=== PATIENT | male | born 1940 | race Caucasian/White ===

== ENCOUNTER 2020-10-22 11:53 | Outpatient (CLI) | payer MEDICARE, SELFPAY ==
--- NOTE | 2020-10-22 12:12 | XR_ITS ---
WS: [id number] Chest 2 views, 10/22/2020 Clinical Data: COUGH Comparison: PA and lateral chest, 02/20/2016. Findings: No nodules, masses or effusions are seen. The heart is enlarged. The pulmonary vascularity is not increased. No pneumonia or pneumothorax is seen. Midline sternotomy sutures are present. The d iaphragms are flattened. The aortic arch and descending aorta show tortuosity. XR/XR chest 2V* [id number] Impression: Atherosclerosis and cardiomegaly.
== END 2020-10-22 11:54 | disposition home or self-care (01) ==
PROVIDERS: PCP Family Medicine; Visit Provider Family Medicine
DX: R05 Cough (principal); I70.90 Unspecified atherosclerosis; I51.7 Cardiomegaly
CPT/HCPCS: 71046

== ENCOUNTER 2020-12-09 10:42 | Inpatient (IN) | payer MEDICARE, MEDICAID, SELFPAY ==
[2020-12-09] VITALS (48 sets, daily range): BP systolic 52–98; BP diastolic 31–64; PULSE 66–89; RESP 12–27; TEMP 36.8–36.9; O2SAT 92–100; BMI 40.4
--- NOTE | 2020-12-09 11:19 | CT_ITS ---
WS: [id number] CT CERVICAL SPINE HISTORY: fall, neck pain TECHNIQUE: Contiguous 2.5 mm axial imaging performed through the entire cervical spine. Sagittal and coronal reformats also performed. All CT scans at [facility] use at least one of these do se optimization techniques: automated exposure control; mA and/or kV adjustment per patient size (inc ludes targeted exams where dose is matched to clinical indication); or iterative reconstruction. DLP: 955.74 mGy.cm COMPARISON: None available. Straightening of the normal cervical lordosis. C4 anterolisthesis by 4 mm. Moderate narrowing of disc space of C5-6 and C6-7. Osteophytes and facet joint narrowing is mild to moderate throughout the cer vical spine. Craniocervical junction is normal. Lateral masses are aligned and the odontoid is intact . No cervical spine fractures. Bilateral facet joint arthritis and foraminal narrowing. Moderate to s evere bilateral foraminal stenosis at C5-6. Mild foraminal narrowing at C6-7. No acute-appearing disc protrusions. Lung apices are clear. Calcification in the LEFT carotid artery. CT/CT cervical spin wo con* [id number] IMPRESSION: 1. No acute cervical spine fracture. 2. Moderate spondylitic changes in the cervical spine. 3. No acute disc protrusions. 4. Moderate to severe bilateral foraminal stenosis at C5-6.
--- NOTE | 2020-12-09 11:19 | CT_ITS ---
WS: [id number] CT CHEST, ABDOMEN AND PELVIS WITH CONTRAST HISTORY: fall, chest pain, abd pain, bruising TECHNIQUE: Contiguous 5 mm axial imaging performed through the chest, abdomen and pelvis with IV cont rast, oral contrast has not been provided. Coronal and sagittal reformats chest. Coronal and sagittal reformats through the abdomen and pelvis. All CT scans at [facility] use at least one of these dose optimization techniques: automated exposure control; mA and/or kV adjustment per patient size (includes targeted exams where dose is matched to clinical indication); or iterative reconstruct ion. CONTRAST: Visipaque 320; 95 mL IV. DLP: 2396.03 mGy.cm COMPARISON: None available. Chest CT: Focal areas of interstitial thickening. Most significant is along the superior RIGHT major fissure extending into the RIGHT upper lobe. No pneumothorax. No pulmonary lacerations. Subsegmental atelectasis in the lingula and RIGHT middle lobe. Prior median sternotomy. No pericardial or pleural effusion. Small hiatal hernia. No adenopathy. Mild atherosclerosis of aorta. No mediastinal hematoma. There is a small amount of fat stranding over the anterior thorax which could be posttraumatic. Nond isplaced RIGHT lateral 11th rib fracture. Additional remote appearing posterior 10th rib fracture. No thoracic compression fractures. Soft tissue edema and stranding along the RIGHT lateral chest wall. Abdomen CT: No liver or splenic laceration. No adjacent hematoma. Gallbladder and pancreas are negati ve. No adrenal mass. Mild perinephric stranding around each kidney. No free fluid or adenopathy withi n the abdomen. Negative obstructive pattern of the GI tract. Severe diverticular disease in the sigmo id colon without acute diverticulitis. Normal appendix. Pelvic CT: No free fluid. No spine fracture identified. CT/CT chest abd pel w con* IMPRESSION: 1. No pulmonary laceration or pneumothorax. 2. Soft tissue stranding consistent with bruising and edema along the anterior chest wall and over the RIGHT lateral chest. 3. Nondisplaced RIGHT 11th rib fracture. 4. No mesenteric hematoma. 5. Liver and spleen are intact. 6. Sigmoid diverticulosis without diverticulitis. 7. No acute spine fractures appreciated. 8. Possible minimal pulmonary contusion in the RIGHT upper lung field along th e fissure.
--- NOTE | 2020-12-09 11:19 | CT_ITS ---
WS: [id number] CT HEAD NONCONTRAST HISTORY: AMS following a fall TECHNIQUE: Contiguous axial imaging performed through the brain in 2.5 mm imaging. Bone and soft tiss ue windows. Sagittal and coronal reformats reviewed. All CT scans at [facility] use at ast one of these dose optimization techniques: automated exposure control; mA and/or kV adjustment pe r patient size (includes targeted exams where dose is matched to clinical indication); or iterative r econstruction. DLP: 876.54 mGy.cm COMPARISON: 06/14/2013 No acute intracranial hemorrhage, midline shift or mass effect. Mild atrophy and chronic ischemic disease. No prior infarcts. Ventricles: Normal size with no hydrocephalus. Paranasal sinuses: As visualized are clear. Mastoid air cells: Well pneumatized. Calvarium and scalp: Skull is intact with no soft tissue edema or swelling. CT/CT head wo con* [id number] IMPRESSION: 1. No acute intracranial hemorrhage or edema. 2. Mild cerebral atrophy and chronic ischemic disease.
--- NOTE | 2020-12-09 11:57 | ECG_ITS ---
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
[2020-12-09] MEDS: sodium chloride 0.9% 500 ML 999 ML IV ×2 (12:00→20:09)
[2020-12-09 12:11] LABS: INR 0.94 (0.8-1.2)
[2020-12-09 12:25] LABS: Alanine Aminotransferase 22 U/L (0-41); Albumin Level 3.7 g/dL (3.5-5.2); Alkaline Phosphatase 66 IU/L (40-130); Aspartate Amino Transferase 50 U/L (0-40); Basophils % 0.1 %; Blood Urea Nitrogen 39 mg/dL (8-23); Calcium 8.4 mg/dL (8.5-10.5); Carbon Dioxide 31 mmol/L (22-29); Chloride 90 mmol/L (98-107); Eosinophils % 0.2 %; Globulin 2.1 g/dL (1.3-4.6); Glucose 101 mg/dL (65-115); Hemoglobin 11.9 g/dL (11.7-16.6); Lymphocytes # 0.9 10^3/uL (0.8-4.8); Mean Corpuscular HGB Conc 32.2 g/dL (30.0-36.0); Mean Corpuscular Hemoglobin 32.5 pg (28.0-34.0); Mean Corpuscular Volume 101.1 fL (80-94); Monocytes # 0.8 10^3/uL (0.2-0.9); Monocytes % 10.1 %; Neutrophils % 78.2 %; Nucleated Red Blood Cells % 0 %; Osmolality Calculated 274 mOsm/kg (285-295); Platelet Count 162 10^3/cmm (130-400); Red Blood Count 3.66 10^6/uL (4.1-5.3); Red Cell Distribution Width 12.8 % (12.1-15.1); Sodium 127 mmol/L (136-145); Total Bilirubin 0.8 mg/dL (0.15-1.2); Total Protein 5.8 g/dL (6.6-8.7); White Blood Count 8.3 10^3/uL (4.0-10.0)
[2020-12-09 12:26] LABS: Lactate (Lactic Acid level) 1.6 mmol/L (0.5-2.2)
[2020-12-09 12:35] LABS: Creatine Phosphokinase 1172 U/L (39-308)
[2020-12-09 12:43] LABS: Slide Review Slide Review Perform
[2020-12-09] MEDS: iodixanol 320 mg/mL 100mL Btl IV (13:06)
--- NOTE | 2020-12-09 13:58 | ED_ITS ---
HPI - Trauma General: Chief Complaint: Trauma Stated Complaint: fall/low O2/back pain/head injury/Rt side Time Seen by Provider: 12/09/20 11:36 Source: patient Mode of arrival: ambulatory Limitations: no limitations History of Present Illness: HPI narrative: This ia a 80 year old male who lives at home alone and apparently had a fall 4 days ago from his porch and landed on a steph path. He apparently had a downtime of 16 to 18 hours before he was found by his family members. The patient initially refused to come to the emergency department for evaluation but eventually agreed to do so today. He complains of chest pain, right upper abdominal pain, and back pain. His family members say that he is very weak and he had difficulty getting him out of bed. complaint: fall Onset (ago): day(s) (4) Loss of Consciousness: no Location: head, chest and abdomen Context: fall Associated symptoms: Reports abdominal pain, back pain, chest pain and visual disturbances; Denies anorexia, chills, confusion, cough, dental pain, diaphoresis, difficulty breathing, dizziness, epistaxis, fever(s), headache(s), nausea, seizures, short of breath, syncope or vomiting Review of Systems General: Reports: 10 or more systems reviewed and unremarkable except in HPI and below Const: Denies: fever(s), chills or diaphoresis Eyes: Denies: change in vision or blurry vision ENMT: Denies: dental pain or epistaxis Card: Reports: chest pain; Denies: syncope Resp: Denies: dyspnea, productive cough or non-productive cough GI: Reports: abdominal pain; Denies: nausea or vomiting : Denies: flank pain, dysuria, urinary frequency, urinary urgency or urinary hesitancy Musc: Reports: back pain Skin/Breast: Denies: rash, pruritus or erythema Neuro: Denies: headache(s), dizziness or confusion Endo: Denies: polyuria, polydipsia or tired all the time PFS ED PFSH: Medical History ASHD (arteriosclerotic heart disease) CHF (congestive heart failure) COPD (chronic obstructive pulmonary disease) Dyslipidemia HTN (hypertension) Hypothyroidism Ischemic cardiomyopathy Myocardial infarction Obesity Surgical History Hx of CABG Family History Other CAD (coronary artery disease) Stroke Social History Smoking and tobacco status: former smoker Alcohol intake: current Alcohol intake frequency: few times a week Substance/Drug Use: never Lives independently: Yes Housing: House Marital status: 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 Physical Exam Const: COMMON NORMALS: no acute distress, average body habitus, patient oriented x3, no limitations, healthy appearing, alert and well nourished HENMT: COMMON NORMALS: normocephalic, atraumatic and moist oral mucous membranes HEAD & SCALP: normocephalic and atraumatic Neck/C-Spine: COMMON NORMALS: full ROM, supple, no meningeal signs, no JVD and No carotid bruits CERVICAL SPINE: Yes Cervical spine tenderness Chest: CHEST: Yes abnormal inspection of the chest other (ecchymosis across his chest), Yes tenderness (and chestt wall) sternum and Yes Ecchymosis present Resp: COMMON NORMALS: normal respiratory effort, No retractions, No use of accessory muscles, clear to auscultation bilaterally and percussion normal AUSCULTATION: clear to auscultation bilaterally PERCUSSION: percussion normal Cardio: COMMON NORMALS: no JVD, regular rate, regular rhythm, S1 normal heart sound present, S2 normal heart sound present, No gallops present (Cardio), No clicks present (Cardio), No murmurs present (Cardio), No rub (Cardio) and Peripheral pulses 2+ throughout RATE: regular rate RHYTHM: regular rhythm HEART SOUNDS: S1 normal heart sound present and S2 normal heart sound present PERIPHERAL PULSES: Peripheral pulses 2+ throughout GI: COMMON NORMALS: Soft to palpation, No hepatosplenomegaly present, no masses and no bruits INSPECTION: Yes abdominal wall ecchymosis (greater on the right) PALPATION: Yes Soft to palpation, Yes Tenderness to palpation present (GI) Details: RUQ and Yes No hepatosplenomegaly present : COMMON NORMALS: Yes no CVA tenderness BLADDER/KIDNEY EXAM: Yes no CVA tenderness Back/Pelvis: COMMON NORMALS: no CVA tenderness Extremity: COMMON NORMALS: normal to inspection, full ROM, capillary refill normal and no calf tenderness GENERAL: Yes edema Neuro: COMMON NORMALS: patient oriented x3 SENSORIUM/ORIENTATION: Yes alert MENINGEAL SIGNS: Yes no meningeal signs Skin: COMMON NORMALS: no rashes or lesions noted, no wounds, turgor normal, no jaundice, no petechiae and no mottling GENERAL SKIN EXAM: no rashes or lesions noted and turgor normal MDM - Trauma MDM Narrative: Medical decision making narrative: This is a 80-year-old male who had a fall for about 4 days ago and has extensive downtime. On evaluation in the emergency department he has rhabdomyolysis with acute kidney injury, hyponatremia, hypotension, right 11th rib fracture and possible pulmonary contusion. He is admitted to the ICU for further evaluation and management. Other than hypertension his vital signs were stable in the emergency department. He was alert and oriented throughout his ED stay and not in any distress. Medical Records: Attestation: I reviewed the patient's medical records. Lab Data: Attestation: I reviewed the patient's lab results. Labs: Lab Results 12/09/20 12/09/20 12/09/20 Range/Units 11:38 11:38 11:38 WBC 8.3 (4.0-10.0) 10^3/ uL RBC 3.66 L (4.1-5.3) 10^6/u L Hgb 11.9 (11.7-16.6) g/dL Hct 37.0 L (42.0-52.0) % MCV 101.1 H (80-94) fL MCH 32.5 (28.0-34.0) pg MCHC 32.2 (30.0-36.0) g/dL RDW 12.8 (12.1-15.1) % Plt Count 162 (130-400) 10^3/c mm MPV 12.0 H (7.4-10.4) fL Neut % (Auto) 78.2 % Lymph % (Auto) 11.0 % [place] % (Auto) 10.1 % Eos % (Auto) 0.2 % Baso % (Auto) 0.1 % Neut # (Auto) 6.50 (1.8-7.7) 10^3/u L Lymph # (Auto) 0.9 (0.8-4.8) 10^3/u L [place] # (Auto) 0.8 (0.2-0.9) 10^3/u L Eos # (Auto) 0.0 (0.0-0.8) 10^3/u L Baso # (Auto) 0.0 (0.0-0.1) 10^3/u L Nucleated RBC % (a uto) 0 % Nucleated RBCs # 0.0 /100WBC PT 12.90 (12.1-14.9) SECO NDS INR 0.94 (0.8-1.2) Sodium 127 L (136-145) mmol/L Potassium 5.0 (3.5-5.1) mmol/L Chloride 90 L (98-107) mmol/L Carbon Dioxide 31 H (22-29) mmol/L Anion Gap 11.0 (5-19) BUN 39 H (8-23) mg/dL Creatinine 1.9 H (0.7-1.2) mg/dL GFR Calculation Not Reportable Glucose 101 (65-115) mg/dL Calculated Osmolal ity 274 L (285-295) mOsm/k g Lactate (0.5-2.2) mmol/L Calcium 8.4 L (8.5-10.5) mg/dL Total Bilirubin 0.8 (0.15-1.2) mg/dL AST 50 H (0-40) U/L ALT 22 (0-41) U/L Alkaline Phosphata se 66 (40-130) IU/L Creatine Kinase 1172 H* (39-308) U/L Troponin T Gen 5 n g/L (0-15) ng/L Total Protein 5.8 L (6.6-8.7) g/dL Albumin 3.7 (3.5-5.2) g/dL Globulin 2.1 (1.3-4.6) g/dL Urine Color (Yellow) Urine Appearance (CLEAR) Urine pH (5-7) Ur Specific Gravit y (1.005-1.030) Urine Protein (Negative) Urine Glucose (UA) (Normal) Urine Ketones (Negative) Urine Blood (Negative) Urine Nitrate (Negative) Urine Bilirubin (Negative) Urine Urobilinogen (Negative) mg/dL Ur Leukocyte Yaritza ase (Negative) Blood Type Rho(D) Type Antibody Screen 12/09/20 12/09/20 12/09/20 Range/Units 11:38 11:38 11:38 WBC (4.0-10.0) 10^3/ uL RBC (4.1-5.3) 10^6/u L Hgb (11.7-16.6) g/dL Hct (42.0-52.0) % MCV (80-94) fL MCH (28.0-34.0) pg MCHC (30.0-36.0) g/dL RDW (12.1-15.1) % Plt Count (130-400) 10^3/c mm MPV (7.4-10.4) fL Neut % (Auto) % Lymph % (Auto) % [place] % (Auto) % Eos % (Auto) % Baso % (Auto) % Neut # (Auto) (1.8-7.7) 10^3/u L Lymph # (Auto) (0.8-4.8) 10^3/u L [place] # (Auto) (0.2-0.9) 10^3/u L Eos # (Auto) (0.0-0.8) 10^3/u L Baso # (Auto) (0.0-0.1) 10^3/u L Nucleated RBC % (a uto) % Nucleated RBCs # /100WBC PT (12.1-14.9) SECO NDS INR (0.8-1.2) Sodium (136-145) mmol/L Potassium (3.5-5.1) mmol/L Chloride (98-107) mmol/L Carbon Dioxide (22-29) mmol/L Anion Gap (5-19) BUN (8-23) mg/dL Creatinine (0.7-1.2) mg/dL GFR Calculation Glucose (65-115) mg/dL Calculated Osmolal ity (285-295) mOsm/k g Lactate 1.6 (0.5-2.2) mmol/L Calcium (8.5-10.5) mg/dL Total Bilirubin (0.15-1.2) mg/dL AST (0-40) U/L ALT (0-41) U/L Alkaline Phosphata se (40-130) IU/L Creatine Kinase (39-308) U/L Troponin T Gen 5 n g/L 52 H (0-15) ng/L Total Protein (6.6-8.7) g/dL Albumin (3.5-5.2) g/dL Globulin (1.3-4.6) g/dL Urine Color (Yellow) Urine Appearance (CLEAR) Urine pH (5-7) Ur Specific Gravit y (1.005-1.030) Urine Protein (Negative) Urine Glucose (UA) (Normal) Urine Ketones (Negative) Urine Blood (Negative) Urine Nitrate (Negative) Urine Bilirubin (Negative) Urine Urobilinogen (Negative) mg/dL Ur Leukocyte Yaritza ase (Negative) Blood Type A Positive Rho(D) Type Positive Antibody Screen Positive 12/09/20 Range/Units 14:05 WBC (4.0-10.0) 10^3/ uL RBC (4.1-5.3) 10^6/u L Hgb (11.7-16.6) g/dL Hct (42.0-52.0) % MCV (80-94) fL MCH (28.0-34.0) pg MCHC (30.0-36.0) g/dL RDW (12.1-15.1) % Plt Count (130-400) 10^3/c mm MPV (7.4-10.4) fL Neut % (Auto) % Lymph % (Auto) % [place] % (Auto) % Eos % (Auto) % Baso % (Auto) % Neut # (Auto) (1.8-7.7) 10^3/u L Lymph # (Auto) (0.8-4.8) 10^3/u L [place] # (Auto) (0.2-0.9) 10^3/u L Eos # (Auto) (0.0-0.8) 10^3/u L Baso # (Auto) (0.0-0.1) 10^3/u L Nucleated RBC % (a uto) % Nucleated RBCs # /100WBC PT (12.1-14.9) SECO NDS INR (0.8-1.2) Sodium (136-145) mmol/L Potassium (3.5-5.1) mmol/L Chloride (98-107) mmol/L Carbon Dioxide (22-29) mmol/L Anion Gap (5-19) BUN (8-23) mg/dL Creatinine (0.7-1.2) mg/dL GFR Calculation Glucose (65-115) mg/dL Calculated Osmolal ity (285-295) mOsm/k g Lactate (0.5-2.2) mmol/L Calcium (8.5-10.5) mg/dL Total Bilirubin (0.15-1.2) mg/dL AST (0-40) U/L ALT (0-41) U/L Alkaline Phosphata se (40-130) IU/L Creatine Kinase (39-308) U/L Troponin T Gen 5 n g/L (0-15) ng/L Total Protein (6.6-8.7) g/dL Albumin (3.5-5.2) g/dL Globulin (1.3-4.6) g/dL Urine Color Yellow (Yellow) Urine Appearance Clear (CLEAR) Urine pH 5 (5-7) Ur Specific Gravit y 1.020 (1.005-1.030) Urine Protein Neg (Negative) Urine Glucose (UA) Norm (Normal) Urine Ketones Negative (Negative) Urine Blood Neg (Negative) Urine Nitrate Negative (Negative) Urine Bilirubin 1+ H (Negative) Urine Urobilinogen 4 H (Negative) mg/dL Ur Leukocyte Yaritza ase Negative (Negative) Blood Type Rho(D) Type Antibody Screen Imaging Data^: Other CT: Attestation: I personally reviewed and interpreted this imaging study as follows: Radiologist's impression: [address] [address] [address] Scan Report Signed Patient: Migel Watt #: [id number] : 3Acct#:[id number] Age/Sex: 80 / MADM Date: 12/09/20 Loc: ERRoom/Bed: Attending Dr: Ordering Provider/Ordering MD: Salvador Mario MD, [facility] [place] Date of Service: 12/09/20 Procedure(s): CT cervical spin wo con* [id number] Accession Number(s): [id number] Report Number: [id number] WS: [id number] CT CERVICAL SPINE HISTORY: fall, neck pain TECHNIQUE: Contiguous 2.5 mm axial imaging performed through the entire cervical spine. Sagittal and coronal reformats also performed. All CT scans at [facility] use at least one of these dose optimization techniques: automated exposure control; mA and/or kV adjustment per patient size (includes targeted exams where dose is matched to clinical indication); or iterative reconstruction. DLP: 955.74 mGy.cm COMPARISON: None available. Straightening of the normal cervical lordosis. C4 anterolisthesis by 4 mm. Moderate narrowing of disc space of C5-6 and C6-7. Osteophytes and facet joint narrowing is mild to moderate throughout the cervical spine. Craniocervical junction is normal. Lateral masses are aligned and the odontoid is intact. No cervical spine fractures. Bilateral facet joint arthritis and foraminal narrowing. Moderate to severe bilateral foraminal stenosis at C5-6. Mild forami nal narrowing at C6-7. No acute-appearing disc protrusions. Lung apices are clear. Calcification in the LEFT carotid artery. CT/CT cervical spin wo con* [id number] IMPRESSION: 1. No acute cervical spine fracture. 2. Moderate spondylitic changes in the cervical spine. 3. No acute disc protrusions. 4. Moderate to severe bilateral foraminal stenosis at C5-6. Dictated By:Nisha Biswas DO Signed By:Nisha Biswas DOSigned Date/Time:12/09/20 1348 DD/ 1344 CT Chest: Attestation: I personally reviewed and interpreted this imaging study as follows: Radiologist's impression: [address] [address] [address] Scan Report Signed Patient: Migel Watt #: [id number] : 3Acct#:[id number] Age/Sex: 80 / MADM Date: 12/09/20 Loc: ERRoom/Bed: Attending Dr: Ordering Provider/Ordering MD: Salvador Mario MD, [facility] [place] Date of Service: 12/09/20 Procedure(s): CT chest abd pel w con* Accession Number(s): [id number] Report Number: [id number] WS: [id number] CT CHEST, ABDOMEN AND PELVIS WITH CONTRAST HISTORY: fall, chest pain, abd pain, bruising TECHNIQUE: Contiguous 5 mm axial imaging performed through the chest, abdomen and pelvis with IV contrast, oral contrast has not been provided. Coronal and sagittal reformats chest. Coronal and sagittal reformats through the abdomen and pelvis. All CT scans at [facility] use at least one of these dose optimization techniques: automated exposure control; mA and/or kV adjustment per patient size (includes targeted exams where dose is matched to clinical indication); or iterative reconstruction. CONTRAST: Visipaque 320; 95 mL IV. DLP: 2396.03 mGy.cm COMPARISON: None available. Chest CT: Focal areas of interstitial thickening. Most significant is along the superior RIGHT major fissure extending into the RIGHT upper lobe. No pneumothorax. No pulmonary lacerations. Subsegmental atelectasis in the lingula and RIGHT middle lobe. Prior median sternotomy. No pericardial or pleural effusion. Small hiatal hernia. No adenopathy. Mild atherosclerosis of aorta. No mediastinal hematoma. There is a small amount of fat stranding over the anterior thorax which could be posttraumatic. Nondisplaced RIGHT lateral 11th rib fracture. Additional remote appearing posterior 10th rib fracture. No thoracic compression fractures. Soft tissue edema and stranding along the RIGHT lateral chest wall. Abdomen CT: No liver or splenic laceration. No adjacent hematoma. Gallbladder and pancreas are negative. No adrenal mass. Mild perinephric stranding around each kidney. No free fluid or adenopathy within the abdomen. Negative obstructive pattern of the GI tract. Severe diverticular disease in the sigmoid colon without acute diverticulitis. Normal appendix. Pelvic CT: No free fluid. No spine fracture identified. CT/CT chest abd pel w con* IMPRESSION: 1. No pulmonary laceration or pneumothorax. 2. Soft tissue stranding consistent with bruising and edema along the anterior chest wall and over the RIGHT lateral chest. 3. Nondisplaced RIGHT 11th rib fracture. 4. No mesenteric hematoma. 5. Liver and spleen are intact. 6. Sigmoid diverticulosis without diverticulitis. 7. No acute spine fractures appreciated. 8. Possible minimal pulmonary contusion in the RIGHT upper lung field along the fissure. Dictated By:Nisha Biswas DO Signed By:Nisha Biswas DOSigned Date/Time:12/09/20 1412 DD/ 1348 CT Head: Attestation: I personally reviewed and interpreted this imaging study as follows: Radiologist's impression: [address] [address] [address] Scan Report Signed Patient: Migel Watt #: [id number] : 3Acct#:[id number] Age/Sex: 80 / MADM Date: 12/09/20 Loc: ERRoom/Bed: Attending Dr: Ordering Provider/Ordering MD: Salvador Mario MD, [facility] [place] Date of Service: 12/09/20 Procedure(s): CT head wo con* [id number] Accession Number(s): [id number] Report Number: [id number] WS: [id number] CT HEAD NONCONTRAST HISTORY: AMS following a fall TECHNIQUE: Contiguous axial imaging performed through the brain in 2.5 mm imaging. Bone and soft tissue windows. Sagittal and coronal reformats reviewed. All CT scans at [facility] use at least one of these dose optimization techniques: automated exposure control; mA and/or kV adjustment per patient size (includes targeted exams where dose is matched to clinical indication); or iterative reconstruction. DLP: 876.54 mGy.cm COMPARISON: 06/14/2013 No acute intracranial hemorrhage, midline shift or mass effect. Mild atrophy and chronic ischemic disease. No prior infarcts. Ventricles: Normal size with no hydrocephalus. Paranasal sinuses: As visualized are clear. Mastoid air cells: Well pneumatized. Calvarium and scalp: Skull is intact with no soft tissue edema or swelling. CT/CT head wo con* [id number] IMPRESSION: 1. No acute intracranial hemorrhage or edema. 2. Mild cerebral atrophy and chronic ischemic disease. Dictated By:Nisha Biswas DO Signed By:Nisha Biswas DOSigned Date/Time:12/09/20 1310 DD/ 1303 EKG Data^: EKG 1: Attestation: I personally reviewed and interpreted this EKG as follows: EKG interpretation date: 12/09/20 EKG interpretation time: 11:04 Prior EKG tracings: not available for review Interpretation: Poor EKG tracing. Heart rate 76 bpm. Left axis deviation. No ST changes. Discharge Plan Discharge Patient Disposition: Admitted As Inpatient Admit Provider: Jose Gongora Clinical Impression: Acute kidney injury, Hyponatremia Rhabdomyolysis Qualifiers: Rhabdomyolysis type: traumatic Encounter type: initial encounter Qualified Code(s): T79.6XXA - Traumatic ischemia of muscle, initial encounter Obesity Qualifiers: Obesity type: unspecified obesity type Obesity classification: adult class 3 (BMI >= 40) Serious obesity comorbidity presence: unspecified whether serious comorbidity present Body mass index: BMI 40.0-44.9 Qualified Code(s): E66.01 - Morbid (severe) obesity due to excess calories Hypotension Qualifiers: Hypotension type: unspecified hypotension type Qualified Code(s): I95.9 - Hypotension, unspecified Lung contusion Qualifiers: Encounter type: initial encounter Laterality: right Qualified Code(s): S27.321A - Contusion of lung, unilateral, initial encounter Closed rib fracture Qualifiers: Encounter type: initial encounter Rib fracture type: single rib Laterality: right Qualified Code(s): S22.31XA - Fracture of one rib, right side, initial encounter for closed fracture Condition: Stable Coding Level of Care Code ED Pharmacy Grad Intern for g Fwd Exam Comprehensive
[2020-12-09 14:10] LABS: Add Urine Microscopic? NO
[2020-12-09 15:11] LABS: Bilirubin Urine 1+ (Negative); Blood Urine Neg (Negative); Glucose Urine UA Norm (Normal); Ketones Urine Negative (Negative); Leukocyte Esterase Urine Negative (Negative); Nitrate Urine Negative (Negative); Protein Urine Neg (Negative); Urine Appearance Clear (CLEAR); Urine Color Yellow (Yellow); Urobilinogen Urine 4 mg/dL (Negative); pH Urine 5 (5-7)
[2020-12-09] MEDS: sodium chloride 0.9% 1,000 ML 999 ML IV (15:12)
[2020-12-09 16:59] LABS: Troponin T (5th) Once 52 ng/L (0-15)
--- NOTE | 2020-12-09 19:25 | PM.HP ---
Providers/Chief Complaint Admitting Physician: Jose Gongora Primary Care Provider: Margarito Perez MD Chief Complaint: fall/low O2/back pain/head injury/Rt side History of Present Illness Pleasant 80-year-old gentleman with history of CHF, COPD(Although he is not aware), on night time oxygen, CAD status post CABG, HLD, HTN, reports has been falling more recently, has been working with his primary care provider to try to identify the cause and reduce falls, however, has changed PCP recently and has only seen Dr. Perez once so far, fell down on Tuesday, stayed down probably for about 15 hours altogether, managed to crawl down after the mechanical fall to the house, where he stayed until family members came and found him. He has been having chronic back pain, somewhat worse recently. He denies any syncope, dizziness, or other events preceding his falls. Says that he loses his balance. Legs become weak underneath him. Reportedly he did hit his head when he fell on Tuesday. He did not want to come in for evaluation and finally was convinced by family to get assessed in ER. He is reluctant to stay in the hospital, but per discussion with ER physician agreed to stay until tomorrow for now. During my visit he is already asking when he may be able to return home. He is bothered by back pain with repositioning. Denies any saddle anesthesia. Denies any urinary or fecal incontinence. No fracture in the spine identified on CT chest abdomen pelvis. He is noted to have nondisplaced right 11th rib fracture. Possible minimal pulmonary contusion on the right. Noted soft tissue stranding consistent with bruising and edema along the anterior chest wall and over the right lateral chest. He hit his head, although without any external injury or laceration. No acute intracranial hemorrhage or edema, mild cerebral atrophy and chronic ischemic change on CT of the head. CT cervical spine with moderate spondylitic changes in cervical spine. Moderate severe bilateral foraminal stenosis C5-6. In ER he is noted with acute kidney injury, creatinine 1.9. Rhabdomyolysis, creatine kinase 1172. He is also noted hypotensive, and does report continue taking his blood pressure medications, with poor appetite recently, and poor water intake. Blood pressure 81/49. Troponin noted 52, 43.7 at 2 hours. He denies chest pain apart from chest wall pain on the right side. EKG with left axis deviation, no obvious acute ischemic changes, machine read as possible SVT, but very difficult to assess due to tremor affected baseline. Patient reports that he fell after tripping on some rocks outside his house. He otherwise has been very active overall despite his chronic back problems and recently more issues with falling. 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 He was recently set up with a walker, and appears has been starting to use it. Review of Systems Const: Denies: fever(s), chills, body aches or malaise Eyes: Denies: change in vision or eye redness ENMT: Denies: throat pain, oral sores or ear or mastoid pain Card: Reports: edema (Intermittent leg edema, less currently); Denies: chest pain, pre-syncope or dyspnea on exertion Resp: Reports: other (Snores at night); Denies: dyspnea, productive cough, change in phlegm color or hemoptysis GI: Denies: abdominal pain, nausea, vomiting, diarrhea, constipation, hematochezia or melena : Denies: flank pain, difficulty urinating, urinary frequency or hematuria Musc: Reports: back pain (Chronic, worse recently); Denies: joint swelling or joint redness Skin/Breast: Denies: rash, sores or new lesions Neuro: Denies: headache(s), numbness in extremities, weakness in extremities, dizziness, confusion or seizure-like activity Endo: Denies: polyuria or polydipsia Rosales/Lymph: Denies: easy bleeding or purpura All/Imm: Denies: urticaria, throat swelling or tongue swelling Medications/Allergies Home Medications Medication Instructions Recorded Confirmed Last Taken Type aspirin 81 mg tablet,delayed 81 mg PO DAILY@03/12/20 12/09/20 12/09/20 History release cilostazol 100 mg tablet 100 mg PO BID@03/12/20 12/09/20 12/09/20 History simvastatin 80 mg tablet 80 mg PO DAILY@1700 03/12/20 12/09/20 12/08/20 History spironolactone 25 mg tablet 25 mg PO DAILY@07 03/12/20 12/09/20 12/09/20 History carvedilol 25 mg tablet 25 mg PO .COMPLEX #135 tab 06/04/20 12/09/20 12/09/20 Rx clopidogrel 75 mg PO DAILY@12/09/20 12/09/20 12/09/20 History levothyroxine 100 mcg PO DAILY@12/09/20 12/09/20 12/09/20 History losartan 50 mg PO DAILY@12/09/20 12/09/20 12/09/20 History Allergies Allergy/AdvReac Type Severity Reaction Status Date / Time No Known Allergies Allergy Verified 09/26/20 08:59 PFSH Acute PFSH: Medical History ASHD (arteriosclerotic heart disease) CHF (congestive heart failure) COPD (chronic obstructive pulmonary disease) Dyslipidemia HTN (hypertension) Hypothyroidism Ischemic cardiomyopathy Myocardial infarction Obesity Surgical History Hx of CABG Family History Other CAD (coronary artery disease) Stroke Social History Smoking and tobacco status: former smoker Alcohol intake: current Alcohol intake frequency: few times a week Substance/Drug Use: never Lives independently: Yes Housing: House Marital status: 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 Vitals/I&O/Wt Last Vital Signs Temp 98.3 F 12/09/20 10:57 Pulse 79 12/09/20 19:11 Resp 17 12/09/20 19:05 BP 81/49 12/09/20 19:11 Pulse Ox 97 12/09/20 19:11 12/09/20 12/09/20 12/09/20 06:59 14:59 22:59 Intake Total 500 / 500 Balance 500 / 500 Weight last 48 hrs Weight 120.656 kg Physical Exam Narrative: EXAM NARRATIVE: Accompanied by granddaughter Const: COMMON NORMALS: no acute distress and patient oriented x3 NUTRITIONAL APPEARANCE: obese ORIENTATION/CONSCIOUSNESS: Yes awake HENMT: COMMON NORMALS: normocephalic, atraumatic and oropharynx normal Neck/C-Spine: COMMON NORMALS: no JVD Chest: OTHER: Edema, tenderness of right chest wall Resp: COMMON NORMALS: normal respiratory effort and clear to auscultation bilaterally AUSCULTATION: clear to auscultation bilaterally Cardio: COMMON NORMALS: no JVD, regular rhythm, S1 normal heart sound present, S2 normal heart sound present and No murmurs present (Cardio) RHYTHM: regular rhythm HEART SOUNDS: S1 normal heart sound present and S2 normal heart sound present GI: COMMON NORMALS: Normal to inspection, nondistended, normoactive bowel sounds present, Soft to palpation and non-tender PALPATION: Yes Soft to palpation Back/Pelvis: OTHER: Antalgic positioning due to back pain. Finds the ER bed very uncomfortable. Extremity: COMMON NORMALS: no joint enlargement GENERAL: Yes edema (trace BLE) Neuro: COMMON NORMALS: patient oriented x3 and moves all extremities Skin: COMMON NORMALS: no rashes or lesions noted GENERAL SKIN EXAM: no rashes or lesions noted Data : 12/09/20 11:38 12/09/20 11:38 A&P Assessment and plan (1) Hypotension: Hypotension appears to be combination of hypovolemia, recently with poor appetite, poor oral intake and hydration, as well as continued intake of medications including spironolactone, also continue taking antihypertensive medications including losartan, carvedilol. Hold antihypertensives. Will give additional 500 mL normal saline bolus. Monitor in ICU. Pressors as needed to maintain mean arterial pressure above 60-65 mmHg. Status: Acute (2) Falls: With chronic back pain, recently more progressive falls. Does not appear to show symptoms of acute cord compression. No fracture noted in spine on CT chest abdomen pelvis. Incidentally noted fracture of 11th rib on the right. He was recently set up with a walker. Does have quite significant degenerative changes with neuroforaminal stenosis in cervical spine. We will check TSH. PT OT. Recheck sodium with rehydration. Status: Acute (3) Back pain: Chronic back pain, although recently worse. Will discuss CT with radiology, consider additional assessment by CT spine versus MRI, although without signs of acute cord compression, this may be done outpatient. Consider referral to orthospine surgery. Multilevel neuroforaminal narrowing noted on CT cervical spine. Suspect similar degenerative changes present in other areas. Status: Acute (4) Hyponatremia: Suspect hypovolemic hyponatremia due to persistent intake of spironolactone, poor oral intake. Received fluid rehydration. Will recheck sodium level. Status: Acute (5) Rhabdomyolysis: Mild rhabdomyolysis, but unclear whether this is worsening or getting better. With acute kidney injury. We will recheck CK level. Monitor renal function. Status: Acute (6) Acute kidney injury: Creatinine up to 1.9. Suspect this may be multifactorial, prerenal secondary to hypovolemia, poor oral intake, hypotension, continued intake of medications including losartan. Monitor blood pressure in ICU. Support blood pressure. Hold losartan. Possible effect of rhabdomyolysis. Unclear whether this is resolving or worsening. Follow-up CK. Status: Acute (7) Lung contusion: Discussed also with him and his granddaughter regarding noted possible small lung contusion on chest CT. Discussed consideration of possible associated hypoxic respiratory failure, although risk should be lower given minimal involvement, however, would like to monitor for any progression of hypoxia or pulmonary symptoms. Add incentive spirometry. Status: Acute (8) Obesity: Status: Acute (9) Sleep apnea: He reports some history of snoring, but also has been noticing drooling, possibly breathing through his mouth at night. Uses nighttime oxygen. With morbid obesity may benefit from outpatient assessment for possible sleep apnea. Status: Acute Attestations Medical Necessity Statement*: Admission of over 2 midnights ago needed for assessment of management of hypotension, acute kidney injury, rhabdomyolysis, recently worsening back pain, recurrent falls, currently with lung contusion, rib fracture. Coding Level of Care Code Acute [employer] for [facility] Fwd Diagnoses Hypotension I95.9 Falls W19.XXXA Back pain M54.9 Hyponatremia E87.1 Rhabdomyolysis M62.82 Acute kidney injury N17.9 Lung contusion S27.329A Obesity E66.9 Sleep apnea G47.30
--- NOTE | 2020-12-09 20:30 | PC.NURSE ---
Patient brought to ICU 10 via wheelchair from ER. Placed in bed on bowstring maker, bp cuff, sat monitor, oxygen 2 liters nc. Oriented to room, bed in low postion, side rales up x 2, call light in reach.
[2020-12-09 21:45] LABS: Sodium 132 mmol/L (136-145)
[2020-12-10] VITALS (146 sets, daily range): BP systolic 50–148; BP diastolic 36–93; PULSE 60–109; RESP 9–33; TEMP 36.3–36.9; O2SAT 83–100; BMI 42.1
[2020-12-10] MEDS: acetaminophen 325 mg Tablet 650 MG PO ×3 (01:51→09:26)
[2020-12-10 04:25] LABS: Cortisol Random 11.98 ug/dL (2.47-19.5)
[2020-12-10 04:50] LABS: Alanine Aminotransferase 24 U/L (0-41); Albumin Level 3.6 g/dL (3.5-5.2); Alkaline Phosphatase 59 IU/L (40-130); Anion Gap 13.2 (5-19); Aspartate Amino Transferase 41 U/L (0-40); Blood Urea Nitrogen 41 mg/dL (8-23); Calcium 8.2 mg/dL (8.5-10.5); Carbon Dioxide 28 mmol/L (22-29); Chloride 95 mmol/L (98-107); Globulin 2.1 g/dL (1.3-4.6); Glucose 109 mg/dL (65-115); Magnesium 2.4 mg/dL (1.7-2.3); Osmolality Calculated 283 mOsm/kg (285-295); Potassium 5.2 mmol/L (3.5-5.1); Sodium 131 mmol/L (136-145); Total Bilirubin 0.6 mg/dL (0.15-1.2); Total Protein 5.7 g/dL (6.6-8.7)
[2020-12-10 04:55] LABS: Creatine Phosphokinase 707 U/L (39-308)
[2020-12-10] MEDS: aspirin 81 mg EC Tablet PO (06:46)
[2020-12-10] MEDS: clopidogrel 75 mg Tablet PO (06:46)
[2020-12-10] MEDS: cilostazol 100 mg Tablet PO ×2 (06:46→17:26)
[2020-12-10] MEDS: levothyroxine 100 mcg Tablet PO (06:46)
[2020-12-10 06:56] LABS: Basophils % 0.2 %; Eosinophils % 0.3 %; Hemoglobin 11.3 g/dL (11.7-16.6); Lymphocytes # 1.3 10^3/uL (0.8-4.8); Mean Corpuscular HGB Conc 31.4 g/dL (30.0-36.0); Mean Corpuscular Hemoglobin 32.8 pg (28.0-34.0); Mean Corpuscular Volume 104.3 fL (80-94); Mean Platelet Volume 11.8 fL (7.4-10.4); Monocytes # 1.2 10^3/uL (0.2-0.9); Monocytes % 11.7 %; Neutrophils # 7.32 10^3/uL (1.8-7.7); Neutrophils % 74.2 %; Nucleated Red Blood Cells % 0 %; Platelet Count 220 10^3/cmm (130-400); Red Blood Count 3.45 10^6/uL (4.1-5.3); Red Cell Distribution Width 12.8 % (12.1-15.1); White Blood Count 9.9 10^3/uL (4.0-10.0)
[2020-12-10 08:20] LABS: Slide Review Slide Review Perform
[2020-12-10] MEDS: hydrocortisone 100 mg/2 mL SDV IVP ×2 (08:24→12:54)
--- NOTE | 2020-12-10 09:09 | PC.OT ---
OT NOTE: OT EVALUATION ATTEMPTED. PATIENT UNABLE TO MAINTAIN ALERTNESS. WILL ATTEMPT AGAIN IN P.M.
--- NOTE | 2020-12-10 09:22 | P.PN_ITS ---
Subjective Subjective: Interval history: This morning he is somnolent. Wakes up to answer questions and then falls back asleep. Denies any pain or discomfort. Denies any chest pain. Denies any dizziness or lightheadedness. Knows he is in [place] in the hospital. Knows it is 2020. Earlier was stating to the nurse it was December. Knows he is in the hospital after he had fallen down. Then falls back asleep. Back pain much better today. Vitals/I&O/Wt Last Vital Signs Temp 98.4 F 12/09/20 20:37 Pulse 98 12/10/20 07:55 Resp 16 12/10/20 07:55 BP 70/36 12/10/20 05:35 Pulse Ox 98 12/10/20 07:55 12/09/20 12/10/20 12/10/20 22:59 06:59 14:59 Intake Total 454.460 / 2468.267 80.555 / 80.555 Output Total 300 / 300 Balance 154.460 / 2168.267 80.555 / 80.555 Weight last 48 hrs Weight 125.645 kg Weight 120.656 kg Physical Exam Const: COMMON NORMALS: no acute distress and patient oriented x3 GENERAL APPEARANCE: cooperative and lethargic NUTRITIONAL APPEARANCE: obese ORIENTATION/CONSCIOUSNESS: Yes lethargic HENMT: COMMON NORMALS: normocephalic, atraumatic and oropharynx normal HEAD & SCALP: normocephalic and atraumatic Neck/C-Spine: COMMON NORMALS: no JVD Chest: OTHER: Edema, tenderness of right chest wall. Somewhat shallow breaths. Resp: COMMON NORMALS: normal respiratory effort AUSCULTATION: crackles Laterality: bilateral (Bases) Cardio: COMMON NORMALS: no JVD, regular rhythm, S1 normal heart sound present, S2 normal heart sound present and No murmurs present (Cardio) RHYTHM: regular rhythm HEART SOUNDS: S1 normal heart sound present and S2 normal heart sound present GI: COMMON NORMALS: Normal to inspection, nondistended, normoactive bowel sounds present, Soft to palpation and non-tender PALPATION: Yes Soft to palpation Back/Pelvis: OTHER: Back pain much better today. Extremity: COMMON NORMALS: no joint enlargement GENERAL: Yes edema (trace BLE) Neuro: COMMON NORMALS: patient oriented x3 and moves all extremities SENSORIUM/ORIENTATION: Yes lethargic Skin: COMMON NORMALS: no rashes or lesions noted GENERAL SKIN EXAM: no rashes or lesions noted Data : 12/10/20 06:28 12/10/20 03:45 A&P Assessment and plan (1) Acute encephalopathy: Is somnolent this morning. Able to answer questions, but promptly falls back asleep. Denies any discomfort. Has no headache, dizziness, ligh theadedness. Still requiring pressor support, but with pressor blood pressure in the desired range. He is noted to be taking shallow breaths, appears to have history of COPD, although he himself is not aware of this, and we are also suspecting sleep apnea, possible OHS. With contusion to his chest, rib fracture he is at risk of carbon dioxide retention. We are avoiding narcotics or any stronger pain medications. Tylenol as needed for pain. Encourage incentive spirometry. We will add lidocaine patch to help reduce pain induced hypopnea. He is waking up and is wanting to have some breakfast and coffee. We will try to get him more awake, if persistently lethargic we will be obtaining an ABG. Status: Acute (2) Hypotension: Requiring pressor support overnight, Levophed 8 mcg, this morning had to go up to 10. With some noted hyponatremia, hyperkalemia, so this may have been secondary to spironolactone intake, hypovolemia, poor oral intake/low solute intake, however, also cortisol noted on the low side this morning. Will give additional stress dose hydrocortisone. Continue to monitor blood pressure. Taper off depending on response. I do see that he had a prednisone prescription as recently as October of this year. Although does not appear to be on chronic steroid. Hold antihypertensives. Some mild crackles at bases. History of CHF. Avoid additional IV fluid. Monitor in ICU. Pressors as needed to maintain mean arterial pressure above 60- 65 mmHg. Status: Acute Qualifiers: Hypotension type: unspecified hypotension type Qualified Code(s): I95.9 - Hypotension, unspecified (3) Falls: Discussed w radiology. Will obtain dedicated imaging of thoracic lumbar spine to assess for significant stenosis or less apparent fractures. With chronic back pain, recently more progressive falls. Does not appear to show symptoms of acute cord compression. No fracture noted in spine on CT chest abdomen pelvis. Incidentally noted fracture of 11th rib on the right. He was recently set up with a walker. Does have quite significant degenerative changes with neuroforaminal stenosis in cervical spine. Normal TSH. PT once BP more stable. Recheck sodium with good gradual improvement. Status: Acute (4) Back pain: Chronic back pain, although recently worse. Will discuss CT with radiology, consider additional assessment by CT spine versus MRI, although without signs of acute cord compression, this may be done outpatient. Consider referral to orthospine surgery. Multilevel neuroforaminal narrowing noted on CT cervical spine. Suspect similar degenerative changes present in other areas. Status: Acute (5) Hyponatremia: With gradual improvement. Encourage oral intake. Hold diuretic for now. Suspect hypovolemic hyponatremia due to persistent intake of spironolactone, poor oral intake. Received fluid rehydration. Hold additional IV fluid. Recheck sodium level. Status: Acute (6) Rhabdomyolysis: Improving. Status: Acute Qualifiers: Encounter type: initial encounter Rhabdomyolysis type: traumatic Qualified Code(s): T79.6XXA - Traumatic ischemia of muscle, initial encounter (7) Acute kidney injury: Creatinine appears stabilized, down slightly to 1.8. Continues for blood pressure. Hold antihypertensives, diuretic. Encourage oral intake. Monitor blood pressure in ICU. Rhabdomyolysis improving. Status: Acute (8) Lung contusion: Saturating well on 3 L nasal cannula overnight. At home usually does not use oxygen. Wean as tolerating. Monitor oxygenation. Incentive spirometry. Chest wall pain control. Status: Acute Qualifiers: Encounter type: initial encounter Laterality: right Qualified Code(s): S27.321A - Contusion of lung, unilateral, initial encounter (9) Obesity: Status: Acute Qualifiers: Body mass index: BMI 40.0-44.9 Obesity classification: adult class 3 (BMI >= 40) Obesity type: unspecified obesity type Serious obesity comorbidity presence: unspecified whether serious comorbidity present Qualified Code(s): E66.01 - Morbid (severe) obesity due to excess calories; Z68.41 - Body mass index [BMI]40.0-44.9, adult (10) Sleep apnea: He reports some history of snoring, but also has been noticing drooling, possibly breathing through his mouth at night. Uses nighttime oxygen. With morbid obesity may benefit from outpatient assessment for possible sleep apnea. Status: Acute Additional A&P Information Possible OHS Attestations Medical Necessity Statement*: Continue admission for cyst management of hypotension, requiring pressor support, acute kidney injury, lung contusion, recently increasing frequency of falls, worsening back pain. Coding Level of Care Code Acute [employer] Adjuster for [facility] Fwd Exam Comprehensive Diagnoses Acute encephalopathy G93.40 Hypotension I95.9 Hypotension type: unspecified hypotension type Falls W19.XXXA Back pain M54.9 Hyponatremia E87.1 Rhabdomyolysis T79.6XXA Encounter type: initial encounter Rhabdomyolysis type: traumatic Acute kidney injury N17.9 Lung contusion S27.321A Encounter type: initial encounter Laterality: right Obesity E66.01; Z68.41 Body mass index: BMI 40.0-44.9 Obesity classification: adult class 3 (BMI >= 40) Obesity type: unspecified obesity type Serious obesity comorbidity presence: unspecified whether serious co morbidity present Sleep apnea G47.30
[2020-12-10 10:05] LABS: Glucose Point of Care 124 mg/dL (70-110)
[2020-12-10] MEDS: lidocaine 5% Patch 1 PATCH TOPICAL ×2 (10:14→20:45)
--- NOTE | 2020-12-10 11:21 | CT_ITS ---
WS: [id number] CT THORACIC SPINE HISTORY: falls, pain TECHNIQUE: Contiguous 2.5 mm axial images are reviewed to thoracic spine. Images are reformatted in s agittal and coronal planes. All CT scans at [facility] use at least one of these dose opt imization techniques: automated exposure control; mA and/or kV adjustment per patient size (includes targeted exams where dose is matched to clinical indication); or iterative reconstruction. DLP: 2376.52 mGy.cm COMPARISON: None available. Normal posterior alignment of the vertebral bodies. There is mild diffuse disc space narrowing with e ndplate osteophytosis. T10-11 disc is partially calcified. Very slight concave deformity involving th e superior endplate of T3. No acute appearing fractures are identified. Transverse processes and spin ous processes are intact. There is mild diffuse bilateral foraminal narrowing due to facet joint arth ritis and vertebral body osteophytes. Slightly greater narrowing T10-11 and T11-12. No acute disc her niations. Atherosclerotic changes are present within the thoracic aorta. Mild atelectatic changes at the RIGHT lung base. Remote healed 10th rib fracture on the RIGHT. CT/CT thoracic spin wo con* [id number] IMPRESSION: 1. No acute thoracic spine fractures. 2. Mild degenerative facet joint arthritis and foraminal narrowing throughout the thoracic spine. 3. Remote posterior RIGHT 10th rib fracture.
--- NOTE | 2020-12-10 11:21 | CT_ITS ---
WS: [id number] CT LUMBAR SPINE, noncontrast. HISTORY: falls, pain TECHNIQUE: Contiguous 2.5 mm axial imaging are performed. Sagittal and coronal reformats are submitte d and reviewed. All CT scans at [facility] use at least one of these dose optimization te chniques: automated exposure control; mA and/or kV adjustment per patient size (includes targeted exa ms where dose is matched to clinical indication); or iterative reconstruction. IV contrast: None DLP: 2752.93 mGy.cm COMPARISON: None available. Normal posterior lumbar alignment. Moderate disc space narrowing and desiccation at L4-5 and L5-S1. N o fractures are identified. Bilateral facet joint arthritis throughout the lumbar spine. L1-2: Mild annular disc bulge without stenosis. L2-3: Mild annular disc bulging with ligamentum flavum arthritis. Facet joint arthritis encroaching i nto the thecal sac bilaterally but greatest on the LEFT. Moderate LEFT foraminal stenosis and LEFT butts barticular recess stenosis. L3-4: Annular disc bulging with facet arthritis. Mild bilateral foraminal stenosis. L4-5: Diffuse annular disc bulging with osteophyte encroachment upon the thecal sac. Mild bilateral f oraminal stenosis. L5-S1: Broad-based disc bulging centrally and to the LEFT. Moderate to severe bilateral foraminal pedro nosis. Atherosclerotic calcifications throughout the aorta. CT/CT lumbar spine wo con* [id number] IMPRESSION: 1. No acute lumbar spine fracture identified. 2. Multilevel degenerative disc disease and facet arthropathy throughout the l umbar spine. Most significant at L4-5 and L5-S1. 3. There is mild central and moderate to severe bilateral foraminal stenosis a t L5-S1.
--- NOTE | 2020-12-10 15:01 | XR_ITS ---
WS: [id number] Portable AP upright chest, 12/10/2020 Clinical Data: hypoxia Comparison: PA and lateral chest, 10/22/2020. Findings: No nodules, masses or effusions are seen. The heart is enlarged. The pulmonary vascularity is not increased. No pneumonia or pneumothorax is seen. Midline sternotomy sutures are present. The a ortic arch and descending aorta show tortuosity. XR/XR chest 1V portable [id number] Impression: Atherosclerosis and cardiomegaly.
[2020-12-10] MEDS: FUROsemide 10 mg/mL SDV 2mL 20 MG IVP (16:03)
[2020-12-10] MEDS: perflutren protein-a microsphr 0.22 mg/mL SDV 3 mL IV (16:13)
--- NOTE | 2020-12-10 17:51 | ECG_ITS ---
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 Measurements Intervals [place] Rate: 96 P: NC: QRS: -42 QRSD: 101 T: 46 QT: 351 QTc: 444 Interpretive Statements ATRIAL FIBRILLATION WITH ABERRANT CONDUCTION OR VENTRICULAR PREMATURE COMPLEXES MARKED LEFT AXIS DEVIATION [QRS AXIS < -30] LOW QRS VOLTAGE [QRS DEFLECTION < 0.5/1.0 mV IN LIMB/CHEST LEADS] PATTERN CONSISTENT WITH PULMONARY DISEASE Compared to ECG 12/09/2020 11:03:56 Ventricular premature complex(es) now present Aberrant conduction of supraventricular beat(s) now present Left-axis deviation now present Low QRS voltage now present Electronically Signed On 12-10-2020 21:03:29 21 DEALER by Lang Louis M.D. [id number]
--- NOTE | 2020-12-10 18:18 | PC.NURSE ---
Patient has been both lethargic and alert today, Dr Gongora rounded at 10 talked to patient said to order a blood gas if patient lethargy did not improve, ordered a bunch of tests, PT worked with patient and got him up to the chair, he is a lot more alert and appropriate so did not order blood gas, patient sitting up in chair eating. Called Dr. Gongora about patient increasing coughing and crackles in his bases, received order for one time lasixs and ordered an echo and 12 lead and some prn cough medicine, also ordered a COVID test to be done, messaged him again at 1800 to verify if he wanted a send out COVID or a Rapid Covid, received orders for a Rapid Covid swab.
[2020-12-10 19:12] LABS: SARS Covid-2 Antigen Negative (Negative)
[2020-12-10 19:49] LABS: Arterial Blood Gas Hematocrit 32.3 % (42-52); Base Excess ABG 2.1 mmol/L (-2.0-2.0); Blood Gas Operator Identificat HARKR; Blood Gas Sample Site Brachial, right; Blood Gas Sample Type Arterial; Carboxyhemoglobin 2.8 %THgb (0.4-20.1); HCO3 ABG 32.6 mmol/L (22-26); HGB O2 Sat 89.3 % (95-100); Ionized Calcium Level - ABG 1.3 mmol/L (1.1-1.4); Methemoglobin 1.6 % (0.4-1.5); Oxygen Device NC; Oxygen Saturation ABG 93.4; PO2 ABG 68.1 mmHg (80.0-100.0); Potassium Level - ABG 5.6 mmol/L (3.5-5.0); Total Hemoglobin 10.5 g/dL (14-18)
--- NOTE | 2020-12-10 20:35 | USCV_ITS ---
Migel Watt Age: 80 Gender: M : 1940 Exam Date: 12/10/2020 06:03 Ordering Phys: Jose Gongora MD Technologist: Leyda Francis Exam Location: [facility] Indication: HYPOTENSION CHF BP: 103 / 40 HR: 91 Rhythm: PVCs Technical Quality: Technically difficult study MEASUREMENTS (Male / Female) Normal Values 2D ECHO LV Diastolic Diameter PLAX 4.2 cm 4.2 - 5.9 / 3.9 - 5.3 cm LV Systolic Diameter PLAX 3.4 cm LV Chamber Size 2.2 cm IVS Diastolic Thickness 1.2 cm 0.6 - 1.0 / 0.6 - 0.9 cm IVS Systolic Thickness 2.0 cm LVPW Diastolic Thickness 1.7 cm 0.6 - 1.0 / 0.6 - 0.9 cm LVPW Systolic Thickness 1.5 cm RV Chamber Size 2.9 cm LVOT Diameter 2.0 cm LV Ejection Fraction 2D Teich 9.3 % LV Ejection Fraction MOD 2C 52.4 % LV Ejection Fraction 2C AL 50.8 % LA Diameter 4.5 cm LA Width 3.8 cm LA Height 4.9 cm RA Width 4.7 cm RA Height 5.0 cm Aorta at Sinotubular Diameter 3.4 cm M-MODE LV Diastolic Diameter MM 4.6 cm 4.2 - 5.9 / 3.9 - 5.3 cm LV Systolic Diameter MM 2.5 cm LV Ejection Fraction MM Teich 76.1 % IVS Diastolic Thickness MM 1.4 cm 0.6 - 1.0 / 0.6 - 0.9 cm IVS Systolic Thickness MM 1.6 cm LVPW Diastolic Thickness MM 1.4 cm 0.6 - 1.0 / 0.6 - 0.9 cm LVPW Systolic Thickness MM 1.9 cm Aortic Annulus Diameter 3.5 cm LA Ao Ratio MM 1.3 MV E Point Septal Separation 0.5 cm DOPPLER AV Peak Velocity 154.0 cm/s LVOT Peak Velocity 64.0 cm/s AV Area Cont Eq vti 1.6 cm squared AV Area Cont Eq pk 1.3 cm squared MV Area PHT 3.5 cm squared Mitral E to A Ratio 151.9 MV E' Velocity 90.5 cm/s Mitral E to MV E' Ratio 12.1 Mitral E to LV E' Lateral Ratio 12.1 Mitral E to LV E' Septal Ratio 12.1 TR Peak Velocity 200.0 cm/s TR Peak Gradient 16.0 mmHg TR Mean Velocity 155.5 cm/s TR Mean Gradient 10.2 mmHg TR Velocity Time Integral 53.1 cm TV Peak E Velocity 77.0 cm/s Right Atrial Pressure 3.0 mmHg Pulmonary Artery Systolic Pressu 19.0 mmHg PV Peak Velocity 72.0 cm/s RV Acceleration Time 0.1 s RV Ejection Time 0.3 s RV AcT/ET 0.4 FINDINGS Left Ventricle Normal left ventricular cavity size. Mildly decreased left ventricular systolic function. Left ventricular ejection fraction is estimated at 45-50 %. There is possible hypokinesis of mid to apical anterolateral, mid to apical anterolateral, mid to apical anterior and apical carvalho. Right Ventricle Normal right ventricular size and systolic function. Right Atrium Normal right atrial size. Left Atrium Possible moderately increased left atrial size. Mitral Valve Mitral valve not well visualized. Possibly mildly thickened mitral valve. Aortic Valve Aortic valve not well visualized. Tricuspid Valve Tricuspid valve not well visualized. Pulmonic Valve Pulmonic valve not well visualized. Pericardium No pericardial effusion. Aorta Aorta not well visualized. CONCLUSIONS 1. This is a technically very difficult study inspite of using Ultrasound enhancing agent Optison. 2. Normal left ventricular cavity size. Mildly decreased left ventricular systolic function. Left ventricular ejection fraction is estimated at 45-50 %. There is possible hypokinesis of mid to apical anterolateral, mid to apical anterolateral, mid to apical anterior and apical carvalho. 3. When compared to previous echocardiogram report dated 05/01/2014, there may be new regional wall motion abnormality. Interpretation limited by PVCs throughout the study. Shazia Abraham MD (Electronically Signed) Final Date: 10 December 2020 16:33 S
--- NOTE | 2020-12-10 20:35 | US_ITS ---
WS: [id number] RENAL ULTRASOUND HISTORY: RACQUEL COMPARISON: None available. TECHNIQUE: 2-D and color Doppler imaging of the kidney submitted. Right kidney: 12.0 cm x 6.7 cm x 6.6 cm. Normal echogenicity with no hydronephrosis or mass. Left kidney: 13.1 cm x 7.2 cm x 7.6 cm. Normal echogenicity with no hydronephrosis or mass. Aorta: Not visualized. Urinary Bladder: Normal distention. US/US renal BI* [id number] IMPRESSION: Normal renal ultrasound.
[2020-12-10 21:08] LABS: ABG PCO2 90.3 mmHg (35-45); ABG PH Result 7.17 (7.35-7.45)
[2020-12-10 21:08] LABS: ABG PH Result 7.21 (7.35-7.45); Arterial Blood Gas Hematocrit 35.5 % (42-52); Base Excess ABG 3.7 mmol/L (-2.0-2.0); Blood Gas Sample Site Brachial, right; Blood Gas Sample Type Arterial; Fractionated Inspired Oxygen 0.3 %; HCO3 ABG 33.9 mmol/L (22-26); Oxygen Device BIPAP; PO2 ABG 70.9 mmHg (80.0-100.0)
[2020-12-10 21:09] LABS: ABG PCO2 85.3 mmHg (35-45)
[2020-12-10] MEDS: ipratropium-albuterol 3 mL Neb INHALATION (22:05)
--- NOTE | 2020-12-10 22:52 | PC.NURSE ---
received report on pt with bedside assessment at 1900. pt not responding to verbal stimulation. pt only moaning to constant sternal rub. with minimal eye opening response. abg's ordered. pt found to have ph 7.17 and CO2 90.3. new orders for bipap per dr arenas. settings per RT at bedside. valencia catheter also placed per order. pt became more response after about an hour and ABG repeated. ph 7.21 and CO2 85.3. pt daughter tomás called and updated.
[2020-12-11] VITALS (45 sets, daily range): BP systolic 103–160; BP diastolic 47–82; PULSE 72–106; RESP 14–30; TEMP 36.8–37.1; O2SAT 88–104; BMI 42.1
[2020-12-11 04:15] LABS: Basophils % 0.1 %; Hematocrit 35.2 % (42.0-52.0); Hemoglobin 10.8 g/dL (11.7-16.6); Lymphocytes # 0.6 10^3/uL (0.8-4.8); Lymphocytes % 6.9 %; Mean Corpuscular HGB Conc 30.7 g/dL (30.0-36.0); Mean Corpuscular Hemoglobin 32.1 pg (28.0-34.0); Mean Corpuscular Volume 104.8 fL (80-94); Mean Platelet Volume 11.6 fL (7.4-10.4); Monocytes # 0.3 10^3/uL (0.2-0.9); Monocytes % 3.1 %; Neutrophils # 8.25 10^3/uL (1.8-7.7); Neutrophils % 89.6 %; Nucleated Red Blood Cells % 0 %; Platelet Count 195 10^3/cmm (130-400); Red Blood Count 3.36 10^6/uL (4.1-5.3); Red Cell Distribution Width 12.7 % (12.1-15.1); White Blood Count 9.2 10^3/uL (4.0-10.0)
[2020-12-11 04:36] LABS: Alanine Aminotransferase 46 U/L (0-41); Albumin Level 3.5 g/dL (3.5-5.2); Alkaline Phosphatase 63 IU/L (40-130); Anion Gap 7.7 (5-19); Aspartate Amino Transferase 51 U/L (0-40); Blood Urea Nitrogen 29 mg/dL (8-23); Calcium 8.4 mg/dL (8.5-10.5); Carbon Dioxide 33 mmol/L (22-29); Chloride 100 mmol/L (98-107); Globulin 2.5 g/dL (1.3-4.6); Glucose 145 mg/dL (65-115); Osmolality Calculated 288 mOsm/kg (285-295); Potassium 5.7 mmol/L (3.5-5.1); Sodium 135 mmol/L (136-145); Total Bilirubin 0.6 mg/dL (0.15-1.2)
[2020-12-11 05:30] LABS: ABG PH Result 7.32 (7.35-7.45); Arterial Blood Gas Hematocrit 33.3 % (42-52); Base Excess ABG 5.9 mmol/L (-2.0-2.0); Blood Gas Allen Test Pos; Blood Gas Sample Site Radial, left; Blood Gas Sample Type Arterial; HCO3 ABG 33.7 mmol/L (22-26); Oxygen Device BIPAP; PO2 ABG 75.6 mmHg (80.0-100.0)
[2020-12-11 05:51] LABS: ABG PCO2 65.8 mmHg (35-45)
--- NOTE | 2020-12-11 06:00 | XR_ITS ---
WS: [id number] Portable AP upright chest, 12/11/2020 Clinical Data: Hypoxia Comparison: Portable chest, 12/10/2020 Findings: The heart remains enlarged. There is minimal consolidation which is developed over the left diaphragm with a small left effusion. The heart is enlarged. Midline sternotomy sutures are present. There are monitor leads on the chest wall. XR/XR chest 1V portable [id number] Impression: 1. Development of small left basilar consolidation with small left pleural effu zackary. 2. No change in cardiomegaly and atherosclerosis.
[2020-12-11] MEDS: clopidogrel 75 mg Tablet PO (06:01)
[2020-12-11] MEDS: cilostazol 100 mg Tablet PO ×2 (06:01→16:40)
[2020-12-11] MEDS: levothyroxine 100 mcg Tablet PO (06:01)
--- NOTE | 2020-12-11 08:37 | PM.PN ---
Subjective Subjective: Interval history: He says he is feeling much better - the way I'm feeling, I am just about to go home here very soon . Gets chest pain when he is coughing/having to cough up some phlegm. Chest pain is on the right side of the chest just below the nipple. Back pain is better. Says he is breathing much better. Encouraged him to use incentive spirometry, and he agreed that he would. We discussed with him regarding hypercapnic respiratory failure last night, requiring BiPAP support. He states that his granddaughter uses CPAP at night, and he understands that he may end up needing one himself. We also discussed regarding results of the echocardiogram with noted reduced ejection fraction, 45-50%, although this appears to be similar to his old echocardiogram, however, with also noted possible hypokinesis of mid to apical anterolateral, apical anterior and apical carvalho. With elevated troponin on presentation, discussed concern for possible recent myocardial infarction. Discussed additional assessment for progression of coronary disease/cardiac ischemia/risk stratification with stress testing would be indicated, however, he states he is had that done previously, and states that never wants to have one done again. States that he prefers to avoid more aggressive diagnostic tests and interventions. We also discussed CT results of his back, with significant degenerative changes, recently with multiple falls, at persistent risk of falling, recommended extensive rehabilitation with placement is complex facility, although he declines going to SNF, does agree to PT/OT, and states would cooperate with going to outpatient physical therapy. He would be taken there by his family (this possibility was discussed yesterday with his daughter, who anticipated he may decline going to a skilled nurse facility and agreed that they would be taking him for outpatient PT). Vitals/I&O/Wt Last Vital Signs Temp 97.4 F L 12/10/20 20:00 Pulse 85 12/11/20 06:00 Resp 19 H 12/11/20 04:00 BP 136/68 12/11/20 04:00 Pulse Ox 96 12/11/20 04:00 12/10/20 12/11/20 12/11/20 22:59 06:59 14:59 Intake Total 198.841 / 870.402 131.984 / 1002.386 Output Total 425 / 800 850 / 1650 Balance -226.159 / 70.402 -718.016 / -647.614 Weight last 48 hrs Weight 125.645 kg Weight 125.645 kg Weight 120.656 kg Physical Exam Narrative: EXAM NARRATIVE: Accompanied by granddaughter Const: COMMON NORMALS: no acute distress and patient oriented x3 GENERAL APPEARANCE: cooperative and lethargic NUTRITIONAL APPEARANCE: obese ORIENTATION/CONSCIOUSNESS: Yes lethargic HENMT: COMMON NORMALS: normocephalic, atraumatic and oropharynx normal HEAD & SCALP: normocephalic and atraumatic Neck/C-Spine: COMMON NORMALS: no JVD Chest: OTHER: Edema, bruising, tenderness of right chest wall. Somewhat shallow breaths. Resp: COMMON NORMALS: normal respiratory effort AUSCULTATION: crackles Laterality: bilateral (Bases) Cardio: COMMON NORMALS: no JVD, regular rhythm, S1 normal heart sound present, S2 normal heart sound present and No murmurs present (Cardio) RHYTHM: regular rhythm HEART SOUNDS: S1 normal heart sound present and S2 normal heart sound present GI: COMMON NORMALS: Normal to inspection, nondistended, normoactive bowel sounds present, Soft to palpation and non-tender PALPATION: Yes Soft to palpation Extremity: COMMON NORMALS: no joint enlargement GENERAL: Yes edema (trace BLE) Neuro: COMMON NORMALS: patient oriented x3 and moves all extremities SENSORIUM/ORIENTATION: Yes lethargic Skin: COMMON NORMALS: no rashes or lesions noted GENERAL SKIN EXAM: no rashes or lesions noted Urinary Catheter Management^: 2-way Urethral Latex Free: Cath Placed During This Visit: yes Urinary Catheter Date of Insertion: 12/10/20 Urinary Catheter Time of Insertion: 20:00 2-way Urethral Latex: Cath Placed During This Visit: no Reason for Continuing Indwelling Catheter: Accurate Measurement of Urinary Output in Critically Ill Patients Data : 12/11/20 03:36 12/11/20 03:36 A&P Assessment and plan (1) Acute encephalopathy: Currently resolved after BiPAP support. Somnolent yesterday in the morning, then woke up and stated alert through most of the day, sat in the chair. Again becoming lethargic in the evening. Assessed by ABG with finding of severe hypercapnia, respiratory acidosis, CO2 up to 90.3. Responded well to BiPAP. CO2 decreased down to 65.8. This morning he is awake, alert. Came off BiPAP around 5 AM this morning. Discussed with him severe hypercapnia. He understands that long-term he may require this therapy. I do suspect that currently this is exacerbated by his overall medical condition, yesterday also with hypotension, at the same time with chest wall contusion, rib fracture, yesterday also degree of fluid overload all leading to hypoventilation and CO2 retention. We will try to mobilize him today with physical therapy, as discussed with him continue symptom spirometer. Replace lidocaine patch to chest wall. And monitor again. Reassess ABG. He would definitely benefit from outpatient sleep study, although if severe hypercapnia continues to recur, may require BiPAP support with sleep prior to that. Status: Acute (2) Hypotension: Resolved. Off Levophed. Hold antihypertensives. Steroids yesterday were changed to Solu-Medrol. Blood pressure improving, if stays stable, taper down. Status: Acute Qualifiers: Hypotension type: unspecified hypotension type Qualified Code(s): I95.9 - Hypotension, unspecified (3) Falls: Significant degenerative changes of the spine. Recommending at rehabilitation at SNF, although he declines this. He is agreeable to PT/OT, outpatient rehabilitation after discharge. With chronic back pain, recently more progressive falls. Does not appear to show symptoms of acute cord compression. No fracture noted in spine on CT chest abdomen pelvis. Incidentally noted fracture of 11th rib on the right. He was recently set up with a walker. Does have quite significant degenerative changes with neuroforaminal stenosis in cervical spine. Normal TSH. PT once BP more stable. Recheck sodium with good gradual improvement. Status: Acute (4) Back pain: As above Chronic back pain, although recently worse. Consider referral to orthospine surgery after out of acute illness. Multilevel neuroforaminal narrowing noted on CT lumbar and cervical spine. Mild-mod spinal stenosis. Status: Acute (5) Hyponatremia: Elevate additional IV fluids. Sodium gradually improving. Encourage oral intake. Monitor. Status: Acute (6) Rhabdomyolysis: Improving. Status: Acute Qualifiers: Encounter type: initial encounter Rhabdomyolysis type: traumatic Qualified Code(s): T79.6XXA - Traumatic ischemia of muscle, initial encounter (7) Acute kidney injury: Resolving. Hyper kalemia slightly worse today 5.7. Continue low potassium diet. Hold losartan. Spironolactone. Creatinine appears stabilized, down slightly to 1.8. Rhabdomyolysis improving. Status: Acute (8) Lung contusion: Saturating well on 3 L nasal cannula overnight. At home usually does not use oxygen. Wean as tolerating. Monitor oxygenation. Incentive spirometry. Chest wall pain control. Status: Acute Qualifiers: Encounter type: initial encounter Laterality: right Qualified Code(s): S27.321A - Contusion of lung, unilateral, initial encounter (9) Obesity: Discussed with PCP regarding options for weight loss. Status: Acute Qualifiers: Body mass index: BMI 40.0-44.9 Obesity classification: adult class 3 (BMI >= 40) Obesity type: unspecified obesity type Serious obesity comorbidity presence: unspecified whether serious comorbidity present Qualified Code(s): E66.01 - Morbid (severe) obesity due to excess calories; Z68.41 - Body mass index [BMI]40.0-44.9, adult (10) Sleep apnea: He reports some history of snoring, but also has been noticing drooling, possibly breathing through his mouth at night. Uses nighttime oxygen. With morbid obesity may benefit from outpatient assessment for possible sleep apnea. Status: Acute (11) Hypercapnic respiratory failure: Multifactorial with reported history of COPD, suspected sleep apnea, suspected OHS, currently also with chest wall contusion, rib fracture, yesterday with fluid overload. Weaned off BiPAP. Monitor. Recheck ABG tonight. Status: Acute (12) Obesity hypoventilation syndrome: Would benefit from weight loss. Status: Acute (13) Restrictive lung disease: 2/2 obesity Status: Acute (14) Elevated troponin: Discussed with him and his daughter yesterday regarding results of echocardiogram with areas of hypokinesis, with elevated troponin presentation, with reduced ejection fraction, concern of recent myocardial infarction. He is continued on aspirin, Plavix, beta-avis, statin were held due to hypotension, rhabdomyolysis. Discussed concerns about possible recent myocardial infarction, risk for additional infarction, worsening heart failure and need for additional assessment given known history of underlying coronary disease, history of CABG. At this time he remains chest pain-free. Initial assessment would include stress testing for assessment of progression of coronary disease, risk certification. He declines stress testing stating he will not want to have this done. He states he understands he may have additional MN, and states if that happens I may . States he prefers a more conservative approach with more emphasis on comfort rather than pursuing more aggressive diagnostic tests or interventions. Status: Acute Attestations Medical Necessity Statement*: Continue admission for cyst management of recurrent hypercapnic respiratory failure following recent fall, chest wall contusion, rib fracture, with history of COPD, suspected sleep apnea, suspected OHS, possible recent MN. Significant degenerative changes in the spine with worsened recent back pain, increased frequency of falls, disposition planning. Coding Level of Care Code Acute Chemical Technician for [facility] Fwd Exam Comprehensive Diagnoses Acute encephalopathy G93.40 Hypotension I95.9 Hypotension type: unspecified hypotension type Falls W19.XXXA Back pain M54.9 Hyponatremia E87.1 Rhabdomyolysis T79.6XXA Encounter type: initial encounter Rhabdomyolysis type: traumatic Acute kidney injury N17.9 Lung contusion S27.321A Encounter type: initial encounter Laterality: right Obesity E66.01; Z68.41 Body mass index: BMI 40.0-44.9 Obesity classification: adult class 3 (BMI >= 40) Obesity type: unspecified obesity type Serious obesity comorbidity presence: unspecified whether serious comorbidity present Sleep apnea G47.30 Hypercapnic respiratory failure J96.92 Obesity hypoventilation syndrome E66.2 Restrictive lung disease J98.4 Elevated troponin R77.8
[2020-12-11] MEDS: ipratropium-albuterol 3 mL Neb INHALATION ×3 (08:43→20:54)
[2020-12-11] MEDS: pantoprazole DR 40 mg Tablet PO (08:44)
[2020-12-11] MEDS: aspirin 325 mg Tablet PO (08:44)
[2020-12-11] MEDS: lidocaine 5% Patch 1 PATCH TOPICAL ×2 (08:44→21:00)
[2020-12-11] MEDS: guaiFENesin-dextromethorphan UDC 10 mL 5 ML PO (09:01)
--- NOTE | 2020-12-11 09:15 | PC.CHAP ---
Pastoral Care Encounter/Spiritual Assessment Type of Contact [] Declined integration project manager visit [] Patient/Family/Request visit [] Outpatient visit [] Follow-up visit [] Physician referral [] Code/Alert [x] Routine visit [] Staff referral [] Actively dying [] Patient sleeping [] Family support [] [] Out of room [] Palliative care [] [] Receiving care in room [] Pre-surgical visit [] Trauma [] Long length of stay [x] ICU visit [x] Other: ventilator Relational/Emotional Strength [] Patient feels connected with others/family/visitors/staff [] Distress [] Loneliness/isolation [] Abandonment Spirituality of Patient [] Person of Bushra [] Attends Orthodoxy of their [place] [] Believes in Prayer [] Reads Bible or Denominational materials [] There are Spiritual issues to be addressed Manager Farm Interventions [x] Prayer [] Active listening [] Non-anxious presence [] Spiritual/emotional support [] Crisis/trauma care [] Spiritual counseling [] Bereavement support [] Provided bereavement packet [] Provided Bible/devotional materials [] Provided toy/stuffed animal, coloring book to patient or family member [] Provided Communion [] Anointing/[place] [] Salvation [x] Completed spiritual assessment [] Other: Impact on Illness or Injury [] Angry [] Fearful [] Anxious [] Often cries [] Exhaustion [] Unable to work [] Unable to attend gnosticism [] Unable to walk/stand [] Unable to read [] Unable to drive [] Unable to eat/drink [] Unable to sleep [] Unable to be with family [] Patient intubated [] Other: Summary Time spent with patient
--- NOTE | 2020-12-11 13:55 | PC.NURSE ---
Patient doing much better from yesterday, patients Co2 was high over night so he required BIPAP, Dr Gongora rounded at 0900 noted patients improvement, discussed patients need for therapy outside of the hospital to keep him from falling again and wants to monitor him tonight to make sure his Co2 does not climb again requiring Bipap. He placed med surg transfer orders and the patient transfered at 1245 to room 251 bed 1, Daughter Lupe notifed, of transfer.
--- NOTE | 2020-12-11 14:07 | PC.NURSE ---
Pt to Floor 1300 Rec'd pt from ICU. -Pt came by w/c. -He is alert and oriented -IV's to both FA CDI -Pt is on 2l/NC -Pt has been oriented to room.
[2020-12-12] VITALS (9 sets, daily range): BP systolic 150–167; BP diastolic 73–93; PULSE 98–130; RESP 17–20; TEMP 36.8–36.9; O2SAT 88–96
[2020-12-12] MEDS: ipratropium-albuterol 3 mL Neb INHALATION ×2 (03:56→09:13)
--- NOTE | 2020-12-12 04:13 | ECG_ITS ---
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 Measurements Intervals [place] Rate: 117 P: ND: QRS: -34 QRSD: 113 T: 72 QT: 305 QTc: 427 Interpretive Statements ATRIAL FIBRILLATION WITH RAPID VENTRICULAR RESPONSE MARKED LEFT AXIS DEVIATION [QRS AXIS < -30] LOW QRS VOLTAGE [QRS DEFLECTION < 0.5/1.0 mV IN LIMB/CHEST LEADS] MODERATE INTRAVENTRICULAR CONDUCTION DELAY [110+ ms QRS DURATION] Compared to ECG 12/10/2020 18:02:49 Intraventricular conduction delay now present Ventricular premature complex(es) no longer present Aberrant conduction of supraventricular beat(s) no longer present Electronically Signed On 12-12-2020 18:52:41 RECORD FILING CLERK by Andrei Lloyd M.D. [id number]
[2020-12-12 05:43] LABS: Basophils % 0.1 %; Eosinophils % 0.1 %; Hematocrit 35.3 % (42.0-52.0); Hemoglobin 11.1 g/dL (11.7-16.6); Lymphocytes # 0.6 10^3/uL (0.8-4.8); Lymphocytes % 4.7 %; Mean Corpuscular HGB Conc 31.4 g/dL (30.0-36.0); Mean Corpuscular Hemoglobin 32.1 pg (28.0-34.0); Mean Platelet Volume 11.1 fL (7.4-10.4); Monocytes # 0.7 10^3/uL (0.2-0.9); Monocytes % 5.4 %; Neutrophils # 11.17 10^3/uL (1.8-7.7); Neutrophils % 89.3 %; Nucleated Red Blood Cells % 0 %; Platelet Count 223 10^3/cmm (130-400); Red Blood Count 3.46 10^6/uL (4.1-5.3); Red Cell Distribution Width 12.6 % (12.1-15.1); White Blood Count 12.5 10^3/uL (4.0-10.0)
[2020-12-12 06:06] LABS: Alanine Aminotransferase 63 U/L (0-41); Albumin Level 3.7 g/dL (3.5-5.2); Alkaline Phosphatase 63 IU/L (40-130); Anion Gap 10.4 (5-19); Aspartate Amino Transferase 51 U/L (0-40); Blood Urea Nitrogen 22 mg/dL (8-23); Calcium 8.7 mg/dL (8.5-10.5); Carbon Dioxide 33 mmol/L (22-29); Chloride 98 mmol/L (98-107); Globulin 2.5 g/dL (1.3-4.6); Glucose 121 mg/dL (65-115); Osmolality Calculated 287 mOsm/kg (285-295); Potassium 5.4 mmol/L (3.5-5.1); Sodium 136 mmol/L (136-145); Total Bilirubin 0.7 mg/dL (0.15-1.2); Total Protein 6.2 g/dL (6.6-8.7)
[2020-12-12] MEDS: levothyroxine 100 mcg Tablet PO (06:12)
[2020-12-12] MEDS: cilostazol 100 mg Tablet PO (06:12)
[2020-12-12] MEDS: clopidogrel 75 mg Tablet PO (06:13)
--- NOTE | 2020-12-12 08:29 | ECG_ITS ---
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 Measurements Intervals [place] Rate: 110 P: CO: QRS: -25 QRSD: 89 T: -5 QT: 273 QTc: 369 Interpretive Statements ATRIAL FIBRILLATION WITH RAPID VENTRICULAR RESPONSE LOW QRS VOLTAGE [QRS DEFLECTION < 0.5/1.0 mV IN LIMB/CHEST LEADS] POSSIBLE ANTERIOR MYOCARDIAL INFARCTION [30 ms Q WAVE IN V3/V4, OR R < 0.2 mV IN V4], PROBABLY OLD Compared to ECG 12/12/2020 04:16:51 Myocardial infarct finding now present Left-axis deviation no longer present Intraventricular conduction delay no longer present Electronically Signed On 12-12-2020 19:05:41 CORPORATE TRAVEL COUNSELOR by Andrei Lloyd M.D. [id number]
[2020-12-12] MEDS: pantoprazole DR 40 mg Tablet PO (08:42)
[2020-12-12] MEDS: aspirin 325 mg Tablet PO (08:42)
[2020-12-12] MEDS: metoprolol tartrate 25 mg Tablet 12.5 MG PO (08:42)
[2020-12-12] MEDS: lidocaine 5% Patch 1 PATCH TOPICAL (08:43)
--- NOTE | 2020-12-12 10:25 | PC.OT ---
OT TREATMENT ATTEMPTED. PATIENT STATES THAT HE IS GOING HOME TODAY AND DOES NOT WANT TO PERFORM THERAPY. WILL MONITOR STATUS AND ATTEMPT AGAIN AT ANOTHER TIME .
--- NOTE | 2020-12-12 10:28 | PC.SOCIAL ---
IMM Update Pg.2 of IMM updated and reviewed with patient who verbalized understanding. Copy provided.
[2020-12-12] MEDS: acetaminophen 325 mg Tablet 650 MG PO (10:49)
[2020-12-12 12:26] LABS: Add Urine Microscopic? YES; Bilirubin Urine 1+ (Negative); Blood Urine 3+ (Negative); Glucose Urine UA Norm (Normal); Ketones Urine Negative (Negative); Leukocyte Esterase Urine Trace (Negative); Nitrate Urine Negative (Negative); Protein Urine 1+ (Negative); Specific Gravity, Urine 1.015 (1.005-1.030); Urine Appearance Cloudy (CLEAR); Urine Color Yellow (Yellow); Urobilinogen Urine 4 mg/dL (Negative); pH Urine 5 (5-7)
[2020-12-12 12:58] LABS: Bacteria Urine 1+ /hpf; Mucus Urine 1+ /hpf; RBC Urine TOO NUMEROUS TO CNT /hpf (0-2); Squamous Epithelial Cell Urine 0-4 /hpf (0-5)
[2020-12-12 12:59] LABS: Add Urine Culture? Yes
--- NOTE | 2020-12-12 15:13 | PM.DCS ---
Discharge Providers Date of Admission: 12/09/20 14:42 Date of Discharge: December 12, 2020 Attending Provider at Admission: Jose Gongora Attending Provider at Discharge: Jose Gongora Primary Care Provider: Margarito Perez MD Diagnoses at Discharge Discharge Diagnosis (1) Acute encephalopathy: Status: Acute (2) Hypotension: Status: Acute Qualifiers: Hypotension type: unspecified hypotension type Qualified Code(s): I95.9 - Hypotension, unspecified (3) Falls: Status: Acute (4) Back pain: Status: Acute (5) Hyponatremia: Status: Acute (6) Rhabdomyolysis: Status: Acute Qualifiers: Encounter type: initial encounter Rhabdomyolysis type: traumatic Qualified Code(s): T79.6XXA - Traumatic ischemia of muscle, initial encounter (7) Acute kidney injury: Status: Acute (8) Lung contusion: Status: Acute Qualifiers: Encounter type: initial encounter Laterality: right Qualified Code(s): S27.321A - Contusion of lung, unilateral, initial encounter (9) Obesity: Status: Acute Qualifiers: Body mass index: BMI 40.0-44.9 Obesity classification: adult class 3 (BMI >= 40) Obesity type: unspecified obesity type Serious obesity comorbidity presence: unspecified whether serious comorbidity present Qualified Code(s): E66.01 - Morbid (severe) obesity due to excess calories; Z68.41 - Body mass index [BMI]40.0-44.9, adult (10) Sleep apnea: Status: Acute (11) Hypercapnic respiratory failure: Status: Acute (12) Obesity hypoventilation syndrome: Status: Acute (13) Restrictive lung disease: Status: Acute (14) Elevated troponin: Status: Acute Reason for Visit Reason for Visit: fall/low O2/back pain/head injury/Rt side Hospital Course Hospital Course 80-year-old gentleman with history of CHF, COPD, although he is not aware of the diagnosis, on nighttime oxygen, CAD status post CABG, HLD, HTN, was reported to be following more recently, sometimes without particular cause, states would lose his balance, or legs would give out under him, denied any dizziness, lightheadedness, any loss of consciousness before falling, had fallen on Tuesday, spending about probably close to 15 hours on the floor of his house after crawling there from outside until he was found by his family as he did not have his cell phone with him. States that he was too weak to get up. Reportedly he did hit his head, although CT head without contrast on presentation was unremarkable. He apparently subsequently had been set up with a walker, however, with recurrent falls, generalized weakness, was brought to the emergency department by his family for evaluation. He was reluctant to stay in hospital for additional treatment, but did agree to stay after we discussed a number of issues that were seen on presentation, including hypotension, with noted hypokalemia, with acute kidney injury, hyponatremia, rhabdomyolysis, right chest wall injury with swelling, bruising, pain, also nondisplaced right 11th rib fracture, as well as noted minimal pulmonary contusion in right upper lobe lung field seen on CT chest, abdomen and pelvis. CT cervical spine obtained on presentation showed moderate to severe bilateral foraminal stenosis C5-C6, moderate spondylitic changes in cervical spine. Despite fluid boluses, rehydration on presentation, remained persistently hypotensive, is likely despite hypovolemia and hypotension he also continue taking his antihypertensives including losartan, spironolactone. Was maintained on pressor support, with monitoring in ICU, with urinary catheter placed for monitoring of intake and output in setting of shock, kidney injury, rhabdomyolysis. He was bothered by quite a bit of pain in his back, which appears has been progressing recently. No fractures were noted on CT C/A/P. He denies any saddle anesthesia. Had no incontinence. Due to severe pain, recently increased falls, lower extremity weakness, was assessed additionally by CT lumbar and thoracic spine. With noted finding of multilevel degenerative disc disease and facet arthropathy throughout the lumbar spine, significantly at L4-L5 and L5-S1. Mild central and moderate to severe bilateral foraminal stenosis at L5-S1. CT thoracic spine noted an additional remote 10th rib fracture on the right. With persistent hypotension, electrolyte normalities, with prior prednisone prescription, consideration was given to adrenal sufficiency. Cortisol was checked with morning cortisol of 11.98, he was said to have a degree of adrenal insufficiency for which he received support with hydrocortisone. On 3 in the morning noted to be lethargic, difficult to arouse, but did wake up, and most of the day was alert, up in a chair, etc. However, in the evening again becoming lethargic. Due to concern for CO2 retention was assessed by ABG. He has multiple risk factors for CO2 retention, including underlying COPD, currently with chest wall contusion, rib fracture, on admission also due to hypotension received a number of fluid boluses with mild fluid overload for which necessitated Lasix, all these contributing to hypoventilation, in addition with suspected sleep apnea and OHS as he had noted some symptoms on presentation, his severely elevated risk for suture tension was discussed with him, after his mental status improved after requiring BiPAP support, as well as with his family. Due to severity of hypercapnia up to CO2 of 90.3, with respiratory siderosis, risk of hypercapnic encephalopathy, coma and respiratory failure/ were discussed. BiPAP support was provided overnight, to same time history was switched over to Solu-Medrol. His blood pressure significant improved the following day, we he weaned off pressor. Remained awake and alert. Renal function was improving. Rhabdomyolysis resolved. Hyponatremia noted on presentation, sodium 127, gradually improved, currently resolved up to 136. Renal ultrasound was unremarkable. He required nasal cannula oxygen support, although without evidence of development of pneumonia, was maintained on supportive measures, with pulmonary toilet. Her risk of development of pneumonia was discussed with him and his family, and incentive spirometry was encouraged. Pain was treated with acetaminophen, avoiding opiates to prevent additional CO2 retention, lidocaine patch on chest wall. He was mobilized with PT and OT. Consideration may be given to additional referral to orthopedic surgery given severity of symptoms, however, depending on the goals of care. While hypotensive he was additionally assessed by TTE, with finding of mildly decreased LVEF, 45-50%, but with noted possible hypokinesis in the mid to apical anterolateral, mid apical anterior and apical carvalho. With troponin elevation on presentation which was gradually declining, concerned that he has had a myocardial infarction prior to admission was discussed with him and his family. We discussed additional evaluation of this due to risk of additional myocardial infarction, other risk including worsening CHF, arrhythmia, cardiac arrest and , however, he declined additional evaluation stating that additional assessment by stress testing would be to invasive for him. During hospitalization he was also noted to have episodic atrial fibrillation. He is continued on metoprolol now that his blood pressures are better. We discussed risk associated with A. fib, including risk of CVA. At this time he is too high risk for anticoagulation due to elevated risk of falls, as well as this morning he had developed hematuria as well, appears possibly secondary to Nicholson urethral injury, requested for Nicholson removal. Hematuria noted mild. Nicholson removed and he is just to stay with us for voiding trial, however, he declined further hospitalization, or any additional assessment or treatment, requesting to be discharged home. Discussion with his daughter and granddaughter they would like to proceed as per his wishes. They are aware of risks of worsening hypoxia, risk of developing pneumonia, risk of recurrence of severe hypercapnia, currently new development of hematuria, newly noted atrial fibrillation, with prior concerns regarding preadmission ME, as well as other medical problems, they are aware that unfortunately we are at a very short time to try to set up a safe discharge, but would like to proceed in order to comply with his preference for more supportive/comfort care in [place] more aggressive assessments or treatments. They are willing to help him follow-up with sleep study on outpatient side, and we will also refer him for pulmonary function testing. He is asked to follow-up with his automatic equipment technician if he would be willing to. Please consider additional referral to pulmonology pending on his pulmonary condition, and results of the requested studies. Consider referral to urology depending on recurrence of hematuria or other urinary symptoms. He will be staying with family, and home health is requested for him. He is asked to continue monitoring blood pressure at home to catch any episodes of possible hypotension. Family are aware also to look out for signs of respiratory failure. For any signs of urinary retention, and to seek medical attention in case of any concerning symptoms. Please follow up the blood pressure and prednisone taper. Consider whether steroid therapy needs to be extended. Please follow up potassium level due to noted mild hyperkalemia in the hospital. Renal function improved, but mild hyperkalemia persists. He is asked to maintain low potassium diet. Spironolactone, losartan are discontinued. Please follow up regarding weight loss strategies. Please additionally discuss further goals of care and patient's wishes with regards to additional hospitalization or assessments and treatments in the future so as these may be conducted in accordance with his wishes. Physical Exam Narrative: EXAM NARRATIVE: Visited by granddaughter Const: COMMON NORMALS: no acute distress and patient oriented x3 GENERAL APPEARANCE: cooperative and lethargic NUTRITIONAL APPEARANCE: obese ORIENTATION/CONSCIOUSNESS: Yes lethargic HENMT: COMMON NORMALS: normocephalic, atraumatic and oropharynx normal HEAD & SCALP: normocephalic and atraumatic Neck/C-Spine: COMMON NORMALS: no JVD Chest: OTHER: Edema, bruising, tenderness of right chest wall. Resp: COMMON NORMALS: normal respiratory effort AUSCULTATION: crackles Laterality: bilateral (Bases) Cardio: COMMON NORMALS: no JVD, regular rhythm, S1 normal heart sound present, S2 normal heart sound present and No murmurs present (Cardio) RHYTHM: regular rhythm HEART SOUNDS: S1 normal heart sound present and S2 normal heart sound present GI: COMMON NORMALS: Normal to inspection, nondistended, normoactive bowel sounds present, Soft to palpation and non-tender PALPATION: Yes Soft to palpation : OTHER: Mild hematuria with mild pink urine. Back/Pelvis: OTHER: Back pain much better today. Extremity: COMMON NORMALS: no joint enlargement GENERAL: Yes edema (trace BLE) Neuro: COMMON NORMALS: patient oriented x3 and moves all extremities SENSORIUM/ORIENTATION: Yes lethargic Skin: COMMON NORMALS: no rashes or lesions noted GENERAL SKIN EXAM: no rashes or lesions noted Urinary Catheter Management^: 2-way Urethral Latex Free: Cath Placed During This Visit: yes Reason for Continuing Indwelling Catheter: Accurate Measurement of Urinary Output in Critically Ill Patients Urinary Catheter Date of Insertion: 12/10/20 Urinary Catheter Time of Insertion: 20:00 2-way Urethral Latex: Cath Placed During This Visit: yes, but has since been removed by the nurse Reason for Continuing Indwelling Catheter: Decision to DC Catheter Date Urinary Catheter Removed: 12/12/20 Time Urinary Catheter Discontinued: 12:59 Discharge Data Data Completed and Pending: Completed Studies During Hospitalization Category Date Time Status CT cervical spin wo con* [id number] Stat Cat Scan 12/09/20 11:[address] chest abd pel w con* Urgent Cat Scan 12/09/20 11:[address] head wo con* [id number] Stat Cat Scan 12/09/20 11:[address] lumbar spine w o con* [id number] Routi ne Cat Scan 12/10/20 11:[address] thoracic spin wo con* [id number] Rout ine Cat Scan 12/10/20 11:21 Completed XR chest 1V ankit ble [id number] Routine Exams 12/10/20 15:01 Completed XR chest 1V ankit ble [id number] Routine Exams 12/11/20 06:00 Completed CV echo wo/w cont rast [id number] Routine Ultrasound 12/10/20 20:35 Completed US renal BI* [id number] Routine Ultrasound 12/10/20 20:35 Completed US/CV paperwork R outine Ultrasound 12/10/20 Completed Pending at discharge Category Date Time Status ABG FULL [Arteria l Blood Gas Full] Routine Lab 12/10/20 19:39 Results Antibody Identifi cation Stat Lab 12/09/20 11:38 Results Antigen Typing Pa tient Stat Lab 12/09/20 11:38 Results Arterial Blood Ga s W/O Coox Routine Lab 12/11/20 22:25 Received Leukocyte Reduced RBC Stat Lab 12/09/20 11:38 Results Type and Screen S tat Lab 12/09/20 11:38 Results Labs from last 24 hours 12/12/20 12/12/20 12/12/20 11:50 04:56 04:56 WBC 12.5 H RBC 3.46 L Hgb 11.1 L Hct 35.3 L MCV 102.0 H MCH 32.1 MCHC 31.4 RDW 12.6 Plt Count 223 MPV 11.1 H Neut % (Auto) 89.3 Lymph % (Auto) 4.7 [place] % (Auto) 5.4 Eos % (Auto) 0.1 Baso % (Auto) 0.1 Neut # (Auto) 11.17 H Lymph # (Auto) 0.6 L [place] # (Auto) 0.7 Eos # (Auto) 0.0 Baso # (Auto) 0.0 Nucleated RBC % (a uto) 0 Nucleated RBCs # 0.0 Specimen Type Sample Site ABG pH ABG pCO2 ABG pO2 ABG HCO3 ABG Base Excess Humberto Test Hematocrit O2 Delivery Device Lance Crewmember ID Sodium [id number] Potassium 5.4 H Chloride 98 Carbon Dioxide 33 H Anion Gap 10.4 BUN 22 Creatinine 0.8 GFR Calculation Not Reportable Glucose 121 H Calculated Osmolal ity 287 Calcium 8.7 Total Bilirubin 0.7 AST 51 H ALT 63 H Alkaline Phosphata se 63 Total Protein 6.2 L Albumin 3.7 Globulin 2.5 Urine Color Yellow Urine Appearance Cloudy Urine pH 5 Ur Specific Gravit y 1.015 Urine Protein 1+ H Urine Glucose (UA) Norm Urine Ketones Negative Urine Blood 3+ H Urine Nitrate Negative Urine Bilirubin 1+ H Urine Urobilinogen 4 H Ur Leukocyte Yaritza ase Trace H Urine RBC Too numerous to c nt H Urine WBC None Ur Squamous Epith Cells 0-4 H Amorphous Sediment Not Reportable Urine Bacteria 1+ H Urine Mucus 1+ 12/11/20 22:25 WBC RBC Hgb Hct MCV MCH MCHC RDW Plt Count MPV Neut % (Auto) Lymph % (Auto) [place] % (Auto) Eos % (Auto) Baso % (Auto) Neut # (Auto) Lymph # (Auto) [place] # (Auto) Eos # (Auto) Baso # (Auto) Nucleated RBC % (a uto) Nucleated RBCs # Specimen Type Pending Sample Site Pending ABG pH Pending ABG pCO2 Pending ABG pO2 Pending ABG HCO3 Pending ABG Base Excess Pending Humberto Test Pending Hematocrit Pending O2 Delivery Device Pending Lance Crewmember ID Pending Sodium Potassium Chloride Carbon Dioxide Anion Gap BUN Creatinine GFR Calculation Glucose Calculated Osmolal ity Calcium Total Bilirubin AST ALT Alkaline Phosphata se Total Protein Albumin Globulin Urine Color Urine Appearance Urine pH Ur Specific Gravit y Urine Protein Urine Glucose (UA) Urine Ketones Urine Blood Urine Nitrate Urine Bilirubin Urine Urobilinogen Ur Leukocyte Yaritza ase Urine RBC Urine WBC Ur Squamous Epith Cells Amorphous Sediment Urine Bacteria Urine Mucus Vitals: Last Vital Signs Temp 98.2 F 12/12/20 11:26 Pulse 98 12/12/20 11:26 Resp 17 12/12/20 11:26 BP 150/73 12/12/20 11:26 Pulse Ox 88 L 12/12/20 13:55 Discharge Plan Discharge Patient Disposition: Home Health Service Condition: Stable Prescriptions: New phenazopyridine 100 mg Tablet 100 mg PO TIDPC Qty: 90 RF: 0 metoprolol tartrate 25 mg Tablet 12.5 mg PO BID@0900,2100 Qty: 30 RF: 0 Lidoderm 5 % Adhesive Patch,Medicated 1 patch topical [id number] Qty: 7 RF: 0 prednisone 20 mg tablet 20 mg PO DAILY Qty: 11 RF: 0 Continued cilostazol 100 mg tablet 100 mg PO BID@,17 RF: 0 levothyroxine 100 mcg Tablet 100 mcg PO DAILY@07 RF: 0 clopidogrel 75 mg tablet 75 mg PO DAILY@07 RF: 0 Changed simvastatin 80 mg tablet 40 mg PO DAILY@1700 Qty: 0 RF: 0 Held aspirin [Aspir-81] 81 mg tablet,delayed release (DR/EC) 81 mg PO DAILY@07 RF: 0 Hold Instructions: Resume on 12/16/20. Discontinued spironolactone 25 mg tablet 25 mg PO DAILY@07 RF: 0 carvedilol 25 mg tablet 25 mg PO .COMPLEX Qty: 135 RF: 0 losartan 50 mg tablet 50 mg PO DAILY@07 RF: 0 Discharge Orders: Discharge Order (Routine); Ordered 12/12/20 Ordered By: Jose Gongora Other Ambulatory Orders: Pulmonary Function Screen Spirometry Pre Only (Routine) Timeframe: 1 Week Facility: [facility] - Location: Respiratory Therapy Ordered By: Jose Gongora Sleep Study/Titration (Routine) Timeframe: 2 Days Location: None Selected Ordered By: Jose Gongora Referrals: Andrei Lloyd M.D [Physician] - 1 week (Call on Tuesday to make an appointment to be seen in a week.) Margarito Perez MD [Primary Care Provider] - 4-7 days (Call on Tuesday to make an appointment to be seen in 4 to 7 days.) Discharge Diet: As Directed and Regular Discharge Activity: Increase activity as tolerated, As per PT/OT instructions and Oxygen as instructed Patient Instructions: COPD, Metoprolol (By mouth), Phenazopyridine (By mouth), Lidocaine (On the skin), Sleep Apnea Syndrome (GEN), Acute Kidney Injury (GEN), Rib Fracture (GEN), Rhabdomyolysis (GEN), Hyperkalemia (GEN), Lumbar Spinal Stenosis (GEN), Acute Hematuria (GEN), Pulmonary Contusion (GEN), Hypotension (GEN), Fall Prevention (GEN) Activity Restrictions/Additional Instructions: Please maintain low potassium diet due to elevated potassium seen in the hospital. Avoid foods rich in potassium like bananas, tomatoes, potatoes, oranges, orange juice, etc. Please have your primary care doctor follow-up on potassium level. Please monitor your blood pressure 3 times daily, write down values to bring to your appointment. Please be aware your blood pressure was very low in the hospital, do not take your blood pressure medications, especially if your blood pressure is lower than 110/70. This may lead to very low blood pressure and shock as seen at the hospital admission, organ injury, heart attack, stroke, other disability and . Please be aware that losartan and spironolactone were discontinued due to elevated potassium level in the hospital. Please do not take these medications further at that he may raise your potassium level, lead to arrhythmia, cardiac arrest, or contribute to kidney injury or hypotension as above. Please be aware that your simvastatin dose is decreased down to 40 mg. Please discuss with your primary care doctor muscle breakdown noted prior to admission (rhabdomyolysis), as well as kidney injury. Please have your primary care doctor follow-up kidney function to make sure it continues to improve at the next appointment. Please discuss with your primary care doctor blood in your urine, possible urethral injury. In case you have difficulty urinating, call 911 immediately. In case there are any persistent symptoms of pain,recurrence of bleeding, trouble urinating, discuss with your primary care doctor referral to see a urologist. Please wear your oxygen as per instruction on home oxygen evaluation, and per sleep study instructions. Please target saturation 88-92%. Avoid oxygen saturation above 92% as this may lead to retention of carbon dioxide. Please note that with chest wall contusion, rib fracture, chest wall pain, you are at increased risk of developing pneumonia, decreasing oxygen, as well as not taking deep breaths and retaining carbon dioxide. If you notice your oxygen saturation decreasing, or you spike fevers, develop a cough, shortness of breath, or other complaints, please seek medical attention without delay. Please continue to use incentive spirometry after discharge to prevent development of pneumonia. If you are very sleepy, difficult to wake up, confused, or have other changes in mental status, you are also at risk and worse in the hospital retaining carbon dioxide which at 1 point required support with BiPAP therapy. If any of these symptoms are noticed by you or your family, please seek medical attention without delay as carbon dioxide retention may be life-threatening if it progresses, leading to worsening lethargy, and possibly also . You are also referred for pulmonary function testing. Please discuss with your primary care doctor consideration of referral to see a land resource specialist. Please complete the sleep study, sleep apnea may predispose you to a risk of number conditions including atrial fibrillation, congestive heart failure, and other. Please follow-up with your automatic equipment technician to discuss concerned that you have had a heart attack prior to admission. In case you reconsider regarding additional assessment by stress test or other means, please discuss with your automatic equipment technician or primary care provider further to obtain a referral. Please be aware that with possible progression of coronary disease you are at risk of additional heart attack, heart failure, arrhythmia, cardiac arrest and . Please discuss with your primary care doctor weight loss strategies as this will help reduce development of sleep apnea, carbon dioxide retention, and will also help with your back pain and back arthritis, reduce chance of falls, in addition to other benefits. Please use your walker at all times when ambulating. Maintain strict fall precautions. Discuss with your primary care doctor regarding severe degenerative changes seen in your lower spine, as well as in your neck. Continue activities as per physical therapy. In case of persistent back pain, persistent difficulties walking, falls, discussed with your primary care doctor consideration of referral to a spine surgeon. Please keep the life alert button with you at all times. Call for help immediately if you fall down, injure self or have other concerning symptoms. Please discuss with your primary care doctor and family about further goals of care and your wishes regarding further hospitalization or treatment. Discharge Attestations Time Spent in Discharge Care*: greater than 30 min Quality Metrics Clinical Quality Measures During this hospital stay, did patient experience: None Coding Level of Care Code Acute Document Specialist for Chg Fwd Diagnoses Acute encephalopathy G93.40 Hypotension I95.9 Hypotension type: unspecified hypotension type Falls W19.XXXA Back pain M54.9 Hyponatremia E87.1 Rhabdomyolysis T79.6XXA Encounter type: initial encounter Rhabdomyolysis type: traumatic Acute kidney injury N17.9 Lung contusion S27.321A Encounter type: initial encounter Laterality: right Obesity E66.01; Z68.41 Body mass index: BMI 40.0-44.9 Obesity classification: adult class 3 (BMI >= 40) Obesity type: unspecified obesity type Serious obesity comorbidity presence: unspecified whether serious comorbidity present Sleep apnea G47.30 Hypercapnic respiratory failure J96.92 Obesity hypoventilation syndrome E66.2 Restrictive lung disease J98.4 Elevated troponin R77.8
--- NOTE | 2020-12-12 15:16 | PC.NURSE ---
pt two ivs taken out and intact. pt discharge instructions explained to pt and family member and all questions answered. pt taken to surgical services entrance via wheelchair.
[2020-12-15 07:56] LABS: ABG PH Result 7.35 (7.35-7.45); Blood Gas Allen Test Pos; Blood Gas Sample Type Arterial; HCO3 ABG 35.6 mmol/L (22-26); PO2 ABG 80.2 mmHg (80.0-100.0)
[2020-12-15 08:01] LABS: ABG PCO2 65.1 mmHg (35-45)
--- NOTE | 2020-12-16 14:57 | PC.SOCIAL ---
Received notification from pharmacy that the Phenazopyridine is not approved by insurance. Talked with Dr Gongora and per him he probably does not need this type of medication now was intended for use to help urinate post valencia initially. Lita talked to to educate her and verified with that patient is urinating well. Lita is case briefer in ED and patient is currently here being evaluated.
== END 2020-12-12 15:17 | disposition home health service (06) | DRG 682 ==
LOC: ER 12:37 → ICU 18:19 → MEDSURG 12-11 12:41
PROVIDERS: Internal Medicine; Nurse Practitioner Family; Admitting Provider Internal Medicine; Emergency Provider Family Medicine; PCP Family Medicine; Visit Provider Internal Medicine
DX: N17.9 Acute kidney failure, unspecified (principal); J96.02 Acute respiratory failure with hypercapnia; M62.82 Rhabdomyolysis; G93.40 Encephalopathy, unspecified; Z68.41 Body mass index [BMI] 40.0-44.9, adult; E87.1 Hypo-osmolality and hyponatremia; S27.321A Contusion of lung, unilateral, initial encounter; E66.2 Morbid (severe) obesity with alveolar hypoventilation; I95.9 Hypotension, unspecified; J98.4 Other disorders of lung; W19.XXXA Unspecified fall, initial encounter; J44.9 Chronic obstructive pulmonary disease, unspecified; I25.10 Atherosclerotic heart disease of native coronary artery without angina pectoris; E78.5 Hyperlipidemia, unspecified; I11.0 Hypertensive heart disease with heart failure; I50.9 Heart failure, unspecified; Z99.81 Dependence on supplemental oxygen; Z95.1 Presence of aortocoronary bypass graft; E87.5 Hyperkalemia; Z79.82 Long term (current) use of aspirin; Z87.891 Personal history of nicotine dependence; E03.9 Hypothyroidism, unspecified; I25.2 Old myocardial infarction
CPT/HCPCS: 36415; 36416; 36600; 51702; 70450; 71045; 71260; 72125; 72128; 72131; 74177; 76770; 76857; 80051; 80053; 80500; 81001; 81003; 82330; 82533; 82550; 82803; 82805; 82962; 83605; 83735; 84295; 84443; 84484; 85025; 85610; 86850; 86870; 86900; 86902; 86905; 86920; 87426; 93005; 93306; 94640; 94660; 94664; 96365; 96366; 96375; 97110; 97116; 97161; 97166; 97530; 99285; C8929; J1720; J1940; J2920; J7030; J7040; P9047; Q9956; Q9967

== ENCOUNTER 2020-12-16 12:48 | Inpatient (IN) | payer MEDICARE, SELFPAY ==
[2020-12-16] VITALS (39 sets, daily range): BP systolic 97–159; BP diastolic 58–114; PULSE 76–126; RESP 12–30; TEMP 36.7–37; O2SAT 90–100; BMI 39.5
--- NOTE | 2020-12-16 13:24 | XRR_ITS ---
PROCEDURE INFORMATION: Exam: XR Chest Exam date and time: 12/16/2020 1:32 PM Age: 80 years old Clinical indication: Cough and dyspnea and shortness of breath; Patient HX: AMS; Additional info: Dyspnea/cough TECHNIQUE: Imaging protocol: XR of the chest Views: 1 view. COMPARISON: CR XR chest 1V portable [id number] 12/11/2020 5:28 AM FINDINGS: Lungs: The lung volumes are low. There is chronic lung change. No acute pneumonia or edema. Pleural spaces: Unremarkable. No pleural effusion. No pneumothorax. Heart/Mediastinum: Cardiomegaly is identified. Bones/joints: There has been a sternotomy. XR/XR chest 1V portable [id number] IMPRESSION: There are no acute concerning abnormalities.
--- NOTE | 2020-12-16 13:40 | ED_ITS ---
HPI - General Adult General: Chief complaint: General Medical Stated complaint: SOB Time Seen by Provider: 12/16/20 12:51 History of Present Illness: HPI narrative: 80-year-old male presents via EMS report was on medicine has had his oxygen sats are at 70s. EMS reports she was that he was at 97% on 4 L when they arrived he usually does wear 4 L by nasal cannula. When the nurses were triaging the patient he had several episodes where he seemed to pass out was nonresponsive for brief periods of time. When I talked to him he states he has been short of breath with a productive cough his daughter who is at the bedside confirms that. He denies any chest pain. Onset (ago): day(s) Severity: moderate Relieving factors: rest Exacerbating factors: movement and other (Exertion) Associated symptoms: Deny chest pain, confusion, cough, diaphoresis, decreased appetite, dyspnea, fevers/chills, headache(s), malaise, nausea, rash, palpitations, seizures, short of breath, syncope, vomiting or weakness Treatments prior to arrival: none Review of Systems Const: Denies: malaise or diaphoresis ENMT: Denies: throat pain, ear or mastoid pain, nasal discharge or nasal congestion Card: Denies: chest pain, palpitations or syncope Resp: Denies: dyspnea GI: Denies: nausea or vomiting : Denies: flank pain, dysuria, urinary frequency or urinary urgency Skin/Breast: Denies: rash Neuro: Denies: headache(s) or confusion PFSH ED PFSH: Medical History Acute kidney injury ASHD (arteriosclerotic heart disease) CHF (congestive heart failure) COPD (chronic obstructive pulmonary disease) Dyslipidemia Elevated troponin HTN (hypertension) Hyponatremia Hypotension Hypothyroidism Ischemic cardiomyopathy Lung contusion Myocardial infarction Obesity Rhabdomyolysis Surgical History Hx of CABG Family History Other CAD (coronary artery disease) Stroke Social History Smoking and tobacco status: former smoker Alcohol intake: current Alcohol intake frequency: few times a week Lives independently: Yes Housing: House Marital status: 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 Physical Exam Const: GENERAL APPEARANCE: cooperative ORIENTATION/CONSCIOUSNESS: Yes awake, Yes oriented to person, Yes oriented to place and Yes oriented to time HENMT: COMMON NORMALS: normocephalic, atraumatic and hearing grossly normal bilaterally HEAD & SCALP: normocephalic and atraumatic Neck/C-Spine: COMMON NORMALS: no JVD Resp: COMMON NORMALS: normal respiratory effort, No retractions, No use of accessory muscles and clear to auscultation bilaterally AUSCULTATION: clear to auscultation bilaterally Cardio: COMMON NORMALS: no JVD, regular rate, regular rhythm and No murmurs present (Cardio) RATE: regular rate RHYTHM: regular rhythm GI: COMMON NORMALS: Soft to palpation and No hepatosplenomegaly present AUSCULTATION: Yes normoactive bowel sounds PALPATION: Yes Soft to palpation, No Tenderness to palpation present (GI), No Guarding due to palpation present (GI) and Yes No hepatosplenomegaly present Extremity: NARRATIVE EXTREMITY EXAM: 2+ edema lower extremities Neuro: SENSORIUM/ORIENTATION: Yes oriented to person, Yes oriented to place and Yes oriented to time Skin: COMMON NORMALS: no rashes or lesions noted GENERAL SKIN EXAM: no rashes or lesions noted Course Vital Signs: Vital signs: Vital Signs Temperature 97.5 F L 12/19/20 08:00 Pulse Rate 82 12/19/20 13:42 Respiratory Rate 29 H 12/19/20 13:42 Blood Pressure 122/63 12/19/20 13:42 Pulse Oximetry 96 12/19/20 13:42 MDM - General Adult MDM Narrative: Medical decision making narrative: Reviewed findings with the patient. Started on Cardizem. A. fib with RVR also given Lasix discussed with hospitalist orders written Lab Data: Labs: Lab Results 12/16/20 12/16/20 12/16/20 Range/Units 13:36 14:27 14:33 WBC (4.0-10.0) 10^3/ uL RBC (4.1-5.3) 10^6/u L Hgb (11.7-16.6) g/dL Hct (42.0-52.0) % MCV (80-94) fL MCH (28.0-34.0) pg MCHC (30.0-36.0) g/dL RDW (12.1-15.1) % Plt Count (130-400) 10^3/c mm MPV (7.4-10.4) fL Neut % (Auto) % Lymph % (Auto) % Hickman % (Auto) % Eos % (Auto) % Baso % (Auto) % Neut # (Auto) (1.8-7.7) 10^3/u L Lymph # (Auto) (0.8-4.8) 10^3/u L Hickman # (Auto) (0.2-0.9) 10^3/u L Eos # (Auto) (0.0-0.8) 10^3/u L Baso # (Auto) (0.0-0.1) 10^3/u L Nucleated RBC % (a uto) % Nucleated RBCs # /100WBC Specimen Type Arterial Sample Site Radial, right ABG pH 7.29 L (7.35-7.45) ABG pCO2 97.6 H* (35-45) mmHg ABG pO2 137.0 H (80.0-100.0) mmH g ABG HCO3 46.7 H (22-26) mmol/L ABG O2 Saturation 99.0 ABG Base Excess 15.9 H (-2.0-2.0) mmol/ L Humberto Test Pos A-a O2 Gradient 0.6 L (5-10) mmHg Hematocrit 37.1 L (42-52) % Hgb O2 Saturation 96.6 (95-100) % Carboxyhemoglobin 1.5 (0.4-20.1) %THgb Methemoglobin 0.9 (0.4-1.5) % Total Hemoglobin 12.1 L (14-18) g/dL Sodium 144.0 H (131-143) mmol/L Potassium 5.1 H (3.5-5.0) mmol/L Glucose 113.0 (70-115) mg/dL Ionized Calcium 1.3 (1.1-1.4) mmol/L O2 Delivery Device Nc O2 Liters/Min 4.0 % FiO2 36.0 % Communications Senior Associate ID Amh Chloride (98-107) mmol/L Carbon Dioxide (22-29) mmol/L Anion Gap (5-19) BUN (8-23) mg/dL Creatinine (0.7-1.2) mg/dL GFR Calculation Calculated Osmolal ity (285-295) mOsm/k g Lactic Acid 0.9 (0.5-2.2) mmol/L Calcium (8.5-10.5) mg/dL Magnesium (1.7-2.3) mg/dL Total Bilirubin (0.15-1.2) mg/dL AST (0-40) U/L ALT (0-41) U/L Alkaline Phosphata se (40-130) IU/L Creatine Kinase (39-308) U/L Troponin T Baselin e (0-15) ng/L Troponin T 120 Min [place] (0-15) ng/L Delta Troponin T (0-10) ABS# NT-Pro-B Natriuret Pep (0-450) pg/mL Total Protein (6.6-8.7) g/dL Albumin (3.5-5.2) g/dL Globulin (1.3-4.6) g/dL Lipase (13-60) U/L Urine Color [place]ylas (Yellow) Urine Appearance Clear (CLEAR) Urine pH 5 (5-7) Ur Specific Gravit y 1.020 (1.005-1.030) Urine Protein Not Reportable Urine Glucose (UA) Not Reportable Urine Ketones Not Reportable Urine Blood Not Reportable Urine Nitrate Not Reportable Urine Bilirubin Not Reportable Urine Urobilinogen Not Reportable Ur Leukocyte Yaritza ase Not Reportable Urine RBC 5-10 H (0-2) /hpf Urine WBC None (0-5) /hpf Ur Squamous Epith Cells 0-4 H (0-5) /hpf Amorphous Sediment Not Reportable Urine Bacteria Trace (NONE) /hpf Hyaline Casts 0-4 H /lpf Urine Mucus 3+ /hpf 12/16/20 12/16/20 12/16/20 Range/Units 14:33 14:33 14:33 WBC 10.0 (4.0-10.0) 10^3/ uL RBC 3.61 L (4.1-5.3) 10^6/u L Hgb 11.6 L (11.7-16.6) g/dL Hct 39.2 L (42.0-52.0) % MCV 108.6 H (80-94) fL MCH 32.1 (28.0-34.0) pg MCHC 29.6 L (30.0-36.0) g/dL RDW 12.9 (12.1-15.1) % Plt Count 267 (130-400) 10^3/c mm MPV 10.7 H (7.4-10.4) fL Neut % (Auto) 79.1 % Lymph % (Auto) 8.6 % Hickman % (Auto) 10.6 % Eos % (Auto) 0.8 % Baso % (Auto) 0.1 % Neut # (Auto) 7.94 H (1.8-7.7) 10^3/u L Lymph # (Auto) 0.9 (0.8-4.8) 10^3/u L Hickman # (Auto) 1.1 H (0.2-0.9) 10^3/u L Eos # (Auto) 0.1 (0.0-0.8) 10^3/u L Baso # (Auto) 0.0 (0.0-0.1) 10^3/u L Nucleated RBC % (a uto) 0 % Nucleated RBCs # 0.0 /100WBC Specimen Type Sample Site ABG pH (7.35-7.45) ABG pCO2 (35-45) mmHg ABG pO2 (80.0-100.0) mmH g ABG HCO3 (22-26) mmol/L ABG O2 Saturation ABG Base Excess (-2.0-2.0) mmol/ L Humberto Test A-a O2 Gradient (5-10) mmHg Hematocrit (42-52) % Hgb O2 Saturation (95-100) % Carboxyhemoglobin (0.4-20.1) %THgb Methemoglobin (0.4-1.5) % Total Hemoglobin (14-18) g/dL Sodium 137 (131-143) mmol/L Potassium 5.0 (3.5-5.0) mmol/L Glucose 103 (70-115) mg/dL Ionized Calcium (1.1-1.4) mmol/L O2 Delivery Device O2 Liters/Min % FiO2 % Communications Senior Associate ID Chloride 89 L (98-107) mmol/L Carbon Dioxide 43 H* (22-29) mmol/L Anion Gap 10.0 (5-19) BUN 20 (8-23) mg/dL Creatinine 0.6 L (0.7-1.2) mg/dL GFR Calculation Not Reportable Calculated Osmolal ity 287 (285-295) mOsm/k g Lactic Acid (0.5-2.2) mmol/L Calcium 9.0 (8.5-10.5) mg/dL Magnesium 2.2 (1.7-2.3) mg/dL Total Bilirubin 1.4 H (0.15-1.2) mg/dL AST 38 (0-40) U/L ALT 76 H (0-41) U/L Alkaline Phosphata se 61 (40-130) IU/L Creatine Kinase 70 (39-308) U/L Troponin T Baselin e 26 H (0-15) ng/L Troponin T 120 Min [place] (0-15) ng/L Delta Troponin T (0-10) ABS# NT-Pro-B Natriuret Pep (0-450) pg/mL Total Protein 6.3 L (6.6-8.7) g/dL Albumin 3.8 (3.5-5.2) g/dL Globulin 2.5 (1.3-4.6) g/dL Lipase 32 (13-60) U/L Urine Color (Yellow) Urine Appearance (CLEAR) Urine pH (5-7) Ur Specific Gravit y (1.005-1.030) Urine Protein Urine Glucose (UA) Urine Ketones Urine Blood Urine Nitrate Urine Bilirubin Urine Urobilinogen Ur Leukocyte Yaritza ase Urine RBC (0-2) /hpf Urine WBC (0-5) /hpf Ur Squamous Epith Cells (0-5) /hpf Amorphous Sediment Urine Bacteria (NONE) /hpf Hyaline Casts /lpf Urine Mucus /hpf 12/16/20 12/16/20 12/16/20 Range/Units 14:33 15:07 16:30 WBC (4.0-10.0) 10^3/ uL RBC (4.1-5.3) 10^6/u L Hgb (11.7-16.6) g/dL Hct (42.0-52.0) % MCV (80-94) fL MCH (28.0-34.0) pg MCHC (30.0-36.0) g/dL RDW (12.1-15.1) % Plt Count (130-400) 10^3/c mm MPV (7.4-10.4) fL Neut % (Auto) % Lymph % (Auto) % Hickman % (Auto) % Eos % (Auto) % Baso % (Auto) % Neut # (Auto) (1.8-7.7) 10^3/u L Lymph # (Auto) (0.8-4.8) 10^3/u L Hickman # (Auto) (0.2-0.9) 10^3/u L Eos # (Auto) (0.0-0.8) 10^3/u L Baso # (Auto) (0.0-0.1) 10^3/u L Nucleated RBC % (a uto) % Nucleated RBCs # /100WBC Specimen Type Arterial Sample Site Radial, left ABG pH 7.35 (7.35-7.45) ABG pCO2 84.1 H* (35-45) mmHg ABG pO2 66.0 L (80.0-100.0) mmH g ABG HCO3 46.6 H (22-26) mmol/L ABG O2 Saturation 94.0 ABG Base Excess 17.1 H (-2.0-2.0) mmol/ L Humberto Test Pos A-a O2 Gradient 6.4 (5-10) mmHg Hematocrit 36.7 L (42-52) % Hgb O2 Saturation 91.1 L (95-100) % Carboxyhemoglobin 1.9 (0.4-20.1) %THgb Methemoglobin 1.2 (0.4-1.5) % Total Hemoglobin 12.0 L (14-18) g/dL Sodium 142.0 (131-143) mmol/L Potassium 5.0 (3.5-5.0) mmol/L Glucose 100.0 (70-115) mg/dL Ionized Calcium 1.2 (1.1-1.4) mmol/L O2 Delivery Device Bipap O2 Liters/Min % FiO2 30.0 % Communications Senior Associate ID [place] Chloride (98-107) mmol/L Carbon Dioxide (22-29) mmol/L Anion Gap (5-19) BUN (8-23) mg/dL Creatinine (0.7-1.2) mg/dL GFR Calculation Calculated Osmolal ity (285-295) mOsm/k g Lactic Acid (0.5-2.2) mmol/L Calcium (8.5-10.5) mg/dL Magnesium (1.7-2.3) mg/dL Total Bilirubin (0.15-1.2) mg/dL AST (0-40) U/L ALT (0-41) U/L Alkaline Phosphata se (40-130) IU/L Creatine Kinase (39-308) U/L Troponin T Baselin e (0-15) ng/L Troponin T 120 Min [place] 24.64 H (0-15) ng/L Delta Troponin T -1.36 L (0-10) ABS# NT-Pro-B Natriuret Pep 7327 H (0-450) pg/mL Total Protein (6.6-8.7) g/dL Albumin (3.5-5.2) g/dL Globulin (1.3-4.6) g/dL Lipase (13-60) U/L Urine Color (Yellow) Urine Appearance (CLEAR) Urine pH (5-7) Ur Specific Gravit y (1.005-1.030) Urine Protein Urine Glucose (UA) Urine Ketones Urine Blood Urine Nitrate Urine Bilirubin Urine Urobilinogen Ur Leukocyte Yaritza ase Urine RBC (0-2) /hpf Urine WBC (0-5) /hpf Ur Squamous Epith Cells (0-5) /hpf Amorphous Sediment Urine Bacteria (NONE) /hpf Hyaline Casts /lpf Urine Mucus /hpf 12/16/20 Range/Units 17:42 WBC (4.0-10.0) 10^3/ uL RBC (4.1-5.3) 10^6/u L Hgb (11.7-16.6) g/dL Hct (42.0-52.0) % MCV (80-94) fL MCH (28.0-34.0) pg MCHC (30.0-36.0) g/dL RDW (12.1-15.1) % Plt Count (130-400) 10^3/c mm MPV (7.4-10.4) fL Neut % (Auto) % Lymph % (Auto) % Hickman % (Auto) % Eos % (Auto) % Baso % (Auto) % Neut # (Auto) (1.8-7.7) 10^3/u L Lymph # (Auto) (0.8-4.8) 10^3/u L Hickman # (Auto) (0.2-0.9) 10^3/u L Eos # (Auto) (0.0-0.8) 10^3/u L Baso # (Auto) (0.0-0.1) 10^3/u L Nucleated RBC % (a uto) % Nucleated RBCs # /100WBC Specimen Type Arterial Sample Site Radial, left ABG pH 7.37 (7.35-7.45) ABG pCO2 84.9 H* (35-45) mmHg ABG pO2 70.8 L (80.0-100.0) mmH g ABG HCO3 48.8 H (22-26) mmol/L ABG O2 Saturation ABG Base Excess 19.2 H (-2.0-2.0) mmol/ L Humberto Test Pos A-a O2 Gradient (5-10) mmHg Hematocrit 37.3 L (42-52) % Hgb O2 Saturation (95-100) % Carboxyhemoglobin (0.4-20.1) %THgb Methemoglobin (0.4-1.5) % Total Hemoglobin (14-18) g/dL Sodium (131-143) mmol/L Potassium (3.5-5.0) mmol/L Glucose (70-115) mg/dL Ionized Calcium (1.1-1.4) mmol/L O2 Delivery Device Bipap O2 Liters/Min % FiO2 30.0 % Communications Senior Associate ID jmn Chloride (98-107) mmol/L Carbon Dioxide (22-29) mmol/L Anion Gap (5-19) BUN (8-23) mg/dL Creatinine (0.7-1.2) mg/dL GFR Calculation Calculated Osmolal ity (285-295) mOsm/k g Lactic Acid (0.5-2.2) mmol/L Calcium (8.5-10.5) mg/dL Magnesium (1.7-2.3) mg/dL Total Bilirubin (0.15-1.2) mg/dL AST (0-40) U/L ALT (0-41) U/L Alkaline Phosphata se (40-130) IU/L Creatine Kinase (39-308) U/L Troponin T Baselin e (0-15) ng/L Troponin T 120 Min [place] (0-15) ng/L Delta Troponin T (0-10) ABS# NT-Pro-B Natriuret Pep (0-450) pg/mL Total Protein (6.6-8.7) g/dL Albumin (3.5-5.2) g/dL Globulin (1.3-4.6) g/dL Lipase (13-60) U/L Urine Color (Yellow) Urine Appearance (CLEAR) Urine pH (5-7) Ur Specific Gravit y (1.005-1.030) Urine Protein Urine Glucose (UA) Urine Ketones Urine Blood Urine Nitrate Urine Bilirubin Urine Urobilinogen Ur Leukocyte Yaritza ase Urine RBC (0-2) /hpf Urine WBC (0-5) /hpf Ur Squamous Epith Cells (0-5) /hpf Amorphous Sediment Urine Bacteria (NONE) /hpf Hyaline Casts /lpf Urine Mucus /hpf Discharge Plan Discharge Patient Disposition: Home Clinical Impression: Acute and chronic respiratory failure, unspecified whether with hypoxia or hypercapnia, CHF exacerbation, COPD (chronic obstructive pulmonary disease), Obesity, HTN (hypertension), Atrial fibrillation with RVR Condition: Stable Discharge Orders: Discharge Order (Routine); Ordered 12/19/20 Ordered By: Marylu Jain Discharge Diet: Cardiac Discharge Activity: Increase activity as tolerated Coding Level of Care Code ED [employer] for Raven Alexander
[2020-12-16 13:48] LABS: ABG PCO2 97.6 mmHg (35-45); ABG PH Result 7.29 (7.35-7.45); Alveolar-Arterial Oxygen Gradi 0.6 mmHg (5-10); Arterial Blood Gas Hematocrit 37.1 % (42-52); Base Excess ABG 15.9 mmol/L (-2.0-2.0); Blood Gas Allen Test Pos; Blood Gas Operator Identificat AMH; Blood Gas Sample Site Radial, right; Blood Gas Sample Type Arterial; Carboxyhemoglobin 1.5 %THgb (0.4-20.1); HCO3 ABG 46.7 mmol/L (22-26); HGB O2 Sat 96.6 % (95-100); Ionized Calcium Level - ABG 1.3 mmol/L (1.1-1.4); Methemoglobin 0.9 % (0.4-1.5); Oxygen Device NC; Potassium Level - ABG 5.1 mmol/L (3.5-5.0); Total Hemoglobin 12.1 g/dL (14-18)
--- NOTE | 2020-12-16 14:04 | PC.PHAR ---
PTS DAUGHTER LUCILLE TAKES CARE OF THE PTS MEDICATIONS-PTS DAUGHTER STATES THE PT HASNT RESTARTED THE ASPIRIN PT WAS SUPPOSE TO RESUME ON 12/16/20 PTS DAUGHTER STATES SHE WAS GOING TO GIVE TO THE PT TONIGHT- ON PREDNISONE ([facility] FILLED ON 12/13/20 20MG PO DAILY) (RX INSTRUCTIONS WRITTEN ON 12/12/20 20MG DAILY-2 tab for 3 days, then 1 tab for 3 days, then 1/2 tab for 3 days.) PTS DAUGHTER STATES SHE THINKS THE PT IS JUST TAKING ONE TAB DAILY
--- NOTE | 2020-12-16 14:24 | ECG_ITS ---
[facility] Test Date: 2020-12-16 Pat Name: Migel Watt Department: Room: Gender: Male Pharmacy Messenger: : [phone] Requested By: Saw Bowles Order Number: [id number] Kulwinder MD: Lang Louis M.D. Measurements Intervals [place] Rate: 97 P: AK: QRS: -35 QRSD: 105 T: 54 QT: 323 QTc: 412 Interpretive Statements ATRIAL FIBRILLATION WITH ABERRANT CONDUCTION OR VENTRICULAR PREMATURE COMPLEXES LEFT AXIS DEVIATION [QRS AXIS < -30] LOW QRS VOLTAGE IN PRECORDIAL LEADS [QRS DEFLECTION < 1.0 mV IN CHEST LEADS] Compared to ECG 12/12/2020 09:24:47 Ventricular premature complex(es) now present Aberrant conduction of supraventricular beat(s) now present Left-axis deviation now present Myocardial infarct finding no longer present Electronically Signed On 12-16-2020 23:53:01 ACCREDITED PHARMACY TECHNICIAN by Lang Louis M.D. [id number]
[2020-12-16 14:46] LABS: Basophils % 0.1 %; Eosinophils # 0.1 10^3/uL (0.0-0.8); Eosinophils % 0.8 %; Hematocrit 39.2 % (42.0-52.0); Hemoglobin 11.6 g/dL (11.7-16.6); Lymphocytes # 0.9 10^3/uL (0.8-4.8); Lymphocytes % 8.6 %; Mean Corpuscular HGB Conc 29.6 g/dL (30.0-36.0); Mean Corpuscular Hemoglobin 32.1 pg (28.0-34.0); Mean Corpuscular Volume 108.6 fL (80-94); Mean Platelet Volume 10.7 fL (7.4-10.4); Monocytes # 1.1 10^3/uL (0.2-0.9); Monocytes % 10.6 %; Neutrophils # 7.94 10^3/uL (1.8-7.7); Neutrophils % 79.1 %; Nucleated Red Blood Cells % 0 %; Platelet Count 267 10^3/cmm (130-400); Red Blood Count 3.61 10^6/uL (4.1-5.3); Red Cell Distribution Width 12.9 % (12.1-15.1)
[2020-12-16 14:58] LABS: Lactic Sepsis W/Reflex 0.9 mmol/L (0.5-2.2)
[2020-12-16 14:58] LABS: Urine Appearance Clear (CLEAR); Urine Color Orange (Yellow); pH Urine 5 (5-7)
[2020-12-16 15:00] LABS: Add Urine Microscopic? YES
[2020-12-16 15:01] LABS: Alanine Aminotransferase 76 U/L (0-41); Albumin Level 3.8 g/dL (3.5-5.2); Alkaline Phosphatase 61 IU/L (40-130); Aspartate Amino Transferase 38 U/L (0-40); Blood Urea Nitrogen 20 mg/dL (8-23); Chloride 89 mmol/L (98-107); Creatine Phosphokinase 70 U/L (39-308); Globulin 2.5 g/dL (1.3-4.6); Glucose 103 mg/dL (65-115); Lipase 32 U/L (13-60); Magnesium 2.2 mg/dL (1.7-2.3); Osmolality Calculated 287 mOsm/kg (285-295); Sodium 137 mmol/L (136-145); Total Bilirubin 1.4 mg/dL (0.15-1.2); Total Protein 6.3 g/dL (6.6-8.7)
[2020-12-16 15:02] LABS: Troponin(5th) Baseline 26 ng/L (0-15)
[2020-12-16 15:03] LABS: Carbon Dioxide 43 mmol/L (22-29); Creatinine Clr Calc Pharmacy 94.9521
[2020-12-16 15:06] LABS: Add Urine Culture? No; Bacteria Urine TRACE /hpf; Hyaline Casts Urine 0-4 /lpf; Mucus Urine 3+ /hpf; Squamous Epithelial Cell Urine 0-4 /hpf (0-5)
[2020-12-16 15:20] LABS: ABG PCO2 84.1 mmHg (35-45); ABG PH Result 7.35 (7.35-7.45); Alveolar-Arterial Oxygen Gradi 6.4 mmHg (5-10); Arterial Blood Gas Hematocrit 36.7 % (42-52); Base Excess ABG 17.1 mmol/L (-2.0-2.0); Blood Gas Allen Test Pos; Blood Gas Operator Identificat MONRO; Blood Gas Sample Site Radial, left; Blood Gas Sample Type Arterial; Carboxyhemoglobin 1.9 %THgb (0.4-20.1); HCO3 ABG 46.6 mmol/L (22-26); HGB O2 Sat 91.1 % (95-100); Ionized Calcium Level - ABG 1.2 mmol/L (1.1-1.4); Methemoglobin 1.2 % (0.4-1.5); Oxygen Device BIPAP
--- NOTE | 2020-12-16 15:35 | PM.HP ---
Providers/Chief Complaint Primary Care Provider: Margarito Perez MD Chief Complaint: SOB History of Present Illness Migel Watt is a 80 year old male who has history of CHF, COPD, coronary disease status post CABG, paroxysmal atrial fibrillation not on anticoagulation due to risk of falls and hematuria, preserved ejection fraction 45 to 50%, chronic hypercarbic hypoxic respiratory failure was recently admitted for management of hypotension secondary to poor p.o. intake after he sustained a fall at home he was managed with fluids for mild rhabdomyolysis and RACQUEL versus lung contusion he was asked to monitor his pulse ox, he was discharged on prednisone 20 mg for consideration of adrenal insufficiency presented today with chief complaint of respiratory distress. Daughter is at the bedside who is endorsing that they were in the midst of getting BiPAP approval from the PCP, Mr. Watt has been using oxygen at home, no recent fever, chest pain but yesterday's evening Mr. Watt has been acting confused and drowsy, he was very lethargic. This morning when home health nurse checked on him recommended evaluation in the hospital because he was hypoxic and drowsy. EMS brought him on 4 L nasal cannula, in the ER he was given Cardizem, IV Lasix for A. fib RVR and CHF exacerbation, he was put on BiPAP, ABG revealed compensated pH however PCO2 84 with PO2 66 with BiPAP 30% FiO2 settings 18 and 8. Daughter is stating that he has been experiencing productive cough with white sputum however no febrile episodes. He has not been taking anticoagulating agent because of risk of falls. His last bowel movement was today which was small. EKG shows A. fib RVR, chest x-ray consistent with cardiomegaly and vascular congestion however no consolidation or pneumonia, left hemidiaphragm is chronic, alkalosis noted on BMP with bilirubin 1.4, clinical signs of CHF I have requested BNP Review of Systems Const: Denies: fever(s) Eyes: Denies: change in vision ENMT: Denies: throat pain Card: Reports: swelling of feet/ankles, dyspnea on exertion and orthopnea Resp: Reports: dyspnea and productive cough GI: Denies: abdominal pain : Denies: flank pain Musc: Denies: neck pain Neuro: Denies: headache(s) Psych: Denies: anxiety Endo: Denies: polyuria Rosales/Lymph: Denies: easy bruising All/Imm: Denies: urticaria Medications/Allergies Home Medications Medication Instructions Recorded Confirmed Last Taken Type aspirin 81 mg tablet,delayed 81 mg PO DAILY@03/12/20 12/16/20 12/09/20 History release cilostazol 100 mg tablet 100 mg PO BID@07,03/12/20 12/16/20 12/16/20 History clopidogrel 75 mg PO DAILY@12/09/20 12/16/20 12/16/20 History levothyroxine 100 mcg PO DAILY@12/09/20 12/16/20 12/16/20 History lidocaine [Lidoderm] 1 patch TOPICAL [id number] #7 ea 12/12/20 12/16/20 12/15/20 17:00 Rx metoprolol tartrate 12.5 mg PO BID@0900,2100 #30 tab 12/12/20 12/16/20 12/16/20 Rx phenazopyridine 100 mg PO TIDPC #90 tab 12/12/20 12/16/20 12/16/20 Rx simvastatin 40 mg PO DAILY@1700 #0 tab 12/12/20 12/16/20 12/15/20 Rx prednisone See Rx Instructions .ROUTE .COMPLEX 12/16/20 12/16/20 Unknown History Allergies Allergy/AdvReac Type Severity Reaction Status Date / Time No Known Allergies Allergy Verified 12/16/20 14:04 PFSH Acute PFSH: Medical History Acute kidney injury ASHD (arteriosclerotic heart disease) CHF (congestive heart failure) COPD (chronic obstructive pulmonary disease) Dyslipidemia Elevated troponin HTN (hypertension) Hyponatremia Hypotension Hypothyroidism Ischemic cardiomyopathy Lung contusion Myocardial infarction Obesity Rhabdomyolysis Surgical History Hx of CABG Family History Other CAD (coronary artery disease) Stroke Social History Smoking and tobacco status: former smoker Alcohol intake: current Alcohol intake frequency: few times a week Lives independently: Yes Housing: House Marital status: 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 fib RVR noted on telemetry for which she was given Cardizem Multiple petechiae noted on lateral and anterior chest Distended abdomen, nontender bowel sounds sluggish Variable S1-S2 Assisted bilateral breath sounds Lower extremity 2+ pitting edema Patient seems drowsy after getting Ativan in the ER, Clinical signs of fluid overload Neuro exam is limited because of recent Ativan use however no gross neurological deficits noted Data : 12/16/20 14:33 12/16/20 14:33 A&P Assessment and plan (1) Acute and chronic respiratory failure with hypoxia: Status: Acute (2) CHF exacerbation: Status: Acute (3) Obesity hypoventilation syndrome: Status: Acute (4) Hypercapnic respiratory failure: Status: Acute (5) Sleep apnea: Status: Acute (6) Back pain: Status: Acute (7) Falls: Status: Acute (8) Obesity: Status: Acute Qualifiers: Body mass index: BMI 40.0-44.9 Obesity classification: adult class 3 (BMI >= 40) Obesity type: unspecified obesity type Serious obesity comorbidity presence: unspecified whether serious comorbidity present Qualified Code(s): E66.01 - Morbid (severe) obesity due to excess calories; Z68.41 - Body mass index [BMI]40.0-44.9, adult (9) COPD (chronic obstructive pulmonary disease): Status: Acute (10) Atrial fibrillation with RVR: Status: Acute (11) Metabolic alkalosis: Status: Acute Additional A&P Information Acute on chronic hypoxic respiratory failure Multifactorial related to A. fib RVR obesity hypoventilation and acute CHF exacerbation No signs of pneumonia, will request D-dimer to rule out PE patient has been off anticoagulating agent because of recent falls Chest x-ray consistent with mild pulmonary congestion Currently on BiPAP 30% settings 29/05 I am requesting another blood gas that we will decide whether he will be intubated or not, discussed with the family who is agreeable with intubation if needed Admit to ICU Acute CHF exacerbation Clinical signs of fluid overload requested 40 mg IV Lasix in the ER Follow-up with BNP He has preserved ejection fraction heart failure EKG is not showing any ischemic or infarctive changes EKG consistent with A. fib with RVR A. fib with acute RVR I do believe tachyarrhythmia has a role to play for CHF exacerbation which is causing hypoxic respiratory failure For better rate control Cardizem drip was given in the ER I would continue him on p.o. AV ismael blocking agent for now Not a candidate to be on any anticoagulating agent because of recent fall and rib fractures Better rate control is prudent for symptomatic relief at this point Sleep apnea/obesity hypoventilation restrictive lung disease Patient is high risk for intubation considering BMI and multiple chronic underlying conditions Metabolic alkalosis This seems to be compensatory mechanism of chronic hypercapnia I do believe he is at worst of worsening of alkalosis for which we might need carbonic anhydrase inhibitor/acetazolamide instead of Lasix, will monitor BMP, no electrolyte abnormality noted calcium 9 potassium 5 Full code N.p.o. DVT prophylaxis Lovenox Attestations Medical Necessity Statement*: Anticipating stay in the hospital course more than 2 midnights currently needing ICU for acute on chronic hypoxic hypercapnic restaurant failure, CHF exacerbation at risk of intubation and worsening Time Spent in Patient Care: (>than 50% of time spent in counselling and/or direct pt care on unit). 50mins Coding Level of Care Code Acute Selling Underwriter for g Fwd Diagnoses Acute and chronic respiratory failure with hypoxia J96.21 CHF exacerbation I50.9 Obesity hypoventilation syndrome E66.2 Hypercapnic respiratory failure J96.92 Sleep apnea G47.30 Back pain M54.9 Falls W19.XXXA Obesity E66.01; Z68.41 Body mass index: BMI 40.0-44.9 Obesity classification: adult class 3 (BMI >= 40) Obesity type: unspecified obesity type Serious obesity comorbidity presence: unspecified whether serious comorbidity present COPD (chronic obstructive pulmonary disease) J44.9 Atrial fibrillation with RVR I48.91 Metabolic alkalosis E87.3
[2020-12-16] MEDS: LORazepam 2 mg/mL INJ 1 mL 1 MG IVP (15:57)
--- NOTE | 2020-12-16 15:59 | P.CONIM_ITS ---
Providers/Reason For Consult Consulting Physican/Specialty*: Pulmonary and critical care medicine Reason for Consult*: Acute on chronic hypoxic and hypercapnic respiratory failure Primary Care Provider: Margarito Perez MD History of Present Illness History of Present Illness Migel Watt is a 80 year old male who was brought to the emergency department by the EMS after reporting his oxygen saturation was in the 70s at home. The patient has chronic hypoxic and hypercapnic respiratory failure. He was recently hospitalized with altered mental status after sustaining a fall. Arterial blood gas analysis at that time revealed chronic compensated respiratory acidosis with a baseline PCO2 around 65. Upon presentation to the hospital today, the patient was found to be in acute on chronic hypercapnic respiratory failure with respiratory acidosis. His initial arterial blood gas revealed a pH of 7.29, PCO2 of 98, PO2 of 137 with 4 L nasal cannula. the patient was subsequently put on BiPAP. His repeat blood gas reveals a pH of 7.35, PCO2 of 84 and PO2 of 66. The patient carries a diagnosis of COPD. I do not have any previous pulmonary function test available. When the patient was hospitalized earlier last week he underwent a CT scan of the chest abdomen pelvis for trauma work-up. The CT scan of the chest at that time did not reveal any significant amount of emphysema. His BMI is about 40 and he likely has chronic bronchitis as the etiology for his COPD. The patient carries a diagnosis of ischemic cardiomyopathy. From the review of the chart it appears that the patient had an anteroseptal AR in 2009 and at that time had undergone coronary artery bypass graft surgery. His last echocardiogram is from 2013 and he was found to have an ejection fraction of 45% with global hypokinesis. The patient is seen by the cardiology team and used to be on several medications that was recently discontinued likely secondary to hypotension when the patient was admitted earlier this month. The patient was discharged home on narcotics for his fracture and pain. The patient was seen and examined in ICU today. He appears to be resting comfortably. No significant shortness of breath. The patient is currently saturating well with 3 L oxygen via nasal cannula. I performed a bedside ultrasound. There is no B-lines. Gross cardiac ultrasound revealed normal TAPSE. The IVC is dilated with dilated hepatic veins. Review of Systems Narrative: Unable to obtain Meds/Allergies Home Medications and Allergies Home Medications Medication Instructions Recorded Confirmed Last Taken Type aspirin 81 mg tablet,delayed 81 mg PO DAILY@17 03/12/20 12/16/20 12/09/20 History release cilostazol 100 mg tablet 100 mg PO BID@07,17 03/12/20 12/16/20 12/16/20 History clopidogrel 75 mg PO DAILY@12/09/20 12/16/20 12/16/20 History levothyroxine 100 mcg PO DAILY@07 12/09/20 12/16/20 12/16/20 History lidocaine [Lidoderm] 1 patch TOPICAL [id number] #7 ea 12/12/20 12/16/20 12/15/20 17:00 Rx metoprolol tartrate 12.5 mg PO BID@0900,2100 #30 tab 12/12/20 12/16/20 12/16/20 Rx phenazopyridine 100 mg PO TIDPC #90 tab 12/12/20 12/16/20 12/16/20 Rx simvastatin 40 mg PO DAILY@1700 #0 tab 12/12/20 12/16/20 12/15/20 Rx prednisone See Rx Instructions .ROUTE .COMPLEX 12/16/20 12/16/20 Unknown History Allergies Allergy/AdvReac Type Severity Reaction Status Date / Time No Known Allergies Allergy Verified 12/16/20 14:04 PFSH Acute PFSH: Medical History Acute kidney injury ASHD (arteriosclerotic heart disease) CHF (congestive heart failure) COPD (chronic obstructive pulmonary disease) Dyslipidemia Elevated troponin HTN (hypertension) Hyponatremia Hypotension Hypothyroidism Ischemic cardiomyopathy Lung contusion Myocardial infarction Obesity Rhabdomyolysis Surgical History Hx of CABG Family History Other CAD (coronary artery disease) Stroke Social History Smoking and tobacco status: former smoker Alcohol intake: current Alcohol intake frequency: few times a week Lives independently: Yes Housing: House Marital status: 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 Vitals/I&O/Wt Last Vital Signs Temp 98.1 F 12/16/20 12:59 Pulse 104 H 12/16/20 15:36 Resp 21 H 03/09/21 15:20 BP 134/104 12/16/20 15:20 Pulse Ox 96 12/16/20 15:36 Weight last 48 hrs Weight 260 lb Physical Exam Narrative: EXAM NARRATIVE: General: Patient is awake alert, no acute distress Neck: Elevated jugular venous pulsation Respiratory: Inspection: Bruising over the chest predominantly in the right lateral side Palpation: Trachea is mildly deviated to the right, bilateral symmetric but reduced expansion Percussion: Bilateral tympanic percussion note both anterior and posteriorly, not performed over the right lateral or left lateral aspect of the chest Auscultation: Reduced breath sound bilaterally no wheezing or rhonchi, occasional crackles at the left lower lung base Cardiovascular: Regular rate and rhythm, S1-S2 present, significant bilateral peripheral edema Abdomen: Soft, nontender, distended from obesity, positive bowel sound Skin: Bruising over the lateral anterior chest Neuro: Patient is able to answer questions and follow commands, no focal gross motor deficit Data Other Data: Attestation for Other Data: I personally reviewed and interpreted the following: Other data: I have reviewed the patient's laboratory, microbiologic and radiologic data. Chest x-ray reveals hyperinflation without any focal infiltrate. A&P Assessment and plan (1) Acute and chronic respiratory failure, unspecified whether with hypoxia or hypercapnia: This is a 80-year-old gentleman with chronic hypoxic and hypercapnic respiratory failure. The etiology of the chronic hypoxic and hypercapnic respiratory failure is COPD. The patient had a chest CT scan performed on December 09 which did not reveal any significant evidence of emphysema. The patient's clinical presentation is consistent with chronic bronchitis le ading to COPD and typical blue bloater. When the patient presented to the hospital in early December his baseline PCO2 was 65 however it appears currently his baseline PCO2 is 85. This is likely second desmond to the narcotic medications that the patient had been receiving because of pain. Narcotics are known to reduce the sensitivity of the brain to carbon dioxide and prolonged use especially in the setting of already significant hypercapnic respiratory failure is likely to increase the PCO2. The worsening hypoxia was likely secondary to the increased PCO2 level. The patient's bicarb level of 43 can be completely explained by baseline PCO2 of 85. The acute deterioration of the patient's hypercapnia is likely a combination of the narcotic medications, possible shallow breath in the setting of rib pain and worsening of right-sided heart failure. The patient has evidence of dilated IVC, dilated hepatic veins bilateral significant pitting peripheral edema all consistent with the diagnosis of heart failure. The patient has received 40 of Lasix with good urine output. I would recommend continuing the diuresis. If the patient starts developing metabolic alkalosis, Diamox could be added to the regimen. Status: Acute (2) COPD (chronic obstructive pulmonary disease): There is no evidence of COPD exacerbation at this time. However, it appears that the patient had been taking prednisone at home for suspected diagnosis of hypoaldosteronism. I would suspect, that the prednisone had also contributed to the fluid retention in addition to the discontinuation of the home diuretics that the patient was on during his last hospital admission. For now, the patient can be given nebulized treatment for his COPD. The most important thing for the patient is to use the BiPAP at home ventilator at nighttime which she should be using every night. Furthermore, the patient is going to need outpatient work-up for COPD, chronic hypercapnic respiratory failure and the possibility of obesity hypoventilation syndrome. Status: Acute (3) CHF (congestive heart failure): Since the patient is in the hospital, I would recommend starting the patient on low-dose carvedilol as he was on that. In addition, the patient would also benefit from spironolactone which was the patient's previous regimen as well. The patient had his last echocardiogram in 2013. Status: Acute Coding Level of Care Code Acute [facility] Diagnoses Acute and chronic respiratory failure, unspecified whether with hypoxia or hypercapnia J96.20 COPD (chronic obstructive pulmonary disease) J44.9 CHF (congestive heart failure) I50.9
--- NOTE | 2020-12-16 16:02 | PC.NURSE ---
pt expresses pain (grimacing) but cannot verbalize intensity or location
--- NOTE | 2020-12-16 16:24 | ECG_ITS ---
[facility] Test Date: 2020-12-16 Pat Name: Migel Watt Department: Room: Gender: Male Blower Operator: : 1940 Requested By: Saw Bowles Order Number: [id number] Kulwinder MD: Lang Louis M.D. Measurements Intervals [place] Rate: 104 P: GA: QRS: -36 QRSD: 88 T: 47 QT: 301 QTc: 397 Interpretive Statements ATRIAL FIBRILLATION WITH RAPID VENTRICULAR RESPONSE WITH ABERRANT CONDUCTION OR VENTRICULAR PREMATURE COMPLEXES LEFT AXIS DEVIATION [QRS AXIS < -30] Compared to ECG 12/16/2020 15:33:52 No significant changes Electronically Signed On 12-17-2020 0:02:44 MANUFACTURER AGENT by Lang Louis M.D. [id number]
[2020-12-16] MEDS: FUROsemide 10 mg/mL SDV 4mL 40 MG IVP (16:41)
[2020-12-16 17:33] LABS: Troponin 5 2HR 24.64 ng/L (0-15)
[2020-12-16 17:34] LABS: Troponin 5 2HR Delta -1.36 ABS# (0-10)
[2020-12-16 17:37] LABS: NT Pro B Type Natriuretic Pept 7327 pg/mL (0-450)
[2020-12-16 17:55] LABS: ABG PH Result 7.37 (7.35-7.45); Arterial Blood Gas Hematocrit 37.3 % (42-52); Base Excess ABG 19.2 mmol/L (-2.0-2.0); Blood Gas Allen Test Pos; Blood Gas Sample Site Radial, left; Blood Gas Sample Type Arterial; HCO3 ABG 48.8 mmol/L (22-26); Oxygen Device BIPAP; PO2 ABG 70.8 mmHg (80.0-100.0)
[2020-12-16 17:57] LABS: ABG PCO2 84.9 mmHg (35-45)
--- NOTE | 2020-12-16 18:20 | PC.NURSE ---
Patient received from ER on cart, cardizem gtt et nasal cannula. Patient transferred to ICU bed et placed on bedside monitor. Patient obtunded et unable to answer any questions. Notified RT to place patient on BiPAP.
[2020-12-16 18:44] LABS: Glucose Point of Care 96 mg/dL (70-110)
[2020-12-16] MEDS: lidocaine 5% Patch 1 PATCH TOPICAL (20:18)
--- NOTE | 2020-12-16 20:24 | ECG_ITS ---
[facility] Test Date: 2020-12-16 Pat Name: Migel Watt Department: Room: Gender: Male Timekeeper: : 1940 Requested By: Saw Bowles Order Number: [id number] Kulwinder MD: Lang Louis M.D. Measurements Intervals [place] Rate: 109 P: [place]: QRS: -28 QRSD: 84 T: 50 QT: 311 QTc: 420 Interpretive Statements ATRIAL FIBRILLATION WITH RAPID VENTRICULAR RESPONSE WITH ABERRANT CONDUCTION OR VENTRICULAR PREMATURE COMPLEXES BORDERLINE LEFT AXIS DEVIATION [QRS AXIS < -20] LOW QRS VOLTAGE IN EXTREMITY LEADS [QRS DEFLECTION < 0.5 mV IN LIMB LEADS] ABNORMAL RHYTHM ECG Compared to ECG 12/16/2020 14:49:57 No significant changes Electronically Signed On 12-17-2020 0:02:36 SODA DIALYZER by Lang Louis M.D. [email or web address]
[2020-12-16 20:59] LABS: Troponin 5 6HR 27.69 ng/L (0-15); Troponin 5 6HR Delta 1.69 ng/L (0-12)
[2020-12-16 21:06] LABS: ABG PH Result 7.38 (7.35-7.45); Arterial Blood Gas Hematocrit 34.6 % (42-52); Base Excess ABG 21.7 mmol/L (-2.0-2.0); Blood Gas Sample Type Arterial; HCO3 ABG 51.1 mmol/L (22-26); PO2 ABG 56.2 mmHg (80.0-100.0)
[2020-12-16 21:07] LABS: Blood Gas Sample Site Brachial, right; Oxygen Device BIPAP
[2020-12-16 21:08] LABS: ABG PCO2 87.6 mmHg (35-45)
[2020-12-16] MEDS: enoxaparin 40 mg/0.4 mL Syringe SUBCUT (23:10)
[2020-12-17] VITALS (72 sets, daily range): BP systolic 104–141; BP diastolic 52–86; PULSE 71–108; RESP 13–35; TEMP 36.4–37.2; O2SAT 90–100
[2020-12-17] MEDS: ipratropium-albuterol 3 mL Neb INHALATION ×2 (03:44→21:56)
[2020-12-17 04:09] LABS: ABG PH Result 7.42 (7.35-7.45); Arterial Blood Gas Hematocrit 33.3 % (42-52); Base Excess ABG 21.8 mmol/L (-2.0-2.0); Blood Gas Sample Site Brachial, right; Blood Gas Sample Type Arterial; Oxygen Device BIPAP
[2020-12-17 04:10] LABS: ABG PCO2 77.6 mmHg (35-45)
[2020-12-17 04:21] LABS: Basophils % 0.1 %; Eosinophils # 0.1 10^3/uL (0.0-0.8); Eosinophils % 1.4 %; Hemoglobin 10.7 g/dL (11.7-16.6); Lymphocytes % 10.6 %; Mean Corpuscular HGB Conc 29.7 g/dL (30.0-36.0); Mean Corpuscular Volume 107.8 fL (80-94); Mean Platelet Volume 10.7 fL (7.4-10.4); Monocytes # 0.9 10^3/uL (0.2-0.9); Monocytes % 9.3 %; Neutrophils # 7.33 10^3/uL (1.8-7.7); Neutrophils % 78.1 %; Nucleated Red Blood Cells % 0 %; Platelet Count 221 10^3/cmm (130-400); Red Blood Count 3.34 10^6/uL (4.1-5.3); Red Cell Distribution Width 12.9 % (12.1-15.1); White Blood Count 9.4 10^3/uL (4.0-10.0)
[2020-12-17 04:40] LABS: Alanine Aminotransferase 57 U/L (0-41); Albumin Level 3.3 g/dL (3.5-5.2); Alkaline Phosphatase 53 IU/L (40-130); Anion Gap 9.6 (5-19); Aspartate Amino Transferase 29 U/L (0-40); Blood Urea Nitrogen 22 mg/dL (8-23); Chloride 95 mmol/L (98-107); Creatinine Clr Calc Pharmacy 94.9521; Globulin 2.3 g/dL (1.3-4.6); Glucose 86 mg/dL (65-115); Osmolality Calculated 301 mOsm/kg (285-295); Potassium 4.6 mmol/L (3.5-5.1); Sodium 144 mmol/L (136-145); Total Bilirubin 1.5 mg/dL (0.15-1.2); Total Protein 5.6 g/dL (6.6-8.7)
[2020-12-17 05:15] LABS: Carbon Dioxide 44 mmol/L (22-29)
[2020-12-17] MEDS: clopidogrel 75 mg Tablet PO (07:37)
[2020-12-17] MEDS: cilostazol 100 mg Tablet 50 MG PO ×2 (07:37→17:43)
[2020-12-17] MEDS: levothyroxine 100 mcg Tablet PO (07:37)
--- NOTE | 2020-12-17 08:49 | USCV_ITS ---
ShukriMigel Age: 80 Gender: M : 1940 Exam Date: 12/17/2020 10:47 Ordering Phys: Marylu Jain MD Technologist: Julia Nickerson Exam Location: [facility] [place]_ Indication: DVT HISTORY: EVAL FOR DVT PROCEDURES: Venous duplex imaging was performed in bilateral lower extremities. The following venous structures were evaluated: common femoral vein, profunda vein, proximal portion of the greater saphenous vein, superficial femoral vein, and the popliteal vein. In addition, the posterior tibial and peroneal trunk were evaluated. Serial compression, augmentation maneuvers, and spectral Doppler flow evaluation were performed. FINDINGS: SVT seen within the right GSV at the junction. All other vessels appear free of thrombus at this time. Left GSV at thigh removed for CABG CONCLUSIONS SVT right greater saphenous vein at the femoral junction Remainder of vessels are patent. Cristi Winchester MD (Electronically Signed) Final Date: 17 December 2020 13:03 S
--- NOTE | 2020-12-17 09:26 | PC.CHAP ---
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 [] Patient/Family/Request visit [] Outpatient visit [] Follow-up visit [] Physician referral [] Code/Alert [x] Routine visit [] Staff referral [] Actively dying [] Patient sleeping [] Family support [] [] Out of room [] Palliative care [] [] Receiving care in room [] Pre-surgical visit [] Trauma [] Long length of stay [x] ICU visit [] Other: Relational/Emotional Strength [] Patient feels connected with others/family/visitors/staff [] Distress [] Loneliness/isolation [] Abandonment Spirituality of Patient [] Person of Bushra [] Attends Scientologist of their Bushra [] Believes in Prayer [] Reads Bible or Temple materials [] There are Spiritual issues to be addressed 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 Interventions [x] Prayer [x] Active listening [x] Non-anxious presence [x] Spiritual/emotional support [] Crisis/trauma care [] Spiritual counseling [] Bereavement support [] Provided bereavement packet [] Provided Bible/devotional materials [] Provided toy/stuffed animal, coloring book to patient or family member [] Provided Communion [] Anointing/[place] [] Salvation [x] Completed spiritual assessment [] Other: Impact on Illness or Injury [] Angry [] Fearful [] Anxious [] Often cries [] Exhaustion [] Unable to work [] Unable to attend adventist [] Unable to walk/stand [] Unable to read [] Unable to drive [] Unable to eat/drink [] Unable to sleep [] Unable to be with family [] Patient intubated [] Other: Summary patient thankful for help... Time spent with patient 10 min
--- NOTE | 2020-12-17 09:35 | P.PN_ITS ---
Subjective Subjective: Interval history: Patient was awake alert and very pleasant during evaluation today he was on 2 L nasal cannula when I saw him was saturating 95% patient told me that he remembered seeing me yesterday in the ER when he was drowsy Not complaining of any chest pain however he does endorse abdominal bloating 750 cc urine output in the last 12 hours BMP shows worsening alkalosis however PCO2 has decreased Overnight he was started on Cardizem for A. fib RVR, currently he is on 7 mg/h, I requested nurse to titrated down to 5 mg and plan of index few hours current heart rate was fluctuating between 80-95 Added Diamox, requested venous Doppler of lower extremities, physical therapy, initiated cardiac diet will transfer him to CSU Vitals/I&O/Wt Last Vital Signs Temp 97.7 F 12/17/20 09:15 Pulse 88 12/17/20 09:32 Resp 14 12/17/20 09:32 BP 125/79 12/17/20 09:15 Pulse Ox 100 12/17/20 09:32 12/16/20 12/17/20 12/17/20 22:59 06:59 14:59 Intake Total 50 / 50 Output Total 600 / 600 200 / 800 Balance -600 / -600 -200 / -800 50 / 50 Weight last 48 hrs Weight 117.934 kg Physical Exam Narrative: EXAM NARRATIVE: Very pleasant elderly male Much more awake and alert today as compared to yesterday currently saturating w ell on 2 L nasal cannula 95% Telemetry showing A. fib heart rate fluctuate between 80-95 Cardizem running at the bedside 7 mg/h Nicholson catheter draining concentrated urine Variable S1-S2 no murmur appreciated no active chest pain Multiple petechial bruises of chest wall Bloated abdomen however nontender no signs of peritonitis bowel sounds hyperactive Lower extremity 2+ pitting edema bilaterally Awake alert oriented x3 GCS 15 No new neurological deficit ,EOMI , PERRLA Urinary Catheter Management^: Nicholson: Cath Placed During This Visit: yes Reason for Continuing Indwelling Catheter: Accurate Measurement of Urinary Output in Critically Ill Patients Urinary Catheter Date of Insertion: 12/16/20 Urinary Catheter Time of Insertion: 17:17 Data : 12/17/20 04:12 12/17/20 04:12 A&P Assessment and plan (1) Acute and chronic respiratory failure with hypoxia: Status: Acute (2) Hypercapnic respiratory failure: Status: Acute (3) CHF exacerbation: Status: Acute (4) Atrial fibrillation with RVR: Status: Acute (5) Metabolic alkalosis: Status: Acute Additional A&P Information Acute on chronic hypoxic hypercapnic respiratory failure Etiology is underlying COPD, sleep apnea narcotics and hypoventilation Patient did well on BiPAP last night with improvement in PCO2 and today he is on 2 L nasal cannula oxygenating very well Chest x-ray consistent with primary edema We will arrange trilogy before discharge Hypercapnic respiratory failure His bicarb was appropriate to rise in CO2 with compensated hypercapnia this was most likely due to worsening hypoxia hypoventilation and narcotics with underlying sleep apnea He will need long-term trilogy at home to prevent worsening of hypercapnia and readmission in the hospital Acute CHF exacerbation Does have features of right-sided heart failure due to pulmonary pathology Clinically showing improvement Improvement in ABG We will transition to p.o. Bumex along with Diamox Metabolic alkalosis: His alkalosis was in compensation to hypercapnia due to hypoxia Today PCO2 has decreased and alkalosis has worsened I would transition to Bumex 0.5 mg daily along Diamox No severe calcium or potassium electrolyte abnormality noted A. fib RVR currently on Cardizem drip running at 7 mg/h, will transfer to CSU and titrate it off Low extremity swelling: We will check venous Doppler rule out DVT Diet: Cardiac Physical therapy evaluation Full code. Anticipating discharge once his trilogy is arranged and he shows signs of improvement in metabolic alkalosis Attestations Medical Necessity Statement*: Continue inpatient hospitalization for CHF exacerbation hypoxic hypercapnic restaurant failure transfer out of ICU to CSU today Time Spent in Patient Care: (>than 50% of time spent in counselling and/or direct pt care on unit) . 40mins Coding Level of Care Code Acute Transcribing Machine Operator for g Fwd Diagnoses Acute and chronic respiratory failure with hypoxia J96.21 Hypercapnic respiratory failure J96.92 CHF exacerbation I50.9 Atrial fibrillation with RVR I48.91 Metabolic alkalosis E87.3
[2020-12-17] MEDS: acetaZOLAMIDE 250 mg Tablet 500 MG PO (09:58)
[2020-12-17] MEDS: predniSONE 20 mg Tablet PO (10:00)
[2020-12-17] MEDS: metoprolol tartrate 25 mg Tablet 12.5 MG PO ×2 (10:13→20:39)
[2020-12-17] MEDS: lidocaine 5% Patch 1 PATCH TOPICAL ×2 (10:13→20:41)
--- NOTE | 2020-12-17 12:48 | PC.NURSE ---
Patient was transferred to CSU by this nurse at 1215. All belongings with patient.
--- NOTE | 2020-12-17 16:00 | PC.NURSE ---
Dr. Jain updated on patient condition. Patient Hr is 70-90s afib, BP 122/58 on 5 mg/hr of Cardizem. Telephone order to stop IV cardizem. RBTO. No additional orders received. Nurse to continue to monitor.
[2020-12-17] MEDS: aspirin 81 mg EC Tablet PO (17:43)
--- NOTE | 2020-12-17 18:00 | PC.NURSE ---
Dr. Jain updated on patient condition. HR 90-110s a fib, BP 150/81. Verbal order to restart Cardizem gtt. RBVO.
[2020-12-17] MEDS: enoxaparin 40 mg/0.4 mL Syringe SUBCUT (20:39)
[2020-12-18] VITALS (14 sets, daily range): BP systolic 98–122; BP diastolic 58–73; PULSE 79–101; RESP 18–31; TEMP 35.6–36.6; O2SAT 93–99
[2020-12-18 04:46] LABS: Basophils % 0.2 %; Eosinophils # 0.1 10^3/uL (0.0-0.8); Eosinophils % 0.7 %; Hematocrit 33.5 % (42.0-52.0); Hemoglobin 10.3 g/dL (11.7-16.6); Lymphocytes % 8.6 %; Mean Corpuscular HGB Conc 30.7 g/dL (30.0-36.0); Mean Corpuscular Hemoglobin 32.1 pg (28.0-34.0); Mean Corpuscular Volume 104.4 fL (80-94); Mean Platelet Volume 11.5 fL (7.4-10.4); Monocytes # 0.9 10^3/uL (0.2-0.9); Neutrophils # 9.06 10^3/uL (1.8-7.7); Nucleated Red Blood Cells % 0 %; Platelet Count 194 10^3/cmm (130-400); Red Blood Count 3.21 10^6/uL (4.1-5.3); Red Cell Distribution Width 12.7 % (12.1-15.1); White Blood Count 11.1 10^3/uL (4.0-10.0)
[2020-12-18 05:04] LABS: Anion Gap 7.6 (5-19); Blood Urea Nitrogen 19 mg/dL (8-23); Calcium 8.7 mg/dL (8.5-10.5); Carbon Dioxide 37 mmol/L (22-29); Chloride 97 mmol/L (98-107); Creatinine Clr Calc Pharmacy 94.9521; Glucose 88 mg/dL (65-115); Osmolality Calculated 288 mOsm/kg (285-295); Potassium 3.6 mmol/L (3.5-5.1); Sodium 138 mmol/L (136-145)
[2020-12-18 05:52] LABS: ABG PCO2 62.3 mmHg (35-45); ABG PH Result 7.38 (7.35-7.45); Arterial Blood Gas Hematocrit 32.6 % (42-52); Base Excess ABG 9.4 mmol/L (-2.0-2.0); Blood Gas Operator Identificat HARKR; Blood Gas Sample Site Brachial, right; Blood Gas Sample Type Arterial; HCO3 ABG 36.4 mmol/L (22-26); Oxygen Device NC
[2020-12-18] MEDS: levothyroxine 100 mcg Tablet PO (06:08)
[2020-12-18] MEDS: clopidogrel 75 mg Tablet PO (06:08)
[2020-12-18] MEDS: cilostazol 100 mg Tablet 50 MG PO ×2 (06:08→16:59)
[2020-12-18] MEDS: metoprolol tartrate 25 mg Tablet 12.5 MG PO (08:51)
[2020-12-18] MEDS: sennosides-docusate Tablet 1 TAB PO (08:52)
[2020-12-18] MEDS: acetaZOLAMIDE 250 mg Tablet 500 MG PO (08:53)
[2020-12-18] MEDS: polyethylene glycol 3350 Pkt 17 gm PO (08:53)
[2020-12-18] MEDS: predniSONE 20 mg Tablet PO (08:53)
[2020-12-18] MEDS: lidocaine 5% Patch 1 PATCH TOPICAL ×2 (08:55→21:10)
--- NOTE | 2020-12-18 11:05 | PM.PN ---
Subjective Subjective: Interval history: Patient was seen and examined this morning. Labs reviewed. Patient is endorsing feeling better negative balance of 1.2 L patient did well with BiPAP last night PCO2 seems improved with improvement in bicarb as well with use of Diamox Vitals/I&O/Wt Last Vital Signs Temp 96.1 F L 12/18/20 11:03 Pulse 86 12/18/20 11:03 Resp 31 H 12/18/20 11:03 BP 113/64 12/18/20 11:03 Pulse Ox 96 12/18/20 11:03 12/17/20 12/18/20 12/18/20 22:59 06:59 14:59 Intake Total 387.583 / 765.166 120 / 885.166 434.75 / 434.75 Output Total 400 / 800 1100 / 1900 550 / 550 Balance -12.417 / -34.834 -980 / -1014.834 -115.25 / -115.25 Weight last 48 hrs Weight 117.934 kg Physical Exam Narrative: EXAM NARRATIVE: Patient was in semifetal position on 2 L nasal cannula when I entered the room was saturating well Cardizem drip was running at 5 mg/h for A. fib RVR Blood pressure 113/64 mmHg, heart rate fluctuating between 1 10-1 20 No active chest pain, S1-S2 variable with improvement in signs of heart failure I do not see JVD today bilateral lower extremity edema present, I do not see any skin wrinkling yet Abdomen distended bowel sound present No complaint of abdominal pain no tenderness No neurological deficit EOMI, PERRLA No joint swelling Urinary Catheter Management^: Nicholson: Cath Placed During This Visit: yes Reason for Continuing Indwelling Catheter: Accurate Measurement of Urinary Output in Critically Ill Patients Urinary Catheter Date of Insertion: 12/16/20 Urinary Catheter Time of Insertion: 17:17 Data : 12/18/20 03:50 12/18/20 03:50 A&P Assessment and plan (1) CHF exacerbation: Status: Acute (2) Atrial fibrillation with RVR: Status: Acute (3) Acute and chronic respiratory failure with hypoxia: Status: Acute (4) Obesity hypoventilation syndrome: Status: Acute (5) Metabolic alkalosis: Status: Acute Additional A&P Information Acute CHF exacerbation Very good urine output, he is in -1.2 L balance I would continue Diamox for 1 more day his bicarb seems to be improving with improvement of PaCO2, at this point I would avoid over correcting his bicarb which is in response to hypercapnia overcorrection might increase his risk for distress and work of breathing We will switch to Lasix tomorrow A. fib with acute RVR Currently on Cardizem drip at 5 mg/h I would increase his metoprolol dosage today and wean off Cardizem I will start him on Eliquis 5 mg twice a day Acute on chronic hypoxic respiratory failure Patient is BiPAP dependent will need BiPAP at night on regular basis for obesity hypoventilation syndrome PCO2 seems to be improving with BiPAP usage Currently he is on 2 L nasal cannula No signs of pneumonia Improvement in CHF exacerbation Hypercapnia improved Metabolic alkalosis: Improving switch to Lasix tomorrow and discontinue Diamox Lower extremity swelling: Superficial venous thrombosis right greater saphenous vein otherwise no DVT Adrenal insufficiency: I will continue him on lower dose of prednisone for now currently he is normotensive, no electrolyte Full code Cardiac diet DVT prophylaxis not indicated currently on Eliquis Anticipating discharge home with BiPAP tomorrow if BiPAP gets approved Attestations Medical Necessity Statement*: Improvement in hypercapnia and metabolic alkalosis anticipating discharge tomorrow if his BiPAP gets approved Time Spent in Patient Care: 30mins Coding Level of Care Code Acute Ammunition Specialist for Bhargavg Fwd Diagnoses CHF exacerbation I50.9 Atrial fibrillation with RVR I48.91 Acute and chronic respiratory failure with hypoxia J96.21 Obesity hypoventilation syndrome E66.2 Metabolic alkalosis E87.3
[2020-12-18 12:31] LABS: Magnesium 1.9 mg/dL (1.7-2.3); Thyroid Stimulating Hormone 0.85 uIU/mL (0.27-4.20); Vitamin B12 162 pg/mL (232-1245)
[2020-12-18] MEDS: folic acid 1 mg Tablet PO (12:58)
--- NOTE | 2020-12-18 15:36 | PC.NURSE ---
Dr. Jain notified patient HR currently controlled 80-100, BP 120/57. On Cardizem gtt at 5. Telephone order to administer Metoprolol 50 mg now, then discontinue gtt in 1 hour. RBTO.
[2020-12-18] MEDS: metoprolol tartrate 50 mg Tablet PO (15:44)
--- NOTE | 2020-12-18 17:25 | PC.NURSE ---
Dr. Jain notified patient urine is pale pink with small blood clots. Telephone order to hold evening eliquis. RBTO.
[2020-12-18 19:14] LABS: Hematocrit 37.3 % (42.0-52.0); Hemoglobin 11.2 g/dL (11.7-16.6)
[2020-12-18] MEDS: metoprolol tartrate 50 mg Tablet 100 MG PO (20:55)
[2020-12-18 22:49] LABS: Protein Urine Neg (Negative); Specific Gravity, Urine 1.005 (1.005-1.030); Urine Appearance SL Hazy (CLEAR); Urine Color Yellow (Yellow); pH Urine 7 (5-7)
[2020-12-18 22:50] LABS: Add Urine Culture? Yes; Add Urine Microscopic? YES; Bacteria Urine 1+ /hpf; Bilirubin Urine 1+ (Negative); Blood Urine 3+ (Negative); Glucose Urine UA Norm (Normal); Ketones Urine Negative (Negative); Leukocyte Esterase Urine Trace (Negative); Nitrate Urine Negative (Negative); RBC Urine >100 /hpf (0-2); Squamous Epithelial Cell Urine 0-4 /hpf (0-5); Urobilinogen Urine 4+ mg/dL (Negative); WBC Urine 0-4 /hpf (0-5)
[2020-12-19] VITALS (7 sets, daily range): BP systolic 108–125; BP diastolic 61–81; PULSE 77–98; RESP 18–29; TEMP 36.3–36.4; O2SAT 95–99
[2020-12-19 04:35] LABS: Hematocrit 34.3 % (42.0-52.0); Hemoglobin 10.5 g/dL (11.7-16.6)
[2020-12-19 04:50] LABS: Blood Urea Nitrogen 17 mg/dL (8-23); Calcium 8.6 mg/dL (8.5-10.5); Carbon Dioxide 34 mmol/L (22-29); Chloride 97 mmol/L (98-107); Creatinine Clr Calc Pharmacy 94.9521; Glucose 103 mg/dL (65-115); Osmolality Calculated 282 mOsm/kg (285-295); Sodium 135 mmol/L (136-145)
[2020-12-19 04:51] LABS: Anion Gap 8.1 (5-19); Potassium 4.1 mmol/L (3.5-5.1)
[2020-12-19] MEDS: cilostazol 100 mg Tablet 50 MG PO (06:12)
[2020-12-19] MEDS: levothyroxine 100 mcg Tablet PO (06:12)
--- NOTE | 2020-12-19 06:43 | PC.NURSE ---
NURSING NOTE: BUENO CATHETER REMOVED AT 0600 THIS MORNING; 10CC NS REMOVED PER SYRINGE. PT TOLERATED WITHOUT C/O PAIN OR DISCOMFORT. CATHETER INTACT. ALL VS AND ASSESSMENTS CHARTED. PT HAS NOT VOIDED OF YET.
--- NOTE | 2020-12-19 08:35 | CT_ITS ---
WS: [id number] CT ABDOMEN PELVIS TECHNIQUE: Noncontrast CT of the abdomen and pelvis with coronal and sagittal reformatted images. CLINICAL INFORMATION: hematuria COMPARISON: CT December 09, 2020 DLP: 1804.[address] scans at [facility] use at least one of these dose optimization techniques: automat ed exposure control; mA and/or kV adjustment per patient size (includes targeted exams where dose is matched to clinical indication); or iterative reconstruction. FINDINGS: Again seen is the minimally displaced right 11th rib fracture. No underlying hepatic laceration. Trac e pleural fluid in the lung bases. Subsegmental atelectasis right lower lobe. Noncontrast liver is normal. Normal gallbladder. Normal noncontrast spleen. Normal GE junction. Fatty atrophy of the pancreas. Adrenal glands are normal. Mild perinephric stranding about both kidneys ca n be seen with renal insufficiency is unchanged from previous. No hydronephrosis. Mild aortic calcifi cation. No abdominal aortic aneurysm. No obstructing renal or ureteral calculi. Sigmoid diverticulosis. No evidence of acute diverticulitis . Normal appendix. No evidence of high-grade small or large bowel obstruction. Incidental fat-contain ing umbilical hernia. No abdominal or pelvic lymphadenopathy. Mild disc space narrowing L4-L5 and L5- S1. Noncontrast bladder appears unremarkable. Prostate calcification. CT/CT abdomen pelvis wo con [id number] IMPRESSION: 1. Slightly displaced right 11th lateral rib fracture is unchanged. No underly ing hepatic laceration. 2. Trace bilateral pleural fluid with subsegmental atelectasis right lower lob e. 3. No hydronephrosis in either kidney. No obstructing renal or ureteral calcul i. Perinephric edema about both kidneys can be seen with renal insufficiency an d is unchanged. 4. Normal noncontrast bladder. 5. Prostate calcification. 6. No other interval changes from previous.
--- NOTE | 2020-12-19 08:52 | DCPLANNER ---
IMM completed 12/19/20 @ 4000. Copy of rights given to pt.
[2020-12-19] MEDS: sennosides-docusate Tablet 1 TAB PO (09:28)
[2020-12-19] MEDS: pantoprazole DR 40 mg Tablet PO (09:28)
[2020-12-19] MEDS: predniSONE 10 mg Tablet PO (09:28)
[2020-12-19] MEDS: polyethylene glycol 3350 Pkt 17 gm PO (09:28)
[2020-12-19] MEDS: folic acid 1 mg Tablet PO (09:29)
[2020-12-19] MEDS: bumetanide 1 mg Tablet PO (09:29)
[2020-12-19] MEDS: metoprolol tartrate 50 mg Tablet 100 MG PO (09:32)
[2020-12-19] MEDS: lidocaine 5% Patch 1 PATCH TOPICAL (09:32)
--- NOTE | 2020-12-19 11:45 | PM.DCS ---
Discharge Providers Date of Admission: 12/16/20 18:25 Date of Discharge: December 19, 2020 Attending Provider at Admission: Marylu Jain MD Attending Provider at Discharge: Marylu Jain MD Primary Care Provider: Margarito Perez MD Diagnoses at Discharge Discharge Diagnosis (1) CHF exacerbation: Status: Acute (2) Atrial fibrillation with RVR: Status: Acute (3) Acute and chronic respiratory failure with hypoxia: Status: Acute (4) Obesity hypoventilation syndrome: Status: Acute (5) Metabolic alkalosis: Status: Acute Reason for Visit Reason for Visit: SOB Hospital Course Hospital Course 80-year-old gentleman who was admitted for management of acute on chronic hypoxic hypercarbic respiratory failure secondary to CHF exacerbation. On admission his presentation was consistent with cor pulmonale secondary to underlying chronic pulmonary pathology. Patient did well on BiPAP, he was transitioned from ICU to cardiac stepdown unit. His PCO2 improved with BiPAP usage. At baseline his PCO2 range is 60-65 however seem like his new baseline is around 85-90 which was also evident with compensatory increase of bicarb, he showed metabolic alkalosis which worsened with Lasix. His Lasix was discontinued and alkalosis improved with use of Diamox. He was diuresed well with Diamox for 48 hours. His bicarb level came down to his baseline and PCO2 improved as well. He was seen by Dr. Horn as well. For his sleep apnea obesity hypoventilation and BiPAP dependency, social workers were notified to arrange BiPAP for home. During hospitalization his settings were 20/10 respiratory 14 FiO2 30% Persistent hematuria noted his hemoglobin dropped from 11-10.7, considering previous history of falls and A. fib he has been taken off anticoagulating agent. During this hospitalization he required Cardizem drip for his A. fib RVR I have increased his metoprolol dose to 100 mg twice a day, CT abdomen pelvis did not show hydronephrosis or any urolithiasis however he has BPH with prostate calcification. Decision was made to hold off on anticoagulation because of hematuria and previous history of falls. Lower extremity swelling swelling: Superficial venous thrombosis noted of right great saphenous vein at femoral junction otherwise no DVT Concern for adrenal insufficiency: Patient has finished his steroid tapering regimen, I would not add more steroids because of anemia, alkalosis and CHF exacerbation, kindly see PCP BiPAP indicated for chronic hypoxic hypercarbic respiratory failure, he is BiPAP dependent and will need every night, his 2 L oxygen will be blended with his BiPAP at home. He is at risk of readmissions and worsening of hypercapnic respiratory failure if BiPAP not available. Physical Exam Narrative: EXAM NARRATIVE: Obese male currently saturating well on 2 L nasal cannula BiPAP dependent requires BiPAP every night S1, S2 signs of heart failure variable S1-S2 due to A. fib Signs of fluid overload however improved Distended abdomen bowel, soft abdomen, bloated Lower extremity 1+ pitting edema bilaterally Awake alert oriented x3 GCS 15 Urinary Catheter Management^: Nicholson: Cath Placed During This Visit: yes Reason for Continuing Indwelling Catheter: Accurate Measurement of Urinary Output in Critically Ill Patients Urinary Catheter Date of Insertion: 12/16/20 Urinary Catheter Time of Insertion: 17:17 Discharge Data Data Completed and Pending: Completed Studies During Hospitalization Category Date Time Status CT abdomen pelvis wo con [id number] Rout ine Cat Scan 12/19/20 08:35 Completed XR chest 1V ankit ble [id number] Stat Exams 12/16/20 13:24 [place] [id number] Routin e Ultrasound 12/17/20 08:49 Completed Pending at discharge Category Date Time Status Immunochemical Fe alannah OCB Routine Lab 12/19/20 11:07 Received Labs from last 24 hours 12/19/20 12/19/20 12/18/20 04:04 04:04 22:10 Hgb 10.5 L Hct 34.3 L Sodium 135 L Potassium 4.1 Chloride 97 L Carbon Dioxide 34 H Anion Gap 8.1 BUN 17 Creatinine 0.6 L GFR Calculation Not Reportable Glucose 103 Calculated Osmolal ity 282 L Calcium 8.6 Magnesium Vitamin B12 TSH Urine Color Yellow Urine Appearance Sl hazy Urine pH 7 Ur Specific Gravit y 1.005 Urine Protein Neg Urine Glucose (UA) Norm Urine Ketones Negative Urine Blood 3+ H Urine Nitrate Negative Urine Bilirubin 1+ H Urine Urobilinogen 4+ H Ur Leukocyte Yaritza ase Trace H Urine RBC >100 H Urine WBC 0-4 H Ur Squamous Epith Cells 0-4 H Amorphous Sediment Not Reportable Urine Bacteria 1+ H 12/18/20 12/18/20 16:56 03:50 Hgb 11.2 L Hct 37.3 L Sodium Potassium Chloride Carbon Dioxide Anion Gap BUN Creatinine GFR Calculation Glucose Calculated Osmolal ity Calcium Magnesium 1.9 Vitamin B12 162 L TSH 0.85 Urine Color Urine Appearance Urine pH Ur Specific Gravit y Urine Protein Urine Glucose (UA) Urine Ketones Urine Blood Urine Nitrate Urine Bilirubin Urine Urobilinogen Ur Leukocyte Yaritza ase Urine RBC Urine WBC Ur Squamous Epith Cells Amorphous Sediment Urine Bacteria Vitals: Last Vital Signs Temp 97.5 F L 12/19/20 08:00 Pulse 77 12/19/20 11:09 Resp 18 12/19/20 11:09 BP 117/81 12/19/20 10:56 Pulse Ox 95 12/19/20 11:09 Discharge Plan Discharge Patient Disposition: Home Condition: Stable Prescriptions: New metoprolol tartrate 50 mg Tablet 100 mg PO BID@0900,2100 30 Days Qty: 60 RF: 0 bumetanide 1 mg Tablet 1 mg PO DAILY 30 Days Qty: 30 RF: 0 Continued cilostazol 100 mg tablet 100 mg PO BID@07,17 RF: 0 levothyroxine 100 mcg Tablet 100 mcg PO DAILY@07 RF: 0 clopidogrel 75 mg tablet 75 mg PO DAILY@07 RF: 0 phenazopyridine 100 mg Tablet 100 mg PO TIDPC Qty: 90 RF: 0 lidocaine [Lidoderm] 5 % Adhesive Patch,Medicated 1 patch topical [id number] Qty: 7 RF: 0 simvastatin 80 mg tablet 40 mg PO DAILY@1700 Qty: 0 RF: 0 Discontinued aspirin [Aspir-81] 81 mg tablet,delayed release (DR/EC) 81 mg PO DAILY@17 RF: 0 Hold Instructions: Resume on 12/16/20. metoprolol tartrate 25 mg Tablet 12.5 mg PO BID@0900,2100 Qty: 30 RF: 0 prednisone 20 mg tablet See Rx Instructions .ROUTE .COMPLEX RF: 0 Discharge Orders: Discharge Order (Routine); Ordered 12/19/20 Ordered By: Marylu Jain Referrals: Margarito Perez MD [Primary Care Provider] - Discharge Diet: Cardiac Discharge Activity: Increase activity as tolerated Activity Restrictions/Additional Instructions: We have stopped your aspirin because of hematuria and low hemoglobin Please take metoprolol 100 mg twice a day for abnormal heart rhythm Please take Bumex 1 mg daily to get rid of fluid because of heart failure It is very important that you use BiPAP every night with 2 L blended oxygen at night settings 20/10 respiratory rate 14 Please stop taking prednisone you have finished your tapering regimen Discharge Attestations Time Spent in Discharge Care*: greater than 30 min Quality Metrics Clinical Quality Measures During this hospital stay, did patient experience: None
== END 2020-12-19 15:30 | disposition home or self-care (01) | DRG 189 ==
LOC: ER 13:15 → ICU 12-17 07:22 → CSU 12-17 13:08
PROVIDERS: Admitting Provider Internal Medicine; Emergency Provider Family Medicine; PCP Family Medicine; Visit Provider Internal Medicine
DX: J96.21 Acute and chronic respiratory failure with hypoxia (principal); E27.40 Unspecified adrenocortical insufficiency; E87.3 Alkalosis; E66.2 Morbid (severe) obesity with alveolar hypoventilation; I82.491 Acute embolism and thrombosis of other specified deep vein of right lower extremity; J96.22 Acute and chronic respiratory failure with hypercapnia; I50.9 Heart failure, unspecified; I11.0 Hypertensive heart disease with heart failure; J44.9 Chronic obstructive pulmonary disease, unspecified; I25.10 Atherosclerotic heart disease of native coronary artery without angina pectoris; Z95.1 Presence of aortocoronary bypass graft; I48.91 Unspecified atrial fibrillation; Z91.81 History of falling; Z99.81 Dependence on supplemental oxygen; E78.5 Hyperlipidemia, unspecified; E03.9 Hypothyroidism, unspecified; I25.5 Ischemic cardiomyopathy; I25.2 Old myocardial infarction; Z68.39 Body mass index [BMI] 39.0-39.9, adult; Z87.891 Personal history of nicotine dependence; Z79.02 Long term (current) use of antithrombotics/antiplatelets; D64.9 Anemia, unspecified; N40.0 Benign prostatic hyperplasia without lower urinary tract symptoms; R31.9 Hematuria, unspecified; I27.81 Cor pulmonale (chronic); I50.810 Right heart failure, unspecified; T40.605A Adverse effect of unspecified narcotics, initial encounter; M54.9 Dorsalgia, unspecified
CPT/HCPCS: 36415; 36416; 36600; 51702; 71045; 74176; 80048; 80051; 80053; 81001; 82274; 82330; 82550; 82607; 82803; 82805; 82962; 83605; 83690; 83735; 83880; 84443; 84484; 85014; 85018; 85025; 93005; 93970; 94640; 94660; 94762; 96372; 96374; 96375; 97110; 97116; 97161; 97530; 99291; J1650; J1940; J2060; J3490; J7512

== ENCOUNTER 2021-01-02 06:45 | Inpatient (IN) | payer MEDICARE, MEDICAID, SELFPAY ==
[2021-01-02] VITALS (51 sets, daily range): BP systolic 97–174; BP diastolic 54–92; PULSE 77–138; RESP 13–39; TEMP 36.6–37.3; O2SAT 89–99; BMI 37.5
--- NOTE | 2021-01-02 06:58 | XR_ITS ---
WS: [id number] Exam: XR chest 1V portable [id number] Date/Time of Exam: 01/02/2021 7:01 AM Reason For Exam: dyspnea/cough Comparison 12/16/2020. There is cardiac enlargement with increased pulmonary vascularity. The lungs are fully expanded. No p leural effusions or consolidating infiltrates. Signs of previous CABG surgery. XR/XR chest 1V portable [id number] IMPRESSION: 1. Mild cardiac enlargement with increased pulmonary vascularity. Some degree o f mild cardiac decompensation is suggested.
--- NOTE | 2021-01-02 07:02 | ED_ITS ---
HPI - SOB/Dyspnea General: Chief Complaint: Shortness of Breath/Dyspnea Stated Complaint: sob Time Seen by Provider: 01/02/21 06:49 History of Present Illness: HPI Narrative: 80 male presents emergency room complaining of shortness of breath. He also has significant altered mental status. As well as edema. On arrival here he is on nonrebreather. On arrival here patient was hypercapnic.. He had not been using his BiPAP at night. He was in the hospital earlier this month here. He was started on BiPAP on arrival here. He is also given Ativan because of agitation was unable to get any significant history from him. [facility] they denied any reported history of chest pain. He is in A. fib with RVR on arrival as well. MD elicited complaint: shortness of breath Pertinent past history: congestive heart failure and other (A. fib with RVR) Onset (ago): hour(s) Context: recent illness Timing: constant Severity: severe Associated symptoms: Reports chest congestion; Deny abdominal pain or chest pain Treatment prior to arrival: oxygen Review of Systems General: Reports: ROS unobtainable due to mental status Card: Denies: chest pain Resp: Reports: chest congestion GI: Denies: abdominal pain PFSH ED PFSH: Medical History Acute and chronic respiratory failure with hypoxia Acute kidney injury ASHD (arteriosclerotic heart disease) Atrial fibrillation with RVR Back pain CHF (congestive heart failure) CHF exacerbation COPD (chronic obstructive pulmonary disease) Dyslipidemia Elevated troponin [place] HTN (hypertension) Hyponatremia Hypotension Hypothyroidism Ischemic cardiomyopathy Lung contusion Myocardial infarction Obesity Obesity hypoventilation syndrome Rhabdomyolysis Sleep apnea Surgical History Hx of CABG Family History Other CAD (coronary artery disease) Stroke Social History Smoking and tobacco status: former smoker Alcohol intake: current Alcohol intake frequency: few times a week Lives independently: Yes Housing: House Marital status: 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 Physical Exam HENMT: COMMON NORMALS: normocephalic and atraumatic HEAD & SCALP: normocephalic and atraumatic Neck/C-Spine: COMMON NORMALS: no JVD Resp: AUSCULTATION: crackles and no tactile fremitus Cardio: COMMON NORMALS: no JVD, regular rate, regular rhythm and No murmurs present (Cardio) RATE: regular rate RHYTHM: regular rhythm GI: COMMON NORMALS: Soft to palpation and No hepatosplenomegaly present AUSCULTATION: Yes normoactive bowel sounds PALPATION: Yes Soft to palpation, No Tenderness to palpation present (GI), No Guarding due to palpation present (GI) and Yes No hepatosplenomegaly present Extremity: COMMON NORMALS: normal to inspection, capillary refill normal, no clubbing, cyanosis or edema, no calf tenderness and no pedal edema Skin: COMMON NORMALS: no rashes or lesions noted GENERAL SKIN EXAM: no rashes or lesions noted Course Vital Signs: Vital signs: Vital Signs Temperature 98 F 01/02/21 14:45 Pulse Rate 101 H 01/03/21 10:00 Respiratory Rate 25 H 01/03/21 10:00 Blood Pressure 116/70 01/03/21 10:00 Pulse Oximetry 92 01/03/21 10:00 MDM - SOB/Dyspnea MDM Narrative: Medical decision making narrative: Patient started on Cardizem for rate control he is continuing on BiPAP will admit to the ICU discussed Nishant calderon written Lab Data: Labs: Lab Results 01/02/21 01/02/21 01/02/21 Range/Units 07:10 07:10 07:10 WBC 10.6 H (4.0-10.0) 10^3/ uL RBC 3.07 L (4.1-5.3) 10^6/u L Hgb 9.8 L (11.7-16.6) g/dL Hct 33.2 L (42.0-52.0) % MCV 108.1 H (80-94) fL MCH 31.9 (28.0-34.0) pg MCHC 29.5 L (30.0-36.0) g/dL RDW 13.2 (12.1-15.1) % Plt Count 234 (130-400) 10^3/c mm MPV 10.6 H (7.4-10.4) fL Neut % (Auto) 84.0 % Lymph % (Auto) 6.6 % [place] % (Auto) 8.6 % Eos % (Auto) 0.1 % Baso % (Auto) 0.2 % Neut # (Auto) 8.93 H (1.8-7.7) 10^3/u L Lymph # (Auto) 0.7 L (0.8-4.8) 10^3/u L [place] # (Auto) 0.9 (0.2-0.9) 10^3/u L Eos # (Auto) 0.0 (0.0-0.8) 10^3/u L Baso # (Auto) 0.0 (0.0-0.1) 10^3/u L Nucleated RBC % (a uto) 0 % Nucleated RBCs # 0.0 /100WBC Specimen Type Sample Site ABG pH (7.35-7.45) ABG pCO2 (35-45) mmHg ABG pO2 (80.0-100.0) mmH g ABG HCO3 (22-26) mmol/L ABG O2 Saturation ABG Base Excess (-2.0-2.0) mmol/ L Humberto Test A-a O2 Gradient (5-10) mmHg Hematocrit (42-52) % Hgb O2 Saturation (95-100) % Carboxyhemoglobin (0.4-20.1) %THgb Methemoglobin (0.4-1.5) % Total Hemoglobin (14-18) g/dL Ionized Calcium (1.1-1.4) mmol/L O2 Delivery Device O2 Liters/Min % FiO2 % Call Or Contact Centre Manager ID Sodium 138 (136-145) mmol/L Potassium 4.5 (3.5-5.1) mmol/L Chloride 91 L (98-107) mmol/L Carbon Dioxide 45 H* (22-29) mmol/L Anion Gap 6.5 (5-19) BUN 12 (8-23) mg/dL Creatinine 0.6 L (0.7-1.2) mg/dL GFR Calculation Not Reportable Glucose 123 H (65-115) mg/dL Calculated Osmolal ity 287 (285-295) mOsm/k g Lactic Acid 0.6 (0.5-2.2) mmol/L Calcium 8.2 L (8.5-10.5) mg/dL Magnesium 2.1 (1.7-2.3) mg/dL Iron (59-158) ug/dL TIBC mcg/dl % Saturation (20-50) % Unsat Iron Binding (112-347) ug/dL Ferritin (30-400) ng/mL Total Bilirubin 1.1 (0.15-1.2) mg/dL AST 25 (0-40) U/L ALT 33 (0-41) U/L Alkaline Phosphata se 71 (40-130) IU/L Creatine Kinase 30 L (39-308) U/L Total Protein 7.0 (6.6-8.7) g/dL Albumin 3.5 (3.5-5.2) g/dL Globulin 3.5 (1.3-4.6) g/dL Lipase 10 L (13-60) U/L Urine Color (Yellow) Urine Appearance (CLEAR) Urine pH (5-7) Ur Specific Gravit y (1.005-1.030) Urine Protein (Negative) Urine Glucose (UA) (Normal) Urine Ketones (Negative) Urine Blood (Negative) Urine Nitrate (Negative) Urine Bilirubin (Negative) Urine Urobilinogen (Negative) mg/dL Ur Leukocyte Yaritza ase (Negative) Urine RBC (0-2) /hpf Urine WBC (0-5) /hpf Ur Squamous Epith Cells (0-5) /hpf Amorphous Sediment Urine Bacteria (NONE) /hpf Coarse Granular Ca sts /lpf Urine Mucus /hpf Serum Ketones (Negative) 01/02/21 01/02/21 01/02/21 Range/Units 07:10 07:10 07:13 WBC (4.0-10.0) 10^3/ uL RBC (4.1-5.3) 10^6/u L Hgb (11.7-16.6) g/dL Hct (42.0-52.0) % MCV (80-94) fL MCH (28.0-34.0) pg MCHC (30.0-36.0) g/dL RDW (12.1-15.1) % Plt Count (130-400) 10^3/c mm MPV (7.4-10.4) fL Neut % (Auto) % Lymph % (Auto) % [place] % (Auto) % Eos % (Auto) % Baso % (Auto) % Neut # (Auto) (1.8-7.7) 10^3/u L Lymph # (Auto) (0.8-4.8) 10^3/u L [place] # (Auto) (0.2-0.9) 10^3/u L Eos # (Auto) (0.0-0.8) 10^3/u L Baso # (Auto) (0.0-0.1) 10^3/u L Nucleated RBC % (a uto) % Nucleated RBCs # /100WBC Specimen Type Arterial Sample Site Brachial, right ABG pH 7.28 L (7.35-7.45) ABG pCO2 101.0 H* (35-45) mmHg ABG pO2 65.6 L (80.0-100.0) mmH g ABG HCO3 47.7 H (22-26) mmol/L ABG O2 Saturation 92.8 ABG Base Excess 17.3 H (-2.0-2.0) mmol/ L Humberto Test Pos A-a O2 Gradient 5.6 (5-10) mmHg Hematocrit 31.1 L (42-52) % Hgb O2 Saturation 90.8 L (95-100) % Carboxyhemoglobin 1.5 (0.4-20.1) %THgb Methemoglobin 0.6 (0.4-1.5) % Total Hemoglobin 10.2 L (14-18) g/dL Ionized Calcium 1.2 (1.1-1.4) mmol/L O2 Delivery Device Nc O2 Liters/Min 3.0 % FiO2 32.0 % Call Or Contact Centre Manager ID Monro Sodium 139.0 (136-145) mmol/L Potassium 4.2 (3.5-5.1) mmol/L Chloride (98-107) mmol/L Carbon Dioxide (22-29) mmol/L Anion Gap (5-19) BUN (8-23) mg/dL Creatinine (0.7-1.2) mg/dL GFR Calculation Glucose 120.0 H (65-115) mg/dL Calculated Osmolal ity (285-295) mOsm/k g Lactic Acid (0.5-2.2) mmol/L Calcium (8.5-10.5) mg/dL Magnesium (1.7-2.3) mg/dL Iron 14 L (59-158) ug/dL TIBC 178 mcg/dl % Saturation 7.8 L (20-50) % Unsat Iron Binding 164 (112-347) ug/dL Ferritin 310 (30-400) ng/mL Total Bilirubin (0.15-1.2) mg/dL AST (0-40) U/L ALT (0-41) U/L Alkaline Phosphata se (40-130) IU/L Creatine Kinase (39-308) U/L Total Protein (6.6-8.7) g/dL Albumin (3.5-5.2) g/dL Globulin (1.3-4.6) g/dL Lipase (13-60) U/L Urine Color (Yellow) Urine Appearance (CLEAR) Urine pH (5-7) Ur Specific Gravit y (1.005-1.030) Urine Protein (Negative) Urine Glucose (UA) (Normal) Urine Ketones (Negative) Urine Blood (Negative) Urine Nitrate (Negative) Urine Bilirubin (Negative) Urine Urobilinogen (Negative) mg/dL Ur Leukocyte Yaritza ase (Negative) Urine RBC (0-2) /hpf Urine WBC (0-5) /hpf Ur Squamous Epith Cells (0-5) /hpf Amorphous Sediment Urine Bacteria (NONE) /hpf Coarse Granular Ca sts /lpf Urine Mucus /hpf Serum Ketones Negative (Negative) 01/02/21 01/02/21 Range/Units 07:35 09:24 WBC (4.0-10.0) 10^3/ uL RBC (4.1-5.3) 10^6/u L Hgb (11.7-16.6) g/dL Hct (42.0-52.0) % MCV (80-94) fL MCH (28.0-34.0) pg MCHC (30.0-36.0) g/dL RDW (12.1-15.1) % Plt Count (130-400) 10^3/c mm MPV (7.4-10.4) fL Neut % (Auto) % Lymph % (Auto) % [place] % (Auto) % Eos % (Auto) % Baso % (Auto) % Neut # (Auto) (1.8-7.7) 10^3/u L Lymph # (Auto) (0.8-4.8) 10^3/u L [place] # (Auto) (0.2-0.9) 10^3/u L Eos # (Auto) (0.0-0.8) 10^3/u L Baso # (Auto) (0.0-0.1) 10^3/u L Nucleated RBC % (a uto) % Nucleated RBCs # /100WBC Specimen Type Arterial Sample Site Radial, right ABG pH 7.36 (7.35-7.45) ABG pCO2 88.3 H* (35-45) mmHg ABG pO2 57.0 L (80.0-100.0) mmH g ABG HCO3 49.9 H (22-26) mmol/L ABG O2 Saturation 91.6 ABG Base Excess 20.7 H (-2.0-2.0) mmol/ L Humberto Test Pos A-a O2 Gradient 11.6 H (5-10) mmHg Hematocrit 31.1 L (42-52) % Hgb O2 Saturation 88.9 L (95-100) % Carboxyhemoglobin 1.8 (0.4-20.1) %THgb Methemoglobin 1.2 (0.4-1.5) % Total Hemoglobin 10.1 L (14-18) g/dL Ionized Calcium 1.1 (1.1-1.4) mmol/L O2 Delivery Device Bipap O2 Liters/Min % FiO2 35.0 % Call Or Contact Centre Manager ID Monro Sodium 138.0 (136-145) mmol/L Potassium 3.6 (3.5-5.1) mmol/L Chloride (98-107) mmol/L Carbon Dioxide (22-29) mmol/L Anion Gap (5-19) BUN (8-23) mg/dL Creatinine (0.7-1.2) mg/dL GFR Calculation Glucose 123.0 H (65-115) mg/dL Calculated Osmolal ity (285-295) mOsm/k g Lactic Acid (0.5-2.2) mmol/L Calcium (8.5-10.5) mg/dL Magnesium (1.7-2.3) mg/dL Iron (59-158) ug/dL TIBC mcg/dl % Saturation (20-50) % Unsat Iron Binding (112-347) ug/dL Ferritin (30-400) ng/mL Total Bilirubin (0.15-1.2) mg/dL AST (0-40) U/L ALT (0-41) U/L Alkaline Phosphata se (40-130) IU/L Creatine Kinase (39-308) U/L Total Protein (6.6-8.7) g/dL Albumin (3.5-5.2) g/dL Globulin (1.3-4.6) g/dL Lipase (13-60) U/L Urine Color Dark yellow (Yellow) Urine Appearance Clear (CLEAR) Urine pH 5 (5-7) Ur Specific Gravit y 1.025 (1.005-1.030) Urine Protein 1+ H (Negative) Urine Glucose (UA) Norm (Normal) Urine Ketones Negative (Negative) Urine Blood Neg (Negative) Urine Nitrate Negative (Negative) Urine Bilirubin 1+ H (Negative) Urine Urobilinogen 4+ H (Negative) mg/dL Ur Leukocyte Yaritza ase Negative (Negative) Urine RBC None (0-2) /hpf Urine WBC Rare (0-5) /hpf Ur Squamous Epith Cells 5-10 H (0-5) /hpf Amorphous Sediment Not Reportable Urine Bacteria Trace (NONE) /hpf Coarse Granular Ca sts 0-4 H /lpf Urine Mucus 1+ /hpf Serum Ketones (Negative) Discharge Plan Discharge Patient Disposition: Admitted As Inpatient Admit Provider: Elvis Husain Clinical Impression: Atrial fibrillation with RVR, CHF exacerbation, Acute and chronic respiratory failure with hypoxia, COPD (chronic obstructive pulmonary disease) Condition: Stable Coding Level of Care Code ED Urinalysis Technician for Raven Alexander
[2021-01-02] MEDS: ondansetron 2 mg/ML SDV 2 mL 4 MG IVP (07:10)
[2021-01-02] MEDS: FUROsemide 10 mg/mL SDV 4mL 60 MG IVP (07:15)
[2021-01-02 07:25] LABS: Basophils % 0.2 %; Eosinophils % 0.1 %; Hematocrit 33.2 % (42.0-52.0); Hemoglobin 9.8 g/dL (11.7-16.6); Lymphocytes # 0.7 10^3/uL (0.8-4.8); Lymphocytes % 6.6 %; Mean Corpuscular HGB Conc 29.5 g/dL (30.0-36.0); Mean Corpuscular Hemoglobin 31.9 pg (28.0-34.0); Mean Corpuscular Volume 108.1 fL (80-94); Mean Platelet Volume 10.6 fL (7.4-10.4); Monocytes # 0.9 10^3/uL (0.2-0.9); Monocytes % 8.6 %; Neutrophils # 8.93 10^3/uL (1.8-7.7); Nucleated Red Blood Cells % 0 %; Platelet Count 234 10^3/cmm (130-400); Red Blood Count 3.07 10^6/uL (4.1-5.3); Red Cell Distribution Width 13.2 % (12.1-15.1); White Blood Count 10.6 10^3/uL (4.0-10.0)
[2021-01-02 07:26] LABS: ABG PH Result 7.28 (7.35-7.45); Alveolar-Arterial Oxygen Gradi 5.6 mmHg (5-10); Arterial Blood Gas Hematocrit 31.1 % (42-52); Base Excess ABG 17.3 mmol/L (-2.0-2.0); Blood Gas Allen Test Pos; Blood Gas Operator Identificat MONRO; Blood Gas Sample Site Brachial, right; Blood Gas Sample Type Arterial; Carboxyhemoglobin 1.5 %THgb (0.4-20.1); HCO3 ABG 47.7 mmol/L (22-26); HGB O2 Sat 90.8 % (95-100); Ionized Calcium Level - ABG 1.2 mmol/L (1.1-1.4); Methemoglobin 0.6 % (0.4-1.5); Oxygen Device NC; Oxygen Saturation ABG 92.8; PO2 ABG 65.6 mmHg (80.0-100.0); Potassium Level - ABG 4.2 mmol/L (3.5-5.0); Total Hemoglobin 10.2 g/dL (14-18)
[2021-01-02 07:37] LABS: Alanine Aminotransferase 33 U/L (0-41); Albumin Level 3.5 g/dL (3.5-5.2); Alkaline Phosphatase 71 IU/L (40-130); Anion Gap 6.5 (5-19); Aspartate Amino Transferase 25 U/L (0-40); Blood Urea Nitrogen 12 mg/dL (8-23); Calcium 8.2 mg/dL (8.5-10.5); Chloride 91 mmol/L (98-107); Creatine Phosphokinase 30 U/L (39-308); Globulin 3.5 g/dL (1.3-4.6); Glucose 123 mg/dL (65-115); Lipase 10 U/L (13-60); Magnesium 2.1 mg/dL (1.7-2.3); Osmolality Calculated 287 mOsm/kg (285-295); Potassium 4.5 mmol/L (3.5-5.1); Sodium 138 mmol/L (136-145); Total Bilirubin 1.1 mg/dL (0.15-1.2)
[2021-01-02 07:38] LABS: Lactic Sepsis W/Reflex 0.6 mmol/L (0.5-2.2)
[2021-01-02 07:44] LABS: Ketone (Acetest) Serum Negative (Negative)
[2021-01-02 07:47] LABS: Carbon Dioxide 45 mmol/L (22-29)
[2021-01-02 07:48] LABS: Add Urine Microscopic? YES; Bilirubin Urine 1+ (Negative); Blood Urine Neg (Negative); Glucose Urine UA Norm (Normal); Ketones Urine Negative (Negative); Leukocyte Esterase Urine Negative (Negative); Nitrate Urine Negative (Negative); Protein Urine 1+ (Negative); Specific Gravity, Urine 1.025 (1.005-1.030); Urine Appearance Clear (CLEAR); Urine Color Dark Yellow (Yellow); Urobilinogen Urine 4+ mg/dL (Negative); pH Urine 5 (5-7)
[2021-01-02 07:49] LABS: Add Urine Culture? No; Bacteria Urine TRACE /hpf; Coarse Granular Casts Urine 0-4 /lpf; Mucus Urine 1+ /hpf; WBC Urine RARE /hpf (0-5)
--- NOTE | 2021-01-02 09:27 | USCV_ITS ---
Migel Watt Age: 80 Gender: M : 1940 Exam Date: 01/02/2021 09:48 Ordering Phys: Saw Avila DO Technologist: Leyda Francis Exam Location: [facility] [place] Indication: SWOLLEN LEGS AND HISTORY OF SUPERFICIAL THROMBUS HISTORY: Legs are swollen and pt has recent history of superficial thrombus PROCEDURES: The venous duplex Doppler examination of both lower extremities was performed in the standard fashion. The following venous structures were evaluated: common femoral vein, profunda vein, proximal portion of the greater saphenous vein, superficial femoral vein, and the popliteal vein. In addition, the posterior tibial and peroneal trunk were evaluated. Serial compression, augmentation maneuvers, and spectral Doppler flow evaluation were performed. FINDINGS: No DVT seen in any vessel exained. Lt SV removed for CABG. RT Prox GSV has thrombus. Rt. GSV is not identified distally. CONCLUSIONS Nonocclusive right GSV superficial thrombosis, unchanged. No DVT bilateral lower extremities. Dr. Nisha Biswas DO (Electronically Signed) Final Date: 02 January 2021 11:07 S
[2021-01-02 09:37] LABS: ABG PH Result 7.36 (7.35-7.45); Alveolar-Arterial Oxygen Gradi 11.6 mmHg (5-10); Arterial Blood Gas Hematocrit 31.1 % (42-52); Base Excess ABG 20.7 mmol/L (-2.0-2.0); Blood Gas Allen Test Pos; Blood Gas Operator Identificat MONRO; Blood Gas Sample Site Radial, right; Blood Gas Sample Type Arterial; Carboxyhemoglobin 1.8 %THgb (0.4-20.1); HCO3 ABG 49.9 mmol/L (22-26); HGB O2 Sat 88.9 % (95-100); Ionized Calcium Level - ABG 1.1 mmol/L (1.1-1.4); Methemoglobin 1.2 % (0.4-1.5); Oxygen Device BIPAP; Oxygen Saturation ABG 91.6; Potassium Level - ABG 3.6 mmol/L (3.5-5.0); Total Hemoglobin 10.1 g/dL (14-18)
[2021-01-02 09:38] LABS: ABG PCO2 88.3 mmHg (35-45)
--- NOTE | 2021-01-02 11:47 | PC.RESP ---
Received patient from ER. Patient resting comfortably on bipap at this time.
--- NOTE | 2021-01-02 12:09 | PM.HP ---
Providers/Chief Complaint Admitting Physician: Elvis Husain MD Primary Care Provider: Margarito Perez MD Chief Complaint: SOB History of Present Illness Migel Watt is a 80 year old male who was recently discharged to [facility] who presents to the hospital via EMS with shortness of breath. Patient currently is very sleepy and unable to answer any of my questions. Nurse at [facility] reports that he was doing well over there for the last several weeks since discharge from the hospital for acute on chronic respiratory failure on December 19. He was able to ambulate, and take care of his ADLs. Last night he became short of breath, and was not able to wear his BiPAP all night. This morning he was sent to the emergency department secondary to his dyspnea. He was alert and oriented prior to transfer over from the [facility]. I am unable to establish that he received any Ativan or morphine here. He is very sleepy on BiPAP and difficult to awaken for me. No history of cough, Covid, fever. Review of Systems General: Reports: ROS unobtainable due to mental status (Unable to do review of systems secondary to significant sleepiness) Medications/Allergies Home Medications Medication Instructions Recorded Confirmed Last Taken Type cilostazol 100 mg tablet 100 mg PO BID@08,20 03/12/20 01/02/21 01/02/21 History clopidogrel 75 mg PO DAILY@08 12/09/20 01/02/21 01/02/21 History levothyroxine 100 mcg PO DAILY@08 12/09/20 01/02/21 01/02/21 History phenazopyridine 100 mg PO TIDPC #90 tab 12/12/20 01/02/21 01/02/21 Rx metoprolol tartrate 100 mg PO BID@0900,2100 30 Days 12/19/20 01/02/21 01/02/21 Rx #60 tab acetaminophen 650 mg PO Q6H PRN 01/02/21 01/02/21 12/31/20 History bumetanide 1 mg PO DAILY@0800 01/02/21 01/02/21 01/02/21 History magnesium hydroxide [Milk of 30 ml PO DAILY PRN 01/02/21 01/02/21 Unknown History Magnesia] simvastatin 80 mg PO DAILY@1700 01/02/21 01/02/21 01/01/21 History Allergies Allergy/AdvReac Type Severity Reaction Status Date / Time No Known Allergies Allergy Verified 01/02/21 07:02 PFSH Acute PFSH: Medical History Acute and chronic respiratory failure with hypoxia Acute kidney injury ASHD (arteriosclerotic heart disease) Atrial fibrillation with RVR Back pain CHF (congestive heart failure) CHF exacerbation COPD (chronic obstructive pulmonary disease) Dyslipidemia Elevated troponin [place] HTN (hypertension) Hyponatremia Hypotension Hypothyroidism Ischemic cardiomyopathy Lung contusion Myocardial infarction Obesity Obesity hypoventilation syndrome Rhabdomyolysis Sleep apnea Surgical History Hx of CABG Family History Other CAD (coronary artery disease) Stroke Social History Smoking and tobacco status: former smoker Alcohol intake: current Alcohol intake frequency: few times a week Lives independently: Yes Housing: House Marital status: 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 Oropharynx clear. Dentition poor. BiPAP in place. Neck is supple no lymphadenopathy or thyromegaly Cardiovascular irregular, irregular and tachycardic. No obvious murmur Lungs clear no wheezing or crackles Abdomen is soft with positive bowel sounds. No obvious organomegaly was deferred. Nicholson is noted Extremities 2+ edema, all the way to the hips. No cyanosis or clubbing Skin no rash Neuro no obvious focal deficits. Urinary Catheter Management^: Nicholson: Cath Placed During This Visit: yes Urinary Catheter Date of Insertion: 01/02/21 Urinary Catheter Time of Insertion: 07:41 Data : 01/02/21 07:10 01/02/21 07:10 Micro: Microbiology 01/02/21 10:53 Blood Culture - Preliminary Blood SPECIMEN COLLECTED 01/02/21 07:33 Blood Culture - Preliminary Blood SPECIMEN COLLECTED A&P Assessment and plan (1) Atrial fibrillation with RVR: Placed on a Cardizem drip. Continue metoprolol Transition to p.o. Cardizem Full dose anticoagulation currently Status: Acute (2) Acute and chronic respiratory failure with hypoxia: AVAPS Contributing factors include CHF exacerbation, underlying chronic hypercarbic respiratory failure with acute worsening, COPD, obesity hypoventilation` Status: Acute (3) Macrocytic anemia: Complete anemia work-up with iron studies Note that his B12 was low last hospital stay Initiate B12 today Consider outpatient follow-up for repeat levels in the future to make sure absorption is intact Status: Acute (4) COPD (chronic obstructive pulmonary disease): Pulmonary toilet No evidence of exacerbation currently Status: Acute (5) CHF exacerbation: Diuresis with Lasix. 60 mg IV every 12 hours. First dose given in the emergency department. Close follow-up of electrolytes and magnesium tomorrow Status: Acute Additional A&P Information Acute encephalopathy, likely secondary to his hypercarbia from his respiratory failure. This will likely improve during his hospital course. Recent history of superficial thrombophlebitis. No evidence of DVT on repeat venous duplex done in the emergency department. Coronary artery disease, stable Hypertension, continue current medicines Hypothyroidism, continue levothyroxine Hyperlipidemia, continue statin Full code Lovenox for DVT prophylaxis currently Protonix for GI prophylaxis PT evaluation Attestations Medical Necessity Statement*: Will need greater than 2 midnight stay for evaluation and treatment of acute on chronic hypercarbic respiratory failure. Time Spent in Patient Care: Greater than 35 minutes Critical Care Time: Critical Care Time (min): 57 Other Attestations: The high probability of a clinically significant, sudden or life threatening deterioration of the patient's [cardiac, pulmonary] system(s) required my full and direct attention, intervention and personal management. The critical care time is as shown. This time is in addition to time spent performing any reported procedures but includes the following: [x] Data and vital sign review and interpretation [x] Patient assessment, examination and intervention [x] Documentation [x] Medication orders and management Coding Level of Care Code Acute Veterinarian Assistant for Chg Fwd Diagnoses Atrial fibrillation with RVR I48.91 Acute and chronic respiratory failure with hypoxia J96.21 Macrocytic anemia D53.9 COPD (chronic obstructive pulmonary disease) J44.9 CHF exacerbation I50.9
[2021-01-02] MEDS: enoxaparin 100 mg/mL Syringe SUBCUT (13:19)
[2021-01-02] MEDS: cyanocobalamin 1,000 mcg/mL SDV 1000 MCG SUBCUT (13:19)
[2021-01-02] MEDS: enoxaparin 40 mg/0.4 mL Syringe SUBCUT (13:20)
[2021-01-02 14:21] LABS: Ferritin 310 ng/mL (30-400); Iron 14 ug/dL (59-158); Percent Saturation 7.8 % (20-50); Total Iron Binding Capacity 178 mcg/dl; Unsaturated Iron Binding 164 ug/dL (112-347)
[2021-01-02] MEDS: acetaZOLAMIDE 250 mg Tablet PO (18:07)
[2021-01-02] MEDS: dilTIAZem 30 mg Tablet PO (18:07)
[2021-01-02] MEDS: atorvastatin 40 mg Tablet PO (18:07)
[2021-01-02] MEDS: FUROsemide 10 mg/mL SDV 10mL 60 MG IVP (18:36)
[2021-01-02] MEDS: cilostazol 100 mg Tablet PO (20:05)
[2021-01-02] MEDS: metoprolol tartrate 50 mg Tablet 100 MG PO (20:05)
[2021-01-02] MEDS: ipratropium-albuterol 3 mL Neb INHALATION (20:22)
--- NOTE | 2021-01-02 20:46 | PC.NURSE ---
Pt has become increasingly confused through shift. Pt was originally alert and oriented. Pt began not knowing where he was about 1999. Ana RT was notified and bipap mask was put on. At time of note, pt is hallucinating cattle. RT notified. Rt states pt is okay and just needs to keep bipap on.
[2021-01-02] MEDS: haloperidol inj 5 mg/mL INJ 1 mL 2 MG IM (20:59)
[2021-01-02] MEDS: dexmedetomidine 400 MCG in sodium chloride 0.9% (100 ml) 100 ML 7.1 MCG IV (22:24)
[2021-01-03] VITALS (34 sets, daily range): BP systolic 96–136; BP diastolic 46–77; PULSE 82–116; RESP 16–32; TEMP 36.7; O2SAT 88–97; BMI 34.9
[2021-01-03 00:11] LABS: ABG PH Result 7.39 (7.35-7.45); Arterial Blood Gas Hematocrit 27.5 % (42-52); Base Excess ABG 22.6 mmol/L (-2.0-2.0); Blood Gas Operator Identificat JB; Blood Gas Sample Site Brachial, right; Blood Gas Sample Type Arterial; Carboxyhemoglobin 1.7 %THgb (0.4-20.1); HCO3 ABG 50.7 mmol/L (22-26); HGB O2 Sat 93.7 % (95-100); Ionized Calcium Level - ABG 1.1 mmol/L (1.1-1.4); Oxygen Device NC; Oxygen Saturation ABG 96.3; PO2 ABG 78.1 mmHg (80.0-100.0); Potassium Level - ABG 3.7 mmol/L (3.5-5.0)
[2021-01-03 00:12] LABS: ABG PCO2 83.1 mmHg (35-45)
[2021-01-03] MEDS: enoxaparin 100 mg/mL Syringe SUBCUT ×2 (00:22→13:41)
[2021-01-03] MEDS: dilTIAZem 30 mg Tablet PO ×3 (00:22→13:41)
[2021-01-03] MEDS: enoxaparin 40 mg/0.4 mL Syringe SUBCUT ×2 (00:22→13:41)
[2021-01-03] MEDS: ipratropium-albuterol 3 mL Neb INHALATION ×4 (02:42→20:12)
[2021-01-03 05:30] LABS: Basophils % 0.3 %; Eosinophils % 0.4 %; Hematocrit 30.1 % (42.0-52.0); Hemoglobin 8.8 g/dL (11.7-16.6); Lymphocytes # 0.8 10^3/uL (0.8-4.8); Lymphocytes % 10.7 %; Mean Corpuscular HGB Conc 29.2 g/dL (30.0-36.0); Mean Corpuscular Hemoglobin 31.3 pg (28.0-34.0); Mean Corpuscular Volume 107.1 fL (80-94); Mean Platelet Volume 11.1 fL (7.4-10.4); Monocytes # 0.5 10^3/uL (0.2-0.9); Monocytes % 6.6 %; Neutrophils # 6.38 10^3/uL (1.8-7.7); Neutrophils % 81.6 %; Nucleated Red Blood Cells % 0 %; Platelet Count 228 10^3/cmm (130-400); Red Blood Count 2.81 10^6/uL (4.1-5.3); White Blood Count 7.8 10^3/uL (4.0-10.0)
[2021-01-03 05:48] LABS: Alanine Aminotransferase 26 U/L (0-41); Albumin Level 2.9 g/dL (3.5-5.2); Alkaline Phosphatase 68 IU/L (40-130); Anion Gap 8.5 (5-19); Aspartate Amino Transferase 19 U/L (0-40); Blood Urea Nitrogen 16 mg/dL (8-23); Calcium 8.2 mg/dL (8.5-10.5); Chloride 86 mmol/L (98-107); Globulin 3.5 g/dL (1.3-4.6); Glucose 108 mg/dL (65-115); Osmolality Calculated 286 mOsm/kg (285-295); Potassium 3.5 mmol/L (3.5-5.1); Sodium 137 mmol/L (136-145); Total Bilirubin 1.3 mg/dL (0.15-1.2); Total Protein 6.4 g/dL (6.6-8.7)
[2021-01-03 05:50] LABS: Carbon Dioxide 46 mmol/L (22-29)
[2021-01-03] MEDS: FUROsemide 10 mg/mL SDV 10mL 60 MG IVP ×2 (06:00→18:16)
[2021-01-03] MEDS: pantoprazole DR 40 mg Tablet PO (08:29)
[2021-01-03] MEDS: cyanocobalamin 1,000 mcg Tablet 1000 MCG PO (08:30)
[2021-01-03] MEDS: acetaZOLAMIDE 250 mg Tablet PO ×2 (08:30→18:16)
[2021-01-03] MEDS: levothyroxine 100 mcg Tablet PO (08:30)
[2021-01-03] MEDS: clopidogrel 75 mg Tablet PO (08:30)
[2021-01-03] MEDS: metoprolol tartrate 50 mg Tablet 100 MG PO ×2 (08:37→20:40)
[2021-01-03] MEDS: cilostazol 100 mg Tablet PO ×2 (08:37→20:40)
--- NOTE | 2021-01-03 11:44 | PC.CHAP ---
Pastoral Care Encounter/Spiritual Assessment Type of Contact [] Declined inside plant supervisor visit [] Patient/Family/Request visit [] Outpatient visit [] Follow-up visit [] Physician referral [] Code/Alert [XX] Routine visit [] Staff referral [] Actively dying [] Patient sleeping [] Family support [] [] Out of room [] Palliative care [] [] Receiving care in room [] Pre-surgical visit [] Trauma [] Long length of stay [XX] ICU visit [] Other: Relational/Emotional Strength [XX] Patient feels connected with others/family/visitors/staff [] Distress [] Loneliness/isolation [] Abandonment Spirituality of Patient [] Person of Bushra [] Attends Buddhist of their [place] [] Believes in Prayer [] Reads Bible or Jewish materials [] There are Spiritual issues to be addressed Drafter Civil Interventions [] Prayer [XX] Active listening [XX] Non-anxious presence [] Spiritual/emotional support [] Crisis/trauma care [] Spiritual counseling [] Bereavement support [] Provided bereavement packet [] Provided Bible/devotional materials [] Provided toy/stuffed animal, coloring book to patient or family member [] Provided Communion [] Anointing/[place] [] Salvation [] Completed spiritual assessment [] Other: Impact on Illness or Injury [] Angry [] Fearful [] Anxious [] Often cries [] Exhaustion [] Unable to work [] Unable to attend jewish [] Unable to walk/stand [] Unable to read [] Unable to drive [] Unable to eat/drink [] Unable to sleep [] Unable to be with family [] Patient intubated [] Other: Summary: Pt's daughter was present for visit. Pt somewhat confused. I offered to return tomorrow to complete spiritual assessment and to let them visit. Pt was agreeable to that plan. Time spent with patient: 7 mins
--- NOTE | 2021-01-03 17:35 | PM.PN ---
Subjective Subjective: Interval history: moew awake and alert today, oriented, conversant, continues to be on BIPAP, Cardziem at 3mg/hr at this time Medications: Reviewed: Yes Vitals/I&O/Wt Last Vital Signs Temp 98 F 01/02/21 14:45 Pulse 106 H 01/03/21 16:00 Resp 27 H 01/03/21 16:00 BP 116/55 01/03/21 16:00 Pulse Ox 93 01/03/21 16:00 01/03/21 01/03/21 01/03/21 06:59 14:59 22:59 Intake Total 353.473 / 2143.064 6903 / 1100 Output Total 1200 / 1600 1000 / 1000 450 / 1450 Balance -846.527 / -54.184 100 / 100 -450 / -350 Weight last 48 hrs Weight 126.688 kg Weight 136.078 kg Physical Exam Urinary Catheter Management^: Nicholson: Cath Placed During This Visit: yes Reason for Continuing Indwelling Catheter: Accurate Measurement of Urinary Output in Critically Ill Patients Urinary Catheter Date of Insertion: 01/02/21 Urinary Catheter Time of Insertion: 07:41 Data : 01/03/21 05:00 01/03/21 05:00 Micro: Microbiology 01/02/21 10:53 Blood Culture - Preliminary Blood NEGATIVE TO DATE 01/02/21 07:33 Blood Culture - Preliminary Blood NEGATIVE TO DATE A&P Assessment and plan (1) Atrial fibrillation with RVR: Placed on a Cardizem drip. Continue metoprolol Transition to p.o. Cardizem, increase dose to 60 q6h Full dose anticoagulation currently Status: Acute (2) Acute and chronic respiratory failure with hypoxia: AVAPS Contributing factors include CHF exacerbation, underlying chronic hypercarbic respiratory failure with acute worsening, COPD, obesity hypoventilation` Status: Acute (3) Macrocytic anemia: Complete anemia work-up with iron studies Note that his B12 was low last hospital stay Initiate B12 today Consider outpatient follow-up for repeat levels in the future to make sure absorption is intact Status: Acute (4) COPD (chronic obstructive pulmonary disease): Pulmonary toilet No evidence of exacerbation currently Status: Acute (5) CHF exacerbation: Diuresis with Lasix. 60 mg IV every 12 hours. First dose given in the emergency department. Close follow-up of electrolytes and magnesium tomorrow Status: Acute Additional A&P Information Acute encephalopathy, likely secondary to his hypercarbia from his respiratory failure. Now improving Recent history of superficial thrombophlebitis. No evidence of DVT on repeat venous duplex done in the emergency department. Coronary artery disease, stable Hypertension, continue current medicines Hypothyroidism, continue levothyroxine Hyperlipidemia, continue statin Full code Lovenox for DVT prophylaxis currently Protonix for GI prophylaxis PT evaluation Attestations Medical Necessity Statement*: persisting a fib, titrating medications for control, respiratory optimization Coding Level of Care Code Acute Reinforcement Maker for Chg Fwd Diagnoses Atrial fibrillation with RVR I48.91 Acute and chronic respiratory failure with hypoxia J96.21 Macrocytic anemia D53.9 COPD (chronic obstructive pulmonary disease) J44.9 CHF exacerbation I50.9
[2021-01-03] MEDS: atorvastatin 40 mg Tablet PO (18:16)
[2021-01-03] MEDS: dilTIAZem 60 mg Tablet PO ×2 (18:16→23:46)
[2021-01-04] VITALS (29 sets, daily range): BP systolic 91–133; BP diastolic 54–79; PULSE 75–117; RESP 18–38; TEMP 36.6–37.4; O2SAT 85–98
[2021-01-04] MEDS: enoxaparin 40 mg/0.4 mL Syringe SUBCUT ×2 (01:57→13:07)
[2021-01-04] MEDS: enoxaparin 100 mg/mL Syringe SUBCUT ×2 (01:57→13:08)
[2021-01-04] MEDS: ipratropium-albuterol 3 mL Neb INHALATION ×4 (02:27→20:13)
[2021-01-04 05:24] LABS: Basophils % 0.3 %; Eosinophils % 0.6 %; Hematocrit 29.8 % (42.0-52.0); Hemoglobin 8.9 g/dL (11.7-16.6); Lymphocytes # 0.7 10^3/uL (0.8-4.8); Lymphocytes % 10.2 %; Mean Corpuscular HGB Conc 29.9 g/dL (30.0-36.0); Mean Corpuscular Hemoglobin 31.6 pg (28.0-34.0); Mean Corpuscular Volume 105.7 fL (80-94); Mean Platelet Volume 10.6 fL (7.4-10.4); Monocytes # 0.6 10^3/uL (0.2-0.9); Monocytes % 9.1 %; Neutrophils # 5.44 10^3/uL (1.8-7.7); Neutrophils % 79.4 %; Nucleated Red Blood Cells % 0 %; Platelet Count 253 10^3/cmm (130-400); Red Blood Count 2.82 10^6/uL (4.1-5.3); Red Cell Distribution Width 13.1 % (12.1-15.1); White Blood Count 6.9 10^3/uL (4.0-10.0)
[2021-01-04 05:57] LABS: Alanine Aminotransferase 24 U/L (0-41); Albumin Level 2.8 g/dL (3.5-5.2); Alkaline Phosphatase 63 IU/L (40-130); Anion Gap 8.9 (5-19); Aspartate Amino Transferase 21 U/L (0-40); Blood Urea Nitrogen 19 mg/dL (8-23); Calcium 7.9 mg/dL (8.5-10.5); Chloride 87 mmol/L (98-107); Globulin 3.6 g/dL (1.3-4.6); Glucose 115 mg/dL (65-115); Osmolality Calculated 289 mOsm/kg (285-295); Sodium 138 mmol/L (136-145); Total Bilirubin 0.9 mg/dL (0.15-1.2); Total Protein 6.4 g/dL (6.6-8.7)
[2021-01-04 06:02] LABS: Carbon Dioxide 45 mmol/L (22-29); Potassium 2.9 mmol/L (3.5-5.1)
[2021-01-04] MEDS: FUROsemide 10 mg/mL SDV 10mL 60 MG IVP ×2 (06:12→18:08)
[2021-01-04] MEDS: clopidogrel 75 mg Tablet PO (07:34)
[2021-01-04] MEDS: levothyroxine 100 mcg Tablet PO (07:34)
[2021-01-04] MEDS: cilostazol 100 mg Tablet PO ×2 (07:34→20:29)
[2021-01-04] MEDS: dilTIAZem 60 mg Tablet PO ×3 (07:34→18:06)
[2021-01-04] MEDS: cyanocobalamin 1,000 mcg Tablet 1000 MCG PO (09:40)
[2021-01-04] MEDS: acetaZOLAMIDE 250 mg Tablet PO ×2 (09:40→18:06)
[2021-01-04] MEDS: metoprolol tartrate 50 mg Tablet 100 MG PO ×2 (09:40→20:29)
[2021-01-04] MEDS: pantoprazole DR 40 mg Tablet PO (09:40)
--- NOTE | 2021-01-04 10:53 | PM.PN ---
Subjective Subjective: Interval history: Hemoglobin 8.9 today, currently on 3.5 L/min via nasal cannula, dyspnea is improving, lower extremity edema persisting but improving. Urine output 3.2 L, net -3.6 L since admission. Cardizem infusion discontinued overnight at 3 AM. Heart rate is currently well controlled. Medications: Reviewed: Yes Vitals/I&O/Wt Last Vital Signs Temp 98 F 01/04/21 08:00 Pulse 94 01/04/21 08:06 Resp 22 H 01/04/21 08:03 BP 110/70 01/04/21 08:00 Pulse Ox 92 01/04/21 08:03 01/03/21 01/04/21 01/04/21 22:59 06:59 14:59 Intake Total 348.057 / 1448.057 13.2 / 1461.257 Output Total 2400 / 3400 550 / 3950 Balance -2051.943 / -1951.943 -536.8 / -2488.743 Weight last 48 hrs Weight 126.688 kg Physical Exam Narrative: EXAM NARRATIVE: GEN: Awake, alert and oriented, no acute distress CVS: S1S2 N RS: Bilateral basal crackles present Abd: Soft, nt/nd , bs+ MANAGER FIRE: no focal motor neuro deficits Urinary Catheter Management^: Nicholson: Cath Placed During This Visit: yes Reason for Continuing Indwelling Catheter: Accurate Measurement of Urinary Output in Critically Ill Patients Urinary Catheter Date of Insertion: 01/02/21 Urinary Catheter Time of Insertion: 07:41 Data : 01/04/21 04:50 01/04/21 04:50 Micro: Microbiology 01/02/21 10:53 Blood Culture - Preliminary Blood NEGATIVE TO DATE 01/02/21 07:33 Blood Culture - Preliminary Blood NEGATIVE TO DATE A&P Assessment and plan (1) Atrial fibrillation with RVR: Placed on a Cardizem drip initially upon admission, continued 328 at 3 AM, now transitioned to p.o. Cardizem 60 mg every 6 hours Continue metoprolol 100 mg p.o. twice daily Heart rate is currently well controlled. Full dose anticoagulation currently with Lovenox. Status: Acute (2) Acute and chronic respiratory failure with hypoxia: AVAPS, currently saturating well on 3.5 L/min nasal cannula Contributing factors include CHF exacerbation, underlying chronic hypercarbic respiratory failure with acute worsening, COPD, obesity hypoventilation` Status: Acute (3) Macrocytic anemia: Iron studies with low iron, low transferrin saturation, ferritin within range Initiated B12 Follow-up for repeat levels in the future to make sure absorption is intact Status: Acute (4) COPD (chronic obstructive pulmonary disease): Pulmonary toilet No evidence of exacerbation currently, continue nebulization Status: Acute (5) CHF exacerbation: Diuresis with Lasix. 60 mg IV every 12 hours. net negative 3.6L, LE edema improving, continue same for now Close follow-up of electrolytes and magnesium Status: Acute (6) Hypokalemia: repleted iv and po Status: Acute Additional A&P Information Acute encephalopathy, likely secondary to his hypercarbia from his respiratory failure. Now resolved Recent history of superficial thrombophlebitis. No evidence of DVT on repeat venous duplex done in the emergency department. Coronary artery disease, stable Hypertension, currently controlled Hypothyroidism, continue levothyroxine Hyperlipidemia, continue statin Full code Lovenox for DVT prophylaxis currently Protonix for GI prophylaxis Transfer out of ICU to CSU Attestations Medical Necessity Statement*: CHF, needs iv diuresis, optimization of resp status Coding Level of Care Code Acute Superintendent Renting Managing for Chg Fwd Diagnoses Atrial fibrillation with RVR I48.91 Acute and chronic respiratory failure with hypoxia J96.21 Macrocytic anemia D53.9 COPD (chronic obstructive pulmonary disease) J44.9 CHF exacerbation I50.9 Hypokalemia E87.6
--- NOTE | 2021-01-04 12:20 | PC.NURSE ---
Report faxed to U.
--- NOTE | 2021-01-04 12:57 | PC.NURSE ---
Report called to CSU , given to HORTENCIA Randolph. All questions answered.
--- NOTE | 2021-01-04 13:10 | PC.NURSE ---
Pt transferred to room [facility], via W/C. All belongings with pt. Further update given to HORTENCIA Randolph.
--- NOTE | 2021-01-04 13:30 | PC.NURSE ---
Patient to CSU from ICU at 1315. Patient alert, oriented to room and call light. VSS. Nurse to continue to monitor.
--- NOTE | 2021-01-04 16:36 | PC.NURSE ---
Telephone order from Dr. Gomez to hold oral medications until patient is off bipap for dinner, RBTO.
[2021-01-04] MEDS: lidocaine 1% 5 ML in potassium chloride premix 100 ML 25 ML IV (18:04)
[2021-01-04] MEDS: potassium chloride ER 20 mEq Tablet 40 MEQ PO (18:07)
[2021-01-04] MEDS: atorvastatin 40 mg Tablet PO (18:07)
--- NOTE | 2021-01-04 19:51 | PC.NURSE ---
Dr. Gomez notified patient refused dinner due to not being able to eat what was served. Telephone order received to change diet to soft mechanical. RBTO.
[2021-01-05] VITALS (17 sets, daily range): BP systolic 90–123; BP diastolic 51–70; PULSE 76–106; RESP 19–32; TEMP 36.5–36.8; O2SAT 93–99
[2021-01-05] MEDS: enoxaparin 100 mg/mL Syringe SUBCUT ×2 (00:52→12:42)
[2021-01-05] MEDS: dilTIAZem 60 mg Tablet PO ×4 (00:52→17:24)
[2021-01-05] MEDS: enoxaparin 40 mg/0.4 mL Syringe SUBCUT ×2 (00:52→12:42)
[2021-01-05] MEDS: ipratropium-albuterol 3 mL Neb INHALATION ×4 (03:27→20:29)
[2021-01-05 05:22] LABS: Basophils % 0.5 %; Eosinophils # 0.1 10^3/uL (0.0-0.8); Eosinophils % 1.5 %; Hematocrit 30.2 % (42.0-52.0); Hemoglobin 9.1 g/dL (11.7-16.6); Lymphocytes # 0.8 10^3/uL (0.8-4.8); Lymphocytes % 14.9 %; Mean Corpuscular HGB Conc 30.1 g/dL (30.0-36.0); Mean Corpuscular Hemoglobin 31.3 pg (28.0-34.0); Mean Corpuscular Volume 103.8 fL (80-94); Mean Platelet Volume 11.3 fL (7.4-10.4); Monocytes # 0.6 10^3/uL (0.2-0.9); Monocytes % 11.3 %; Neutrophils # 3.92 10^3/uL (1.8-7.7); Neutrophils % 71.4 %; Nucleated Red Blood Cells % 0 %; Platelet Count 267 10^3/cmm (130-400); Red Blood Count 2.91 10^6/uL (4.1-5.3); Red Cell Distribution Width 13.2 % (12.1-15.1); White Blood Count 5.5 10^3/uL (4.0-10.0)
[2021-01-05 05:51] LABS: Alanine Aminotransferase 25 U/L (0-41); Albumin Level 2.9 g/dL (3.5-5.2); Alkaline Phosphatase 64 IU/L (40-130); Anion Gap 6.7 (5-19); Aspartate Amino Transferase 24 U/L (0-40); Blood Urea Nitrogen 16 mg/dL (8-23); Calcium 8.2 mg/dL (8.5-10.5); Chloride 83 mmol/L (98-107); Globulin 3.5 g/dL (1.3-4.6); Glucose 114 mg/dL (65-115); Magnesium 2.4 mg/dL (1.7-2.3); Osmolality Calculated 278 mOsm/kg (285-295); Sodium 133 mmol/L (136-145); Total Bilirubin 1.1 mg/dL (0.15-1.2); Total Protein 6.4 g/dL (6.6-8.7)
[2021-01-05 06:40] LABS: Potassium 2.7 mmol/L (3.5-5.1)
[2021-01-05 06:41] LABS: Carbon Dioxide 46 mmol/L (22-29)
[2021-01-05] MEDS: FUROsemide 10 mg/mL SDV 10mL 60 MG IVP (07:56)
[2021-01-05] MEDS: lidocaine 1% 5 ML in potassium chloride premix 100 ML 25 ML IV ×2 (07:56→12:41)
[2021-01-05] MEDS: cilostazol 100 mg Tablet PO ×2 (07:58→20:08)
[2021-01-05] MEDS: levothyroxine 100 mcg Tablet PO (07:58)
[2021-01-05] MEDS: clopidogrel 75 mg Tablet PO (07:58)
[2021-01-05] MEDS: acetaZOLAMIDE 250 mg Tablet PO ×2 (09:34→17:24)
[2021-01-05] MEDS: cyanocobalamin 1,000 mcg Tablet 1000 MCG PO (09:34)
[2021-01-05] MEDS: pantoprazole DR 40 mg Tablet PO (09:35)
[2021-01-05] MEDS: metoprolol tartrate 50 mg Tablet 100 MG PO ×2 (09:35→20:08)
--- NOTE | 2021-01-05 09:35 | P.PN_ITS ---
Subjective Subjective: Interval history: Patient was seen and examined today.SOB has improved, participating with Physical therapy. Currently LOS:-5.7 Ls. Saturating well on 3.5Ls.Has remained Afebrile, other itals and labs have been reviewed. Medications: Reviewed: Yes Vitals/I&O/Wt Last Vital Signs Temp 97.7 F 01/05/21 08:00 Pulse 105 H 01/05/21 08:00 Resp 21 H 01/05/21 08:00 BP 120/70 01/05/21 08:00 Pulse Ox 94 01/05/21 08:00 01/04/21 01/05/21 01/05/21 22:59 06:59 14:59 Intake Total 640 / 840 355 / 1195 120 / 120 Output Total 850 / 2100 1600 / 3700 500 / 500 Balance -210 / -1260 -1245 / -2505 -380 / -380 Weight last 48 hrs Weight 127.006 kg Physical Exam 2 Narrative: EXAM NARRATIVE: alert and awake HENMT: COMMON NORMALS: normocephalic and atraumatic HEAD & SCALP: normocephalic and atraumatic Eye: COMMON NORMALS: no scleral icterus Chest: CHEST: Yes Symmetrical chest wall rise Resp: COMMON NORMALS: normal respiratory effort, No retractions, No use of accessory muscles and clear to auscultation bilaterally EFFORT & INSPECTION: Yes symmetric chest movement AUSCULTATION: clear to auscultation bilaterally Cardio: COMMON NORMALS: regular rate, regular rhythm, S1 normal heart sound present, S2 normal heart sound present, No gallops present (Cardio), No murmurs present (Cardio), No rub (Cardio) and Peripheral pulses 2+ throughout RATE: regular rate RHYTHM: regular rhythm HEART SOUNDS: S1 normal heart sound present and S2 normal heart sound present PERIPHERAL PULSES: Peripheral pulses 2+ throughout GI: COMMON NORMALS: Normal to inspection, nondistended, normoactive bowel sounds present, Soft to palpation, non-tender, No hepatosplenomegaly present and no masses AUSCULTATION: Yes normoactive bowel sounds PALPATION: Yes Soft to palpation and Yes No hepatosplenomegaly present RECTAL EXAM: Yes deferred Extremity: NARRATIVE EXTREMITY EXAM: 2 + B/L Pitting edema present in both lower extremity. Urinary Catheter Management^: Nicholson: Cath Placed During This Visit: yes Reason for Continuing Indwelling Catheter: Accurate Measurement of Urinary Output in Critically Ill Patients Urinary Catheter Date of Insertion: 01/02/21 Urinary Catheter Time of Insertion: 07:41 Data : 01/05/21 03:23 01/05/21 03:23 A&P Assessment and plan (1) Atrial fibrillation with RVR: Placed on a Cardizem drip initially upon admission, continued 328 at 3 AM, now transitioned to p.o. Cardizem 60 mg every 6 hours Continue metoprolol 100 mg p.o. twice daily Heart rate is currently well controlled. Full dose anticoagulation currently with Lovenox. Status: Acute (2) Acute and chronic respiratory failure with hypoxia: AVAPS, currently saturating well on 3.5 L/min nasal cannula Contributing factors include CHF exacerbation, underlying chronic hypercarbic respiratory failure with acute worsening, COPD, obesity hypoventilation` Status: Acute (3) Macrocytic anemia: Iron studies with low iron, low transferrin saturation, ferritin within range Initiated B12 Follow-up for repeat levels in the future to make sure absorption is intact Status: Acute (4) COPD (chronic obstructive pulmonary disease): Pulmonary toilet No evidence of exacerbation currently, continue nebulization Status: Acute (5) CHF exacerbation: Diuresis with Lasix. 60 mg IV every 12 hours. net negative 3.6L, LE edema improving, continue same for now Close follow-up of electrolytes and magnesium Status: Acute (6) Hypokalemia: repleted iv and po Status: Acute Additional A&P Information Acute encephalopathy, likely secondary to his hypercarbia from his respiratory failure. Now resolved Recent history of superficial thrombophlebitis. No evidence of DVT on repeat venous duplex done in the emergency department. Coronary artery disease, stable Hypertension, currently controlled Hypothyroidism, continue levothyroxine Hyperlipidemia, continue statin Full code Lovenox for DVT prophylaxis currently Protonix for GI prophylaxis Transfer out of ICU to CSU Attestations Medical Necessity Statement*: Patient needs to be in hospital for the management of Heart failure and the need for I.V Diuresis. Coding Level of Care Code Acute Health Care Coordinator for Raven Alexander Diagnoses Atrial fibrillation with RVR I48.91 Acute and chronic respiratory failure with hypoxia J96.21 Macrocytic anemia D53.9 COPD (chronic obstructive pulmonary disease) J44.9 CHF exacerbation I50.9 Hypokalemia E87.6
--- NOTE | 2021-01-05 10:38 | PC.SOCIAL ---
IMM completed on 01/05/21 @ 5089. Copy of rights given to pt.
[2021-01-05] MEDS: atorvastatin 40 mg Tablet PO (17:24)
[2021-01-06] VITALS (21 sets, daily range): BP systolic 96–127; BP diastolic 46–67; PULSE 73–105; RESP 16–35; TEMP 36.4–36.8; O2SAT 92–99
--- NOTE | 2021-01-06 00:21 | PC.NURSE ---
Patient is currently wearing his Bipap.
[2021-01-06] MEDS: dilTIAZem 60 mg Tablet PO ×2 (00:26→05:18)
[2021-01-06] MEDS: enoxaparin 100 mg/mL Syringe SUBCUT (00:27)
[2021-01-06] MEDS: enoxaparin 40 mg/0.4 mL Syringe SUBCUT (00:27)
[2021-01-06] MEDS: ipratropium-albuterol 3 mL Neb INHALATION ×4 (02:19→20:37)
--- NOTE | 2021-01-06 05:21 | PC.NURSE ---
Patient has wore Bipap majority of the night. Patient has been assisted to seated position and back to bed a few times throughout night.
[2021-01-06 05:32] LABS: Basophils % 0.6 %; Eosinophils # 0.2 10^3/uL (0.0-0.8); Eosinophils % 3.6 %; Hematocrit 30.6 % (42.0-52.0); Hemoglobin 9.3 g/dL (11.7-16.6); Lymphocytes # 0.9 10^3/uL (0.8-4.8); Lymphocytes % 16.5 %; Mean Corpuscular HGB Conc 30.4 g/dL (30.0-36.0); Mean Corpuscular Hemoglobin 31.2 pg (28.0-34.0); Mean Corpuscular Volume 102.7 fL (80-94); Mean Platelet Volume 10.6 fL (7.4-10.4); Monocytes # 0.5 10^3/uL (0.2-0.9); Monocytes % 9.6 %; Neutrophils # 3.61 10^3/uL (1.8-7.7); Neutrophils % 69.3 %; Nucleated Red Blood Cells % 0 %; Platelet Count 271 10^3/cmm (130-400); Red Blood Count 2.98 10^6/uL (4.1-5.3); Red Cell Distribution Width 13.2 % (12.1-15.1); White Blood Count 5.2 10^3/uL (4.0-10.0)
[2021-01-06 05:48] LABS: Anion Gap 8.2 (5-19); Blood Urea Nitrogen 12 mg/dL (8-23); Calcium 8.3 mg/dL (8.5-10.5); Carbon Dioxide 38 mmol/L (22-29); Chloride 90 mmol/L (98-107); Glucose 106 mg/dL (65-115); Magnesium 2.2 mg/dL (1.7-2.3); Osmolality Calculated 276 mOsm/kg (285-295); Potassium 3.2 mmol/L (3.5-5.1); Sodium 133 mmol/L (136-145)
[2021-01-06] MEDS: acetaZOLAMIDE 250 mg Tablet PO ×2 (08:26→17:36)
[2021-01-06] MEDS: pantoprazole DR 40 mg Tablet PO (08:26)
[2021-01-06] MEDS: cilostazol 100 mg Tablet PO ×2 (08:26→21:00)
[2021-01-06] MEDS: clopidogrel 75 mg Tablet PO (08:26)
[2021-01-06] MEDS: cyanocobalamin 1,000 mcg Tablet 1000 MCG PO (08:27)
[2021-01-06] MEDS: metoprolol tartrate 50 mg Tablet 100 MG PO ×2 (08:27→21:00)
[2021-01-06] MEDS: levothyroxine 100 mcg Tablet PO (08:37)
[2021-01-06] MEDS: FUROsemide 10 mg/mL SDV 4mL 40 MG IVP ×2 (09:20→21:00)
[2021-01-06] MEDS: dilTIAZem ER (24HR) 180 mg Capsule PO (09:20)
--- NOTE | 2021-01-06 11:45 | PM.PN ---
Subjective Subjective: Interval history: Patient was seen and examined today.SOB has improved, doing good with physical therapy. Currently LOS:- 6.1 Ls. Saturating well on 3.5Ls.Has remained Afebrile, other Vitals and labs have been reviewed. Medications: Reviewed: Yes Vitals/I&O/Wt Last Vital Signs Temp 98.0 F 01/06/21 10:45 Pulse 89 01/06/21 10:45 Resp 26 H 01/06/21 10:45 BP 109/56 01/06/21 10:45 Pulse Ox 92 01/06/21 10:45 01/05/21 01/06/21 01/06/21 22:59 06:59 14:59 Intake Total 725 / 1150 500 / 1650 360 / 360 Output Total 450 / 1300 950 / 2250 1000 / 1000 Balance 275 / -150 -450 / -600 -640 / -640 Weight last 48 hrs Weight 119.113 kg Weight 127.006 kg Physical Exam Narrative: EXAM NARRATIVE: alert and awake HENMT: COMMON NORMALS: normocephalic and atraumatic HEAD & SCALP: normocephalic and atraumatic Eye: COMMON NORMALS: no scleral icterus Chest: CHEST: Yes Symmetrical chest wall rise Resp: COMMON NORMALS: normal respiratory effort, No retractions, No use of accessory muscles and clear to auscultation bilaterally EFFORT & INSPECTION: Yes symmetric chest movement AUSCULTATION: clear to auscultation bilaterally Cardio: COMMON NORMALS: regular rate, regular rhythm, S1 normal heart sound present, S2 normal heart sound present, No gallops present (Cardio), No murmurs present (Cardio), No rub (Cardio) and Peripheral pulses 2+ throughout RATE: regular rate RHYTHM: regular rhythm HEART SOUNDS: S1 normal heart sound present and S2 normal heart sound present PERIPHERAL PULSES: Peripheral pulses 2+ throughout GI: COMMON NORMALS: Normal to inspection, nondistended, normoactive bowel sounds present, Soft to palpation, non-tender, No hepatosplenomegaly present and no masses AUSCULTATION: Yes normoactive bowel sounds PALPATION: Yes Soft to palpation and Yes No hepatosplenomegaly present RECTAL EXAM: Yes deferred Extremity: NARRATIVE EXTREMITY EXAM: 2 + B/L Pitting edema present in both lower extremity. Urinary Catheter Management^: Nicholson: Cath Placed During This Visit: yes Reason for Continuing Indwelling Catheter: Accurate Measurement of Urinary Output in Critically Ill Patients Urinary Catheter Date of Insertion: 01/02/21 Urinary Catheter Time of Insertion: 07:41 Data : 01/06/21 04:42 01/06/21 04:42 A&P Assessment and plan (1) Atrial fibrillation with RVR: Placed on a Cardizem drip initially upon admission, continued 328 at 3 AM, now transitioned to p.o. Cardizem 60 mg every 6 hours. Now on Cardizem CD 180 MG PO Daily Continue metoprolol 100 mg p.o. twice daily Heart rate is currently well controlled. Initially Lovenox.Currently on eliquis Status: Acute (2) Acute and chronic respiratory failure with hypoxia: AVAPS, currently saturating well on 3.5 L/min nasal cannula Contributing factors include CHF exacerbation, underlying chronic hypercarbic respiratory failure with acute worsening, COPD, obesity hypoventilation` Status: Acute (3) Macrocytic anemia: Iron studies with low iron, low transferrin saturation, ferritin within range Initiated B12 Follow-up for repeat levels in the future to make sure absorption is intact Status: Acute (4) COPD (chronic obstructive pulmonary disease): Pulmonary toilet No evidence of exacerbation currently, continue nebulization Status: Acute (5) CHF exacerbation: Decompensated HFrEF Initially on Lasix. 60 mg IV every 12 hours. Currently reduced to lasix 40 mg I.V Q12 H Daily Acetazolamide 250 mg po BID I/O Charting Daily weight k>4 Mg >2 Status: Acute (6) Hypokalemia: repleted iv and po Status: Acute Additional A&P Information Acute encephalopathy, likely secondary to his hypercarbia from his respiratory failure. Now resolved Recent history of superficial thrombophlebitis. No evidence of DVT on repeat venous duplex done in the emergency department. Coronary artery disease, stable Hypertension, currently controlled Hypothyroidism, continue levothyroxine Hyperlipidemia, continue statin Full code Lovenox for DVT prophylaxis currently Protonix for GI prophylaxis Transfer out of ICU to CSU Attestations Medical Necessity Statement*: Patient needs to be in hospital for the management of Heart failure and the need for I.V Diuresis. 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
[2021-01-06] MEDS: atorvastatin 40 mg Tablet PO (17:36)
[2021-01-06] MEDS: apixaban 5 mg Tablet PO (21:00)
[2021-01-07] VITALS (19 sets, daily range): BP systolic 90–124; BP diastolic 45–70; PULSE 75–101; RESP 17–32; TEMP 36.6–37.1; O2SAT 95–100
[2021-01-07] MEDS: ipratropium-albuterol 3 mL Neb INHALATION ×4 (02:51→19:37)
[2021-01-07 05:48] LABS: Basophils % 0.4 %; Eosinophils # 0.2 10^3/uL (0.0-0.8); Eosinophils % 3.9 %; Hematocrit 30.3 % (42.0-52.0); Hemoglobin 9.4 g/dL (11.7-16.6); Lymphocytes # 0.8 10^3/uL (0.8-4.8); Lymphocytes % 17.6 %; Mean Corpuscular Hemoglobin 31.1 pg (28.0-34.0); Mean Corpuscular Volume 100.3 fL (80-94); Mean Platelet Volume 10.6 fL (7.4-10.4); Monocytes # 0.4 10^3/uL (0.2-0.9); Monocytes % 8.7 %; Neutrophils # 3.15 10^3/uL (1.8-7.7); Neutrophils % 68.7 %; Nucleated Red Blood Cells % 0 %; Platelet Count 268 10^3/cmm (130-400); Red Blood Count 3.02 10^6/uL (4.1-5.3); Red Cell Distribution Width 13.2 % (12.1-15.1); White Blood Count 4.6 10^3/uL (4.0-10.0)
[2021-01-07 06:03] LABS: Anion Gap 8.1 (5-19); Blood Urea Nitrogen 12 mg/dL (8-23); Calcium 8.6 mg/dL (8.5-10.5); Carbon Dioxide 36 mmol/L (22-29); Chloride 96 mmol/L (98-107); Creatinine Clr Calc Pharmacy 105.3501; Glucose 98 mg/dL (65-115); Osmolality Calculated 284 mOsm/kg (285-295); Potassium 3.1 mmol/L (3.5-5.1); Sodium 137 mmol/L (136-145)
--- NOTE | 2021-01-07 07:31 | PC.NURSE ---
Received Bed side report from Mikal Peace patient resting in bed with bi pap in place no outward events reported through out second shift supervisor
--- NOTE | 2021-01-07 07:40 | PC.NURSE ---
patient awake and reports feeling well this morning patient standing at edge of bed upon entering room patient requesting to go for a walk walker and o2 in place patient walked 50 feet patient tolerated activity very well no SOB or chest pain reported
[2021-01-07] MEDS: cyanocobalamin 1,000 mcg Tablet 1000 MCG PO (08:40)
[2021-01-07] MEDS: apixaban 5 mg Tablet PO ×2 (08:40→20:55)
[2021-01-07] MEDS: cilostazol 100 mg Tablet PO ×2 (08:40→20:55)
[2021-01-07] MEDS: levothyroxine 100 mcg Tablet PO (08:40)
[2021-01-07] MEDS: acetaZOLAMIDE 250 mg Tablet PO (08:40)
[2021-01-07] MEDS: FUROsemide 10 mg/mL SDV 4mL 40 MG IVP (08:41)
[2021-01-07] MEDS: metoprolol tartrate 50 mg Tablet 100 MG PO ×2 (08:41→20:55)
[2021-01-07] MEDS: dilTIAZem ER (24HR) 180 mg Capsule PO (08:41)
[2021-01-07] MEDS: clopidogrel 75 mg Tablet PO (08:41)
[2021-01-07] MEDS: pantoprazole DR 40 mg Tablet PO (08:52)
--- NOTE | 2021-01-07 09:34 | P.PN_ITS ---
Subjective Subjective: Interval history: Patient was seen and examined today.SOB has improved, doing good with physical therapy. Currently LOS:- 8.6. Ls. Saturating well on 3.5Ls.Has remained Afebrile, other Vitals and labs have been reviewed. Current plan is to titrate FiO2 down. Medications: Reviewed: Yes Vitals/I&O/Wt Last Vital Signs Temp 97.8 F 01/07/21 07:13 Pulse 101 H 01/07/21 09:22 Resp 20 H 01/07/21 09:19 BP 124/70 01/07/21 08:42 Pulse Ox 95 01/07/21 09:19 01/06/21 01/07/21 01/07/21 22:59 06:59 14:59 Intake Total 280 / 760 240 / 1000 Output Total 700 / 1700 2195 / 3895 Balance -420 / -940 -1955 / -2895 Weight last 48 hrs Weight 117.934 kg Weight 119.113 kg Physical Exam Narrative: EXAM NARRATIVE: alert and awake HENMT: COMMON NORMALS: normocephalic and atraumatic HEAD & SCALP: normocephalic and atraumatic Eye: COMMON NORMALS: no scleral icterus Chest: CHEST: Yes Symmetrical chest wall rise Resp: COMMON NORMALS: normal respiratory effort, No retractions, No use of ac cessory muscles and clear to auscultation bilaterally EFFORT & INSPECTION: Yes symmetric chest movement AUSCULTATION: clear to auscultation bilaterally Cardio: COMMON NORMALS: regular rate, regular rhythm, S1 normal heart sound present, S2 normal heart sound present, No gallops present (Cardio), No murmurs present (Cardio), No rub (Cardio) and Peripheral pulses 2+ throughout RATE: regular rate RHYTHM: regular rhythm HEART SOUNDS: S1 normal heart sound present and S2 normal heart sound present PERIPHERAL PULSES: Peripheral pulses 2+ throughout GI: COMMON NORMALS: Normal to inspection, nondistended, normoactive bowel sounds present, Soft to palpation, non-tender, No hepatosplenomegaly present and no masses AUSCULTATION: Yes normoactive bowel sounds PALPATION: Yes Soft to palpation and Yes No hepatosplenomegaly present RECTAL EXAM: Yes deferred Extremity: NARRATIVE EXTREMITY EXAM: 1 + B/L Pitting edema present in both lower extremity. Urinary Catheter Management^: Nicholson: Cath Placed During This Visit: yes Reason for Continuing Indwelling Catheter: Accurate Measurement of Urinary Output in Critically Ill Patients Urinary Catheter Date of Insertion: 01/02/21 Urinary Catheter Time of Insertion: 07:41 Data : 01/07/21 04:45 01/07/21 04:45 Micro: Microbiology 01/02/21 07:33 Blood Culture - Final Blood NO GROWTH AFTER 5 DAYS A&P Assessment and plan (1) Atrial fibrillation with RVR: Placed on a Cardizem drip initially upon admission, continued 328 at 3 AM, now transitioned to p.o. Cardizem 60 mg every 6 hours. Now on Cardizem CD 180 MG PO Daily Continue metoprolol 100 mg p.o. twice daily Heart rate is currently well controlled. Initially Lovenox.Currently on eliquis Status: Acute (2) Acute and chronic respiratory failure with hypoxia: AVAPS, currently saturating well on 3.5 L/min nasal cannula Contributing factors include CHF exacerbation, underlying chronic hypercarbic respiratory failure with acute worsening, COPD, obesity hypoventilation` Status: Acute (3) Macrocytic anemia: Iron studies with low iron, low transferrin saturation, ferritin within range Initiated B12 Follow-up for repeat levels in the future to make sure absorption is intact Status: Acute (4) COPD (chronic obstructive pulmonary disease): Pulmonary toilet No evidence of exacerbation currently, continue nebulization Status: Acute (5) CHF exacerbation: Decompensated HFrEF Initially on Lasix. 60 mg IV every 12 hours.Reduced to lasix 40 mg I.V Q12 H Daily . Being discharged on lasix 60 mg po q12 h daily KCL 40 PO Daily Was kept on Acetazolamide 250 mg po BID for contraction alkalosis.Stooped on discharge I/O Charting Daily weight k>4 Mg >2 Status: Acute (6) Hypokalemia: repleted iv and po Status: Acute Additional A&P Information Acute encephalopathy, likely secondary to his hypercarbia from his respiratory failure. Now resolved Recent history of superficial thrombophlebitis. No evidence of DVT on repeat venous duplex done in the emergency department. Coronary artery disease, stable Hypertension, currently controlled Hypothyroidism, continue levothyroxine Hyperlipidemia, continue statin Full code Lovenox for DVT prophylaxis currently Protonix for GI prophylaxis Transfer out of ICU to [facility]SU Attestations Medical Necessity Statement*: Patient needs to be in hospital for the management of Heart failure. 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
[2021-01-07] MEDS: potassium chloride ER 20 mEq Tablet 40 MEQ PO (10:37)
--- NOTE | 2021-01-07 16:26 | PC.SOCIAL ---
*IMM UPDATE* Gave patient IMM update. Provided him copy. He understood Initialed, dated, timed and placed in chart.
[2021-01-07] MEDS: FUROsemide 40 mg Tablet 60 MG PO (16:39)
[2021-01-07] MEDS: atorvastatin 40 mg Tablet PO (16:39)
--- NOTE | 2021-01-07 17:24 | PC.RESP ---
Pulmonary Rehab information sent to patient.
[2021-01-08] VITALS (11 sets, daily range): BP systolic 103–120; BP diastolic 65–74; PULSE 78–98; RESP 15–23; TEMP 36.4–36.6; O2SAT 95–98
--- NOTE | 2021-01-08 02:14 | PC.NURSE ---
Patient has been assisted up to chair and back to bed several times throughout the night. Patient is alert and oriented x4, but seems to be forgetful and confused at times. Bed alarm is set. Patient has been educated not to get up without assistance and verbalized understanding.
[2021-01-08] MEDS: ipratropium-albuterol 3 mL Neb INHALATION ×2 (03:45→09:07)
[2021-01-08 05:01] LABS: Basophils % 0.6 %; Eosinophils # 0.2 10^3/uL (0.0-0.8); Eosinophils % 3.5 %; Hematocrit 36.1 % (42.0-52.0); Hemoglobin 11.1 g/dL (11.7-16.6); Lymphocytes # 1.5 10^3/uL (0.8-4.8); Lymphocytes % 24.5 %; Mean Corpuscular HGB Conc 30.7 g/dL (30.0-36.0); Mean Corpuscular Hemoglobin 31.1 pg (28.0-34.0); Mean Corpuscular Volume 101.1 fL (80-94); Mean Platelet Volume 10.2 fL (7.4-10.4); Monocytes # 0.5 10^3/uL (0.2-0.9); Monocytes % 7.5 %; Neutrophils # 3.95 10^3/uL (1.8-7.7); Neutrophils % 63.3 %; Nucleated Red Blood Cells % 0 %; Platelet Count 297 10^3/cmm (130-400); Red Blood Count 3.57 10^6/uL (4.1-5.3); Red Cell Distribution Width 13.5 % (12.1-15.1); White Blood Count 6.3 10^3/uL (4.0-10.0)
[2021-01-08 05:19] LABS: Blood Urea Nitrogen 12 mg/dL (8-23); Calcium 9.1 mg/dL (8.5-10.5); Carbon Dioxide 35 mmol/L (22-29); Chloride 92 mmol/L (98-107); Glucose 116 mg/dL (65-115); Osmolality Calculated 279 mOsm/kg (285-295); Sodium 134 mmol/L (136-145)
[2021-01-08 05:40] LABS: Anion Gap 10.2 (5-19); Potassium 3.2 mmol/L (3.5-5.1)
[2021-01-08 06:51] LABS: Glucose Point of Care 110 mg/dL (70-110)
--- NOTE | 2021-01-08 08:23 | PM.DCS ---
Discharge Providers Date of Admission: 01/02/21 10:23 Date of Discharge: January 08, 2021 Attending Provider at Admission: Elvis Husain MD Attending Provider at Discharge: Seamus Reyes MD Primary Care Provider: Margarito Perez MD Diagnoses at Discharge Discharge Diagnosis (1) Atrial fibrillation with RVR: Status: Chronic (2) Acute and chronic respiratory failure with hypoxia: Status: Resolved (3) Macrocytic anemia: Status: Chronic (4) COPD (chronic obstructive pulmonary disease): Status: Chronic (5) CHF exacerbation: Status: Resolved Reason for Visit Reason for Visit: SOB Hospital Course Hospital Course 80-year-old male with past medical history of hypertension, COPD on 2 L home oxygen, A. fib on Eliquis, hypothyroidism, coronary artery disease status post CABG, OHS, sleep apnea,HFrEF, was admitted with chief complaint of shortness of breath upon arrival from the group home patient was very somnolent he was recently discharged from the hospital after being managed for acute on chronic respiratory failure, post discharge [facility], but unfortunately the night prior to the admission, he failed to wear his BiPAP all night. He was admitted for the management of acute on chronic respiratory failure with hypoxia multifactorial worsened by CHF exacerbation, COPD , obesity hypoventilation.on admission he was also found to be in A. fib with RVR. He was started on aggressive IV diuresis, to which he responded very well On discharge he was close to 10 Ls negative. His dry weight on admission was 136 his weight on discharge 117 kg. He is being discharged on Bumex 1 mg p.o. daily as well as oral potassium. For his A. fib with RVR he was kept on Cardizem drip later transitioned to p.o. Cardizem was discharged on 180 p.o. Cardizem CD as well as on metoprolol tartrate 100 mg po bid, his heart rate was pretty well controlled on discharge. His microcytic anemia he was started on oral vitamin B12 he will need serum B12 Follow-up in the future to make sure absorption is intact. At the time of this patient was at his baseline oxygen 3 L via nasal cannula, he will need to follow pulmonary medicine as an outpatient, for further management of his COPD, MARLEEN, OHS, and the need for BiPAP/AVAPS. Acute encephalopathy on admission which was likely secondary to hypercapnic hypoxic respiratory failure as resolved the time of discharge.Patient was at his baseline mentation. Physical Exam Narrative: EXAM NARRATIVE: alert and awake HENMT: COMMON NORMALS: normocephalic and atraumatic HEAD & SCALP: normocephalic and atraumatic Eye: COMMON NORMALS: no scleral icterus Chest: CHEST: Yes Symmetrical chest wall rise Resp: COMMON NORMALS: normal respiratory effort, No retractions, No use of accessory muscles and clear to auscultation bilaterally EFFORT & INSPECTION: Yes symmetric chest movement AUSCULTATION: clear to auscultation bilaterally Cardio: COMMON NORMALS: regular rate, regular rhythm, S1 normal heart sound present, S2 normal heart sound present, No gallops present (Cardio), No murmurs present (Cardio), No rub (Cardio) and Peripheral pulses 2+ throughout RATE: regular rate RHYTHM: regular rhythm HEART SOUNDS: S1 normal heart sound present and S2 normal heart sound present PERIPHERAL PULSES: Peripheral pulses 2+ throughout GI: COMMON NORMALS: Normal to inspection, nondistended, normoactive bowel sounds present, Soft to palpation, non-tender, No hepatosplenomegaly present and no masses AUSCULTATION: Yes normoactive bowel sounds PALPATION: Yes Soft to palpation and Yes No hepatosplenomegaly present RECTAL EXAM: Yes deferred Extremity: OTHER: Trace bilateral lower extremity pitting edema Urinary Catheter Management^: Nicholson: Cath Placed During This Visit: yes Reason for Continuing Indwelling Catheter: Accurate Measurement of Urinary Output in Critically Ill Patients Urinary Catheter Date of Insertion: 01/02/21 Urinary Catheter Time of Insertion: 07:41 Discharge Data Data Completed and Pending: Completed Studies During Hospitalization Category Date Time Status XR chest 1V ankit ble [id number] Stat Exams 01/02/21 06:58 [place] [id number] Urgent Ultrasound 01/02/21 09:27 Completed Labs from last 24 hours 01/08/21 01/08/21 01/08/21 06:38 04:42 04:42 WBC 6.3 RBC 3.57 L Hgb 11.1 L Hct 36.1 L MCV 101.1 H MCH 31.1 MCHC 30.7 RDW 13.5 Plt Count 297 MPV 10.2 Neut % (Auto) 63.3 Lymph % (Auto) 24.5 [place] % (Auto) 7.5 Eos % (Auto) 3.5 Baso % (Auto) 0.6 Neut # (Auto) 3.95 Lymph # (Auto) 1.5 [place] # (Auto) 0.5 Eos # (Auto) 0.2 Baso # (Auto) 0.0 Nucleated RBC % (a uto) 0 Nucleated RBCs # 0.0 Sodium 134 L Potassium 3.2 L Chloride 92 L Carbon Dioxide 35 H Anion Gap 10.2 BUN 12 Creatinine 0.7 GFR Calculation Not Reportable Glucose 116 H POC Glucose 110 Calculated Osmolal ity 279 L Calcium 9.1 Vitals: Last Vital Signs Temp 97.6 F 01/08/21 07:12 Pulse 98 01/08/21 07:12 Resp 21 H 01/08/21 07:12 BP 117/69 01/08/21 07:12 Pulse Ox 95 01/08/21 07:12 Discharge Plan Discharge Patient Disposition: Home Condition: Stable Prescriptions: New Vitamin B-12 1,000 mcg Tablet 1,000 mcg PO DAILY Qty: 30 RF: 3 Klor-Con M20 20 mEq Tablet,Er Particles/Crystals 40 meq PO DAILY 30 Days RF: 0 DILT-XR 180 mg Capsule,Ext.Rel 24h Degradable 180 mg PO DAILY 30 Days RF: 0 Eliquis 5 mg tablet 5 mg PO BID Qty: 60 RF: 0 Continued acetaminophen 325 mg Tablet 650 mg PO Q6H PRN (Reason: Pain) RF: 0 Milk of Magnesia 400 mg/5 mL Suspension 30 ml PO DAILY PRN (Reason: Constipation) RF: 0 simvastatin 80 mg tablet 80 mg PO DAILY@1700 RF: 0 bumetanide 1 mg tablet 1 mg PO DAILY@0800 RF: 0 levothyroxine 100 mcg Tablet 100 mcg PO DAILY@08 RF: 0 clopidogrel 75 mg tablet 75 mg PO DAILY@08 RF: 0 phenazopyridine 100 mg Tablet 100 mg PO TIDPC Qty: 90 RF: 0 metoprolol tartrate 50 mg Tablet 100 mg PO BID@0900,2100 30 Days Qty: 60 RF: 0 Changed cilostazol 100 mg tablet 50 mg PO BID@08,20 Qty: 0 RF: 0 Discharge Orders: Discharge Order (Routine); Ordered 01/08/21 Ordered By: Seamus Reyes Referrals: Andrei Lloyd M.D [Physician] - 2 weeks Yuliana Horn MD [Physician] - 1 month Discharge Diet: Cardiac Discharge Activity: Increase activity as tolerated Patient Instructions: Diltiazem (By mouth), Potassium Chloride (By mouth), Vitamin B-12 (Cyanocobalamin) (By mouth), Atrial Fibrillation (DC), CHF Stoplight, COPD Stoplight Discharge Attestations Time Spent in Discharge Care*: less than 30 min Specific Discharge Activities: educating patient, educating and/or supporting family/caregiver, discussing with block and case maker/social workers/dc planners, documenting/other paperwork and evaluating patient/reviewing data Status at Discharge: Cognitive status at discharge: cognitively intact, Behavioral status at discharge: cooperative, Functional status at discharge: independent ambulation Overall status at discharge: patient is back to baseline Quality Metrics Clinical Quality Measures During this hospital stay, did patient experience: None Coding Level of Care Code Acute Chg FW DC note Exam Detailed Diagnoses Atrial fibrillation with RVR I48.91 Acute and chronic respiratory failure with hypoxia J96.21 Macrocytic anemia D53.9 COPD (chronic obstructive pulmonary disease) J44.9 CHF exacerbation I50.9
[2021-01-08] MEDS: cilostazol 100 mg Tablet PO (09:08)
[2021-01-08] MEDS: dilTIAZem ER (24HR) 180 mg Capsule PO (09:08)
[2021-01-08] MEDS: potassium chloride ER 20 mEq Tablet 40 MEQ PO (09:09)
[2021-01-08] MEDS: levothyroxine 100 mcg Tablet PO (09:09)
[2021-01-08] MEDS: metoprolol tartrate 50 mg Tablet 100 MG PO (09:09)
[2021-01-08] MEDS: cyanocobalamin 1,000 mcg Tablet 1000 MCG PO (09:09)
[2021-01-08] MEDS: pantoprazole DR 40 mg Tablet PO (09:10)
[2021-01-08] MEDS: FUROsemide 40 mg Tablet 60 MG PO (09:10)
[2021-01-08] MEDS: clopidogrel 75 mg Tablet PO (09:10)
[2021-01-08] MEDS: apixaban 5 mg Tablet PO (09:11)
--- NOTE | 2021-01-08 10:26 | PC.ADMIT ---
[address] Admission Note: The patient,Migel Watt,80 y/o, was given written information regarding hospital policies, unit procedures and contact persons. Patient's smoking status: former smoker. Vital Signs - 8 hr 01/08/21 03:45 01/08/21 03:51 01/08/21 04:00 Temperature 98 F Pulse Rate 92 90 97 Respiratory Rate 17 15 Blood Pressure 103/74 Pulse Oximetry 98 97 01/08/21 05:05 01/08/21 07:12 01/08/21 09:08 Temperature 97.6 F Pulse Rate 97 98 89 Respiratory Rate 21 H 18 Blood Pressure 117/69 Pulse Oximetry 95 97 01/08/21 09:13 Temperature Pulse Rate 92 Respiratory Rate Blood Pressure Pulse Oximetry
--- NOTE | 2021-01-08 10:29 | PC.NURSE ---
Pt presents sitting up in chair talking to staff. Pt A&O x4. Pt had no c/o pain or discomfort at the present time. Pt very anxious about discharge. Pts resp even and non-labored. Pt had no c/o pain or discomfort at the present time. Call light in reach. Will continue to monitor.
--- NOTE | 2021-01-08 11:34 | PC.NURSE ---
Pts valencia removed. Pt tolerated well.
--- NOTE | 2021-01-08 13:28 | PC.NURSE ---
Pt discharged back to [facility]. Pts IV removed no redness or swelling noted. Pts discharge instructions given along with prescriptions and follow up appointment. Pt had no c/o pain or discomfort at the time of discharge. Report called to [place] nurse Iliana Lombardi.
== END 2021-01-08 13:24 | disposition home or self-care (01) | DRG 291 ==
LOC: ER 10:07 → ICU 10:48 → CSU 01-04 13:15
PROVIDERS: Hospitalist; Student in an Organized Health Care Education/Training Program; Admitting Provider Internal Medicine; Emergency Provider Family Medicine; PCP Family Medicine; Visit Provider Internal Medicine
DX: I11.0 Hypertensive heart disease with heart failure (principal); G93.41 Metabolic encephalopathy; J96.22 Acute and chronic respiratory failure with hypercapnia; J96.21 Acute and chronic respiratory failure with hypoxia; E87.1 Hypo-osmolality and hyponatremia; E66.2 Morbid (severe) obesity with alveolar hypoventilation; I50.33 Acute on chronic diastolic (congestive) heart failure; I25.10 Atherosclerotic heart disease of native coronary artery without angina pectoris; Z95.5 Presence of coronary angioplasty implant and graft; I48.91 Unspecified atrial fibrillation; M54.9 Dorsalgia, unspecified; J44.9 Chronic obstructive pulmonary disease, unspecified; E78.5 Hyperlipidemia, unspecified; Z91.81 History of falling; E03.9 Hypothyroidism, unspecified; I25.5 Ischemic cardiomyopathy; I25.2 Old myocardial infarction; Z68.32 Body mass index [BMI] 32.0-32.9, adult; Z87.891 Personal history of nicotine dependence; D50.9 Iron deficiency anemia, unspecified; E87.6 Hypokalemia; Z79.02 Long term (current) use of antithrombotics/antiplatelets; Z99.81 Dependence on supplemental oxygen
CPT/HCPCS: 36415; 36416; 36600; 51702; 71045; 80048; 80051; 80053; 81001; 82009; 82330; 82550; 82728; 82805; 82962; 83540; 83550; 83605; 83690; 83735; 85025; 87040; 93970; 94640; 94660; 96372; 97110; 97116; 97161; 97530; 99291; J1630; J1650; J1940; J2405; J3420; J3480; J3490

== ENCOUNTER 2021-01-13 23:05 | Inpatient (IN) | payer MEDICARE, SELFPAY ==
[2021-01-13 23:08] VITALS: BP 159/98; PULSE 99; RESP 30; TEMP 36.6; O2SAT 98; BMI 38.5
--- NOTE | 2021-01-13 23:09 | XR_ITS ---
WS: [id number] Portable AP upright chest, 01/13/2021 Clinical Data: sob Comparison: Portable chest, 01/02/2021 Findings: The heart is enlarged and the pulmonary vascularity is increased. The aortic arch and desce nding aorta show tortuosity. There are calcified granulomas in both lungs. No pneumothorax is seen. M idline sternotomy sutures are present. There is a monitor lead on the right chest wall. XR/XR chest 1V portable [id number] Impression: Cardiomegaly with pulmonary vascular congestion unchanged.
--- NOTE | 2021-01-13 23:10 | ECG_ITS ---
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 Electronically Signed On 01-14-2021 20:25:03 CDT by DARRELL GUERRA [email or web address]
--- NOTE | 2021-01-13 23:13 | ED_ITS ---
HPI - SOB/Dyspnea General: Chief Complaint: Shortness of Breath/Dyspnea Stated Complaint: RESP. DISTRESS Time Seen by Provider: 01/13/21 23:06 Source: patient and EMS Mode of arrival: EMS Limitations: no limitations History of Present Illness: HPI Narrative: 80-year-old [facility]. He has a history of known CHF and was recently admitted here for CHF exacerbation. Patient had increased work of breathing over the last 2 hours and is typically on 2 L baseline is requiring 5 to 6 L here. He is also had increased swelling. He denies any chest pain or fever. Denies any vomiting or diarrhea. Associated symptoms: Deny abdominal pain, chest pain, fever(s), nausea or v omiting Review of Systems Const: Denies: fever(s), chills, body aches or change in appetite Eyes: Denies: blurry vision or eye discomfort ENMT: Denies: throat pain or dental pain Card: Denies: chest pain Resp: Reports: dyspnea GI: Denies: abdominal pain, nausea, vomiting or diarrhea : Denies: dysuria Musc: Denies: neck pain or back pain Skin/Breast: Denies: rash Neuro: Denies: headache(s) Psych: Denies: depression Rosales/Lymph: Denies: easy bruising All/Imm: Denies: urticaria PFSH ED PFSH: Medical History Acute and chronic respiratory failure with hypoxia Acute kidney injury ASHD (arteriosclerotic heart disease) Atrial fibrillation with RVR Back pain CHF (congestive heart failure) CHF exacerbation COPD (chronic obstructive pulmonary disease) Dyslipidemia Elevated troponin Falls HTN (hypertension) Hyponatremia Hypotension Hypothyroidism Ischemic cardiomyopathy Lung contusion Myocardial infarction Obesity Obesity hypoventilation syndrome Rhabdomyolysis Sleep apnea Surgical History Hx of CABG Family History Other CAD (coronary artery disease) Stroke Social History Smoking and tobacco status: former smoker Alcohol intake: current Alcohol intake frequency: few times a week Lives independently: Yes Housing: House Marital status: 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 Physical Exam Const: COMMON NORMALS: patient oriented x3 and healthy appearing GENERAL APPEARANCE: ill appearing HENMT: COMMON NORMALS: normocephalic and atraumatic HEAD & SCALP: normocephalic and atraumatic Eye: COMMON NORMALS: Equal, round and reactive pupils present and EOMs intact bilaterally PUPIL: Yes Equal, round and reactive pupils present Neck/C-Spine: COMMON NORMALS: full ROM and supple Chest: COMMONS NORMALS: normal inspection of the chest and normal palpation of entire chest wall Resp: COMMON NORMALS: No retractions and No use of accessory muscles EFFORT & INSPECTION: Yes tachypneic AUSCULTATION: rales Cardio: COMMON NORMALS: regular rate, regular rhythm and No murmurs present (Cardio) RATE: regular rate RHYTHM: regular rhythm GI: COMMON NORMALS: Normal to inspection, nondistended, normoactive bowel sounds present, Soft to palpation, non-tender and no masses PALPATION: Yes Soft to palpation Extremity: COMMON NORMALS: full ROM NARRATIVE EXTREMITY EXAM: 2+edema Neuro: COMMON NORMALS: patient oriented x3, moves all extremities and no focal motor deficits Psych: COMMON NORMALS: mental status grossly normal, Normal thought process present and cooperative THOUGHT PROCESS: Normal thought process present Skin: COMMON NORMALS: no rashes or lesions noted and no wounds GENERAL SKIN EXAM: no rashes or lesions noted Course Vital Signs: Vital signs: Vital Signs Temperature 97.9 F 01/13/21 23:08 Pulse Rate 86 01/14/21 01:00 Respiratory Rate 22 H 01/14/21 00:55 Blood Pressure 117/75 01/14/21 00:55 Pulse Oximetry 97 01/14/21 00:55 MDM - SOB/Dyspnea MDM Narrative: Medical decision making narrative: Daksha presents here with shortness of breath likely from CHF exacerbation. He does have hypercapnia that is slowly improving with BiPAP. He is tolerating BiPAP well and will admit to the ICU at this time. He still protecting his own airway and I do not believe that he needs intubated. Patient has no signs of pneumonia. We will give Lasix here as well. I spoke to hospitalist mynor will admit to ICU. Lab Data: Labs: Lab Results 01/13/21 01/13/21 01/13/21 Range/Units 23:20 23:25 23:25 WBC 13.1 H (4.0-10.0) 10^3/ uL RBC 3.57 L (4.1-5.3) 10^6/u L Hgb 10.8 L (11.7-16.6) g/dL Hct 38.0 L (42.0-52.0) % MCV 106.4 H (80-94) fL MCH 30.3 (28.0-34.0) pg MCHC 28.4 L (30.0-36.0) g/dL RDW 13.9 (12.1-15.1) % Plt Count 312 (130-400) 10^3/c mm MPV 10.1 (7.4-10.4) fL Neut % (Auto) 77.2 % Lymph % (Auto) 10.0 % [place] % (Auto) 12.0 % Eos % (Auto) 0.1 % Baso % (Auto) 0.2 % Neut # (Auto) 10.06 H (1.8-7.7) 10^3/u L Lymph # (Auto) 1.3 (0.8-4.8) 10^3/u L [place] # (Auto) 1.6 H (0.2-0.9) 10^3/u L Eos # (Auto) 0.0 (0.0-0.8) 10^3/u L Baso # (Auto) 0.0 (0.0-0.1) 10^3/u L Nucleated RBC % (a uto) 0 % Nucleated RBCs # 0.0 /100WBC PT 13.60 (12.1-14.9) SECO NDS INR 1.01 (0.8-1.2) Specimen Type Arterial Sample Site Brachial, left ABG pH 7.20 L (7.35-7.45) ABG pCO2 109.0 H* (35-45) mmHg ABG pO2 242.0 H (80.0-100.0) mmH g ABG HCO3 42.2 H (22-26) mmol/L ABG Base Excess 10.6 H (-2.0-2.0) mmol/ L Humberto Test N/a Hematocrit 34.5 L (42-52) % Hgb O2 Saturation 96.3 (95-100) % Carboxyhemoglobin 0.1 L (0.4-20.1) %THgb Methemoglobin 1.4 (0.4-1.5) % Total Hemoglobin 11.3 L (14-18) g/dL O2 Delivery Device Nc O2 Liters/Min 6.0 % FiO2 % Head Athletic Trainer/Strength Coach ID Harkr Sodium (136-145) mmol/L Potassium (3.5-5.1) mmol/L Chloride (98-107) mmol/L Carbon Dioxide (22-29) mmol/L Anion Gap (5-19) BUN (8-23) mg/dL Creatinine (0.7-1.2) mg/dL GFR Calculation Glucose (65-115) mg/dL Calculated Osmolal ity (285-295) mOsm/k g Calcium (8.5-10.5) mg/dL Total Bilirubin (0.15-1.2) mg/dL AST (0-40) U/L ALT (0-41) U/L Alkaline Phosphata se (40-130) IU/L Troponin T Baselin e (0-15) ng/L NT-Pro-B Natriuret Pep (0-450) pg/mL Total Protein (6.6-8.7) g/dL Albumin (3.5-5.2) g/dL Globulin (1.3-4.6) g/dL TSH (0.27-4.20) uIU/ mL 01/13/21 01/13/21 01/14/21 Range/Units 23:25 23:25 00:28 WBC (4.0-10.0) 10^3/ uL RBC (4.1-5.3) 10^6/u L Hgb (11.7-16.6) g/dL Hct (42.0-52.0) % MCV (80-94) fL MCH (28.0-34.0) pg MCHC (30.0-36.0) g/dL RDW (12.1-15.1) % Plt Count (130-400) 10^3/c mm MPV (7.4-10.4) fL Neut % (Auto) % Lymph % (Auto) % [place] % (Auto) % Eos % (Auto) % Baso % (Auto) % Neut # (Auto) (1.8-7.7) 10^3/u L Lymph # (Auto) (0.8-4.8) 10^3/u L [place] # (Auto) (0.2-0.9) 10^3/u L Eos # (Auto) (0.0-0.8) 10^3/u L Baso # (Auto) (0.0-0.1) 10^3/u L Nucleated RBC % (a uto) % Nucleated RBCs # /100WBC PT (12.1-14.9) SECO NDS INR (0.8-1.2) Specimen Type Arterial Sample Site Brachial, right ABG pH 7.24 L (7.35-7.45) ABG pCO2 101.0 H* (35-45) mmHg ABG pO2 90.2 (80.0-100.0) mmH g ABG HCO3 43.1 H (22-26) mmol/L ABG Base Excess 12.3 H (-2.0-2.0) mmol/ L Humberto Test N/a Hematocrit 33.9 L (42-52) % Hgb O2 Saturation (95-100) % Carboxyhemoglobin (0.4-20.1) %THgb Methemoglobin (0.4-1.5) % Total Hemoglobin (14-18) g/dL O2 Delivery Device Bipap O2 Liters/Min % FiO2 45.0 % Head Athletic Trainer/Strength Coach ID Harkr Sodium 137 (136-145) mmol/L Potassium 5.1 (3.5-5.1) mmol/L Chloride 94 L (98-107) mmol/L Carbon Dioxide 41 H (22-29) mmol/L Anion Gap 7.1 (5-19) BUN 12 (8-23) mg/dL Creatinine 0.6 L (0.7-1.2) mg/dL GFR Calculation Not Reportable Glucose 150 H (65-115) mg/dL Calculated Osmolal ity 287 (285-295) mOsm/k g Calcium 8.6 (8.5-10.5) mg/dL Total Bilirubin 0.5 (0.15-1.2) mg/dL AST 35 (0-40) U/L ALT 52 H (0-41) U/L Alkaline Phosphata se 83 (40-130) IU/L Troponin T Baselin e 30 H (0-15) ng/L NT-Pro-B Natriuret Pep 3669 H (0-450) pg/mL Total Protein 6.7 (6.6-8.7) g/dL Albumin 3.8 (3.5-5.2) g/dL Globulin 2.9 (1.3-4.6) g/dL TSH 1.00 (0.27-4.20) uIU/ mL Imaging Data^: CXR: Attestation: I personally reviewed and interpreted this imaging study as follows: My impression: cardiomegaly EKG Data^: EKG 1: Attestation: I personally reviewed and interpreted this EKG as follows: EKG Interpretation Date: 01/13/21 EKG interpretation time: 11:41 Interpretation: afib hr [address] or t wave abnormalities qrs 87 qtc 387 Critical Care Time Critical Care Time: Critical Care Time: Yes Total Critical Care Time: 35 Attestation: This case had a high probability of a clinically significant, sudden, or life threatening deterioration of this patient's condition which required my full and direct attention, intervention and personal management. Discharge Plan Discharge Patient Disposition: Admitted As Inpatient Admit Provider: Marylu Jain Clinical Impression: Hypercapnia Congestive heart failure Qualifiers: Heart failure type: unspecified Heart failure chronicity: acute on chronic Qualified Code(s): I50.9 - Heart failure, unspecified Condition: Stable Coding Level of Care Code ED Chief Telephone Operator for Chg Fwd Exam Comprehensive
[2021-01-13 23:29] LABS: Arterial Blood Gas Hematocrit 34.5 % (42-52); Base Excess ABG 10.6 mmol/L (-2.0-2.0); Blood Gas Sample Type Arterial; Carboxyhemoglobin 0.1 %THgb (0.4-20.1); HCO3 ABG 42.2 mmol/L (22-26); HGB O2 Sat 96.3 % (95-100); Methemoglobin 1.4 % (0.4-1.5); Total Hemoglobin 11.3 g/dL (14-18)
[2021-01-13 23:30] LABS: Blood Gas Operator Identificat HARKR; Blood Gas Sample Site Brachial, left; Oxygen Device NC
[2021-01-13 23:31] LABS: Basophils % 0.2 %; Eosinophils % 0.1 %; Hemoglobin 10.8 g/dL (11.7-16.6); Lymphocytes # 1.3 10^3/uL (0.8-4.8); Mean Corpuscular HGB Conc 28.4 g/dL (30.0-36.0); Mean Corpuscular Hemoglobin 30.3 pg (28.0-34.0); Mean Corpuscular Volume 106.4 fL (80-94); Mean Platelet Volume 10.1 fL (7.4-10.4); Monocytes # 1.6 10^3/uL (0.2-0.9); Neutrophils # 10.06 10^3/uL (1.8-7.7); Neutrophils % 77.2 %; Nucleated Red Blood Cells % 0 %; Platelet Count 312 10^3/cmm (130-400); Red Blood Count 3.57 10^6/uL (4.1-5.3); Red Cell Distribution Width 13.9 % (12.1-15.1); White Blood Count 13.1 10^3/uL (4.0-10.0)
--- NOTE | 2021-01-13 23:32 | PC.NURSE ---
EKG taken and given to Dr. Sunshine
[2021-01-13 23:40] VITALS: PULSE 97; RESP 36; O2SAT 95
[2021-01-13 23:44] LABS: INR 1.01 (0.8-1.2)
[2021-01-13 23:58] LABS: Troponin(5th) Baseline 30 ng/L (0-15)
[2021-01-14] VITALS (83 sets, daily range): BP systolic 98–128; BP diastolic 42–91; PULSE 66–957; RESP 14–36; TEMP 36.4–36.8; O2SAT 84–100
[2021-01-14] MEDS: LORazepam 2 mg/mL INJ 1 mL 0.5 MG IVP (00:03)
[2021-01-14 00:05] LABS: Alanine Aminotransferase 52 U/L (0-41); Albumin Level 3.8 g/dL (3.5-5.2); Alkaline Phosphatase 83 IU/L (40-130); Anion Gap 7.1 (5-19); Aspartate Amino Transferase 35 U/L (0-40); Blood Urea Nitrogen 12 mg/dL (8-23); Calcium 8.6 mg/dL (8.5-10.5); Chloride 94 mmol/L (98-107); Globulin 2.9 g/dL (1.3-4.6); Glucose 150 mg/dL (65-115); NT Pro B Type Natriuretic Pept 3669 pg/mL (0-450); Osmolality Calculated 287 mOsm/kg (285-295); Potassium 5.1 mmol/L (3.5-5.1); Sodium 137 mmol/L (136-145); Total Bilirubin 0.5 mg/dL (0.15-1.2); Total Protein 6.7 g/dL (6.6-8.7)
[2021-01-14 00:07] LABS: Carbon Dioxide 41 mmol/L (22-29)
[2021-01-14] MEDS: FUROsemide 10 mg/mL SDV 4mL 40 MG IVP (00:08)
[2021-01-14 00:38] LABS: ABG PH Result 7.24 (7.35-7.45); Arterial Blood Gas Hematocrit 33.9 % (42-52); Base Excess ABG 12.3 mmol/L (-2.0-2.0); Blood Gas Operator Identificat HARKR; Blood Gas Sample Site Brachial, right; Blood Gas Sample Type Arterial; HCO3 ABG 43.1 mmol/L (22-26); Oxygen Device BIPAP; PO2 ABG 90.2 mmHg (80.0-100.0)
[2021-01-14] MEDS: ipratropium-albuterol 3 mL Neb INHALATION ×3 (00:51→07:47)
--- NOTE | 2021-01-14 01:05 | PM.HP ---
Providers/Chief Complaint Admitting Physician: Marylu Jain MD Primary Care Provider: Margarito Perez MD Chief Complaint: RESP. DISTRESS History of Present Illness Migel Watt is a 80 year old male who was recently discharged from the hospital to [facility], he has had multiple admissions secondary to chronic hypercapnic restaurant failure, respiratory distress, seizure exacerbation on last visit he was placed on Cardizem drip and BiPAP, gradually improved and was discharged on Bumex 1 mg, oxygen 3 L nasal cannula, Eliquis and with indication of BiPAP/AVAPS at night to prevent hypercapnic encephalopathy and respiratory failure presented today with chief complaint of worsening shortness of breath. He does have significant past medical history of CABG, A. fib RVR, previously he was not a candidate for anticoagulation due to risk of falls however it was initiated on last visit, does have history of chronic hypoxic hypercarbic respiratory failure, mildly reduced ejection fraction heart failure. I called [facility] to get report, patient is very drowsy and not able to provide any information, daughter talked with the ER physician and discuss goals of care. There is some concern regarding compliance with his BiPAP at the [facility]. No fever, no chest pain. As per the nursing report yesterday he was requiring 1.5 L of oxygen and today around 6 PM he was started to experience more shortness of breath hence he was put on 5 L nasal cannula, his O2 saturation was in 80s, around 9:30 PM his shortness of breath got worse it was very hard to understand him his BiPAP mask was pulled off to communicate with him he immediately expressed conversational dyspnea, he looked very pale and he was sent to the ED for further evaluation. Diagnosis in the ER revealed acute hypercapnic respiratory failure he was saturating well on 45% FiO2 via BiPAP TSH is normal his mentation is fluctuant and drowsy, hemoglobin 10.8, bicarb 41 EKG showing A. fib without RVR troponin unremarkable without significant delta Chest x-ray shows pulmonary edema no signs of consolidation Review of Systems General: Reports: ROS unobtainable due to medical condition (Delirium secondary to hypercapnia) Medications/Allergies Home Medications Medication Instructions Recorded Confirmed Last Taken Type clopidogrel 75 mg PO DAILY@12/09/20 01/02/21 01/02/21 History levothyroxine 100 mcg PO DAILY@12/09/20 01/02/21 01/02/21 History phenazopyridine 100 mg PO TIDPC #90 tab 12/12/20 01/02/21 01/02/21 Rx metoprolol tartrate 100 mg PO BID@0900,2100 30 Days 12/19/20 01/02/21 01/02/21 Rx #60 tab Milk of Magnesia 30 ml PO DAILY PRN 01/02/21 01/02/21 Unknown History acetaminophen 650 mg PO Q6H PRN 01/02/21 01/02/21 12/31/20 History bumetanide 1 mg PO DAILY@0800 01/02/21 01/02/21 01/02/21 History simvastatin 80 mg PO DAILY@1700 01/02/21 01/02/21 01/01/21 History apixaban [Eliquis] 5 mg PO BID #60 tab 01/08/21 Unknown Rx cilostazol 50 mg PO BID@08,20 #0 tab 01/08/21 01/02/21 01/02/21 Rx cyanocobalamin (vitamin B-12) 1,000 mcg PO DAILY #30 tab 01/08/21 Unknown Rx [Vitamin B-12] diltiazem HCl [DILT-XR] 180 mg PO DAILY 30 Days cap 01/08/21 Unknown Rx potassium chloride [Klor-Con M20] 40 meq PO DAILY 30 Days tab 01/08/21 Unknown Rx Allergies Allergy/AdvReac Type Severity Reaction Status Date / Time No Known Allergies Allergy Verified 01/02/21 07:02 PFSH Acute PFSH: Medical History Acute and chronic respiratory failure with hypoxia Acute kidney injury ASHD (arteriosclerotic heart disease) Atrial fibrillation with RVR Back pain CHF (congestive heart failure) CHF exacerbation COPD (chronic obstructive pulmonary disease) Dyslipidemia Elevated troponin Falls HTN (hypertension) Hypokalemia Hyponatremia Hypotension Hypothyroidism Ischemic cardiomyopathy Lung contusion Macrocytic anemia Myocardial infarction Obesity Obesity hypoventilation syndrome Rhabdomyolysis Sleep apnea Surgical History Hx of CABG Family History Other CAD (coronary artery disease) Stroke Social History Smoking and tobacco status: former smoker Alcohol intake: current Alcohol intake frequency: few times a week Lives independently: Yes Housing: House Marital status: 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 Vitals/I&O/Wt Last Vital Signs Temp 97.9 F 01/13/21 23:08 Pulse 86 01/14/21 01:00 Resp 22 H 01/14/21 00:55 BP 117/75 01/14/21 00:55 Pulse Ox 97 01/14/21 00:55 Weight last 48 hrs Weight 136.078 kg Physical Exam Narrative: EXAM NARRATIVE: elderly male with fluid overloaded state patient is currently on BiPAP, very drowsy, on getting painful stimuli he does show withdrawal signs, He is making incomprehensible sounds with noxious stimuli, does not open eyes completely S1, S2 variable with CHF exacerbation active signs of fluid overload Bilateral assisted breath sounds, crackles at the bases Abdomen distended bowel sounds present nontender Lower extremity 3+ pitting edema bilaterally, pedal edema extending up to thighs mild scrotal edema Neurological status: Drowsy BiPAP settings 24/10 respiratory rate 16 tidal volume 700 Lower extremity no cellulitis Urinary Catheter Management^: Nicholson: Cath Placed During This Visit: yes Urinary Catheter Date of Insertion: 01/14/21 Urinary Catheter Time of Insertion: 00:09 Data : 01/13/21 23:25 01/13/21 23:25 A&P Assessment and plan (1) Acute congestive heart failure: Status: Acute (2) Hypercapnia: Status: Acute (3) Acute respiratory acidosis: Status: Acute (4) Acute on chronic respiratory failure with hypoxia and hypercapnia: Status: Acute (5) Obesity hypoventilation syndrome: Status: Acute (6) COPD exacerbation: Status: Acute Additional A&P Information Acute on chronic hypoxic hypercarbic respiratory failure At home uses 2-3 L of oxygen and BiPAP at night Encephalopathy secondary to hypercapnia To believe worsening of hypoxia is the cause of worsening of hypercapnia, at baseline he should get 2 to 3 L as per the nursing report he was put on 1.5 L of oxygen yesterday which was increased to 5 L before he was sent to the ER, kindly reevaluate Considering the fact his mentation improved with BiPAP decision of intubation will be made with next ABG currently he is not opening his eyes on noxious stimuli however makes incomprehensible sounds with some withdrawal signs BiPAP settings 24/10 FiO2 30% saturating well Chest x-ray reveals pulmonary edema no signs of consolidation clinically fluid overloaded High risk for intubation Metabolic alkalosis with hypercapnia Baseline PaCO2 85-90 with compensatory increase in bicarb PCO2 improved from 109-to 101 with BiPAP Alkalosis consistent with acute hypercapnic episode Would recommend acetazolamide if alkalosis is worsening and alternate with Bumex We will keep him n.p.o. because of his drowsy state for now Continue Bumex 1 mg IV daily, monitor urine output Acute CHF exacerbation Continue Bumex for now consider Diamox for worsening alkalosis EKG showing A. fib without RVR no ischemic or infarctive events troponin not significantly high Chronic macrocytic anemia hemoglobin stable continue B12 supplementation, B12 level 162 Goals of care discussed with the daughter, he is full code N.p.o. DVT prophylaxis not needed currently he is on Eliquis Attestations Medical Necessity Statement*: Anticipating stay in the hospital because more than 2 midnights for worsening hypoxic hypercarbic respiratory failure he is high risk for intubation currently in ICU requiring BiPAP Time Spent in Patient Care: (>than 50% of time spent in counselling and/or direct pt care on unit). 40mins Coding Level of Care Code Acute Relationship Management Lead for Chg Fwd Diagnoses Acute congestive heart failure I50.9 Hypercapnia R06.89 Acute respiratory acidosis E87.2 Acute on chronic respiratory failure with hypoxia and hypercapnia J96.21; J96.22 Obesity hypoventilation syndrome E66.2 COPD exacerbation J44.1
--- NOTE | 2021-01-14 01:10 | ECG_ITS ---
[facility] Test Date: 2021-01-14 Pat Name: Migel Watt Department: Room: ICU01 Gender: Male Community Outreach Worker: : 1940 Requested By: Alfonzo Garza Order Number: [id number] Reading MD: DARRELL GUERRA Measurements Intervals [place] Rate: 96 P: [place]: QRS: -25 QRSD: 97 T: 7 QT: 350 QTc: 444 Interpretive Statements ATRIAL FIBRILLATION BORDERLINE LEFT AXIS DEVIATION [QRS AXIS < -20] ABNORMAL RHYTHM ECG WARNING: DATA QUALITY MAY AFFECT INTERPRETATION Compared to ECG 01/13/2021 23:13:19 No significant changes Electronically Signed On 01-14-2021 20:27:31 CDT by DARRELL GUERRA [id number]
[2021-01-14 01:34] LABS: Troponin 5 2HR 28.86 ng/L (0-15)
[2021-01-14 01:39] LABS: Troponin 5 2HR Delta -1.14 ABS# (0-10)
[2021-01-14 04:13] LABS: ABG PH Result 7.42 (7.35-7.45); Arterial Blood Gas Hematocrit 31.7 % (42-52); Base Excess ABG 19.1 mmol/L (-2.0-2.0); Blood Gas Allen Test Pos; Blood Gas Operator Identificat JB; Blood Gas Sample Site Brachial, right; Blood Gas Sample Type Arterial; HCO3 ABG 46.7 mmol/L (22-26); Oxygen Device BIPAP; PO2 ABG 66.4 mmHg (80.0-100.0)
[2021-01-14 04:14] LABS: ABG PCO2 71.7 mmHg (35-45)
[2021-01-14 05:01] LABS: Basophils % 0.1 %; Hematocrit 33.7 % (42.0-52.0); Lymphocytes # 0.9 10^3/uL (0.8-4.8); Lymphocytes % 8.4 %; Mean Corpuscular HGB Conc 29.7 g/dL (30.0-36.0); Mean Corpuscular Volume 104.3 fL (80-94); Mean Platelet Volume 10.3 fL (7.4-10.4); Monocytes # 0.4 10^3/uL (0.2-0.9); Monocytes % 4.2 %; Neutrophils % 86.9 %; Nucleated Red Blood Cells % 0 %; Platelet Count 244 10^3/cmm (130-400); Red Blood Count 3.23 10^6/uL (4.1-5.3); White Blood Count 10.4 10^3/uL (4.0-10.0)
--- NOTE | 2021-01-14 05:10 | ECG_ITS ---
[facility] Test Date: 2021-01-13 Pat Name: Migel Watt Department: Room: ICU01 Gender: Male Wire Tinner: : 1940 Requested By: Alfonzo Garza Order Number: [id number] Reading MD: DARRELL GUERRA Measurements Intervals [place] Rate: 105 P: [place]: QRS: -37 QRSD: 87 T: 16 QT: 326 QTc: 431 Interpretive Statements ATRIAL FIBRILLATION WITH RAPID VENTRICULAR RESPONSE WITH ABERRANT CONDUCTION OR VENTRICULAR PREMATURE COMPLEXES MARKED LEFT AXIS DEVIATION [QRS AXIS < -30] INFERIOR MYOCARDIAL INFARCTION [40+ ms Q WAVE AND/OR ST/T ABNORMALITY IN II/aVF], PROBABLY OLD INTERPRETATION BASED ON A DEFAULT AGE OF 40 YEARS Compared to ECG 01/13/2021 23:13:19 Aberrant conduction of supraventricular beat(s) now present Ventricular premature complex(es) now present Left-axis deviation now present Myocardial infarct finding now present Electronically Signed On 01-14-2021 20:27:45 CDT by DARRELL GUERRA [id number]
[2021-01-14 05:21] LABS: Anion Gap 7.1 (5-19); Blood Urea Nitrogen 12 mg/dL (8-23); Calcium 8.8 mg/dL (8.5-10.5); Chloride 91 mmol/L (98-107); Glucose 151 mg/dL (65-115); Osmolality Calculated 287 mOsm/kg (285-295); Potassium 4.1 mmol/L (3.5-5.1); Sodium 137 mmol/L (136-145)
[2021-01-14 05:36] LABS: Carbon Dioxide 43 mmol/L (22-29)
[2021-01-14] MEDS: bumetanide 0.25 mg/mL SDV 4 mL 1 MG IV ×2 (08:23→16:00)
[2021-01-14] MEDS: dilTIAZem ER (24HR) 180 mg Capsule PO (08:29)
[2021-01-14] MEDS: metoprolol tartrate 50 mg Tablet 100 MG PO ×2 (08:29→20:41)
[2021-01-14] MEDS: cyanocobalamin 1,000 mcg Tablet 1000 MCG PO (08:29)
[2021-01-14] MEDS: levothyroxine 100 mcg Tablet PO (08:30)
[2021-01-14] MEDS: clopidogrel 75 mg Tablet PO (08:30)
[2021-01-14] MEDS: apixaban 5 mg Tablet PO ×2 (08:30→17:15)
--- NOTE | 2021-01-14 10:17 | PC.CHAP ---
Pastoral Care Encounter/Spiritual Assessment Type of Contact [] Declined financial compliance manager visit [] Patient/Family/Request visit [] Outpatient visit [] Follow-up visit [] Physician referral [] Code/Alert [x] Routine visit [] Staff referral [] Actively dying [] Patient sleeping [] Family support [] [] Out of room [] Palliative care [] [] Receiving care in room [] Pre-surgical visit [] Trauma [] Long length of stay [x] ICU visit [] Other: Relational/Emotional Strength [] Patient feels connected with others/family/visitors/staff [] Distress [] Loneliness/isolation [] Abandonment Spirituality of Patient [x] Person of Bushra [] Attends Mormon of their Bushra [] Believes in Prayer [] Reads Bible or Congregation materials [] There are Spiritual issues to be addressed Electron Beam Welding Machine Operator Interventions [x] Prayer [x] Active listening [x] Non-anxious presence [x] Spiritual/emotional support [] Crisis/trauma care [] Spiritual counseling [] Bereavement support [] Provided bereavement packet [] Provided Bible/devotional materials [] Provided toy/stuffed animal, coloring book to patient or family member [] Provided Communion [] Anointing/[place] [] Salvation [x] Completed spiritual assessment [] Other: Impact on Illness or Injury [] Angry [] Fearful [] Anxious [] Often cries [] Exhaustion [] Unable to work [] Unable to attend adventist [] Unable to walk/stand [] Unable to read [] Unable to drive [] Unable to eat/drink [] Unable to sleep [] Unable to be with family [] Patient intubated [] Other: Summary patient unable to communicate well.... Time spent with patient 5 min
--- NOTE | 2021-01-14 11:13 | PC.PHAR ---
pritesh from [facility] states the pt is NOT taking eliquis-rx written on 01/08/21
--- NOTE | 2021-01-14 12:34 | PC.NURSE ---
Family, Lupe, called and updated per patient's request.
--- NOTE | 2021-01-14 15:38 | P.PN_ITS ---
Subjective Subjective: Interval history: Patient remained on BiPAP overnight, mental status is much improved this morning. He is currently able to tell me his name age and that he is in a hospital. He is able to have a conversation. Diet has been resumed. ABG this morning with compensated respiratory acidosis. Lower extremity edema still quite significant Medications: Reviewed: Yes Vitals/I&O/Wt Last Vital Signs Temp 98.3 F 01/14/21 10:39 Pulse 84 01/14/21 14:33 Resp 18 01/14/21 14:33 BP 104/60 01/14/21 13:30 Pulse Ox 93 01/14/21 14:33 01/14/21 01/14/21 01/14/21 06:59 14:59 22:59 Intake Total 440 / 440 Output Total 850 / 850 700 / 700 Balance -850 / -850 -260 / -260 Weight last 48 hrs Weight 136.078 kg Physical Exam Narrative: EXAM NARRATIVE: GEN: Awake, alert and oriented, no acute distress CVS: S1S2 N RS: CTA B/L except crackles to auscultation bilateral lung bases Abd: Soft, nt/nd , bs+ SCHOOL ADJUSTMENT COUNSELOR: no focal neuro deficits Extremities 3+ pitting edema bilaterally Urinary Catheter Management^: Nicholson: Cath Placed During This Visit: yes Reason for Continuing Indwelling Catheter: Accurate Measurement of Urinary Output in Critically Ill Patients Urinary Catheter Date of Insertion: 01/14/21 Urinary Catheter Time of Insertion: 00:09 Data : 01/14/21 04:50 01/14/21 04:50 A&P Assessment and plan (1) Acute congestive heart failure: Status: Acute (2) Hypercapnia: Status: Acute (3) Acute respiratory acidosis: Status: Acute (4) Acute on chronic respiratory failure with hypoxia and hypercapnia: Status: Acute (5) Obesity hypoventilation syndrome: Status: Acute (6) COPD exacerbation: Status: Acute Additional A&P Information Acute on chronic hypoxic hypercarbic respiratory failure At home uses 2-3 L of oxygen and BiPAP at night Overnight patient remained on BiPAP, ABG this morning is improved, show signs of compensated respiratory acidosis Likely that respiratory worsening was multifactorial in nature related to unable to use BiPAP consistently, acute on chronic combined systolic and diastolic heart failure. 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 If signs of worsening alkalosis developed, will likely also use acetazolamide adjunctively EKG showing A. fib without RVR no ischemic or infarctive events troponin not significantly high Chronic macrocytic anemia hemoglobin stable continue B12 supplementation, B12 level 162 Full code DVT prophylaxis : Currently already on Eliquis Resume cardiac diet Transfer from ICU to CSU Attestations Medical Necessity Statement*: Ongoing need for IV diuresis, close monitoring of respiratory status and metabolic status to adjust diuretics for CHF Coding Level of Care Code Acute Fast Food Restaurant Manager for Chg Fwd Diagnoses Acute congestive heart failure I50.9 Hypercapnia R06.89 Acute respiratory acidosis E87.2 Acute on chronic respiratory failure with hypoxia and hypercapnia J96.21; J 96.22 Obesity hypoventilation syndrome E66.2 COPD exacerbation J44.1
[2021-01-14] MEDS: atorvastatin 40 mg Tablet PO (15:59)
--- NOTE | 2021-01-14 18:22 | PC.NURSE ---
Report called to HORTENCIA De Leon, no further questions, will call when room is clean.
--- NOTE | 2021-01-14 19:10 | PC.NURSE ---
Patient wheeled to CSU 107-1, bedside report again given to laura De Leon with patient, AAOx4, No complaints of pain or discomfort. No further questions.
[2021-01-15] VITALS (39 sets, daily range): BP systolic 101–128; BP diastolic 60–73; PULSE 69–94; RESP 8–32; TEMP 36.6–36.9; O2SAT 87–98
[2021-01-15] MEDS: bumetanide 0.25 mg/mL SDV 4 mL 1 MG IV ×2 (05:10→15:36)
[2021-01-15 05:12] LABS: Basophils % 0.2 %; Hematocrit 31.3 % (42.0-52.0); Hemoglobin 9.5 g/dL (11.7-16.6); Lymphocytes # 1.3 10^3/uL (0.8-4.8); Mean Corpuscular HGB Conc 30.4 g/dL (30.0-36.0); Mean Corpuscular Volume 105.4 fL (80-94); Monocytes # 0.9 10^3/uL (0.2-0.9); Monocytes % 7.1 %; Neutrophils % 81.4 %; Nucleated Red Blood Cells % 0 %; Platelet Count 239 10^3/cmm (130-400); Red Blood Count 2.97 10^6/uL (4.1-5.3); Red Cell Distribution Width 14.1 % (12.1-15.1); White Blood Count 11.9 10^3/uL (4.0-10.0)
[2021-01-15 05:25] LABS: Alanine Aminotransferase 38 U/L (0-41); Albumin Level 2.7 g/dL (3.5-5.2); Alkaline Phosphatase 57 IU/L (40-130); Anion Gap 9.1 (5-19); Aspartate Amino Transferase 30 U/L (0-40); Blood Urea Nitrogen 19 mg/dL (8-23); Calcium 8.8 mg/dL (8.5-10.5); Chloride 89 mmol/L (98-107); Globulin 2.9 g/dL (1.3-4.6); Glucose 105 mg/dL (65-115); Osmolality Calculated 285 mOsm/kg (285-295); Potassium 4.1 mmol/L (3.5-5.1); Sodium 136 mmol/L (136-145); Total Bilirubin 0.6 mg/dL (0.15-1.2); Total Protein 5.6 g/dL (6.6-8.7)
[2021-01-15 05:31] LABS: Carbon Dioxide 42 mmol/L (22-29)
[2021-01-15] MEDS: cyanocobalamin 1,000 mcg Tablet 1000 MCG PO (08:09)
[2021-01-15] MEDS: dilTIAZem ER (24HR) 180 mg Capsule PO (08:09)
[2021-01-15] MEDS: levothyroxine 100 mcg Tablet PO (08:09)
[2021-01-15] MEDS: potassium chloride ER 20 mEq Tablet 40 MEQ PO (08:10)
[2021-01-15] MEDS: apixaban 5 mg Tablet PO ×2 (08:10→17:05)
[2021-01-15] MEDS: clopidogrel 75 mg Tablet PO (08:10)
[2021-01-15] MEDS: metoprolol tartrate 50 mg Tablet 100 MG PO ×2 (08:10→22:03)
--- NOTE | 2021-01-15 11:27 | PC.CHAP ---
Pastoral Care Encounter/Spiritual Assessment Type of Contact [] Declined management engineer visit [] Patient/Family/Request visit [] Outpatient visit [] Follow-up visit [] Physician referral [] Code/Alert [x] Routine visit [] Staff referral [] Actively dying [] Patient sleeping [] Family support [] [] Out of room [] Palliative care [] [x] Receiving care in room [] Pre-surgical visit [] Trauma [] Long length of stay [] ICU visit [] Other: Relational/Emotional Strength [x] Patient feels connected with others/family/visitors/staff [] Distress [] Loneliness/isolation [] Abandonment Spirituality of Patient [x] Person of [place] [] Attends Temple of their [place] [x] Believes in Prayer [] Reads Bible or Gnosticism materials [] There are Spiritual issues to be addressed [employer] Interventions [x] Prayer [x] Active listening [x] Non-anxious presence [x] Spiritual/emotional support [] Crisis/trauma care [x] Spiritual counseling [] Bereavement support [] Provided bereavement packet [] Provided Bible/devotional materials [] Provided toy/stuffed animal, coloring book to patient or family member [] Provided Communion [] Anointing/[place] [] Salvation [x] Completed spiritual assessment [] Other: Impact on Illness or Injury [] Angry [] Fearful [x] Anxious [] Often cries [] Exhaustion [] Unable to work [] Unable to attend christian [] Unable to walk/stand [] Unable to read [] Unable to drive [] Unable to eat/drink [] Unable to sleep [] Unable to be with family [] Patient intubated [] Other: Summary No tests may get to go soon, doesn't kmow about his recovery or time fram, has a good attitude. Time spent with patient 10 mins
--- NOTE | 2021-01-15 16:46 | PM.PN ---
Subjective Subjective: Interval history: Urine output 2.4 L, net -1.8 L over the last 24 hours, bicarb 42, saturating 96% on 2 L nasal cannula, lower extremity edema continues to persist, unchanged over yesterday's exam, patient states feeling much better Medications: Reviewed: Yes Vitals/I&O/Wt Last Vital Signs Temp 98.5 F 01/15/21 15:00 Pulse 69 01/15/21 15:00 Resp 23 H 01/15/21 15:00 BP 101/65 01/15/21 15:00 Pulse Ox 96 01/15/21 15:00 01/15/21 01/15/21 01/15/21 06:59 14:59 22:59 Intake Total 200 / 1000 380 / 380 Output Total 1150 / 3100 1175 / 1175 Balance -950 / -2100 -795 / -795 Weight last 48 hrs Weight 122.334 kg Weight 136.078 kg Physical Exam Narrative: EXAM NARRATIVE: GEN: Awake, alert and oriented, no acute distress CVS: S1S2 N RS: CTA B/L except crackles over RLL Abd: Soft, nt/nd , bs+ 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 Extremity 2+ pitting edema bilaterally Urinary Catheter Management^: Nicholson: Cath Placed During This Visit: yes Reason for Continuing Indwelling Catheter: Accurate Measurement of Urinary Output in Critically Ill Patients Urinary Catheter Date of Insertion: 01/14/21 Urinary Catheter Time of Insertion: 00:09 Data : 01/15/21 04:20 01/15/21 04:20 A&P Assessment and plan (1) Acute congestive heart failure: Status: Acute (2) Hypercapnia: Status: Acute (3) Acute respiratory acidosis: Status: Acute (4) Acute on chronic respiratory failure with hypoxia and hypercapnia: Status: Acute (5) Obesity hypoventilation syndrome: Status: Acute (6) COPD exacerbation: Status: Acute Additional A&P Information Acute on chronic hypoxic hypercarbic respiratory failure At home uses 2-3 L of oxygen and BiPAP at night Likely that respiratory worsening was multifactorial in nature related to unable to use BiPAP consistently, acute on chronic combined systolic and diastolic heart failure. Chest x-ray reveals pulmonary edema no signs of consolidation clinically fluid overloaded Acute on chronic combined systolic and diastolic CHF exacerbation Continue Bumex, 1 mg IV every 12 hours.Diamox 250mg x 1 due to increasing alkalosis, monitor urine output and CMP closely EKG showing A. 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
[2021-01-15] MEDS: acetaZOLAMIDE 250 mg Tablet PO (17:04)
[2021-01-15] MEDS: atorvastatin 40 mg Tablet PO (17:05)
[2021-01-16] VITALS (7 sets, daily range): BP systolic 103–117; BP diastolic 65–70; PULSE 64–86; RESP 16–26; TEMP 36.6–36.9; O2SAT 93–97
[2021-01-16] MEDS: bumetanide 0.25 mg/mL SDV 4 mL 1 MG IV (03:43)
[2021-01-16 05:34] LABS: ABG PH Result 7.35 (7.35-7.45); Arterial Blood Gas Hematocrit 32.4 % (42-52); Base Excess ABG 15.8 mmol/L (-2.0-2.0); Blood Gas Allen Test Pos; Blood Gas Sample Site Radial, right; Blood Gas Sample Type Arterial; HCO3 ABG 44.6 mmol/L (22-26); Oxygen Device NC; PO2 ABG 78.8 mmHg (80.0-100.0)
[2021-01-16 05:35] LABS: Basophils % 0.4 %; Eosinophils % 0.3 %; Hematocrit 35.5 % (42.0-52.0); Hemoglobin 10.4 g/dL (11.7-16.6); Lymphocytes # 1.6 10^3/uL (0.8-4.8); Lymphocytes % 15.8 %; Mean Corpuscular HGB Conc 29.3 g/dL (30.0-36.0); Mean Corpuscular Hemoglobin 30.7 pg (28.0-34.0); Mean Corpuscular Volume 104.7 fL (80-94); Mean Platelet Volume 10.8 fL (7.4-10.4); Monocytes # 0.8 10^3/uL (0.2-0.9); Monocytes % 7.6 %; Neutrophils # 7.57 10^3/uL (1.8-7.7); Neutrophils % 75.2 %; Nucleated Red Blood Cells % 0 %; Platelet Count 328 10^3/cmm (130-400); Red Blood Count 3.39 10^6/uL (4.1-5.3); Red Cell Distribution Width 14.4 % (12.1-15.1); White Blood Count 10.1 10^3/uL (4.0-10.0)
[2021-01-16 05:36] LABS: ABG PCO2 81.5 mmHg (35-45)
--- NOTE | 2021-01-16 05:47 | PC.NURSE ---
Dr. Jain gave order to transfer patient to [facility].
[2021-01-16 05:55] LABS: Alanine Aminotransferase 43 U/L (0-41); Albumin Level 3.1 g/dL (3.5-5.2); Alkaline Phosphatase 62 IU/L (40-130); Anion Gap 6.4 (5-19); Aspartate Amino Transferase 36 U/L (0-40); Blood Urea Nitrogen 19 mg/dL (8-23); Calcium 8.8 mg/dL (8.5-10.5); Chloride 91 mmol/L (98-107); Glucose 97 mg/dL (65-115); Osmolality Calculated 284 mOsm/kg (285-295); Potassium 3.4 mmol/L (3.5-5.1); Sodium 136 mmol/L (136-145); Total Bilirubin 0.8 mg/dL (0.15-1.2); Total Protein 6.1 g/dL (6.6-8.7)
[2021-01-16 05:59] LABS: Carbon Dioxide 42 mmol/L (22-29)
--- NOTE | 2021-01-16 06:31 | PC.NURSE ---
NURSE NOTE: REPORT: REPORT GIVEN TO BETINA ON MED/SURG AT THIS TIME AND PT TRANSPORTED TO ROOM 276-1 PER HERACLIO MIRANDA PER W/C. NO DISTRESS NOTED AT TIME OF TRANSFER. ALL VS AND ASSESSMENTS CHARTED.
[2021-01-16] MEDS: dilTIAZem ER (24HR) 180 mg Capsule PO (07:57)
[2021-01-16] MEDS: cyanocobalamin 1,000 mcg Tablet 1000 MCG PO (07:58)
[2021-01-16] MEDS: levothyroxine 100 mcg Tablet PO (07:58)
[2021-01-16] MEDS: apixaban 5 mg Tablet PO (07:58)
[2021-01-16] MEDS: metoprolol tartrate 50 mg Tablet 100 MG PO (07:58)
[2021-01-16] MEDS: potassium chloride ER 20 mEq Tablet 40 MEQ PO (07:58)
[2021-01-16] MEDS: clopidogrel 75 mg Tablet PO (07:58)
[2021-01-16] MEDS: ipratropium-albuterol 3 mL Neb INHALATION (08:44)
--- NOTE | 2021-01-16 10:57 | P.DS_ITS ---
Discharge Providers Date of Admission: 01/14/21 02:02 Date of Discharge: January 16, 2021 Attending Provider at Admission: Marylu Jain MD Attending Provider at Discharge: Bettye Gomez MD Primary Care Provider: Margarito Perez MD Diagnoses at Discharge Discharge Diagnosis (1) Acute congestive heart failure: Status: Acute (2) Hypercapnia: Status: Acute (3) Acute respiratory acidosis: Status: Acute (4) Acute on chronic respiratory failure with hypoxia and hypercapnia: Status: Acute (5) Obesity hypoventilation syndrome: Status: Acute (6) COPD exacerbation: Status: Acute Reason for Visit Reason for Visit: RESP. DISTRESS Hospital Course Hospital Course 80-year-old male presented to the ER on January 14, 2021 with chief complaints of shortness of breath in the setting of concern for suboptimal use of BiPAP. Oxygen requirements were noted to be higher than his baseline of 1.5 L, was up to 5 L recently, O2 sats were in the 80s and he was brought to the ER. 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 By noon that same day he was significantly improved. Mentation was back at baseline. He was very somnolent initially upon admission. Chest x-ray without any signs of consolidation. Overall encephalopathy likely secondary to hypercapnia, resolved quickly. Overall respiratory failure likely to be a combination of inconsistent BiPAP use,Acute on chronic combined systolic and diastolic CHF exacerbation. He received scheduled nebulization with DuoNeb's, and IV diuresis with Bumex 1 mg IV every 12 hours. EKG showed A. fib without RVR, no ischemic or infarctive changes noted. His oxygen requirements of the day of discharge are down to 2 L/min, he is saturating 95%. Remained afebrile and hemodynamically stable. Overall net negative by 6.5 L since admission. He is being discharged back to the intermediate today with increasing Bumex to 1 mg p.o. twice daily which may be readjusted at the intermediate as needed. 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 Urinary Catheter Management^: Nicholson: Cath Placed During This Visit: yes Reason for Continuing Indwelling Catheter: Accurate Measurement of Urinary Output in Critically Ill Patients Urinary Catheter Date of Insertion: 01/14/21 Urinary Catheter Time of Insertion: 00:09 Discharge Data Data Completed and Pending: Completed Studies During Hospitalization Category Date Time Status XR chest 1V ankit ble [id number] Urgent Exams 01/13/21 23:09 Completed Labs from last 24 hours 01/16/21 01/16/21 01/16/21 05:25 04:31 04:31 WBC 10.1 H RBC 3.39 L Hgb 10.4 L Hct 35.5 L MCV 104.7 H MCH 30.7 MCHC 29.3 L RDW 14.4 Plt Count 328 MPV 10.8 H Neut % (Auto) 75.2 Lymph % (Auto) 15.8 Marion % (Auto) 7.6 Eos % (Auto) 0.3 Baso % (Auto) 0.4 Neut # (Auto) 7.57 Lymph # (Auto) 1.6 Marion # (Auto) 0.8 Eos # (Auto) 0.0 Baso # (Auto) 0.0 Nucleated RBC % (a uto) 0 Nucleated RBCs # 0.0 Specimen Type Arterial Sample Site Radial, right ABG pH 7.35 ABG pCO2 81.5 H* ABG pO2 78.8 L ABG HCO3 44.6 H ABG Base Excess 15.8 H Humberto Test Pos Hematocrit 32.4 L O2 Delivery Device Nc O2 Liters/Min 2.0 FiO2 28.0 Charter 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 ID [id number] Sodium 136 Potassium 3.4 L Chloride 91 L Carbon Dioxide 42 H* Anion Gap 6.4 BUN 19 Creatinine 0.6 L GFR Calculation Not Reportable Glucose 97 Calculated Osmolal ity 284 L Calcium 8.8 Total Bilirubin 0.8 AST 36 ALT 43 H Alkaline Phosphata se 62 Total Protein 6.1 L Albumin 3.1 L Globulin 3.0 Vitals: Last Vital Signs Temp 98.4 F 01/16/21 10:56 Pulse 64 01/16/21 10:56 Resp 16 01/16/21 10:56 BP 103/65 01/16/21 10:56 Pulse Ox 95 01/16/21 10:56 Discharge Plan Discharge Patient Disposition: Xfer SNF Condition: Stable Prescriptions: Continued acetaminophen 325 mg Tablet 650 mg PO Q6H PRN (Reason: Pain) RF: 0 magnesium hydroxide [Milk of Magnesia] 400 mg/5 mL Suspension 30 ml PO DAILY PRN (Reason: Constipation) RF: 0 simvastatin 80 mg tablet 80 mg PO DAILY@1700 RF: 0 cyanocobalamin (vitamin B-12) [Vitamin B-12] 1,000 mcg Tablet 1,000 mcg PO DAILY Qty: 30 RF: 3 potassium chloride [Klor-Con M20] 20 mEq Tablet,Er Particles/Crystals 40 meq PO DAILY 30 Days RF: 0 diltiazem HCl [DILT-XR] 180 mg Capsule,Ext.Rel 24h Degradable 180 mg PO DAILY 30 Days RF: 0 cilostazol 100 mg tablet 50 mg PO BID@08,20 Qty: 0 RF: 0 levothyroxine 100 mcg Tablet 100 mcg PO DAILY@08 RF: 0 clopidogrel 75 mg tablet 75 mg PO DAILY@08 RF: 0 phenazopyridine 100 mg Tablet 100 mg PO TIDPC Qty: 90 RF: 0 metoprolol tartrate 50 mg Tablet 100 mg PO BID@0900,2100 30 Days Qty: 60 RF: 0 bisacodyl 10 mg Suppository 10 mg TX DAILY PRN (Reason: Constipation) RF: 0 Enema Disposable 19-7 gram/118 mL Enema 118 ml TX DAILY PRN (Reason: Constipation) RF: 0 Changed bumetanide 1 mg tablet 1 mg PO BID Qty: 0 RF: 0 Discontinued Lasix 40 mg Tablet 40 mg PO DAILY RF: 0 Discharge Orders: Discharge Order (Routine); Ordered 01/16/21 Ordered By: Bettye Gomez Referrals: Margarito Perez MD [Primary Care Provider] - 7-10 days Discharge Diet: Cardiac and Low Salt Discharge Activity: Resume usual activity Activity Restrictions/Additional Instructions: encourage complaince with Bipap Discharge Attestations Time Spent in Discharge Care*: greater than 30 min Specific Discharge Activities: educating patient, discussing with pcp/other providers and discussing with manager of case/social workers/dc planners Status at Discharge: Cognitive status at discharge: cognitively intact , Behavioral status at discharge: cooperative , Quality Metrics Clinical Quality Measures During this hospital stay, did patient experience: None Coding Level of Care Code Acute Chg FW DC note Diagnoses Acute congestive heart failure I50.9 Hypercapnia R06.89 Acute respiratory acidosis E87.2 Acute on chronic respiratory failure with hypoxia and hypercapnia J96.21; J96.22 Obesity hypoventilation syndrome E66.2 COPD exacerbation J44.1
--- NOTE | 2021-01-16 16:58 | PC.RESP ---
Pulmonary Rehab information sent to patient.
== END 2021-01-16 14:30 | disposition skilled nursing facility (03) | DRG 189 ==
LOC: ER 01-14 00:42 → ICU 01-14 01:05 → CSU 01-14 18:44 → MEDSURG 01-16 06:19
PROVIDERS: Admitting Provider Internal Medicine; Emergency Provider Emergency Medicine; PCP Family Medicine; Visit Provider Student in an Organized Health Care Education/Training Program
DX: J96.22 Acute and chronic respiratory failure with hypercapnia (principal); I50.43 Acute on chronic combined systolic (congestive) and diastolic (congestive) heart failure; N17.9 Acute kidney failure, unspecified; J44.1 Chronic obstructive pulmonary disease with (acute) exacerbation; E66.2 Morbid (severe) obesity with alveolar hypoventilation; G93.49 Other encephalopathy; E87.4 Mixed disorder of acid-base balance; J96.21 Acute and chronic respiratory failure with hypoxia; I25.10 Atherosclerotic heart disease of native coronary artery without angina pectoris; Z95.1 Presence of aortocoronary bypass graft; I48.91 Unspecified atrial fibrillation; I11.0 Hypertensive heart disease with heart failure; Z99.81 Dependence on supplemental oxygen; M54.9 Dorsalgia, unspecified; E78.5 Hyperlipidemia, unspecified; E03.9 Hypothyroidism, unspecified; I25.5 Ischemic cardiomyopathy; D53.9 Nutritional anemia, unspecified; I25.2 Old myocardial infarction; Z87.891 Personal history of nicotine dependence; Z79.02 Long term (current) use of antithrombotics/antiplatelets
CPT/HCPCS: 36415; 36600; 51702; 71045; 80048; 80053; 82803; 82805; 83880; 84443; 84484; 85025; 85610; 93005; 94640; 94660; 96374; 96375; 99291; J1940; J2060; J2930; J3490; J7611

== ENCOUNTER 2021-03-11 20:00 | Outpatient (CLI) | payer MEDICARE, SELFPAY | END 2021-03-11 20:01 | disposition home or self-care (01) | LOC: SLEEP 03-12 08:27 | PROVIDERS: PCP Family Medicine; Visit Provider Family Medicine | DX: G47.10 Hypersomnia, unspecified (principal); R06.83 Snoring; G47.33 Obstructive sleep apnea (adult) (pediatric) | CPT/HCPCS: 95810 ==

== ENCOUNTER 2021-03-24 08:26 | Outpatient (CLI) | payer MEDICARE, SELFPAY ==
--- NOTE | 2021-03-24 08:45 | USCV_ITS ---
Migel Watt Age: 80 Gender: M : 1940 Exam Date: 03/24/2021 08:55 Ordering Phys: Yuliana Horn MD Technologist: Maritza Bond Exam Location: [facility] – [place] Indication: HEART FAILURE BP: 96 / 60 HR: 81 Rhythm: Sinus Technical Quality: Technically difficult study MEASUREMENTS (Male / Female) Normal Values 2D ECHO LV Diastolic Diameter PLAX 4.8 cm 4.2 - 5.9 / 3.9 - 5.3 cm LV Systolic Diameter PLAX 3.5 cm IVS Diastolic Thickness 1.1 cm 0.6 - 1.0 / 0.6 - 0.9 cm IVS Systolic Thickness 1.6 cm LVPW Diastolic Thickness 1.0 cm 0.6 - 1.0 / 0.6 - 0.9 cm LVPW Systolic Thickness 1.3 cm LVOT Diameter 2.0 cm LV Ejection Fraction 2D Teich 51.5 % LV Ejection Fraction MOD 2C 62.9 % LV Ejection Fraction 2C AL 62.2 % LA Diameter 3.9 cm LA Width 3.8 cm LA Height 4.7 cm RA Width 4.5 cm RA Height 3.6 cm Aorta at Sinotubular Diameter 2.5 cm M-MODE LV Diastolic Diameter MM 5.0 cm 4.2 - 5.9 / 3.9 - 5.3 cm LV Systolic Diameter MM 4.1 cm LV Ejection Fraction MM Teich 38.0 % IVS Diastolic Thickness MM 1.1 cm 0.6 - 1.0 / 0.6 - 0.9 cm IVS Systolic Thickness MM 1.6 cm LVPW Diastolic Thickness MM 1.2 cm 0.6 - 1.0 / 0.6 - 0.9 cm LVPW Systolic Thickness MM 1.2 cm Aortic Annulus Diameter 3.0 cm LA Ao Ratio MM 1.0 MV E Point Septal Separation 1.5 cm DOPPLER AV Peak Velocity 131.0 cm/s LVOT Peak Velocity 55.0 cm/s AV Area Cont Eq vti 1.5 cm squared AV Area Cont Eq pk 1.4 cm squared MV Peak Velocity 146.0 cm/s MV Area PHT 3.7 cm squared Mitral E to A Ratio 2.1 MV E' Velocity 47.5 cm/s Mitral E to MV E' Ratio 11.2 Mitral E to LV E' Lateral Ratio 10.9 Mitral E to LV E' Septal Ratio 11.5 TV Peak E Velocity 65.0 cm/s Right Atrial Pressure 3.0 mmHg PV Peak Velocity 72.0 cm/s RV Acceleration Time 0.1 s RV Ejection Time 0.3 s RV AcT/ET 0.2 FINDINGS Left Ventricle Technically limited study. Normal left ventricular size. LV systolic function can not be accurately assessed because of echo quality but appears atleast mildly reduced. Regional wall motion abnormalities can not be assessed because of poor ultrasonic windows Right Ventricle The right ventricle is normal in size and function. Right Atrium Not well visualized Left Atrium The left atrium is dilated Mitral Valve Not well visualized but there is moderate mitral annular calcification Aortic Valve Not well-visualized. Grossly no stenosis or regurgitation is seen Tricuspid Valve Structurally normal tricuspid valve without significant stenosis or regurgitation. Insufficient TR jet to calculate RVSP Pulmonic Valve Not well-visualized Pericardium Normal pericardium without effusion. Aorta Normal ascending aorta dimension. CONCLUSIONS Limited quality echocardiogram because of poor ultrasonic windows LV systolic function cannot be accurately assessed because of echo quality but appears at least mildly reduced. Cannot assess regional wall motion abnormalities because of limited visualization. Left atrium is dilated. Valvular structures are not well-visualized. Compared to prior echocardiogram from 12/10/2020, no significant changes are seen Andrei Lloyd MD (Electronically Signed) Final Date: 27 March 2021 19:13 S
== END 2021-03-24 08:27 | disposition home or self-care (01) ==
LOC: RAD 08:31
PROVIDERS: PCP Family Medicine; Visit Provider Internal Medicine Critical Care Medicine
DX: I50.9 Heart failure, unspecified (principal)
CPT/HCPCS: 93306

== ENCOUNTER → 2021-03-26 08:43 | Outpatient (BNVA) | payer MEDICARE, SELFPAY | PROVIDERS: PCP Family Medicine; Visit Provider Internal Medicine Critical Care Medicine | DX: J44.1 Chronic obstructive pulmonary disease with (acute) exacerbation (principal); Z20.822 Contact with and (suspected) exposure to COVID-19 | CPT/HCPCS: 87635 ==

== ENCOUNTER 2021-03-30 08:29 | Outpatient (CLI) | payer MEDICARE, SELFPAY ==
--- NOTE | 2021-03-30 10:54 | PFTS_ITS ---
Date of Study:03/30/21 Date of Dictation: MECHANICS: Forced vital capacity (FVC) is reduced. Forced expiratory volume in one second (FEV1) is reduced. FEV1/FVC is reduced. FLOW VOLUME LOOP: Reduced flow at all lung volumes with significant scooping. LUNG VOLUMES: Total lung capacity (TLC) is normal. Residual volume (RV) is increased. DIFFUSING CAPACITY FOR CARBON MONOXIDE: Normal. INTERPRETATION: The pulmonary function tests are consistent with moderate airflow obstruction. There is no significant postbronchodilator response. Lung volumes are consistent with air trapping. Gas exchange (DLCO) is normal. MTDD
== END 2021-03-30 08:30 | disposition home or self-care (01) ==
PROVIDERS: PCP Family Medicine; Visit Provider Internal Medicine Critical Care Medicine
DX: J96.12 Chronic respiratory failure with hypercapnia (principal)
CPT/HCPCS: 94060; 94726; 94729; J7611

== ENCOUNTER → 2021-09-30 17:05 | Outpatient (BNVA) | payer MEDICARE, SELFPAY | PROVIDERS: PCP Family Medicine; Referring Provider Family Medicine; Visit Provider Urology | DX: R97.20 Elevated prostate specific antigen [PSA] (principal) | CPT/HCPCS: 81003; 84153 ==

== ENCOUNTER → 2022-01-26 14:54 | Outpatient (BNVA) | payer MEDICARE, SELFPAY | PROVIDERS: PCP Family Medicine; Visit Provider Urology | DX: R97.20 Elevated prostate specific antigen [PSA] (principal); N40.1 Benign prostatic hyperplasia with lower urinary tract symptoms | CPT/HCPCS: 81003; 84153 ==

== ENCOUNTER → 2022-01-27 14:31 | Outpatient (BNVA) | payer MEDICARE, SELFPAY | PROVIDERS: PCP Family Medicine; Visit Provider Internal Medicine Critical Care Medicine | DX: G47.33 Obstructive sleep apnea (adult) (pediatric) (principal); J44.9 Chronic obstructive pulmonary disease, unspecified; J96.11 Chronic respiratory failure with hypoxia; J96.12 Chronic respiratory failure with hypercapnia; I25.5 Ischemic cardiomyopathy; Z87.891 Personal history of nicotine dependence | CPT/HCPCS: 99214 ==

== ENCOUNTER → 2022-02-15 14:44 | Outpatient (BNVA) | payer MEDICARE, MEDICAID, SELFPAY | PROVIDERS: PCP Family Medicine; Visit Provider Internal Medicine | DX: I25.10 Atherosclerotic heart disease of native coronary artery without angina pectoris (principal); I25.5 Ischemic cardiomyopathy; E66.9 Obesity, unspecified; Z68.39 Body mass index [BMI] 39.0-39.9, adult; I11.0 Hypertensive heart disease with heart failure; I50.9 Heart failure, unspecified; E78.5 Hyperlipidemia, unspecified; Z95.1 Presence of aortocoronary bypass graft | CPT/HCPCS: 36415; 80048; 83880; 99214 ==

== ENCOUNTER → 2022-04-29 12:48 | Outpatient (BNVA) | payer MEDICARE, MEDICAID, SELFPAY | PROVIDERS: PCP Family Medicine; Visit Provider Urology | DX: N40.1 Benign prostatic hyperplasia with lower urinary tract symptoms (principal); R97.20 Elevated prostate specific antigen [PSA] | CPT/HCPCS: 81003; 84153; 99213 ==

== ENCOUNTER 2022-08-02 08:30 | Outpatient (CLI) | payer MEDICARE, MEDICAID, SELFPAY ==
[2022-08-02 09:31] LABS: Prostate Specific AG Urology 25.04 ng/mL (0-4)
== END 2022-08-02 08:31 | disposition home or self-care (01) ==
LOC: LAB 08:32
PROVIDERS: PCP Family Medicine; Visit Provider Urology
DX: R97.20 Elevated prostate specific antigen [PSA] (principal)
CPT/HCPCS: 36415; 84153

== ENCOUNTER → 2022-08-03 15:24 | Outpatient (BNVA) | payer MEDICARE, MEDICAID, SELFPAY | PROVIDERS: PCP Family Medicine; Visit Provider Nurse Practitioner Family | DX: N40.1 Benign prostatic hyperplasia with lower urinary tract symptoms (principal); R97.20 Elevated prostate specific antigen [PSA] | CPT/HCPCS: 81003; 99213 ==

== ENCOUNTER 2022-09-11 09:06 | Emergency (ER) | payer MEDICARE, MEDICAID, SELFPAY ==
[2022-09-11 09:30] VITALS: BP 153/92; PULSE 107; RESP 18; TEMP 36.2; O2SAT 91
--- NOTE | 2022-09-11 10:06 | ED_ITS ---
HPI - Back Pain/Injury General: Chief Complaint: Back Pain/Injury Stated Complaint: back pain Time Seen by Provider: 09/11/22 10:06 History of Present Illness: twisted back 4 days ago Review of Systems General: Reports: 10 or more systems reviewed and unremarkable except in HPI and below Musc: Reports: back pain (low back ) and extremity pain PFS ED PFSH: Medical History Acute and chronic respiratory failure with hypoxia Acute kidney injury ASHD (arteriosclerotic heart disease) Atrial fibrillation with RVR Back pain CHF (congestive heart failure) CHF exacerbation COPD (chronic obstructive pulmonary disease) Dyslipidemia Elevated PSA Elevated troponin Falls HTN (hypertension) Hypokalemia Hyponatremia Hypotension Hypothyroidism Ischemic cardiomyopathy Lung contusion Macrocytic anemia Myocardial infarction Obesity Obesity hypoventilation syndrome Rhabdomyolysis Sleep apnea Surgical History H/O lumbosacral spine surgery 1979 Hx of CABG CABG x 3 vessels in 2009 Family History Father , IN HIS 70'S Heart attack Mother , AT AGE 81 Heart attack Other CAD (coronary artery disease) Stroke Social History Smoking and tobacco status: former smoker Quit status (tobacco): has quit using tobacco Year quit tobacco: 1995 Former quit date comment: Hx of 2 PPD x 20 Years Alcohol intake: never Marital status: 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 History of recent travel: No Physical Exam Const: COMMON NORMALS: no acute distress, patient oriented x3, no limitations and alert GENERAL APPEARANCE: cooperative and comfortable ORIENTATION/CONSCIOUSNESS: Yes awake, Yes oriented to person, Yes oriented to place and Yes oriented to time HENMT: COMMON NORMALS: normocephalic, atraumatic, external ears normal, EAC's normal, TM's normal bilaterally and Normal external nose present HEAD & SCALP: normal to inspection, normocephalic and atraumatic FACE & SINUS: normal facial exam, sinuses nontender and face symmetric NOSE: Normal external nose present, Normal nares present and No nasal discharge present EXTERNAL EAR: Yes external ears normal EXTERNAL AUDITORY CANAL: EAC's normal TYMPANIC MEMBRANE: TM's normal bilaterally MOUTH: Normal oral and palatal mucosa present, lip normal and tongue normal THROAT: posterior oropharynx normal, tonsils normal and uvula midline Eye: COMMON NORMALS: Equal, round and reactive pupils present, EOMs intact bilaterally and conjunctivae normal GENERAL EYE: appearance normal, both eyes and all related structures and normal light reflex EYELID: eyelids normal CONJUNCTIVA: Yes conjunctivae normal PUPIL: Yes Equal, round and reactive pupils present EOM: Yes EOM abnormal DIRECT OPHTHALMOSCOPY: Yes normal light reflex Neck/C-Spine: COMMON NORMALS: full ROM, no lymphadenopathy, supple, no meningeal signs, no JVD and Thyroid normal GENERAL: Yes normal visual inspection THYROID: Thyroid normal CERVICAL SPINE: Yes cervical ROM normal and Yes normal cervical lordosis Lymph: LYMPHATIC: no lymphadenopathy noted Chest: COMMONS NORMALS: normal inspection of the chest and normal palpation of entire chest wall Resp: COMMON NORMALS: normal respiratory effort, No retractions and clear to auscultation bilaterally AUSCULTATION: clear to auscultation bilaterally Cardio: COMMON NORMALS: no JVD, regular rate, regular rhythm, S1 normal heart sound present, S2 normal heart sound present, No gallops present (Cardio), No clicks present (Cardio), No murmurs present (Cardio), No rub (Cardio) and Peripheral pulses 2+ throughout RATE: regular rate RHYTHM: regular rhythm HEART SOUNDS: S1 normal heart sound present and S2 normal heart sound present PERIPHERAL PULSES: Peripheral pulses 2+ throughout GI: COMMON NORMALS: Normal to inspection, nondistended, normoactive bowel sounds present, Soft to palpation, non-tender and no masses PALPATION: Yes Soft to palpation : COMMON NORMALS: Yes no CVA tenderness BLADDER/KIDNEY EXAM: Yes no CVA tenderness Back/Pelvis: COMMON NORMALS: no CVA tenderness, thoracic and lumbar spine normal to inspection and no thoracic nor lumbar tenderness; negative for thoraco-lumbar ROM normal (unable to fully rotate lumbar spine without pain ) Extremity: COMMON NORMALS: normal to inspection, full ROM, capillary refill normal, no joint enlargement, no clubbing, cyanosis or edema, no calf tenderness and no pedal edema GENERAL: Yes normal exam except as noted Neuro: COMMON NORMALS: patient oriented x3, moves all extremities, no focal motor deficits, no sensory deficits noted and gait normal SENSORIUM/ORIENTATION: Yes alert, Yes oriented to person, Yes oriented to place and Yes oriented to time MENINGEAL SIGNS: Yes no meningeal signs Psych: COMMON NORMALS: mental status grossly normal, Normal thought process present, cooperative, normal affect, speech normal and activity/motor behavior normal SPEECH: Yes normal speech THOUGHT PROCESS: Normal thought process present Skin: COMMON NORMALS: no rashes or lesions noted, no wounds and turgor normal GENERAL SKIN EXAM: no rashes or lesions noted and turgor normal Course Vital Signs: Vital signs: Vital Signs Temperature 97.1 F L 09/11/22 09:30 Pulse Rate 107 H 09/11/22 09:30 Respiratory Rate 18 09/11/22 09:30 Blood Pressure 153/92 09/11/22 09:30 Pulse Oximetry 91 09/11/22 09:30 MDM - Back Pain/Injury Medical Decision Making Pt presents with significant back pain since he twisted his back stepping off of his concrete deck 4 days ago. No neuro deficits noted. We will proceed with tx f or lumbar radiculopathy and have him follow with his PCP next week. Discharge Plan Discharge Patient Disposition: Home Clinical Impression: Lumbar radiculopathy Condition: Stable Prescriptions: New tramadol 50 mg tablet 50 mg PO BID Qty: 10 0RF cyclobenzaprine 10 mg tablet 10 mg PO BID Qty: 10 0RF No Action metoprolol tartrate 100 mg tablet 100 mg PO BID Rx Instructions: 100 mg AM and 50 mg PM potassium chloride 20 mEq tablet extended release 20 meq PO DAILY cilostazol 100 mg tablet 100 mg PO BID@08,20 aspirin [Adult Aspirin Regimen] 81 mg tablet,delayed release (DR/EC) 81 mg PO DAILY amoxicillin-pot clavulanate 875-125 mg tablet 1 tab PO BID Qty: 20 0RF albuterol sulfate 90 mcg/actuation HFA aerosol inhaler 1 inh inhalation QID PRN (Reason: shortness of breath or wheezing) Qty: 8.5 6RF Stiolto Respimat 2.5-2.5 mcg/actuation mist See Rx Instructions .ROUTE .COMPLEX Qty: 12 3RF Dose Instruction: INHALE 2 PUFFS EVERY DAY Rx Instructions: INHALE 2 PUFFS EVERY DAY bumetanide 2 mg tablet 2 mg PO TID Qty: 90 6RF tamsulosin 0.4 mg capsule 0.4 mg PO QDAY Qty: 30 12RF simvastatin 80 mg tablet 80 mg PO DAILY@1700 cyanocobalamin (vitamin B-12) [Vitamin B-12] 1,000 mcg Tablet 1,000 mcg PO DAILY Qty: 30 3RF levothyroxine 100 mcg Tablet 100 mcg PO DAILY@08 clopidogrel 75 mg tablet 75 mg PO DAILY@08 Discharge Orders: Discharge ED (Routine); Ordered 09/11/22 Ordered By: Silke Pinzon Referrals: Margarito Perez MD [Primary Care Provider] - Discharge Diet: Usual diet Discharge Activity: Increase activity as tolerated Patient Instructions: Opioid Safety, Pain Management Coding Level of Care Code ED Store Facility Technician for Raven Alexander
[2022-09-11] MEDS: orphenadrine 30 mg/mL Inj 2 mL 60 MG IM (11:21)
[2022-09-11] MEDS: dexamethasone 10 mg/mL INJ IM (11:21)
[2022-09-11] MEDS: ketorolac 30 mg/mL INJ IM (11:21)
== END 2022-09-11 11:22 | disposition home or self-care (01) ==
PROVIDERS: Emergency Provider Nurse Practitioner Family; PCP Family Medicine
DX: M54.16 Radiculopathy, lumbar region (principal); Z79.82 Long term (current) use of aspirin; Z79.02 Long term (current) use of antithrombotics/antiplatelets; I11.0 Hypertensive heart disease with heart failure; I50.9 Heart failure, unspecified; J44.9 Chronic obstructive pulmonary disease, unspecified; E78.5 Hyperlipidemia, unspecified; I25.2 Old myocardial infarction; Z95.1 Presence of aortocoronary bypass graft; Z87.891 Personal history of nicotine dependence
CPT/HCPCS: 96372; 99284; J1100; J1885; J2360

== ENCOUNTER 2022-10-26 10:32 | Outpatient (CLI) | payer MEDICARE, MEDICAID, SELFPAY ==
[2022-10-26 11:48] LABS: Prostate Specific AG Urology 33.89 ng/mL (0-4)
== END 2022-10-26 10:33 | disposition home or self-care (01) ==
LOC: LAB 10:40
PROVIDERS: PCP Family Medicine; Visit Provider Urology
DX: R97.20 Elevated prostate specific antigen [PSA] (principal)
CPT/HCPCS: 36415; 84153

== ENCOUNTER → 2022-11-11 09:12 | Outpatient (BNVA) | payer MEDICARE, MEDICAID, SELFPAY | PROVIDERS: PCP Family Medicine; Visit Provider Family Medicine | DX: Z51.81 Encounter for therapeutic drug level monitoring (principal); E03.9 Hypothyroidism, unspecified; R73.09 Other abnormal glucose | CPT/HCPCS: 80053; 83036; 84439; 84443; 85025 ==

== ENCOUNTER → 2022-11-29 15:24 | Outpatient (BNVA) | payer MEDICARE, MEDICAID, SELFPAY | PROVIDERS: PCP Family Medicine; Visit Provider Urology | DX: R97.20 Elevated prostate specific antigen [PSA] (principal) | CPT/HCPCS: 81003; 99213 ==

== ENCOUNTER 2023-01-24 10:31 | Outpatient (CLI) | payer MEDICARE, MEDICAID, SELFPAY ==
--- NOTE | 2023-01-24 10:46 | XR_ITS ---
WS: [id number] Lumbar spine, 3 views, 01/24/2023 Clinical Data: low back pain, fall Comparison: CT lumbar spine, 12/10/2020 Findings: There are compression fractures of the L1 and L4 vertebral bodies with loss of at least 50% of the an terior and central vertebral body heights. There is minimal retropulsion of the posterior spurring butts perior portions of these vertebral bodies less than 1 cm. There is degenerative disc narrowing at T12-L1, L1-L2 L3-L4, L4-L5 and L5-S1. The SI joints and trans verse processes are unremarkable. There is moderate osteoarthritis of all the lumbar vertebral bodies . There is calcification within the wall of the abdominal aorta but no aneurysm. XR/XR lumbar spine 2-3V* [id number] Impression: 1. Compression fractures of the L1 and L4 vertebral bodies of indeterminate age . 2. Multilevel degenerative disc narrowing. 3. Mild osteoarthritis of the vertebral bodies.
== END 2023-01-24 10:32 | disposition home or self-care (01) ==
LOC: RAD 10:38
PROVIDERS: PCP Family Medicine; Visit Provider Family Medicine
DX: M48.56XA Collapsed vertebra, not elsewhere classified, lumbar region, initial encounter for fracture (principal); W19.XXXA Unspecified fall, initial encounter
CPT/HCPCS: 72100

== ENCOUNTER 2023-02-01 15:15 | Outpatient (CLI) | payer MEDICARE, MEDICAID, SELFPAY | END 2023-02-01 15:16 | disposition home or self-care (01) | LOC: SPT 15:15 | PROVIDERS: PCP Family Medicine; Visit Provider Physician Assistant | DX: S32.000A Wedge compression fracture of unspecified lumbar vertebra, initial encounter for closed fracture (principal); X58.XXXA Exposure to other specified factors, initial encounter | CPT/HCPCS: 97760; 99203; L0456 ==

== ENCOUNTER 2023-03-11 08:11 | Inpatient (IN) | payer MEDICARE, MEDICAID, SELFPAY ==
[2023-03-11] VITALS (36 sets, daily range): BP systolic 79–130; BP diastolic 52–85; PULSE 82–131; RESP 16–24; TEMP 35.9–37.3; O2SAT 91–100
--- NOTE | 2023-03-11 08:11 | XR_ITS ---
WS: [id number] Exam: XR chest 1V portable [id number] Date/Time of Exam: 03/11/2023 8:49 AM Reason For Exam: ams Comparison 01/13/2021. The lungs are clear and fully expanded. Mild cardiac enlargement unchanged. No pleural effusions. Sig ns of previous CABG surgery. Bony structures are intact. Monitoring leads superimpose the chest. XR/XR chest 1V portable [id number] IMPRESSION: 1. Mild cardiac enlargement. No acute cardiopulmonary process.
--- NOTE | 2023-03-11 08:11 | CTR_ITS ---
PROCEDURE INFORMATION: Exam: CT Head Without Contrast Exam date and time: 03/11/2023 9:21 AM Age: 82 years old Clinical indication: Altered mental status/memory loss; Confusion or disorientation; Additional info: AMS.No history of trauma or recent surgery is provided. TECHNIQUE: Imaging protocol: Computed tomography of the head without contrast. 317image(s) are provided. Radiation optimization: All CT scans at this facility use at least one of these dose optimization techniques: automated exposure control; mA and/or kV adjustment per patient size (includes targeted exams where dose is matched to clinical indication); or iterative reconstruction. Other technique: Axial images are available with sagittal and coronal reconstruction views. Automated dose exposure control is utilized. The DLP is 1140.28. REPORTING DATA: Count of CT and Cardiac NM exams in prior 12 months: This patient has received 0 known CTs and 0 known cardiac nuclear medicine studies in the 12 months prior to the current study. COMPARISON: CT head wo con* [id number] 12/09/2020 1:12 PM RADIATION DOSE METRICS: Total DLP (mGy-cm): 1140.28 FINDINGS: Brain: There are moderate cerebral atrophic changes overall.There are chronic periventricular white matter changes present.There are minimal central lacunar changes demonstrated.No mass effect or layering hemorrhage is appreciated. Knight, white matter differentiation appears maintained. There are some chronic scattered falx and dural calcifications similar overall. There is some minimal falx lipomatous type averaging anteriorly similar overall. Cerebral ventricles: No hydrocephalus is appreciated. Pituitary gland and sella: Partially empty sella variant is demonstrated. Paranasal sinuses: The paranasal sinuses appear well-aerated overall. Mastoid air cells: The mastoid air cells appear well-aerated overall. Orbital cavities: Symmetric appearance of the orbital soft tissues is demonstrated. Bones/joints: Osseous alignment is maintained.No interval displaced fracture or dislocation is appreciated. Soft tissues: No radiopaque foreign body or subcutaneous emphysema is appreciated. Vasculature: Atherosclerotic vascular changes are demonstrated. Other findings: There is some motion artifact present. No significant interval changes are appreciated. CT/CT head wo con* [id number] IMPRESSION: No interval mass effect, layering hemorrhage or hydrocephalus is demonstrated. No significant interval intracranial changes are appreciated.
--- NOTE | 2023-03-11 08:13 | ECG_ITS ---
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 Measurements Intervals [place] Rate: 130 P: 0 TX: 0 QRS: -88 QRSD: 115 T: 20 QT: 280 QTc: 413 Interpretive Statements ATRIAL FIBRILLATION WITH RAPID VENTRICULAR RESPONSE LOW QRS VOLTAGE IN EXTREMITY LEADS [QRS DEFLECTION < 0.5 mV IN LIMB LEADS] S1-S2-S3 PATTERN, CONSISTENT WITH PULMONARY DISEASE, RVH, OR NORMAL VARIANT LEFT ANTERIOR FASCICULAR BLOCK [QRS AXIS <= -45, QR IN I, RS IN II] LATERAL MYOCARDIAL INFARCTION , PROBABLY OLD [40+ ms Q WAVE AND/OR ST/T ABNORMALITY IN I/aVL/V5/V6] INFERIOR MYOCARDIAL INFARCTION , PROBABLY OLD [40+ ms Q WAVE AND/OR ST/T ABNORMALITY IN II/aVF] No previous ECG available for comparison Electronically Signed On 03-11-2023 8:31:30 CDT by Andrei Lloyd M.D. [id number]
[2023-03-11 08:29] LABS: ABG PH Result 7.27 (7.35-7.45); Base Excess ABG 5.9 mmol/L (-2.0-2.0); Blood Gas Allen Test Pos; Blood Gas Operator Identificat WALCI; Blood Gas Sample Site Radial, right; Blood Gas Sample Type Arterial; HCO3 ABG 35.1 mmol/L (22-26); Oxygen Device NC
[2023-03-11 08:30] LABS: ABG PCO2 76.8 mmHg (35-45)
[2023-03-11] MEDS: dexamethasone 10 mg/mL INJ IVP (08:30)
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
[2023-03-11] MEDS: albuterol 2.5 mg/3 mL Neb INHALATION (08:45)
[2023-03-11 09:03] LABS: Basophils % 0.3 %; Hematocrit 37.9 % (42.0-52.0); Hemoglobin 11.2 g/dL (11.7-16.6); Lymphocytes # 0.6 10^3/uL (0.8-4.8); Mean Corpuscular HGB Conc 29.6 g/dL (30.0-36.0); Mean Corpuscular Hemoglobin 32.1 pg (28.0-34.0); Mean Corpuscular Volume 108.6 fl (80-94); Mean Platelet Volume 11.3 fL (7.4-10.4); Monocytes # 1.3 10^3/uL (0.2-0.9); Monocytes % 8.1 %; Neutrophils # 13.73 10^3/uL (1.8-7.7); Neutrophils % 86.6 %; Nucleated Red Blood Cells # 0.3 /100WBC; Nucleated Red Blood Cells % 2.1 %; Platelet Count 325 10^3/cmm (130-400); Red Blood Count 3.49 10^6/uL (4.1-5.3); White Blood Count 15.9 10^3/uL (4.0-10.0)
--- NOTE | 2023-03-11 09:07 | CTR_ITS ---
PROCEDURE INFORMATION: Exam: CTA Chest With Contrast Exam date and time: 03/11/2023 9:52 AM Age: 82 years old Clinical indication: Abdominal tenderness; Shortness of breath; Additional info: SOB TECHNIQUE: Imaging protocol: Computed tomographic angiography of the chest with contrast. Exam focused on the arteries. 3D rendering (Not supervised by radiologist): MIP and/or 3D reconstructed images were created by the technologist. Radiation optimization: All CT scans at this facility use at least one of these dose optimization techniques: automated exposure control; mA and/or kV adjustment per patient size (includes targeted exams where dose is matched to clinical indication); or iterative reconstruction. Contrast material: OMNI 350; Contrast volume: 100 ml; Contrast route: INTRA-ARTERIAL (ARTERIAL); REPORTING DATA: Count of CT and Cardiac NM exams in prior 12 months: This patient has received 0 known CTs and 0 known cardiac nuclear medicine studies in the 12 months prior to the current study. COMPARISON: CT chest abdpel w/*[id number] 12/09/2020 1:19 PM RADIATION DOSE METRICS: Total DLP (mGy-cm): 1803.21 FINDINGS: Pulmonary arteries: There is a questionable subsegmental pulmonary arterial thrombus in the posterior basal segment of the right lower lobe visible on axial series 11, image 321. There is a questionable filling defect in a peripheral left upper lobe segmental artery visible on series 11, image 165. This could represent thrombus or volume averaging with adjacent structures. A similar finding is visible in the lingula on axial series 11, image 217. There is motion artifact at this site which may account for the abnormality. A similar finding is also seen in the right upper lobe on series 11, image 164. There is definite occlusion of the right middle lobe superior segmental artery on axial series 11, image 239. Aorta: There is moderate aortic atherosclerotic disease. Veins: Extensive collateral veins in the right chest wall. The right axillary subclavian and brachiocephalic veins are patent. The SVC is patent. Lungs: There is dependent atelectasis in the right upper lobe. There is a 5 mm noncalcified pulmonary nodule in the right middle lobe on series 8, image 31. There is dependent subpleural opacity in the posterior inferior right lower lobe. There is a calcified granuloma in the right lower lobe. There is a calcified granuloma in the lingula. There is a noncalcified pulmonary nodule in the left lower lobe visible on series 8, image 36 measuring 4 mm. There is no consolidation. Pleural spaces: There is no pleural effusion or pneumothorax. Heart: There is mild cardiac enlargement. There is extensive calcification and thinning of the left ventricular free wall. No aneurysm is visible. There is no pericardial effusion. There is straightening of the interventricular septum. RV/LV ratio 1.1 (abnormal) Coronary arteries: There is severe coronary artery calcification. There is evidence of coronary artery bypass grafting. Lymph nodes: There is no mediastinal or hilar lymphadenopathy. Bones/joints: There is asymmetric bone sclerosis in the right upper ribs, right aspect of the upper thoracic vertebral bodies and right scapula. Question prior radiation therapy. There is a healed fracture of the anterior right 3rd rib. There is a healed fracture of the right anterior 4th rib. There is an age-indeterminate fracture of the right anterior 5th rib. There is a probably acute fracture of the right anterior 6th rib. There is a age-indeterminate fracture of the anterior right 7th rib. There is a healing fracture of the right posterior 11th rib. There is an acute fracture of the anterior left 6th and 7th ribs. Sternal wires are present. There is no displacement to suggest sternal dehiscence. Soft tissues: There is subcutaneous edema in the flanks bilaterally. PROCEDURE INFORMATION: Exam: CT Abdomen And Pelvis With Contrast Exam date and time: 03/11/2023 9:52 AM Age: 82 years old Clinical indication: Abdominal tenderness; Shortness of breath; Additional info: SOB TECHNIQUE: Imaging protocol: Computed tomography of the abdomen and pelvis with contrast. Radiation optimization: All CT scans at this facility use at least one of these dose optimization techniques: automated exposure control; mA and/or kV adjustment per patient size (includes targeted exams where dose is matched to clinical indication); or iterative reconstruction. Contrast material: OMNI 350; Contrast volume: 100 ml; Contrast route: INTRA-ARTERIAL (ARTERIAL); REPORTING DATA: Count of CT and Cardiac NM exams in prior 12 months: This patient has received 0 known CTs and 0 known cardiac nuclear medicine studies in the 12 months prior to the current study. COMPARISON: CT abdomen pelvis con [id number] 12/19/2020 9:31 AM RADIATION DOSE METRICS: Total DLP (mGy-cm): 1803.21 FINDINGS: Liver: The liver is normal. Gallbladder and bile ducts: The gallbladder is nondistended. There is pericholecystic edema. There is no intrahepatic or extrahepatic bile duct dilation. Pancreas: There is moderate atrophy of the pancreas. Spleen: The spleen is unremarkable. Adrenal glands: The adrenal glands are unremarkable. Kidneys and ureters: There is early contrast excretion from both kidneys which could obscure stones. No definite stones are seen. Renal parenchymal enhancement pattern is normal. There is no hydronephrosis or ureteral dilation. Stomach and bowel: The stomach is unremarkable. The small bowel is nondilated. There is pancolonic diverticulosis. There is no sign of diverticulitis. Appendix: The appendix is normal. Intraperitoneal space: There is no free air or significant intraperitoneal free fluid. Vasculature: There is moderate aortic atherosclerotic disease. The portal, splenic and superior mesenteric veins are patent. Lymph nodes: There is no lymphadenopathy in the retroperitoneum, mesentery, pelvis or inguinal regions. Urinary bladder: The urinary bladder is decompressed, preventing meaningful evaluation of wall thickness. The Nicholson catheter is appropriately positioned with the bulb and tip within the bladder lumen. Reproductive: The prostate and seminal vesicles are unremarkable. Bones/joints: There is moderate degenerative disease in the lumbar spine. Moderate compression fracture at L1. Mild compression fracture at L4. Compression fractures are new since 2020 but are of otherwise indeterminate age. There is mild degenerative disease in the lumbar spine. The pelvis and hips are unremarkable. Soft tissues: There is bilateral subcutaneous flank edema, greater on the right. There is a small fat containing umbilical hernia. There is a small fat containing right inguinal hernia. There is a 10.6 x 2.8 cm lipoma within the lateral left abdominal wall. CT/CT angio chest w abd pel w con IMPRESSION: 1. Right middle lobe pulmonary embolism with questionable distal segmental and subsegmental emboli in the left upper lobe, lingula, and right lower lobe. 2. Abnormal RV/LV ratio consistent with right ventricular strain. 3. No acute pulmonary findings. Bilateral small pulmonary nodules are stable since 2020. No follow-up imaging is necessary. 4. Marked calcification and thinning of the left ventricular free wall consistent with chronic infarction. 5. Probably acute right 5th and 6th and left 6th and 7th rib fractures with additional healing or healed fractures bilaterally. 6. Incidental findings above. IMPRESSION: 1. Nonspecific pericholecystic edema without gallbladder distension. Possible chronic cholecystitis or gallbladder wall edema related to a systemic process. 2. L1 and L4 compression fractures of indeterminate age, new since 2020. 3. Incidental findings above.
[2023-03-11 09:12] LABS: INR 1.19 (0.8-1.2)
[2023-03-11 09:15] LABS: Urine Color Amber (Yellow)
[2023-03-11 09:16] LABS: Add Urine Microscopic? YES; Bilirubin Urine 1+ (Negative); Blood Urine Neg (Negative); Glucose Urine UA Norm (Normal); Ketones Urine 1+ (Negative); Leukocyte Esterase Urine Negative (Negative); Nitrate Urine Negative (Negative); Protein Urine 1+ (Negative); Specific Gravity, Urine 1.025 (1.005-1.030); Urine Appearance Hazy (CLEAR); Urobilinogen Urine >=8.0 mg/dL (Negative); pH Urine 5 (5-7)
[2023-03-11 09:17] LABS: Troponin(5th) Baseline 41 ng/L (0-15)
[2023-03-11 09:18] LABS: Amorphous Sediment Urine 2+ /hpf; Bacteria Urine TRACE /hpf; Hyaline Casts Urine 15-25 /lpf; Mucus Urine TRACE /hpf; RBC Urine 0-4 /hpf (0-2); Squamous Epithelial Cell Urine 0-4 /hpf (0-5); WBC Urine 0-4 /hpf (0-5)
[2023-03-11 09:19] LABS: Add Urine Culture? No
[2023-03-11 09:27] LABS: Alanine Aminotransferase 625 U/L (0-41); Albumin Level 3.5 g/dL (3.5-5.2); Alkaline Phosphatase 176 U/L (40-130); Aspartate Amino Transferase 349 U/L (0-40); Blood Urea Nitrogen 29 mg/dL (8-23); Calcium 8.7 mg/dL (8.5-10.5); Carbon Dioxide 33 mmol/L (22-29); Chloride 93 mmol/L (98-107); Globulin 2.5 g/dL (1.3-4.6); Glucose 115 mg/dL (65-115); Magnesium 2.4 mg/dL (1.7-2.3); Osmolality Calculated 287 mOsm/kg (285-295); Sodium 135 mmol/L (136-145); Total Bilirubin 1.2 mg/dL (0.15-1.2)
[2023-03-11 09:35] LABS: NT Pro B Type Natriuretic Pept 24814 pg/mL (0-450); Thyroid Stimulating Hormone 4.55 uIU/mL (0.27-4.20)
[2023-03-11 09:46] LABS: Anion Gap 15.6 (5-19); Potassium 6.6 mmol/L (3.5-5.1)
[2023-03-11] MEDS: iohexol 350 mg/mL 500 mL Btl (per mL) IV (09:59)
[2023-03-11 10:12] LABS: ABG PH Result 7.25 (7.35-7.45); Base Excess ABG 5.4 mmol/L (-2.0-2.0); Blood Gas Allen Test Pos; Blood Gas Operator Identificat WALCI; Blood Gas Sample Site Radial, right; Blood Gas Sample Type Arterial; HCO3 ABG 34.8 mmol/L (22-26); Oxygen Device BIPAP; PO2 ABG 85.8 mmHg (80.0-100.0)
[2023-03-11 10:13] LABS: ABG PCO2 80.3 mmHg (35-45)
[2023-03-11 10:20] LABS: Potassium 6.7 mmol/L (3.5-5.1)
--- NOTE | 2023-03-11 10:45 | XR_ITS ---
WS: [id number] Exam: XR chest 1V portable [id number] Date/Time of Exam: 03/11/2023 10:45 AM Reason For Exam: post intubation Comparison made to prior study 03/11/2023 at the 9:00 AM. An endotracheal tube has been placed and ends at about the level of T4 . The lungs are clear and well ventilated. The heart is enlarged but unchanged in size. Signs of previous CABG surgery. XR/XR chest 1V portable [id number] IMPRESSION: 1. ET tube in place appearing to be in satisfactory location. The lungs are edita ar and well ventilated. 2. Mild cardiac enlargement unchanged.
[2023-03-11] MEDS: etomidate 2 mg/mL INJ SDV 10 mL 20 MG IVP (10:46)
[2023-03-11] MEDS: vecuronium 10 mg SDV 15 MG IVP (10:46)
--- NOTE | 2023-03-11 10:47 | ECG_ITS ---
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 Measurements Intervals [place] Rate: 120 P: 0 CT: 0 QRS: -87 QRSD: 112 T: 32 QT: 292 QTc: 414 Interpretive Statements ATRIAL FIBRILLATION WITH RAPID VENTRICULAR RESPONSE LOW QRS VOLTAGE IN EXTREMITY LEADS [QRS DEFLECTION < 0.5 mV IN LIMB LEADS] PATTERN CONSISTENT WITH PULMONARY DISEASE INFERIOR MYOCARDIAL INFARCTION , PROBABLY OLD [40+ ms Q WAVE AND/OR ST/T ABNORMALITY IN II/aVF] Compared to ECG 03/11/2023 08:29:57 Right ventricular hypertrophy no longer present Left anterior fascicular block no longer present Myocardial infarct finding still present Electronically Signed On 03-11-2023 13:13:56 CDT by Andrei Lloyd M.D. [id number]
[2023-03-11 10:59] LABS: Troponin 5 2HR 34.07 ng/L (0-15)
[2023-03-11 11:00] LABS: Troponin 5 2HR Delta -6.93 ABS# (0-10)
[2023-03-11] MEDS: cefTRIAXone 1,000 MG in sodium chloride 0.9% (plus) 50 ML 100 MG IV (11:11)
--- NOTE | 2023-03-11 11:15 | XR_ITS ---
WS: [id number] Exam: XR chest 1V portable [id number] Date/Time of Exam: 03/11/2023 11:15 AM Reason For Exam: central line Compared to the exam performed on the same day at 10:53 AM. A right IJ central line has been placed and ends in the lower one third of the SVC in good position. ET tube is in place in satisfactory location. The lungs are bilaterally clear. No pneumothorax. Mild cardiac enlargement. XR/XR chest 1V portable [id number] IMPRESSION: 1. Right IJ catheter in satisfactory position. ET tube unchanged in location. 2. No acute cardiopulmonary finding.
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
[2023-03-11] MEDS: azithromycin 500 MG in sodium chloride 0.9% 250 ML 250 MG IV (11:39)
[2023-03-11] MEDS: insulin regular-human 100 units/1 mL 10 UNIT IVP (11:39)
[2023-03-11 11:43] LABS: ABG PCO2 47.5 mmHg (35-45); ABG PH Result 7.43 (7.35-7.45); Arterial Blood Gas Hematocrit 32.8 % (42-52); Base Excess ABG 6.4 mmol/L (-2.0-2.0); Blood Gas Allen Test Pos; Blood Gas Operator Identificat WALCI; Blood Gas Sample Site Radial, right; Blood Gas Sample Type Arterial; HCO3 ABG 31.6 mmol/L (22-26); Oxygen Device VENT
--- NOTE | 2023-03-11 11:51 | USCV_ITS ---
Migle Watt Age: 82 Gender: M : 1940 Exam Date: 03/11/2023 15:16 Ordering Phys: Elvis Husain MD Technologist: JIM [place]am [place] [facility] [place] Indication: pe CONCLUSIONS No evidence of right lower extremity DVT. No evidence of left lower extremity DVT. Cristi Winchester MD (Electronically Signed) Final Date: 11 March 2023 16:35 S
--- NOTE | 2023-03-11 11:51 | USCV_ITS ---
Migel Watt Age: 82 Gender: M : 1940 Exam Date: 03/11/2023 14:53 Ordering Phys: Elvis Husain MD Technologist: JIM Exam [place] [facility] [place] Indication: pe BP: / HR: 85 Rhythm: Sinus Technical Quality: Adequate MEASUREMENTS (Male / Female) Normal Values 2D ECHO LV Diastolic Diameter PLAX 5.5 cm 4.2 - 5.9 / 3.9 - 5.3 cm LV Systolic Diameter PLAX 4.4 cm IVS Diastolic Thickness 0.8 cm 0.6 - 1.0 / 0.6 - 0.9 cm IVS Systolic Thickness 1.0 cm LVPW Diastolic Thickness 0.8 cm 0.6 - 1.0 / 0.6 - 0.9 cm LVPW Systolic Thickness 0.9 cm LVOT Diameter 2.1 cm LV Ejection Fraction 2D Teich 39.1 % LV Ejection Fraction MOD 2C 36.9 % LV Ejection Fraction 2C AL 36.8 % LA Diameter 5.1 cm M-MODE Aortic Annulus Diameter 3.0 cm LA Ao Ratio MM 1.8 MV E Point Septal Separation 1.7 cm DOPPLER AV Peak Velocity 87.0 cm/s LVOT Peak Velocity 69.0 cm/s AV Area Cont Eq vti 2.3 cm squared AV Area Cont Eq pk 2.6 cm squared MV Area PHT 4.5 cm squared Mitral E to A Ratio 2.8 MV E' Velocity 48.0 cm/s Mitral E to MV E' Ratio 15.5 Mitral E to LV E' Lateral Ratio 15.5 Mitral E to LV E' Septal Ratio 15.5 TR Peak Velocity 149.0 cm/s TR Peak Gradient 8.9 mmHg TV Peak E Velocity 56.0 cm/s Right Atrial Pressure 3.0 mmHg Pulmonary Artery Systolic Pressu 11.9 mmHg PV Peak Velocity 93.0 cm/s FINDINGS Left Ventricle Technically limited quality echocardiogram because of poor ultrasonic windows. Grossly LV systolic function is moderately reduced. Regional wall motion abnormalities cannot be assessed accurately because of poor ultrasonic windows. Right Ventricle Not well-visualized Right Atrium Not well-visualized Left Atrium Dilated Mitral Valve Mitral valve is thickened. Moderate mitral regurgitation. Aortic Valve Not well-visualized. No significant stenosis. Mild aortic regurgitation. Tricuspid Valve Not well-visualized Pulmonic Valve Not visualized Pericardium Grossly normal Aorta Normal in size IVC Not realized CONCLUSIONS Technically very limited quality echocardiogram because of poor ultrasonic windows. Grossly LV systolic function is moderately reduced. Regional wall motion abnormalities cannot accurately be assessed because of poor ultrasonic windows. Left atrium is dilated. Moderate mitral regurgitation Mild aortic regurgitation Comparison with prior echocardiograms not possible because of limited visualization. Andrei Lloyd MD (Electronically Signed) Final Date: 11 March 2023 16:31 S
[2023-03-11] MEDS: calcium gluconate 0.9% NaCL 1 GM/50 ML PREMIX IV (11:53)
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
[2023-03-11] MEDS: heparin 5,000 unit/mL INJ 1 mL IV ×2 (12:17→19:06)
[2023-03-11] MEDS: heparin drip 25,000 UNIT/500 ML PREMIX 30.1 UNIT IV (12:18)
[2023-03-11 12:53] LABS: Hepatitis A Antibody IgM Non-Reactive (Nonreactive); Hepatitis B Core IgM Non-Reactive (Nonreactive); Hepatitis B Surface Antigen Non-Reactive (Nonreactive); Hepatitis C Virus Antibody Non-Reactive (Nonreactive)
[2023-03-11 12:57] LABS: Procalcitonin 0.17 ng/mL (0-0.5); Vitamin B12 1464 pg/mL (232-1245)
[2023-03-11 13:00] LABS: Folate Level 13.9 ng/mL (4.5-32.2)
[2023-03-11] MEDS: propofol 1,000 MG/100 ML INJ 9.68 MG IV ×2 (13:55→22:05)
--- NOTE | 2023-03-11 14:00 | PC.NURSE ---
Heparin gtt: Protocol started in ED with weight of 110kg. Pt 257.15 oz, approx 117 kg. Heparin gtt protocol restarted at 120kg for m ore accurate dosing.
[2023-03-11 14:13] LABS: Potassium 5.7 mmol/L (3.5-5.1)
[2023-03-11] MEDS: ipratropium-albuterol 3 mL Neb INHALATION ×2 (14:53→19:48)
--- NOTE | 2023-03-11 15:22 | XR_ITS ---
WS: [id number] Exam: XR chest 1V portable [id number] Date/Time of Exam: 03/11/2023 3:26 PM Reason For Exam: OG placement Compared to the latest exam performed earlier on the same day at 11:20 AM. An OG tube has been placed and enters the fundus of the stomach however the side-port of the tube is probably near the GE junction. The tube should be advanced another 7 to 8 cm for optimal position. ET tube and right IJ catheter both remain in good position. The lungs are fully expanded and clear. Hea rt size is unchanged. XR/XR chest 1V portable [id number] IMPRESSION: 1. OG tube ending in the fundus of the stomach however the side-port of the tub e is probably near the GE junction. The tube should be advanced another 7 to 8 cm for optimal position.
--- NOTE | 2023-03-11 16:34 | ECG_ITS ---
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 Measurements Intervals [place] Rate: 91 P: 0 MN: 0 QRS: -36 QRSD: 103 T: 0 QT: 359 QTc: 443 Interpretive Statements ATRIAL FIBRILLATION WITH ABERRANT CONDUCTION OR VENTRICULAR PREMATURE COMPLEXES LEFT AXIS DEVIATION [QRS AXIS < -30] LOW QRS VOLTAGE IN EXTREMITY LEADS [QRS DEFLECTION < 0.5 mV IN LIMB LEADS] Compared to ECG 03/11/2023 10:47:45 Ventricular premature complex(es) now present Aberrant conduction of supraventricular beat(s) now present Left-axis deviation now present Myocardial infarct finding no longer present Electronically Signed On 03-11-2023 17:06:59 CDT by Andrei Lloyd M.D. [id number]
--- NOTE | 2023-03-11 17:12 | PC.NURSE ---
OG advanced as recommended on xray.
[2023-03-11] MEDS: gabapentin 300 mg Capsule PO (17:26)
[2023-03-11] MEDS: sodium polystyrene sulfonate 15 gm/60 mL Btl OG-TUBE (17:26)
[2023-03-11 18:30] LABS: Potassium 5.6 mmol/L (3.5-5.1)
[2023-03-11 18:33] LABS: Partial Thromboplastin Time 83.7 SECONDS (23.9-36.7)
[2023-03-11 18:34] LABS: ABG PCO2 54.6 mmHg (35-45); ABG PH Result 7.39 (7.35-7.45); Alveolar-Arterial Oxygen Gradi 15.4 mmHg (5-10); Arterial Blood Gas Hematocrit 34.1 % (42-52); Base Excess ABG 6.6 mmol/L (-2.0-2.0); Blood Gas Allen Test Pos; Blood Gas Operator Identificat GD; Blood Gas Sample Site Radial, left; Blood Gas Sample Type Arterial; Blood Gas Tidal Volume 0.45; HCO3 ABG 32.9 mmol/L (22-26); HGB O2 Sat 91.1 % (95-100); Ionized Calcium Level - ABG 1.1 mmol/L (1.1-1.4); Methemoglobin 0.4 % (0.4-1.5); Oxygen Device VENT; Oxygen Saturation ABG 92.4; PO2 ABG 64.2 mmHg (80.0-100.0); Potassium Level - ABG 5.3 mmol/L (3.5-5.0); Total Hemoglobin 11.1 g/dL (14-18)
[2023-03-11] MEDS: budesonide 0.5 mg/2 mL Neb INHALATION (19:48)
[2023-03-11] MEDS: sodium chloride 0.9% 1,000 ML 999 ML IV ×2 (20:22→21:31)
[2023-03-11] MEDS: sodium chloride 0.9% 500 ML 999 ML IV (23:11)
[2023-03-12] VITALS (58 sets, daily range): BP systolic 84–143; BP diastolic 53–96; PULSE 78–129; RESP 16–18; TEMP 36.7–36.8; O2SAT 89–97; BMI 38.5
[2023-03-12] MEDS: ipratropium-albuterol 3 mL Neb INHALATION ×4 (01:55→19:40)
[2023-03-12 02:01] LABS: Basophils % 0.1 %; Eosinophils % 0.1 %; Hemoglobin 9.2 g/dL (11.7-16.6); Lymphocytes # 0.9 10^3/uL (0.8-4.8); Lymphocytes % 5.6 %; Mean Corpuscular HGB Conc 30.7 g/dL (30.0-36.0); Mean Corpuscular Hemoglobin 32.7 pg (28.0-34.0); Mean Corpuscular Volume 106.8 fl (80-94); Mean Platelet Volume 11.4 fL (7.4-10.4); Monocytes # 0.9 10^3/uL (0.2-0.9); Monocytes % 5.9 %; Neutrophils # 13.24 10^3/uL (1.8-7.7); Neutrophils % 87.6 %; Nucleated Red Blood Cells # 0.2 /100WBC; Nucleated Red Blood Cells % 1.6 %; Platelet Count 231 10^3/cmm (130-400); Red Blood Count 2.81 10^6/uL (4.1-5.3); Red Cell Distribution Width 15.6 % (12.1-15.1); White Blood Count 15.1 10^3/uL (4.0-10.0)
[2023-03-12 02:03] LABS: Alanine Aminotransferase 381 U/L (0-41); Albumin Level 2.6 g/dL (3.5-5.2); Alkaline Phosphatase 129 U/L (40-130); Anion Gap 11.5 (5-19); Aspartate Amino Transferase 142 U/L (0-40); Blood Urea Nitrogen 30 mg/dL (8-23); Calcium 7.7 mg/dL (8.5-10.5); Carbon Dioxide 31 mmol/L (22-29); Chloride 99 mmol/L (98-107); Globulin 2.4 g/dL (1.3-4.6); Glucose 108 mg/dL (65-115); Magnesium 2.2 mg/dL (1.7-2.3); Osmolality Calculated 289 mOsm/kg (285-295); Potassium 5.5 mmol/L (3.5-5.1); Sodium 136 mmol/L (136-145); Total Bilirubin 0.6 mg/dL (0.15-1.2)
[2023-03-12 02:25] LABS: Partial Thromboplastin Time 181.1 SECONDS (23.9-36.7)
[2023-03-12] MEDS: chlorhexidine gluconate 4% Btl 118 mL 1 APPLIC TOPICAL (03:03)
[2023-03-12] MEDS: propofol 1,000 MG/100 ML INJ 16.13 MG IV ×2 (05:39→18:33)
[2023-03-12 05:43] LABS: ABG PCO2 50.2 mmHg (35-45); ABG PH Result 7.41 (7.35-7.45); Arterial Blood Gas Hematocrit 32.2 % (42-52); Base Excess ABG 6.3 mmol/L (-2.0-2.0); Blood Gas Allen Test Pos; Blood Gas Operator Identificat JB; Blood Gas Sample Site Radial, left; Blood Gas Sample Type Arterial; Blood Gas Tidal Volume 0.45; HCO3 ABG 31.9 mmol/L (22-26); Oxygen Device VENT
[2023-03-12] MEDS: heparin drip 25,000 UNIT/500 ML PREMIX 33 UNIT IV (06:23)
--- NOTE | 2023-03-12 07:00 | XRR_ITS ---
PROCEDURE INFORMATION: Exam: XR Chest Exam date and time: 03/12/2023 8:59 AM Age: 82 years old Clinical indication: Shortness of breath; Additional info: Resp failure TECHNIQUE: Imaging protocol: Radiologic exam of the chest. Views: 1 view. COMPARISON: CR XR chest 1V portable [id number] 03/11/2023 2:49 PM FINDINGS: Tubes, catheters and devices: Endotracheal tube terminates approximately 3.2 cm above the michael. Enteric tube terminates in the region of the gastric body. Query kinking of the distal aspect of the tube. Right IJ central venous catheter terminates in the region of the distal SVC. Lungs: Unremarkable. No consolidation. Pleural spaces: Unremarkable. No pleural effusion. No pneumothorax. Heart/Mediastinum: Changes of prior CABG. Bones/joints: Unremarkable. XR/XR chest 1V portable [id number] IMPRESSION: Enteric tube terminates in the region of the gastric body. Query kinking of the distal aspect of the tube.
[2023-03-12] MEDS: budesonide 0.5 mg/2 mL Neb INHALATION ×2 (07:40→19:40)
--- NOTE | 2023-03-12 09:15 | PC.NURSE ---
SCDs off at this time. Right leg bruising has extended further dowm loer leg. Dr Gongora notified, ok with SCD being off as Heparin is therapeutic.
[2023-03-12] MEDS: metoprolol succinate ER (24 HR) 25 mg Tablet 12.5 MG PO (10:05)
[2023-03-12] MEDS: aspirin 81 mg EC Tablet PO (10:06)
[2023-03-12] MEDS: gabapentin 300 mg Capsule PO ×2 (10:06→17:38)
[2023-03-12] MEDS: pantoprazole 40 mg SDV IVP (10:06)
[2023-03-12 12:06] LABS: Add Urine Microscopic? YES; Bilirubin Urine Neg (Negative); Blood Urine Neg (Negative); Glucose Urine UA Norm (Normal); Ketones Urine Negative (Negative); Leukocyte Esterase Urine 1+ (Negative); Nitrate Urine Negative (Negative); Protein Urine Neg (Negative); Urine Appearance Hazy (CLEAR); Urine Color Yellow (Yellow); Urobilinogen Urine 4 mg/dL (Negative); pH Urine 5 (5-7)
[2023-03-12 12:10] LABS: Bacteria Urine TRACE /hpf; Mucus Urine TRACE /hpf; Squamous Epithelial Cell Urine RARE /hpf (0-5)
[2023-03-12 12:12] LABS: Uric Acid Crystals Urine 25-40 /hpf
[2023-03-12 12:20] LABS: Amorphous Sediment Urine 4+ /hpf
[2023-03-12 12:21] LABS: Add Urine Culture? No
--- NOTE | 2023-03-12 12:37 | PC.NURSE ---
Family in to visit, updated on progress and care plan.
[2023-03-12 17:10] LABS: Partial Thromboplastin Time 57.3 SECONDS (23.9-36.7)
--- NOTE | 2023-03-12 17:18 | PC.NURSE ---
Heparin gtt: PTT within therapeutic range. No adjustments to gtt rate necessary.
--- NOTE | 2023-03-12 17:19 | PC.NURSE ---
Shift summary: Pt rested in bed throughout the shift He remains intubated and sedated. Propofol stooped for approx 2 hours, pt scowled and had significant arm tremors at that time. Family was present at bedside, spoke to pt and he did clinical education consultant on their command. Propofol restarted back at same rate of 25mcg/kg/min. Fentanyl gtt decreased to 75mcg/hr. Heparin gtt infusing at 26ml/hr, 12.09 units/kg/hr. Levophed gtt stopped this am. Pt started back on metoprolol for his heart rate. He remains in A-Fib today, his rate has been 90-126 today. Urinalysis done and blood cultures collected today. Lungs are clear but diminshed to auscultation . Phlebotomy sticks on his arms are weeping serous fluid. No Bm noted today. Urine output of 450ml this shift. This am a couple of pustule spots on his left heel noted and a red spot of the left soul noted.
--- NOTE | 2023-03-12 17:36 | PC.NURSE ---
Shift summary: Pt rested in bed throughout the shift He remains intubated and sedated. Propofol stooped for approx 2 hours, pt scowled and had significant arm tremors at that time. Family was present at bedside, spoke to pt and he did preprint analyst on their command. Propofol restarted back at same rate of 25mcg/kg/min. Fentanyl gtt decreased to 75mcg/hr. Heparin gtt infusing at 26ml/hr, 12.09 units/kg/hr. Levophed gtt stopped this am. Pt started back on metoprolol for his heart rate. He remains in A-Fib today, his rate has been 90-126 today. Urinalysis done and blood cultures collected today. Lungs are clear but diminished to auscultation . Phlebotomy sticks on his arms are weeping serous fluid. No Bm noted today. Urine output of 450ml this shift. This am a couple of pustule spots on his left heel noted and a red spot of the left soles noted.
--- NOTE | 2023-03-12 17:51 | PC.NURSE ---
BP 86/44, MAP 58. Decreased propofol and Fentanyl gtt rates.
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
[2023-03-12 23:24] LABS: Partial Thromboplastin Time 36.3 SECONDS (23.9-36.7)
[2023-03-12] MEDS: heparin 5,000 unit/mL INJ 1 mL IV (23:34)
[2023-03-13] VITALS (83 sets, daily range): BP systolic 85–134; BP diastolic 49–80; PULSE 78–127; RESP 16–33; TEMP 36.7–38.1; O2SAT 90–99; BMI 38.5
[2023-03-13] MEDS: propofol 1,000 MG/100 ML INJ 19.35 MG IV ×2 (00:31→05:16)
[2023-03-13] MEDS: heparin drip 25,000 UNIT/500 ML PREMIX 31 UNIT IV (02:00)
[2023-03-13] MEDS: ipratropium-albuterol 3 mL Neb INHALATION ×4 (02:34→19:38)
[2023-03-13] MEDS: oxyCODONE 5 mg IR Tab/Cap PO ×2 (04:08→09:26)
[2023-03-13 04:20] LABS: Basophils % 0.1 %; Eosinophils % 0.1 %; Hemoglobin 9.6 g/dL (11.7-16.6); Lymphocytes # 1.7 10^3/uL (0.8-4.8); Lymphocytes % 11.6 %; Mean Corpuscular Hemoglobin 32.5 pg (28.0-34.0); Mean Corpuscular Volume 108.5 fl (80-94); Mean Platelet Volume 10.7 fL (7.4-10.4); Monocytes # 0.9 10^3/uL (0.2-0.9); Neutrophils # 11.99 10^3/uL (1.8-7.7); Neutrophils % 81.1 %; Nucleated Red Blood Cells # 0.3 /100WBC; Nucleated Red Blood Cells % 1.8 %; Platelet Count 255 10^3/cmm (130-400); Red Blood Count 2.95 10^6/uL (4.1-5.3); Red Cell Distribution Width 16.8 % (12.1-15.1); White Blood Count 14.8 10^3/uL (4.0-10.0)
[2023-03-13 04:43] LABS: Alanine Aminotransferase 278 U/L (0-41); Albumin Level 2.5 g/dL (3.5-5.2); Alkaline Phosphatase 120 U/L (40-130); Anion Gap 13.8 (5-19); Aspartate Amino Transferase 72 U/L (0-40); Blood Urea Nitrogen 22 mg/dL (8-23); Calcium 7.6 mg/dL (8.5-10.5); Carbon Dioxide 28 mmol/L (22-29); Chloride 102 mmol/L (98-107); Globulin 2.4 g/dL (1.3-4.6); Glucose 92 mg/dL (65-115); Osmolality Calculated 291 mOsm/kg (285-295); Potassium 4.8 mmol/L (3.5-5.1); Sodium 139 mmol/L (136-145); Total Bilirubin 0.7 mg/dL (0.15-1.2); Total Protein 4.9 g/dL (6.6-8.7); Uric Acid 5.1 mg/dL (3.4-7.0)
[2023-03-13 06:23] LABS: Partial Thromboplastin Time 62.5 SECONDS (23.9-36.7)
[2023-03-13] MEDS: budesonide 0.5 mg/2 mL Neb INHALATION ×2 (08:34→19:38)
[2023-03-13] MEDS: aspirin 81 mg EC Tablet PO (08:55)
[2023-03-13] MEDS: pantoprazole 40 mg SDV IVP (08:55)
[2023-03-13] MEDS: cefTRIAXone 1,000 MG in sodium chloride 0.9% (plus) 50 ML 100 MG IV (08:56)
[2023-03-13] MEDS: gabapentin 300 mg Capsule PO ×2 (08:56→18:44)
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
[2023-03-13] MEDS: dexmedetomidine 400 MCG in sodium chloride 0.9% (100 ml) 100 ML IV (15:18)
--- NOTE | 2023-03-13 18:00 | PC.NURSE ---
PTT value within therapeutic range, No changes to rate necessary at this time.
[2023-03-13 18:17] LABS: Partial Thromboplastin Time 61.7 SECONDS (23.9-36.7)
--- NOTE | 2023-03-13 19:47 | PC.NURSE ---
Fentanyl gtt wasted. Witnessed by Denise Montiel Rn.
--- NOTE | 2023-03-13 19:48 | PC.NURSE ---
Shift summary: Pt remains intubated. Sedation stopped this am. Pt did finally wake enough to follow 1-2 commands. He also became agitated and had tremors again today. Precedex gtt started. He failed his spontaneous breathing trail., back to VC-AC on vent, Setting remain the same. Heparin gtt remains infusing, pt within therapeutic range. Pt remains edematous on his arms, both weeping from prior phlebotomy sites. No Bm noted this shift. Pt had 750ml urine ouput.
[2023-03-13] MEDS: heparin drip 25,000 UNIT/500 ML PREMIX 32.7 UNIT IV (20:25)
[2023-03-14] VITALS (72 sets, daily range): BP systolic 89–115; BP diastolic 48–69; PULSE 73–108; RESP 16–34; TEMP 37.3–37.7; O2SAT 90–96; BMI 38.2
[2023-03-14] MEDS: dexmedetomidine 400 MCG in sodium chloride 0.9% (100 ml) 100 ML 14.92 MCG IV (00:04)
[2023-03-14] MEDS: ipratropium-albuterol 3 mL Neb INHALATION ×4 (02:49→19:50)
[2023-03-14] MEDS: chlorhexidine gluconate 4% Btl 118 mL 1 APPLIC TOPICAL (04:00)
[2023-03-14 04:31] LABS: Glucose Point of Care 90 mg/dL (70-110)
[2023-03-14 04:40] LABS: Basophils % 0.1 %; Eosinophils % 0.1 %; Hemoglobin 9.7 g/dL (11.7-16.6); Lymphocytes % 7.8 %; Mean Corpuscular HGB Conc 30.3 g/dL (30.0-36.0); Mean Corpuscular Hemoglobin 31.9 pg (28.0-34.0); Mean Corpuscular Volume 105.3 fl (80-94); Mean Platelet Volume 10.8 fL (7.4-10.4); Monocytes # 0.8 10^3/uL (0.2-0.9); Monocytes % 6.2 %; Neutrophils # 10.85 10^3/uL (1.8-7.7); Neutrophils % 85.1 %; Nucleated Red Blood Cells # 0.1 /100WBC; Nucleated Red Blood Cells % 0.5 %; Platelet Count 217 10^3/cmm (130-400); Red Blood Count 3.04 10^6/uL (4.1-5.3); Red Cell Distribution Width 17.1 % (12.1-15.1); White Blood Count 12.7 10^3/uL (4.0-10.0)
[2023-03-14 04:58] LABS: Partial Thromboplastin Time 78.1 SECONDS (23.9-36.7)
[2023-03-14 05:08] LABS: Alanine Aminotransferase 209 U/L (0-41); Albumin Level 2.4 g/dL (3.5-5.2); Alkaline Phosphatase 114 U/L (40-130); Anion Gap 12.2 (5-19); Aspartate Amino Transferase 60 U/L (0-40); Blood Urea Nitrogen 12 mg/dL (8-23); Calcium 7.7 mg/dL (8.5-10.5); Carbon Dioxide 27 mmol/L (22-29); Chloride 103 mmol/L (98-107); Globulin 2.5 g/dL (1.3-4.6); Glucose 91 mg/dL (65-115); Osmolality Calculated 285 mOsm/kg (285-295); Potassium 4.2 mmol/L (3.5-5.1); Sodium 138 mmol/L (136-145); Total Bilirubin 1.2 mg/dL (0.15-1.2); Total Protein 4.9 g/dL (6.6-8.7)
[2023-03-14] MEDS: budesonide 0.5 mg/2 mL Neb INHALATION ×2 (07:56→19:50)
[2023-03-14] MEDS: pantoprazole 40 mg SDV IVP (08:32)
[2023-03-14] MEDS: oxyCODONE 5 mg IR Tab/Cap PO (08:32)
[2023-03-14] MEDS: metoprolol succinate ER (24 HR) 25 mg Tablet 12.5 MG PO (08:33)
[2023-03-14] MEDS: cefTRIAXone 1,000 MG in sodium chloride 0.9% (plus) 50 ML 100 MG IV (08:33)
[2023-03-14] MEDS: aspirin 81 mg EC Tablet PO (08:33)
[2023-03-14] MEDS: gabapentin 300 mg Capsule PO ×2 (08:33→17:59)
[2023-03-14 10:44] LABS: Partial Thromboplastin Time 57.2 SECONDS (23.9-36.7)
[2023-03-14] MEDS: dexmedetomidine 400 MCG in sodium chloride 0.9% (100 ml) 100 ML 8.95 MCG IV (11:06)
--- NOTE | 2023-03-14 11:12 | PC.NURSE ---
PTT within therapeutic range, no changes to heparin gtt indicated.
--- NOTE | 2023-03-14 11:15 | PC.SOCIAL ---
IMM Update pg 2 of IMM updated and reviewed w/ patients daughter Brittny. Copy left @ bedside and copy in chart dated and intialed.
[2023-03-14] MEDS: heparin drip 25,000 UNIT/500 ML PREMIX 29 UNIT IV (13:25)
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
[2023-03-14 17:05] LABS: Partial Thromboplastin Time 45.6 SECONDS (23.9-36.7)
[2023-03-14] MEDS: methocarbamol 500 mg Tablet PO ×2 (17:58→20:43)
[2023-03-14] MEDS: heparin 5,000 unit/mL INJ 1 mL IV (18:36)
--- NOTE | 2023-03-14 19:15 | PC.NURSE ---
Shift summary: Pt rested in bed throughout the shift. He remains intubated and on Precedex gtt. Precedex gtt increased to 0.4mcg/kg. He was on CPap for 4 hours, he would get tachypniec and not take deep breaths at times. He would reduce his respiratory rate when encouraged and explained to. He was much more responsive today, nodding yes/no, moving extremities on command and attempting to write notes. He reaming on Heparin gtt, dosage adjusted per PTT results. 500 ml of dark leslie urine output noted. No Bm noted. Family called and came in for a brief time. They were kept updated on progress and plan of care.
[2023-03-14] MEDS: dexmedetomidine 400 MCG in sodium chloride 0.9% (100 ml) 100 ML 11.94 MCG IV (20:40)
[2023-03-15] VITALS (57 sets, daily range): BP systolic 96–128; BP diastolic 55–102; PULSE 71–144; RESP 15–41; TEMP 37.2–37.7; O2SAT 78–97; BMI 19.1
[2023-03-15 00:29] LABS: Glucose Point of Care 80 mg/dL (70-110)
[2023-03-15 01:05] LABS: Partial Thromboplastin Time 46.6 SECONDS (23.9-36.7)
[2023-03-15] MEDS: heparin 5,000 unit/mL INJ 1 mL IV ×2 (01:23→22:48)
[2023-03-15 02:49] LABS: Basophils % 0.1 %; Eosinophils % 0.1 %; Hematocrit 31.9 % (42.0-52.0); Hemoglobin 9.9 g/dL (11.7-16.6); Lymphocytes % 6.7 %; Mean Corpuscular Hemoglobin 33.1 pg (28.0-34.0); Mean Corpuscular Volume 106.7 fl (80-94); Mean Platelet Volume 10.6 fL (7.4-10.4); Monocytes % 6.8 %; Neutrophils # 12.26 10^3/uL (1.8-7.7); Neutrophils % 85.6 %; Nucleated Red Blood Cells % 0 %; Platelet Count 197 10^3/cmm (130-400); Red Blood Count 2.99 10^6/uL (4.1-5.3); White Blood Count 14.3 10^3/uL (4.0-10.0)
[2023-03-15] MEDS: ipratropium-albuterol 3 mL Neb INHALATION ×4 (03:09→20:25)
[2023-03-15 03:17] LABS: Alanine Aminotransferase 157 U/L (0-41); Albumin Level 2.3 g/dL (3.5-5.2); Alkaline Phosphatase 122 U/L (40-130); Anion Gap 12.7 (5-19); Aspartate Amino Transferase 48 U/L (0-40); Blood Urea Nitrogen 11 mg/dL (8-23); Calcium 7.6 mg/dL (8.5-10.5); Carbon Dioxide 27 mmol/L (22-29); Chloride 103 mmol/L (98-107); Globulin 2.8 g/dL (1.3-4.6); Glucose 81 mg/dL (65-115); Osmolality Calculated 284 mOsm/kg (285-295); Potassium 4.7 mmol/L (3.5-5.1); Sodium 138 mmol/L (136-145); Total Bilirubin 1.6 mg/dL (0.15-1.2); Total Protein 5.1 g/dL (6.6-8.7)
[2023-03-15] MEDS: acetaminophen 325 mg Tablet 650 MG PO (03:40)
[2023-03-15] MEDS: dexmedetomidine 400 MCG in sodium chloride 0.9% (100 ml) 100 ML 17.9 MCG IV (06:13)
[2023-03-15] MEDS: heparin drip 25,000 UNIT/500 ML PREMIX 33 UNIT IV (06:15)
[2023-03-15] MEDS: oxyCODONE 5 mg IR Tab/Cap PO ×2 (06:17→21:31)
[2023-03-15 07:19] LABS: Partial Thromboplastin Time 99.4 SECONDS (23.9-36.7)
[2023-03-15] MEDS: budesonide 0.5 mg/2 mL Neb INHALATION ×2 (07:42→20:25)
[2023-03-15] MEDS: cefTRIAXone 1,000 MG in sodium chloride 0.9% (plus) 50 ML 100 MG IV (08:20)
--- NOTE | 2023-03-15 08:25 | US_ITS ---
WS: [id number] RIGHT UPPER QUADRANT ULTRASOUND HISTORY: bilirubin rise COMPARISON: CT 03/11/2023 Liver: 20.4 cm in length. Moderate hepatomegaly. Coarse echotexture throughout the liver is probably hepatic steatosis. The liver is very poorly visualized throughout its entirety. No bile duct dilatati on is evident. Portal Vein: Normal hepatopetal flow with monophasic waveform. Gallbladder: Normally distended gallbladder. There is a small amount of sludge without shadowing in t he gallbladder. No stones are identified. No wall thickening. CBD: 0.3 cm Pancreas: Completely obscured by bowel gas. Right kidney: 11.4 cm in length. Normal size and echogenicity. No hydronephrosis or mass. Aorta and IVC: Completely obscured by bowel gas. There is a small amount of ascites adjacent to the liver. US/US gall bladder [id number] IMPRESSION: 1. Normal distended gallbladder with sludge. No stones identified. 2. No common bile duct dilatation. 3. Pancreas is completely obscured by bowel gas. 4. Moderate hepatic steatosis and hepatomegaly. 5. Very small amount of perihepatic ascites.
[2023-03-15] MEDS: metoprolol succinate ER (24 HR) 25 mg Tablet 12.5 MG PO (08:30)
[2023-03-15] MEDS: methocarbamol 500 mg Tablet PO ×4 (08:30→21:31)
[2023-03-15] MEDS: aspirin 81 mg EC Tablet PO (08:31)
[2023-03-15] MEDS: pantoprazole 40 mg SDV IVP (08:31)
[2023-03-15] MEDS: gabapentin 300 mg Capsule PO ×2 (08:31→17:29)
[2023-03-15 08:43] LABS: Total Bilirubin 1.7 mg/dL (0.15-1.2)
--- NOTE | 2023-03-15 11:18 | PC.NURSE ---
Patient extubated and restraints removed at [address] Crowe gave orders
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
[2023-03-15 14:46] LABS: Partial Thromboplastin Time 48.8 SECONDS (23.9-36.7)
[2023-03-15 22:11] LABS: Partial Thromboplastin Time 45.3 SECONDS (23.9-36.7)
[2023-03-16] VITALS (39 sets, daily range): BP systolic 96–125; BP diastolic 50–79; PULSE 85–118; RESP 22–38; TEMP 37–37.3; O2SAT 87–100
[2023-03-16] MEDS: ipratropium-albuterol 3 mL Neb INHALATION ×4 (01:59→20:15)
[2023-03-16 05:18] LABS: Basophils % 0.1 %; Eosinophils % 0.3 %; Hematocrit 31.7 % (42.0-52.0); Hemoglobin 9.6 g/dL (11.7-16.6); Lymphocytes # 1.2 10^3/uL (0.8-4.8); Lymphocytes % 8.4 %; Mean Corpuscular HGB Conc 30.3 g/dL (30.0-36.0); Mean Corpuscular Hemoglobin 32.7 pg (28.0-34.0); Mean Corpuscular Volume 107.8 fl (80-94); Mean Platelet Volume 11.1 fL (7.4-10.4); Monocytes # 1.1 10^3/uL (0.2-0.9); Monocytes % 7.6 %; Neutrophils # 12.19 10^3/uL (1.8-7.7); Neutrophils % 83.1 %; Nucleated Red Blood Cells % 0 %; Platelet Count 195 10^3/cmm (130-400); Red Blood Count 2.94 10^6/uL (4.1-5.3); Red Cell Distribution Width 16.1 % (12.1-15.1); White Blood Count 14.7 10^3/uL (4.0-10.0)
[2023-03-16 05:31] LABS: Partial Thromboplastin Time 48.7 SECONDS (23.9-36.7)
[2023-03-16 05:37] LABS: Alanine Aminotransferase 120 U/L (0-41); Albumin Level 2.4 g/dL (3.5-5.2); Alkaline Phosphatase 126 U/L (40-130); Aspartate Amino Transferase 37 U/L (0-40); Blood Urea Nitrogen 11 mg/dL (8-23); Calcium 7.9 mg/dL (8.5-10.5); Carbon Dioxide 29 mmol/L (22-29); Chloride 102 mmol/L (98-107); Globulin 2.9 g/dL (1.3-4.6); Glucose 85 mg/dL (65-115); Osmolality Calculated 283 mOsm/kg (285-295); Sodium 137 mmol/L (136-145); Total Bilirubin 1.8 mg/dL (0.15-1.2); Total Protein 5.3 g/dL (6.6-8.7)
[2023-03-16 05:40] LABS: Anion Gap 10.2 (5-19); Potassium 4.2 mmol/L (3.5-5.1)
[2023-03-16] MEDS: heparin 5,000 unit/mL INJ 1 mL IV ×2 (06:41→20:40)
[2023-03-16] MEDS: heparin drip 25,000 UNIT/500 ML PREMIX 30 UNIT IV (06:41)
[2023-03-16] MEDS: budesonide 0.5 mg/2 mL Neb INHALATION ×2 (07:40→20:15)
[2023-03-16] MEDS: acetaminophen 325 mg Tablet 650 MG PO (07:59)
[2023-03-16] MEDS: cefTRIAXone 1,000 MG in sodium chloride 0.9% (plus) 50 ML 100 MG IV (07:59)
[2023-03-16] MEDS: gabapentin 300 mg Capsule PO ×2 (08:40→16:49)
[2023-03-16] MEDS: metoprolol succinate ER (24 HR) 25 mg Tablet 12.5 MG PO (08:40)
[2023-03-16] MEDS: aspirin 81 mg EC Tablet PO (08:40)
[2023-03-16] MEDS: pantoprazole 40 mg SDV IVP (08:41)
[2023-03-16] MEDS: methocarbamol 500 mg Tablet PO ×4 (08:41→19:59)
--- NOTE | 2023-03-16 12:52 | PC.SOCIAL ---
Imm update Imm updated with patient and daughter at bedside. Copy of page 2 provided. Patient verbalized understanding. Copy in chart initialed, dated and timed.
[2023-03-16 14:03] LABS: Partial Thromboplastin Time 51.3 SECONDS (23.9-36.7)
[2023-03-16] MEDS: heparin drip 25,000 UNIT/500 ML PREMIX 32 UNIT IV (19:59)
[2023-03-16 20:35] LABS: Partial Thromboplastin Time 47.7 SECONDS (23.9-36.7)
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
[2023-03-17] VITALS (16 sets, daily range): BP systolic 96–113; BP diastolic 57–68; PULSE 79–115; RESP 18–37; TEMP 36.6–37.4; O2SAT 86–99
[2023-03-17] MEDS: ipratropium-albuterol 3 mL Neb INHALATION ×4 (01:41→21:04)
--- NOTE | 2023-03-17 03:11 | PC.NURSE ---
Addendum entered by Haley Durham RN 03/17/23 03:35: Telephone orders received. Original Note: This patient came to [facility] after shift change. Patient is slow to respond. His upper extremity edema is now 4+. Unable to draw PTT due to excess fluid. He is on heparin drip for bilateral PE. Informed Dr Galvan.
--- NOTE | 2023-03-17 03:17 | XRR_ITS ---
PROCEDURE INFORMATION: Exam: XR Chest Exam date and time: 03/17/2023 2:21 AM Age: 82 years old Clinical indication: Shortness of breath; Prior surgery; Surgery date: 6+ months; Surgery type: Cabg; Patient HX: Worsening SOB. ; Additional info: Chf TECHNIQUE: Imaging protocol: Radiologic exam of the chest. Views: 1 view. COMPARISON: CR (CHEST, ) 03/12/2023 8:59 AM FINDINGS: Lungs: There is redistribution and indistinctness of the pulmonary vasculature, in association with haziness of the lungs and small right pleural effusion, which in the setting of cardiomegaly is consistent with pulmonary edema. Pneumonia should be excluded clinically. No pneumothorax. Pleural spaces: See Lungs finding. Heart/Mediastinum: Stable cardiomediastinal silhouette. Bones/joints: Median sternotomy changes seen. XR/XR chest 1V portable [id number] IMPRESSION: Imaging findings of pulmonary edema with small right pleural effusion. Pneumonia should be excluded clinically.
[2023-03-17 03:32] LABS: ABG PH Result 7.27 (7.35-7.45); Alveolar-Arterial Oxygen Gradi 8.4 mmHg (5-10); Arterial Blood Gas Hematocrit 30.1 % (42-52); Base Excess ABG 2.2 mmol/L (-2.0-2.0); Blood Gas Sample Site Brachial, right; Blood Gas Sample Type Arterial; Carboxyhemoglobin 1.7 %THgb (0.4-20.1); HCO3 ABG 30.2 mmol/L (22-26); HGB O2 Sat 96.7 % (95-100); Ionized Calcium Level - ABG 1.2 mmol/L (1.1-1.4); Methemoglobin 0.6 % (0.4-1.5); Oxygen Device BIPAP; Potassium Level - ABG 4.9 mmol/L (3.5-5.0); Total Hemoglobin 9.8 g/dL (14-18)
[2023-03-17 03:36] LABS: ABG PCO2 66.2 mmHg (35-45)
[2023-03-17 03:38] LABS: Basophils % 0.1 %; Eosinophils % 0.1 %; Hematocrit 34.2 % (42.0-52.0); Hemoglobin 10.3 g/dL (11.7-16.6); Lymphocytes # 0.6 10^3/uL (0.8-4.8); Lymphocytes % 3.5 %; Mean Corpuscular HGB Conc 30.1 g/dL (30.0-36.0); Mean Corpuscular Hemoglobin 32.6 pg (28.0-34.0); Mean Corpuscular Volume 108.2 fl (80-94); Mean Platelet Volume 10.9 fL (7.4-10.4); Monocytes % 6.1 %; Neutrophils # 14.13 10^3/uL (1.8-7.7); Neutrophils % 89.5 %; Nucleated Red Blood Cells % 0 %; Platelet Count 231 10^3/cmm (130-400); Red Blood Count 3.16 10^6/uL (4.1-5.3); Red Cell Distribution Width 15.5 % (12.1-15.1); White Blood Count 15.8 10^3/uL (4.0-10.0)
[2023-03-17 03:54] LABS: Alanine Aminotransferase 105 U/L (0-41); Albumin Level 2.9 g/dL (3.5-5.2); Alkaline Phosphatase 136 U/L (40-130); Anion Gap 11.8 (5-19); Aspartate Amino Transferase 25 U/L (0-40); Blood Urea Nitrogen 16 mg/dL (8-23); Calcium 7.2 mg/dL (8.5-10.5); Carbon Dioxide 28 mmol/L (22-29); Chloride 99 mmol/L (98-107); Globulin 3.1 g/dL (1.3-4.6); Glucose 108 mg/dL (65-115); Osmolality Calculated 280 mOsm/kg (285-295); Potassium 4.8 mmol/L (3.5-5.1); Sodium 134 mmol/L (136-145); Total Bilirubin 1.2 mg/dL (0.15-1.2)
[2023-03-17 04:00] LABS: Creatinine Clr Calc Pharmacy 66.7525; Partial Thromboplastin Time 69.4 SECONDS (23.9-36.7)
[2023-03-17] MEDS: cefTRIAXone 1,000 MG in sodium chloride 0.9% (plus) 50 ML 100 MG IV (08:44)
[2023-03-17] MEDS: gabapentin 300 mg Capsule PO ×2 (09:28→18:38)
[2023-03-17] MEDS: metoprolol succinate ER (24 HR) 25 mg Tablet 12.5 MG PO (09:28)
[2023-03-17] MEDS: methocarbamol 500 mg Tablet PO ×3 (09:28→19:25)
[2023-03-17] MEDS: pantoprazole 40 mg SDV IVP (09:30)
[2023-03-17] MEDS: chlorhexidine gluconate 4% Btl 118 mL 1 APPLIC TOPICAL (09:30)
[2023-03-17] MEDS: aspirin 81 mg EC Tablet PO (09:30)
[2023-03-17 11:01] LABS: Partial Thromboplastin Time 54.2 SECONDS (23.9-36.7)
[2023-03-17] MEDS: heparin drip 25,000 UNIT/500 ML PREMIX 36 UNIT IV (11:50)
[2023-03-17] MEDS: heparin 5,000 unit/mL INJ 1 mL IV (13:12)
[2023-03-17 17:34] LABS: Partial Thromboplastin Time 72.3 SECONDS (23.9-36.7)
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
[2023-03-17] MEDS: budesonide 0.5 mg/2 mL Neb INHALATION (21:03)
[2023-03-17 23:10] LABS: Partial Thromboplastin Time 74.2 SECONDS (23.9-36.7)
[2023-03-18] VITALS (17 sets, daily range): BP systolic 95–127; BP diastolic 54–71; PULSE 74–109; RESP 12–31; TEMP 36.4–37.1; O2SAT 91–99
[2023-03-18] MEDS: ipratropium-albuterol 3 mL Neb INHALATION ×4 (01:47→20:43)
[2023-03-18] MEDS: heparin drip 25,000 UNIT/500 ML PREMIX 36 UNIT IV (02:09)
[2023-03-18 06:48] LABS: Basophils % 0.3 %; Eosinophils # 0.1 10^3/uL (0.0-0.8); Hematocrit 32.5 % (42.0-52.0); Hemoglobin 9.7 g/dL (11.7-16.6); Lymphocytes # 1.1 10^3/uL (0.8-4.8); Lymphocytes % 9.6 %; Mean Corpuscular HGB Conc 29.8 g/dL (30.0-36.0); Mean Corpuscular Hemoglobin 31.9 pg (28.0-34.0); Mean Corpuscular Volume 106.9 fl (80-94); Mean Platelet Volume 11.2 fL (7.4-10.4); Monocytes # 0.9 10^3/uL (0.2-0.9); Monocytes % 7.9 %; Neutrophils # 8.87 10^3/uL (1.8-7.7); Neutrophils % 80.6 %; Nucleated Red Blood Cells % 0 %; Platelet Count 220 10^3/cmm (130-400); Red Blood Count 3.04 10^6/uL (4.1-5.3); Red Cell Distribution Width 15.4 % (12.1-15.1)
[2023-03-18 07:06] LABS: Alanine Aminotransferase 81 U/L (0-41); Albumin Level 2.6 g/dL (3.5-5.2); Alkaline Phosphatase 127 U/L (40-130); Anion Gap 10.3 (5-19); Aspartate Amino Transferase 30 U/L (0-40); Blood Urea Nitrogen 13 mg/dL (8-23); Calcium 8.1 mg/dL (8.5-10.5); Carbon Dioxide 29 mmol/L (22-29); Chloride 100 mmol/L (98-107); Glucose 97 mg/dL (65-115); Osmolality Calculated 280 mOsm/kg (285-295); Potassium 4.3 mmol/L (3.5-5.1); Sodium 135 mmol/L (136-145); Total Protein 5.6 g/dL (6.6-8.7)
--- NOTE | 2023-03-18 07:36 | PC.NURSE ---
Report received, care assumed from previous shift.
[2023-03-18] MEDS: guaiFENesin 100 mg/5 mL UDC 10 mL 200 MG PO (08:18)
[2023-03-18] MEDS: magnesium hydroxide 30 mL UDC PO (08:18)
[2023-03-18] MEDS: cefTRIAXone 1,000 MG in sodium chloride 0.9% (plus) 50 ML 100 MG IV (08:18)
[2023-03-18] MEDS: metoprolol succinate ER (24 HR) 25 mg Tablet 12.5 MG PO (08:18)
[2023-03-18] MEDS: gabapentin 300 mg Capsule PO ×2 (08:19→17:13)
[2023-03-18] MEDS: methocarbamol 500 mg Tablet PO ×2 (08:20→20:04)
[2023-03-18] MEDS: aspirin 81 mg EC Tablet PO (08:20)
[2023-03-18] MEDS: pantoprazole 40 mg SDV IVP (08:21)
[2023-03-18] MEDS: budesonide 0.5 mg/2 mL Neb INHALATION ×2 (08:50→20:43)
[2023-03-18] MEDS: FUROsemide 10 mg/mL SDV 4mL 40 MG IVP (09:25)
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
[2023-03-18 10:59] LABS: Partial Thromboplastin Time 65.5 SECONDS (23.9-36.7)
--- NOTE | 2023-03-18 12:15 | PC.NURSE ---
Messaged Dr. Alex regarding d/cing heparin gtt and starting PO eliquis. Dr. Alex ordered RN to give eliquis dose now and shut off heparin gtt at the same time. New orders noted and implemented.
[2023-03-18] MEDS: apixaban 5 mg Tablet 10 MG PO ×2 (13:24→20:04)
--- NOTE | 2023-03-18 13:39 | PC.SOCIAL ---
IMM Updated Updated pt on IMM. No questions voiced. Provided pt a copy. Initialed, dated, & timed copy in chart.
[2023-03-18] MEDS: sennosides-docusate Tablet 1 TAB PO (17:13)
[2023-03-19] VITALS (19 sets, daily range): BP systolic 100–117; BP diastolic 57–72; PULSE 77–107; RESP 14–36; TEMP 36.3–36.8; O2SAT 90–97
[2023-03-19] MEDS: ipratropium-albuterol 3 mL Neb INHALATION ×4 (02:36→19:34)
[2023-03-19 04:34] LABS: Basophils % 0.3 %; Eosinophils # 0.1 10^3/uL (0.0-0.8); Eosinophils % 1.1 %; Hematocrit 32.5 % (42.0-52.0); Hemoglobin 9.8 g/dL (11.7-16.6); Lymphocytes % 13.1 %; Mean Corpuscular HGB Conc 30.2 g/dL (30.0-36.0); Mean Corpuscular Hemoglobin 32.8 pg (28.0-34.0); Mean Corpuscular Volume 108.7 fl (80-94); Mean Platelet Volume 11.3 fL (7.4-10.4); Monocytes # 0.7 10^3/uL (0.2-0.9); Neutrophils # 6.02 10^3/uL (1.8-7.7); Neutrophils % 76.1 %; Nucleated Red Blood Cells % 0 %; Platelet Count 212 10^3/cmm (130-400); Red Blood Count 2.99 10^6/uL (4.1-5.3); Red Cell Distribution Width 15.7 % (12.1-15.1); White Blood Count 7.9 10^3/uL (4.0-10.0)
[2023-03-19 04:56] LABS: Alanine Aminotransferase 69 U/L (0-41); Albumin Level 2.6 g/dL (3.5-5.2); Alkaline Phosphatase 125 U/L (40-130); Anion Gap 9.9 (5-19); Aspartate Amino Transferase 30 U/L (0-40); Blood Urea Nitrogen 10 mg/dL (8-23); Calcium 8.1 mg/dL (8.5-10.5); Carbon Dioxide 32 mmol/L (22-29); Chloride 97 mmol/L (98-107); Globulin 2.9 g/dL (1.3-4.6); Glucose 78 mg/dL (65-115); Magnesium 2.2 mg/dL (1.7-2.3); Osmolality Calculated 278 mOsm/kg (285-295); Phosphorus 1.7 mg/dL (2.5-4.5); Potassium 3.9 mmol/L (3.5-5.1); Sodium 135 mmol/L (136-145); Total Protein 5.5 g/dL (6.6-8.7)
[2023-03-19] MEDS: budesonide 0.5 mg/2 mL Neb INHALATION ×2 (07:25→19:34)
--- NOTE | 2023-03-19 08:00 | PC.NURSE ---
lethargy pt is lethargic. open eyes when waken up but then falls back to sleep. dr antunez notified, received order to check blood gas. RT notified.
--- NOTE | 2023-03-19 08:30 | PC.NURSE ---
bipap applied fiO2-25%. Per RT to keep the bipap until lunchtime.
[2023-03-19] MEDS: cefTRIAXone 1,000 MG in sodium chloride 0.9% (plus) 50 ML 100 MG IV (08:37)
[2023-03-19 08:52] LABS: ABG PCO2 75.5 mmHg (35-45); ABG PH Result 7.29 (7.35-7.45); Alveolar-Arterial Oxygen Gradi 3.8 mmHg (5-10); Arterial Blood Gas Hematocrit 31.3 % (42-52); Base Excess ABG 7.6 mmol/L (-2.0-2.0); Blood Gas Allen Test Pos; Blood Gas Operator Identificat AMH; Blood Gas Sample Site Radial, left; Blood Gas Sample Type Arterial; Carboxyhemoglobin 2.2 %THgb (0.4-20.1); HCO3 ABG 36.1 mmol/L (22-26); HGB O2 Sat 94.2 % (95-100); Ionized Calcium Level - ABG 1.2 mmol/L (1.1-1.4); Methemoglobin 0.4 % (0.4-1.5); Oxygen Device NC; Oxygen Saturation ABG 96.6; PO2 ABG 78.3 mmHg (80.0-100.0); Potassium Level - ABG 3.9 mmol/L (3.5-5.0); Total Hemoglobin 10.2 g/dL (14-18)
[2023-03-19] MEDS: pantoprazole 40 mg SDV IVP (09:30)
--- NOTE | 2023-03-19 10:00 | PC.NURSE ---
pt is awake while bipap running. informed pt and dgtr at bedside to keep the bipap until noon. they verbalizes understanding.
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
[2023-03-19] MEDS: apixaban 5 mg Tablet 10 MG PO ×2 (12:04→20:02)
[2023-03-19] MEDS: metoprolol succinate ER (24 HR) 25 mg Tablet 12.5 MG PO (12:05)
[2023-03-19] MEDS: sennosides-docusate Tablet 1 TAB PO (12:05)
[2023-03-19] MEDS: aspirin 81 mg EC Tablet PO (12:05)
[2023-03-19] MEDS: dexamethasone 10 mg/mL INJ 6 MG IVP (12:08)
[2023-03-19] MEDS: FUROsemide 10 mg/mL SDV 2mL 20 MG IVP ×2 (12:09→22:35)
--- NOTE | 2023-03-19 12:34 | PC.NURSE ---
bipap off. RT is ok to hold off. pt is alert,awake, nasal cannula applied back on.
[2023-03-19] MEDS: gabapentin 100 mg Capsule 200 MG PO (18:09)
[2023-03-19] MEDS: guaiFENesin 100 mg/5 mL UDC 10 mL 200 MG PO (18:09)
[2023-03-19] MEDS: oxyCODONE 5 mg IR Tab/Cap PO (20:03)
[2023-03-20] VITALS (22 sets, daily range): BP systolic 93–130; BP diastolic 58–80; PULSE 65–98; RESP 15–35; TEMP 36.3–36.5; O2SAT 93–100
[2023-03-20] MEDS: ipratropium-albuterol 3 mL Neb INHALATION ×4 (01:12→20:02)
[2023-03-20] MEDS: budesonide 0.5 mg/2 mL Neb INHALATION ×2 (07:40→20:02)
[2023-03-20] MEDS: pantoprazole 40 mg SDV IVP (08:45)
[2023-03-20] MEDS: aspirin 81 mg EC Tablet PO (08:46)
[2023-03-20] MEDS: gabapentin 100 mg Capsule 200 MG PO ×2 (08:46→17:50)
[2023-03-20] MEDS: metoprolol succinate ER (24 HR) 25 mg Tablet 12.5 MG PO (08:46)
[2023-03-20] MEDS: cefTRIAXone 1,000 MG in sodium chloride 0.9% (plus) 50 ML 100 MG IV (08:47)
[2023-03-20] MEDS: apixaban 5 mg Tablet 10 MG PO ×2 (08:47→20:16)
[2023-03-20] MEDS: sennosides-docusate Tablet 1 TAB PO ×2 (08:47→17:51)
--- NOTE | 2023-03-20 10:25 | PC.SOCIAL ---
Imm update Imm updated with patient at bedside. Copy of page 2 provided. Patient verbalized understanding. Copy in chart initialed, dated and timed.
[2023-03-20] MEDS: dexamethasone 10 mg/mL INJ 6 MG IVP (10:43)
[2023-03-20] MEDS: FUROsemide 10 mg/mL SDV 2mL 20 MG IVP ×2 (10:44→22:32)
--- NOTE | 2023-03-20 11:04 | PC.PT ---
Therapist that treated on 03/19/2023 told me that patient refused x2 for therapy entirely. He also refused out of bed today but agreed to in bed exercise and supine/sit.
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
--- NOTE | 2023-03-20 14:06 | XRR_ITS ---
PROCEDURE INFORMATION: Exam: XR Chest Exam date and time: 03/20/2023 2:46 PM Age: 82 years old Clinical indication: Other: Hypoxia TECHNIQUE: Imaging protocol: Radiologic exam of the chest. Views: 1 view. COMPARISON: CR (CHEST, ) 03/17/2023 2:21 AM FINDINGS: Lungs: No consolidation. Pleural spaces: Small volume right pleural effusion. No pneumothorax. Heart/Mediastinum: Mild cardiomegaly. Bones/joints: Sternotomy wires. Visualized osseous structures are intact. XR/XR chest 1V portable [id number] IMPRESSION: Mild cardiomegaly with small volume right pleural effusion.
[2023-03-21] VITALS (11 sets, daily range): BP systolic 118–129; BP diastolic 69–72; PULSE 60–100; RESP 20–30; TEMP 36.6; O2SAT 83–99
[2023-03-21] MEDS: ipratropium-albuterol 3 mL Neb INHALATION ×2 (01:57→07:44)
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
[2023-03-21] MEDS: budesonide 0.5 mg/2 mL Neb INHALATION (07:44)
[2023-03-21] MEDS: potassium phosphate (mEq K) 40 MEQ in sodium chloride 0.9% (100 ml) 100 ML 27.25 MEQ IV (09:04)
[2023-03-21] MEDS: apixaban 5 mg Tablet 10 MG PO (09:07)
[2023-03-21] MEDS: sennosides-docusate Tablet 1 TAB PO (09:07)
[2023-03-21] MEDS: gabapentin 100 mg Capsule 200 MG PO (09:07)
[2023-03-21] MEDS: metoprolol succinate ER (24 HR) 25 mg Tablet 12.5 MG PO (09:07)
--- NOTE | 2023-03-21 09:21 | PC.NURSE ---
Confirmed with Dr. Jain that patient is to receive IV potassium 40meq. Potassium this morning was 3.9.
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
[2023-03-21 11:25] LABS: SARS Covid-2 Antigen negative (Negative)
--- NOTE | 2023-03-21 13:17 | PC.NURSE ---
Report called to Sherry at [facility]. Rigo Sprague came for transport and transported him to [facility] at 1315.
== END 2023-03-21 13:16 | disposition skilled nursing facility (03) | DRG 207 ==
LOC: ER 08:37 → ICU 11:04 → CSU 03-16 19:32
PROVIDERS: Internal Medicine; Student in an Organized Health Care Education/Training Program; Admitting Provider Internal Medicine; Emergency Provider Emergency Medicine; PCP Family Medicine; Visit Provider Internal Medicine
DX: J96.22 Acute and chronic respiratory failure with hypercapnia (principal); I26.99 Other pulmonary embolism without acute cor pulmonale; G93.41 Metabolic encephalopathy; J44.1 Chronic obstructive pulmonary disease with (acute) exacerbation; E66.2 Morbid (severe) obesity with alveolar hypoventilation; F05 Delirium due to known physiological condition; J96.21 Acute and chronic respiratory failure with hypoxia; I10 Essential (primary) hypertension; I25.5 Ischemic cardiomyopathy; I48.91 Unspecified atrial fibrillation; S32.010D Wedge compression fracture of first lumbar vertebra, subsequent encounter for fracture with routine healing; S32.020D Wedge compression fracture of second lumbar vertebra, subsequent encounter for fracture with routine healing; S32.040D Wedge compression fracture of fourth lumbar vertebra, subsequent encounter for fracture with routine healing; S32.030D Wedge compression fracture of third lumbar vertebra, subsequent encounter for fracture with routine healing; S22.43XD Multiple fractures of ribs, bilateral, subsequent encounter for fracture with routine healing; V89.2XXD Person injured in unspecified motor-vehicle accident, traffic, subsequent encounter; Z99.81 Dependence on supplemental oxygen; Z79.51 Long term (current) use of inhaled steroids; Z79.891 Long term (current) use of opiate analgesic; I25.10 Atherosclerotic heart disease of native coronary artery without angina pectoris; Z95.1 Presence of aortocoronary bypass graft; E78.5 Hyperlipidemia, unspecified; E03.9 Hypothyroidism, unspecified; I25.2 Old myocardial infarction; Z68.37 Body mass index [BMI] 37.0-37.9, adult; R25.1 Tremor, unspecified; B96.89 Other specified bacterial agents as the cause of diseases classified elsewhere; I95.9 Hypotension, unspecified; E87.5 Hyperkalemia; Z98.1 Arthrodesis status; Z87.891 Personal history of nicotine dependence
CPT/HCPCS: 31500; 36415; 36416; 36556; 36592; 36600; 70450; 71045; 71275; 74177; 76705; 80051; 80053; 80074; 81001; 82247; 82248; 82330; 82607; 82746; 82803; 82805; 82962; 83735; 83880; 84100; 84132; 84145; 84443; 84484; 84550; 85025; 85610; 85730; 87040; 87070; 87205; 87426; 92507; 92523; 92526; 92610; 93005; 93306; 93970; 94002; 94003; 94640; 94660; 94760; 94799; 96365; 96366; 96367; 96375; 96376; 97110; 97162; 97167; 97530; 97535; 99291; A4570; C9113; J0456; J0610; J0696; J1100; J1644; J1815; J1940; J2704; J3010; J3490; J7030; J7040; J7050; J7060; J7613; J7626; Q9967